=== PATIENT | male | born 1950 | race Caucasian/White ===

== ENCOUNTER → 2017-11-11 | Outpatient (CLI) | payer MEDICARE | END | disposition home or self-care (01) | LOC: LABWHC1 11:31 | PROVIDERS: ATTEND Thoracic Surgery (Cardiothoracic Vascular Surgery) | DX: Z53.9 Procedure and treatment not carried out, unspecified reason (principal) ==

== ENCOUNTER 2017-11-30 12:06 | Inpatient (IN) | payer MEDICARE, OTHER ==
[2017-11-30 13:38] LABS: Basophils % (A) 0 %; Eosinophils # (A) 0.2 k/uL (0-0.7); Eosinophils % (A) 3 %; HGB 12.7 gm/dL (13.0-17.5); Lymphocytes # (A) 1.7 k/uL (1.0-4.8); Lymphocytes % (A) 24 %; MCH 30.3 pg (25.0-35.0); MCHC 33.3 g/dL (31.0-37.0); MCV 90.8 fL (80.0-100.0); Mean Platelet Volume 7.4; Monocytes # (A) 0.4 k/uL (0-1.0); Monocytes % (A) 5 %; Neutrophils # (A) 4.6 k/uL (1.3-7.7); Neutrophils % (A) 65 %; Platelet Count 279 k/uL (150-450); RBC 4.18 m/uL (4.30-5.90); RDW 14.6 % (11.5-15.5)
[2017-11-30 13:47] LABS: ALT 29 U/L (21-72); AST 19 U/L (17-59); Albumin 3.9 g/dL (3.5-5.0); Alkaline Phosphatase 86 U/L (38-126); Anion Gap 13 mmol/L; Blood Urea Nitrogen 18 mg/dL (9-20); Carbon Dioxide 29 mmol/L (22-30); Chloride 101 mmol/L (98-107); Glucose 196 mg/dL (74-99); Sodium 143 mmol/L (137-145); Total Bilirubin 0.3 mg/dL (0.2-1.3); Total Protein 7.6 g/dL (6.3-8.2)
[2017-11-30] MEDS ORDERED: SODIUM CHLORIDE 0.9% 1,000 ML IV STA (13:48)
[2017-11-30] MEDS ORDERED: ASPIRIN 81 MG PO STA (13:48)
[2017-11-30] MEDS ORDERED: NITROGLYCERIN OINT 1 INCH/GM PACKET TOPICAL STA (13:48)
[2017-11-30 13:49] LABS: Partial Thromboplastin Time 23.3 sec (22.0-30.0); Prothrombin Time 10.1 sec (9.0-12.0)
[2017-11-30] MEDS ORDERED: AMPICILLIN-SULBACTAM 3 GM in SODIUM CHLORIDE 0.9% 100 ML IVPB STA (13:51)
[2017-11-30] MEDS ORDERED: VANCOMYCIN IV PER PHARMACY 1 EACH MISC MISCELLANE PRN (13:51)
[2017-11-30] MEDS ORDERED: VANCOMYCIN 2,250 MG in SODIUM CHLORIDE 0.9% 500 ML IVPB STA (13:58)
--- NOTE | 2017-11-30 14:00 | ED ---
General Adult HPI - General Chief complaint: Recheck/Abnormal Lab/Rx Stated complaint: CHEST PAIN, POSS INFECTION ON AMPUTATION Time Seen by Provider: 11/30/17 13:31 Source: patient Mode of arrival: wheelchair Limitations: no limitations - History of Present Illness Initial comments: This 67-year-old white male presents with the complaint of a right foot infection. He does have a history of diabetes and previous osteomyelitis of his right foot. He's had all of his toes amputated approximately 2 years ago. He states that he developed an infection while in [place] last month and had a partial amputation of the lateral aspect of the right foot due to possible gangrene. He states that he started getting drainage a couple days afterwards and the wound never healed and infection has progressed. He currently is on Augmentin and states that he's been compliant with this medication. He has had a drainage from the right foot. He also has had increased pain and increased swelling and erythema. He denies any known fever. He states that he also received 2 balloons to his right lower extremity artery due to some blockage one day after the amputation. He also is a diabetic. He did see his wound care doctor approximately a week and a half but is unable to follow back up with him due to insurance problems. In addition, he is complaining of some midsternal chest pain described as a pressure type sensation which is been present for the last 3 days. He does have a history of a two-vessel CABG. He also has 2 cardiac stents. His last stress and heart catheterization was approximately 2 years ago. He denies any shortness of breath. No other complaints or modifying factors. - Related Data Home Medications Medication Instructions Recorded Confirmed Insulin NPH/Reg Insulin 70/30 20 units SQ AC-TID 12/05/15 11/30/17 [humuLIN 70/30 VIAL] Acetaminophen Tab [Tylenol Tab] 1,000 mg PO Q6HR PRN 11/30/17 11/30/17 Amoxic-Pot Clav 875-125Mg 1 tab PO Q12HR 11/30/17 11/30/17 [Augmentin 875-125] Aspirin EC [Ecotrin Low Dose] 81 mg PO DAILY 11/30/17 11/30/17 Cephalexin [Keflex] 250 mg PO QID 11/30/17 11/30/17 Divalproex Sodium [Depakote ER] 500 mg PO DAILY 11/30/17 11/30/17 Insulin Glargine [Lantus] 30 unit SQ HS 11/30/17 11/30/17 Pregabalin [Lyrica] 75 mg PO BID 11/30/17 11/30/17 Sertraline [Zoloft] 100 mg PO BID 11/30/17 11/30/17 Tadalafil [Cialis] 5 mg PO DAILY 11/30/17 11/30/17 oxyCODONE HCL 15 mg PO QID PRN 11/30/17 11/30/17 Allergies Allergy/AdvReac Type Severity Reaction Status Date / Time sulfamethoxazole Allergy Rash/Hives Verified 11/30/17 13:13 [From Bactrim] trimethoprim [From Bactrim] Allergy Rash/Hives Verified 11/30/17 13:13 Review of Systems ROS Statement: Those systems with pertinent positive or pertinent negative responses have been documented in the HPI. ROS Other: All systems not noted in ROS Statement are negative. Past Medical History Past Medical History: Asthma, Coronary Artery Disease (CAD), CVA/TIA, Diabetes Mellitus, Hyperlipidemia, Hypertension, Myocardial Infarction ([place]), Sleep Apnea/ CPAP/BIPAP Additional Past Medical History / Comment(s): NO CPAP MACHINE,BRONCHITIS, TIA, BEGINNINGS OF CATARACTS,CONSTIPATED,ARTHRITIS,ABD HERNIA, Last Myocardial Infarction Date:: 2003 History of Any Multi-Drug Resistant Organisms: MRSA Date of last positivie culture/infection: 12/06/15 MDRO Source:: RIGHT HAND Past Surgical History: Coronary Bypass/CABG, Heart Catheterization With Stent, Orthopedic Surgery Additional Past Surgical History / Comment(s): HEART CATH AND 2 STENTS BEFORE THE 2 VESSEL BYPASS that was done in 2007, SHATTERED LT HAND SX TO REPAIR.-- right foot toes amputated october 2017 ([place]) Past Anesthesia/Blood Transfusion Reactions: No Reported Reaction Date of Last Stent Placement:: 2003? Past Psychological History: Anxiety, Bipolar, Depression Smoking Status: Never smoker Past Alcohol Use History: Occasional Past Drug Use History: None Reported - Past Family History Mother Family Medical History: Cancer, GERD/Reflux Additional Family Medical History / Comment(s): skin cancer Father Family Medical History: Myocardial Infarction ([place]) Additional Family Medical History / Comment(s): mi's x3 General Exam - General Exam Comments Initial Comments: GENERAL: The patient is well nourished and well hydrated. VITAL SIGNS: Heart rate, blood pressure, respiratory rate reviewed as recorded in nurse's notes. EYES: Pupils are round and reactive. Extraocular movements are intact. No conjunctival / lid redness or swelling. ENT: No external evidence of injury, swelling, or ecchymosis. Airway is patent. Throat is clear. NECK: Nontender. No swelling or evidence of injury. No subcutaneous emphysema. Trachea is midline. No thyroid mass. HEART: Regular rate and rhythm. Good peripheral pulses. LUNGS/CHEST: Breath sounds clear and equal bilaterally. No rales, rhonchi, or wheezes. No ecchymosis, subcutaneous emphysema, or tenderness. ABDOMEN: Abdomen soft without tenderness. No palpable masses or organomegaly. No peritoneal signs. No abdominal wall swelling or ecchymosis. Ventral abdominal hernia noted. EXTREMITIES: There is an open wound noted to the right foot primarily on the lateral aspect of the foot. There is no current drainage but there is a significant malodorous scent. There is associated erythema diffusely to the right foot. The wound measures approximately 7 cm in length and does extend to the superior portion of the right foot. There is good capillary refill to the distal aspect of the right foot. The toes have been previously amputated. Pedal pulses are not palpable. Normal muscle tone and function. No thoracolumbar tenderness. NEUROLOGIC: Sensation is grossly intact. Cranial nerve exam reveals face is symmetrical, tongue is midline, speech is clear. SKIN: No abrasions or ecchymosis is noted. No induration or masses noted. PSYCHIATRIC: Alert and oriented. Appropriate behavior and judgment. Limitations: no limitations Course Vital Signs 11/30/17 11/30/17 11/30/17 12:13 13:21 14:55 Temperature 98.1 F Pulse Rate 65 63 64 Respiratory 18 18 18 Rate Blood Pressure 180/92 168/83 188/102 O2 Sat by Pulse 98 96 98 Oximetry Medical Decision Making - Medical Decision Making The patient was seen and examined. All diagnostics are reviewed. An IV is started and antibiotics are ordered of vancomycin and Unasyn. He receives some aspirin as well as some Nitropaste. The wound was explored and a culture is taken. The wound is further dressed. The EKG is done and this does show a sinus bradycardia at a rate of 57. There is evidence of a right bundle-branch block with associated ST-T wave changes in the anteroseptal leads. The CT intervals 176, QRS duration is 138, and the QTC intervals 478. The laboratory does show evidence of an anemia, elevated sedimentation rate, elevated CRP, and elevated blood sugar. The right foot x-ray does not show definitive osteomyelitis but there is potentially suspicious changes. Please see report for details. The chest x-ray does not show any acute process. Overall, it is felt as though the patient does have right foot cellulitis. He also potentially may have osteomyelitis. He also is having some chest pain with a significant cardiac history and the possibility of acute coronary syndrome certainly is possible. It is felt as though he would require admission to the hospital with specialty consultation. The case is discussed with internal medicine and they're agreeable to admission. - Lab Data Result diagrams: 11/30/17 13:20 11/30/17 13:20 Lab Results 11/30/17 11/30/17 11/30/17 Range/Units 13:20 13:20 13:20 WBC 7.0 (3.8-10.6) k/uL RBC 4.18 L (4.30-5.90) m/uL Hgb 12.7 L (13.0-17.5) gm/dL Hct 38.0 L (39.0-53.0) % MCV 90.8 (80.0-100.0) fL MCH 30.3 (25.0-35.0) pg MCHC 33.3 (31.0-37.0) g/dL RDW 14.6 (11.5-15.5) % Plt Count 279 (150-450) k/uL Neutrophils % 65 % Lymphocytes % 24 % Monocytes % 5 % Eosinophils % 3 % Basophils % 0 % Neutrophils # 4.6 (1.3-7.7) k/uL Lymphocytes # 1.7 (1.0-4.8) k/uL Monocytes # 0.4 (0-1.0) k/uL Eosinophils # 0.2 (0-0.7) k/uL Basophils # 0.0 (0-0.2) k/uL ESR (0-15) mm/hr PT (9.0-12.0) sec INR (<1.2) APTT (22.0-30.0) sec Sodium 143 (137-145) mmol/L Potassium 5.0 (3.5-5.1) mmol/L Chloride 101 (98-107) mmol/L Carbon Dioxide 29 (22-30) mmol/L Anion Gap 13 mmol/L BUN 18 (9-20) mg/dL Creatinine 0.80 (0.66-1.25) mg/dL Est GFR (CKD-EPI)AfAm >90 (>60 ml/min/1.73 sqM) Est GFR (CKD-EPI)NonAf >90 (>60 ml/min/1.73 sqM) Glucose 196 H (74-99) mg/dL Plasma Lactic Acid Hitesh 1.1 (0.7-2.0) mmol/L Calcium 10.0 (8.4-10.2) mg/dL Magnesium (1.6-2.3) mg/dL Total Bilirubin 0.3 (0.2-1.3) mg/dL AST 19 (17-59) U/L ALT 29 (21-72) U/L Alkaline Phosphatase 86 (38-126) U/L Total Creatine Kinase (55-170) U/L CK-MB (CK-2) (0.0-2.4) ng/mL CK-MB (CK-2) Rel Index Troponin I (0.000-0.034) ng/mL C-Reactive Protein (<10.0) mg/L Total Protein 7.6 (6.3-8.2) g/dL Albumin 3.9 (3.5-5.0) g/dL Urine Color Urine Appearance (Clear) Urine pH (5.0-8.0) Ur Specific Aurora (1.001-1.035) Urine Protein (Negative) Urine Glucose (UA) (Negative) Urine Ketones (Negative) Urine Blood (Negative) Urine Nitrite (Negative) Urine Bilirubin (Negative) Urine Urobilinogen (<2.0) mg/dL Ur Leukocyte Esterase (Negative) Urine RBC (0-5) /hpf Urine WBC (0-5) /hpf Hyaline Casts (0-2) /lpf Urine Mucus (None) /hpf 11/30/17 11/30/17 11/30/17 Range/Units 13:20 13:20 13:20 WBC (3.8-10.6) k/uL RBC (4.30-5.90) m/uL Hgb (13.0-17.5) gm/dL Hct (39.0-53.0) % MCV (80.0-100.0) fL MCH (25.0-35.0) pg MCHC (31.0-37.0) g/dL RDW (11.5-15.5) % Plt Count (150-450) k/uL Neutrophils % % Lymphocytes % % Monocytes % % Eosinophils % % Basophils % % Neutrophils # (1.3-7.7) k/uL Lymphocytes # (1.0-4.8) k/uL Monocytes # (0-1.0) k/uL Eosinophils # (0-0.7) k/uL Basophils # (0-0.2) k/uL ESR (0-15) mm/hr PT 10.1 (9.0-12.0) sec INR 1.0 (<1.2) APTT 23.3 (22.0-30.0) sec Sodium (137-145) mmol/L Potassium (3.5-5.1) mmol/L Chloride (98-107) mmol/L Carbon Dioxide (22-30) mmol/L Anion Gap mmol/L BUN (9-20) mg/dL Creatinine (0.66-1.25) mg/dL Est GFR (CKD-EPI)AfAm (>60 ml/min/1.73 sqM) Est GFR (CKD-EPI)NonAf (>60 ml/min/1.73 sqM) Glucose (74-99) mg/dL Plasma Lactic Acid Hitesh (0.7-2.0) mmol/L Calcium (8.4-10.2) mg/dL Magnesium 1.5 L (1.6-2.3) mg/dL Total Bilirubin (0.2-1.3) mg/dL AST (17-59) U/L ALT (21-72) U/L Alkaline Phosphatase (38-126) U/L Total Creatine Kinase 55 (55-170) U/L CK-MB (CK-2) 2.3 (0.0-2.4) ng/mL CK-MB (CK-2) Rel Index 4.2 Troponin I 0.013 (0.000-0.034) ng/mL C-Reactive Protein 15.8 H (<10.0) mg/L Total Protein (6.3-8.2) g/dL Albumin (3.5-5.0) g/dL Urine Color Urine Appearance (Clear) Urine pH (5.0-8.0) Ur Specific Aurora (1.001-1.035) Urine Protein (Negative) Urine Glucose (UA) (Negative) Urine Ketones (Negative) Urine Blood (Negative) Urine Nitrite (Negative) Urine Bilirubin (Negative) Urine Urobilinogen (<2.0) mg/dL Ur Leukocyte Esterase (Negative) Urine RBC (0-5) /hpf Urine WBC (0-5) /hpf Hyaline Casts (0-2) /lpf Urine Mucus (None) /hpf 11/30/17 11/30/17 Range/Units 13:20 13:55 WBC (3.8-10.6) k/uL RBC (4.30-5.90) m/uL Hgb (13.0-17.5) gm/dL Hct (39.0-53.0) % MCV (80.0-100.0) fL MCH (25.0-35.0) pg MCHC (31.0-37.0) g/dL RDW (11.5-15.5) % Plt Count (150-450) k/uL Neutrophils % % Lymphocytes % % Monocytes % % Eosinophils % % Basophils % % Neutrophils # (1.3-7.7) k/uL Lymphocytes # (1.0-4.8) k/uL Monocytes # (0-1.0) k/uL Eosinophils # (0-0.7) k/uL Basophils # (0-0.2) k/uL ESR 77 H (0-15) mm/hr PT (9.0-12.0) sec INR (<1.2) APTT (22.0-30.0) sec Sodium (137-145) mmol/L Potassium (3.5-5.1) mmol/L Chloride (98-107) mmol/L Carbon Dioxide (22-30) mmol/L Anion Gap mmol/L BUN (9-20) mg/dL Creatinine (0.66-1.25) mg/dL Est GFR (CKD-EPI)AfAm (>60 ml/min/1.73 sqM) Est GFR (CKD-EPI)NonAf (>60 ml/min/1.73 sqM) Glucose (74-99) mg/dL Plasma Lactic Acid Hitesh (0.7-2.0) mmol/L Calcium (8.4-10.2) mg/dL Magnesium (1.6-2.3) mg/dL Total Bilirubin (0.2-1.3) mg/dL AST (17-59) U/L ALT (21-72) U/L Alkaline Phosphatase (38-126) U/L Total Creatine Kinase (55-170) U/L CK-MB (CK-2) (0.0-2.4) ng/mL CK-MB (CK-2) Rel Index Troponin I (0.000-0.034) ng/mL C-Reactive Protein (<10.0) mg/L Total Protein (6.3-8.2) g/dL Albumin (3.5-5.0) g/dL Urine Color Yellow Urine Appearance Clear (Clear) Urine pH 5.5 (5.0-8.0) Ur Specific Aurora 1.015 (1.001-1.035) Urine Protein 2+ H (Negative) Urine Glucose (UA) Negative (Negative) Urine Ketones Negative (Negative) Urine Blood Small H (Negative) Urine Nitrite Negative (Negative) Urine Bilirubin Negative (Negative) Urine Urobilinogen <2.0 (<2.0) mg/dL Ur Leukocyte Esterase Negative (Negative) Urine RBC 3 (0-5) /hpf Urine WBC 1 (0-5) /hpf Hyaline Casts 1 (0-2) /lpf Urine Mucus Rare H (None) /hpf Disposition Clinical Impression: Cellulitis of foot, Diabetes, Hypertension, Chest pain, Unstable angina, Peripheral vascular disease, Diabetic foot ulcer, Hyperglycemia, Elevated sed rate, CRP elevated Disposition: ADMITTED IP TO THIS HOSP Condition: Fair Is patient prescribed a controlled substance at d/c from ED?: No Time of Disposition: 15:06 Decision Date: 11/30/17 Decision Time: 15:06
[2017-11-30 14:20] LABS: Appearance,Urine Clear (Clear); Bilirubin,Urine Negative (Negative); Blood,Urine Small (Negative); Color,Urine Yellow; Glucose,Urine (UA) Negative (Negative); Hyaline Casts,Urine 1 /lpf (0-2); Ketones,Urine Negative (Negative); Leukocyte Esterase,Urine Negative (Negative); Mucus,Urine Rare /hpf; Nitrite,Urine Negative (Negative); PH, Urine 5.5 (5.0-8.0); Protein,Urine 2+ (Negative); RBC,Urine 3 /hpf (0-5); Specific Gravity,Urine 1.015 (1.001-1.035); Urobilinogen,Urine <2.0 mg/dL (<2.0); WBC,Urine 1 /hpf (0-5)
[2017-11-30 14:30] LABS: C Reactive Protein 15.8 mg/L (<10.0); Magnesium 1.5 mg/dL (1.6-2.3)
[2017-11-30 14:39] LABS: Troponin I 0.013 ng/mL (0.000-0.034)
[2017-11-30 14:47] LABS: Creatine Kinase MB 2.3 ng/mL (0.0-2.4)
--- NOTE | 2017-11-30 14:53 | XR ---
EXAMINATION TYPE: XR chest 2V DATE OF EXAM: 11/30/2017 COMPARISON: 12/05/2015 HISTORY: 67-year-old male with chest pain TECHNIQUE: AP and lateral views FINDINGS: Heart upper limits of normal in size. Median sternotomy wires are present. Mild diffuse interstitial prominence is unchanged. Strandy atelectasis or scarring at the left base. No consolidation or pleura l effusion. IMPRESSION: Borderline cardiomegaly and chronic interstitial changes. Strandy atelectasis/scar at the left base. No acute process seen.
--- NOTE | 2017-11-30 14:56 | XR ---
EXAMINATION TYPE: XR foot complete RT DATE OF EXAM: 11/30/2017 COMPARISON: NONE HISTORY: 67-year-old male pain, possible infection, recent amputation one month ago. TECHNIQUE: 3 views FINDINGS: Images showing forefoot amputation at the mid metatarsal shaft level. Amputation along the fifth ray at the level of the proximal metatarsal shaft. There is soft tissue swelling. There is some indistinc tness and irregularity along the all of the osteotomy margins. Mild periosteal reaction along the fou rth metatarsal shaft. Small plantar calcaneal spur. No acute fracture seen. IMPRESSION: Forefoot amputation. The first through fourth rays have been amputated at the mid metatarsal shaft le erick. The fifth ray was amputated at the proximal metatarsal shaft level. While there is no yaneli bony destruction, all of the osteotomy margins are somewhat irregular and ill-defined. Difficult to exclu de early infection/osteomyelitis based on this appearance. Further clinical correlation recommended.
[2017-11-30] MEDS ORDERED: MAGNESIUM SULFATE-D5W PMX 1 GM in DEXTROSE/WATER 1 100ML.BAG IVPB ONE (14:59)
[2017-11-30] MEDS ORDERED: ACETAMINOPHEN TAB 325 MG TAB PO PRN (15:11)
[2017-11-30] MEDS ORDERED: NALOXONE 0.4 MG/ML 1 ML VIAL IV PRN (15:11)
[2017-11-30] MEDS ORDERED: MORPHINE SULFATE 4 MG/ML SYRINGE IVP STA (15:12)
[2017-11-30 19:13] LABS: Glucose,Whole Blood 263 mg/dL (75-99)
[2017-11-30 19:54] LABS: Creatine Kinase 53 U/L (55-170)
[2017-11-30 20:06] LABS: Creatine Kinase MB 1.6 ng/mL (0.0-2.4); Troponin I <0.012 ng/mL (0.000-0.034)
[2017-11-30] MEDS: INSULIN NPH/REG INSULIN 70/30 300 UNIT/3 ML VIAL SQ SCH ×2 (20:07→20:13)
[2017-11-30] MEDS: NITROGLYCERIN OINT 1 INCH/GM PACKET TOPICAL SCH ×2 (20:15→20:23)
[2017-11-30] MEDS: PREGABALIN 75 MG CAP PO SCH (20:21)
[2017-11-30] MEDS: SERTRALINE 100 MG TAB PO SCH (20:21)
[2017-11-30] MEDS: MORPHINE SULFATE 4 MG/ML SYRINGE IV PRN (20:21)
[2017-11-30] MEDS: AMPICILLIN-SULBACTAM 3 GM in SODIUM CHLORIDE 0.9% 100 ML IVPB SCH (20:23)
[2017-11-30 22:35] LABS: Glucose,Whole Blood 253 mg/dL (75-99)
[2017-11-30] MEDS: INSULIN DETEMIR 100 UNIT/ML 10 ML VIAL SQ SCH (23:15)
[2017-11-30] MEDS: MELATONIN 5 MG TABLET PO SCH (23:16)
--- NOTE | 2017-11-30 23:37 | P.HPIM ---
History of Present Illness H&P Date: 11/30/17 Chief Complaint: Right foot pain with foul smelling discharge Mr. Dye is a 67-year-old white male with the PMH of HTN, DM, Diabetic neuropathy, PVD, CAD s/p CABG presents with the complaint of a right foot infection. He has diabetes and previous osteomyelitis of his right foot for which had all of his toes amputated approximately 2 years ago. He moved to [place] in Jun, and went to [place] last month. There he developed an infectio and had a partial amputation of the lateral aspect of the right foot for possible gangrene. He states that wound never healed and infection has progressed. He currently is on Augmentin and states that he's been compliant with this medication. He has had malodorous drainage from the right foot with increased pain, swelling and erythema. No fevers, chills or rigors. He states that he also received 2 balloons to his right lower extremity artery due to some blockage one day after the amputation. He did see his wound care doctor approximately a week and a half but is unable to follow back up with him due to insurance problems. In addition, he is complaining of some midsternal chest pain described as a pressure type sensation which is been present for the last 3 days. He does have a history of a two-vessel CABG. He also has 2 cardiac stents. Chest pain , sub sternal ,non radiating , pleuritic type of chest pain. His last stress and heart catheterization was approximately 2 years ago. He denies any shortness of breath. He denies having any abdoimnal pain, nausea, vomting or diarrhea. No hematuria or Dysuria. No other active complains. Review of Systems REVIEW OF SYSTEMS: PSYCH: No anxiety or depression NEURO:No c/o weakness of the extremties, No facial droop, No speech abnormalities. VASCULAR: h/o peripheral vascular disease HEMATOLOGIC: No history of easy bleeding and bruising . RESPIRATORY: No cough, No SOB, No chest discomfort. IMMUNE: No infections INTEGUMENT: no rashes OPHTHALMOLOGIC: No blurry vision and no eye discharge : No dysuria or hematuria CARDIAC: Chest pain/discomfort , no shortness of breath or paroxysmal nocturnal dyspnea MUSCULOSKELETAL : No Aches or pains in the joints or muscles. GI: No nausea and vomiting or abdominal pain. Past Medical History Past Medical History: Asthma, Coronary Artery Disease (CAD), CVA/TIA, Diabetes Mellitus, Hyperlipidemia, Hypertension, Myocardial Infarction ([place]), Sleep Apnea/ CPAP/BIPAP Additional Past Medical History / Comment(s): NO CPAP MACHINE,BRONCHITIS, TIA, BEGINNINGS OF CATARACTS,ARTHRITIS,ABD HERNIA,"urgency/frequency of urine",past rt hand cellulitis Last Myocardial Infarction Date:: 2003 History of Any Multi-Drug Resistant Organisms: MRSA Date of last positivie culture/infection: 12/06/15 MDRO Source:: RIGHT HAND Past Surgical History: Coronary Bypass/CABG, Heart Catheterization With Stent, Orthopedic Surgery Additional Past Surgical History / Comment(s): HEART CATH AND 2 STENTS BEFORE THE 2 VESSEL BYPASS that was done in 2007, SHATTERED LT HAND SX TO REPAIR.-- right foot toes amputated october 2017 ([place]), rt pinky finger amp Past Anesthesia/Blood Transfusion Reactions: No Reported Reaction Date of Last Stent Placement:: 2003? Smoking Status: Never smoker - Past Family History Mother Family Medical History: Cancer, GERD/Reflux Additional Family Medical History / Comment(s): skin cancer Father Family Medical History: Myocardial Infarction ([place]) Additional Family Medical History / Comment(s): mi's x3 Medications and Allergies Home Medications Medication Instructions Recorded Confirmed Type Insulin NPH/Reg Insulin 70/30 20 units SQ AC-TID 12/05/15 11/30/17 History [humuLIN 70/30 VIAL] Acetaminophen Tab [Tylenol Tab] 1,000 mg PO Q6HR PRN 11/30/17 11/30/17 History Amoxic-Pot Clav 875-125Mg 1 tab PO Q12HR 11/30/17 11/30/17 History [Augmentin 875-125] Aspirin EC [Ecotrin Low Dose] 81 mg PO DAILY 11/30/17 11/30/17 History Cephalexin [Keflex] 250 mg PO QID 11/30/17 11/30/17 History Divalproex Sodium [Depakote ER] 500 mg PO DAILY 11/30/17 11/30/17 History Insulin Glargine [Lantus] 30 unit SQ HS 11/30/17 11/30/17 History Pregabalin [Lyrica] 75 mg PO BID 11/30/17 11/30/17 History Sertraline [Zoloft] 100 mg PO BID 11/30/17 11/30/17 History Tadalafil [Cialis] 5 mg PO DAILY 11/30/17 11/30/17 History oxyCODONE HCL 15 mg PO QID PRN 11/30/17 11/30/17 History Allergies Allergy/AdvReac Type Severity Reaction Status Date / Time sulfamethoxazole Allergy Rash/Hives Verified 11/30/17 13:13 [From Bactrim] trimethoprim [From Bactrim] Allergy Rash/Hives Verified 11/30/17 13:13 Physical Exam Vitals: Vital Signs Temp Pulse Pulse Resp BP BP Pulse Ox 11/30/17 20:00 97.3 F L 60 18 171/84 97 11/30/17 17:45 96.5 F L 64 16 148/77 97 11/30/17 16:06 58 L 18 182/85 96 11/30/17 14:55 64 18 188/102 98 11/30/17 13:21 63 18 168/83 96 11/30/17 12:13 98.1 F 65 18 180/92 98 Intake and Output 11/30/17 11/30/17 12/01/17 14:59 22:59 06:59 Output Total 400 Balance -400 Output: Urine 400 Other: Voiding Method Toilet Weight 108.862 kg GENERAL: The patient is well nourished and well hydrated. EYES: Pupils are round and reactive. Extraocular movements are intact. No conjunctival / lid redness or swelling. ENT: No external evidence of injury, swelling, or ecchymosis. Airway is patent. Throat is clear. NECK: Nontender. No swelling or evidence of injury. No subcutaneous emphysema. Trachea is midline. No thyroid mass. HEART: Regular rate and rhythm. Good peripheral pulses. LUNGS/CHEST: Breath sounds clear and equal bilaterally. No rales, rhonchi, or wheezes. No ecchymosis, subcutaneous emphysema, or tenderness. CABG scar noted ABDOMEN: Abdomen soft without tenderness. Ventral abdominal hernia noted. Organomegaly difficulr to appreciate due to huge body habitus. EXTREMITIES: There is an open wound noted to the right foot primarily on the lateral aspect of the foot which is significant malodorous . There is associated erythema diffusely to the right foot. The wound measures approximately 7 -9 cm in length and does extend to the superior portion of the right foot. There is good capillary refill to the distal aspect of the right foot. The toes have been previously amputated. Pedal pulses are not palpable. Normal muscle tone and function. No thoracolumbar tenderness. NEUROLOGIC: Sensation is grossly intact. Cranial nerve exam reveals face is symmetrical, tongue is midline, speech is clear. SKIN: No abrasions or ecchymosis is noted. No induration or masses noted. PSYCHIATRIC: Alert and oriented. Appropriate behavior and judgment. Results CBC & Chem 7: 11/30/17 13:20 11/30/17 13:20 Labs: Abnormal Lab Results - Last 24 Hours (Table) 11/30/17 11/30/17 11/30/17 Range/Units 13:20 13: 13:20 RBC 4.18 L (4.30-5.90) m/uL Hgb 12.7 L (13.0-17.5) gm/dL Hct 38.0 L (39.0-53.0) % ESR (0-15) mm/hr Glucose 196 H (74-99) mg/dL POC Glucose (mg/dL) (75-99) mg/dL Magnesium 1.5 L (1.6-2.3) mg/dL Total Creatine Kinase (55-170) U/L C-Reactive Protein 15.8 H (<10.0) mg/L Urine Protein (Negative) Urine Blood (Negative) Urine Mucus (None) /hpf 11/30/17 11/30/17 11/30/17 Range/Units 13:20 13:55 19:10 RBC (4.30-5.90) m/uL Hgb (13.0-17.5) gm/dL Hct (39.0-53.0) % ESR 77 H (0-15) mm/hr Glucose (74-99) mg/dL POC Glucose (mg/dL) 263 H (75-99) mg/dL Magnesium (1.6-2.3) mg/dL Total Creatine Kinase (55-170) U/L C-Reactive Protein (<10.0) mg/L Urine Protein 2+ H (Negative) Urine Blood Small H (Negative) Urine Mucus Rare H (None) /hpf 11/30/17 11/30/17 Range/Units 19:19 22:33 RBC (4.30-5.90) m/uL Hgb (13.0-17.5) gm/dL Hct (39.0-53.0) % ESR (0-15) mm/hr Glucose (74-99) mg/dL POC Glucose (mg/dL) 253 H (75-99) mg/dL Magnesium (1.6-2.3) mg/dL Total Creatine Kinase 53 L (55-170) U/L C-Reactive Protein (<10.0) mg/L Urine Protein (Negative) Urine Blood (Negative) Urine Mucus (None) /hpf Microbiology - Last 24 Hours (Table) 11/30/17 13:55 Gram Stain - Preliminary Foot - Right Wound Culture - Preliminary Assessment and Plan Assessment: Diabetic foot ulcer with surrounding cellulitis Atypical chest pain Diabetes mellitus CAD s/p CABG Peripheral vascular disease H/o amupatation of the right toes HTN Hyperlipdemia Hypomagnesemia Obesity BMI - 35.4 PLAN: Pt was given Van and Unasyn in the ED. Will check serial Troponins and EKG. Vascular, ID and Cardiology services consulted. Will resume home meds. Further recs to follow depending on the progress.
[2017-12-01] MEDS: MORPHINE SULFATE 4 MG/ML SYRINGE IV PRN ×6 (00:42→23:39)
[2017-12-01] MEDS: AMPICILLIN-SULBACTAM 3 GM in SODIUM CHLORIDE 0.9% 100 ML IVPB SCH ×4 (02:44→23:40)
[2017-12-01 02:47] LABS: Basophils % (A) 1 %; Eosinophils # (A) 0.3 k/uL (0-0.7); Eosinophils % (A) 4 %; HCT 33.7 % (39.0-53.0); HGB 11.6 gm/dL (13.0-17.5); Lymphocytes # (A) 2.2 k/uL (1.0-4.8); Lymphocytes % (A) 34 %; MCH 31.6 pg (25.0-35.0); MCHC 34.4 g/dL (31.0-37.0); Mean Platelet Volume 7.8; Monocytes # (A) 0.4 k/uL (0-1.0); Monocytes % (A) 7 %; Neutrophils # (A) 3.3 k/uL (1.3-7.7); Neutrophils % (A) 52 %; Platelet Count 290 k/uL (150-450); RBC 3.66 m/uL (4.30-5.90); RDW 14.5 % (11.5-15.5); WBC 6.3 k/uL (3.8-10.6)
[2017-12-01 02:49] LABS: Anion Gap 11 mmol/L; Blood Urea Nitrogen 19 mg/dL (9-20); Calcium 9.1 mg/dL (8.4-10.2); Carbon Dioxide 24 mmol/L (22-30); Chloride 103 mmol/L (98-107); Glucose 147 mg/dL (74-99); Potassium 4.4 mmol/L (3.5-5.1); Sodium 138 mmol/L (137-145)
[2017-12-01 02:53] LABS: Creatine Kinase 50 U/L (55-170)
[2017-12-01 03:05] LABS: Creatine Kinase MB 1.4 ng/mL (0.0-2.4); Troponin I <0.012 ng/mL (0.000-0.034)
[2017-12-01] MEDS: VANCOMYCIN 2,000 MG in SODIUM CHLORIDE 0.9% 500 ML IVPB SCH ×2 (05:43→19:29)
[2017-12-01 06:12] LABS: Glucose,Whole Blood 136 mg/dL (75-99)
[2017-12-01] MEDS ORDERED: PANTOPRAZOLE 40 MG/10 ML VIAL IV SCH (09:00)
[2017-12-01] MEDS: INSULIN NPH/REG INSULIN 70/30 300 UNIT/3 ML VIAL SQ SCH ×3 (10:27→17:28)
[2017-12-01] MEDS: ENOXAPARIN 40 MG/0.4 ML SYRINGE SQ SCH (10:35)
[2017-12-01] MEDS: DIVALPROEX ER 250 MG TAB.ER.24H PO SCH (10:35)
[2017-12-01] MEDS: ASPIRIN 81 MG PO SCH (10:35)
[2017-12-01] MEDS: SERTRALINE 100 MG TAB PO SCH ×2 (10:36→19:43)
[2017-12-01] MEDS: NITROGLYCERIN OINT 1 INCH/GM PACKET TOPICAL SCH ×4 (10:36→22:08)
[2017-12-01] MEDS: PREGABALIN 75 MG CAP PO SCH ×2 (10:42→19:43)
--- NOTE | 2017-12-01 11:25 | P.CRDCN ---
History of Present Illness Consult date: 12/01/17 Requesting physician: Gianna Irving Consult reason: chest pain Chief complaint: Chest pain and right foot pain History of present illness: This is a pleasant 67-year-old gentleman who has a known history of hypertension, diabetes, hyperlipidemia, coronary artery disease with prior bypass surgery, prior to his bypass surgery patient also had stent placements, he states that his bypass surgery was performed in 2011. Patient also has history of peripheral vascular disease, PAD with prior peripheral stenting, asthma. Patient recently moved back to this area in June, he states that he went back to [place] in October, at that time he underwent surgery of his right foot, he had already had the toes amputated from that foot prior to that. This occasion the lateral aspect of the right foot was operated on for possible gangrene. The patient presents to the hospital on this occasion with symptoms of sharp stabbing chest discomfort, he was also complaining of significant pain in his right foot. Patient states the pain in his chest as sharp in nature and worsens with deep breathing, he also stated that a few days ago he had an episode of pressure and heaviness. EKG on arrival here showed a sinus bradycardia with right bundle branch pattern, nonspecific ST-T wave changes. Chest x-ray shows borderline cardiomegaly and chronic interstitial changes. Foot x-ray shows a forefoot amputation, the first through fourth toes have been amputated at the mid metatarsal shaft level. Patient while there is no yaneli bony distraction, all of the osteotomy margins are somewhat irregular and ill-defined. Difficult to exclude early infection or osteomyelitis based on this appearance. Blood pressure 130/60 with a heart rate in the 50s, 93% on room air. White blood cell count is normal, hemoglobin 11.6, platelet count 290. Sodium 138, potassium 4.4, BUN 19, creatinine 0.7. Magnesium level I.5. Troponins negative 3. At the time of my examination this morning, patient denies any chest discomfort, he also states that for the past one week or so he' s been extremely fatigued and tired. Past Medical History Past Medical History: Asthma, Coronary Artery Disease (CAD), CVA/TIA, Diabetes Mellitus, Hyperlipidemia, Hypertension, Myocardial Infarction (DC), Sleep Apnea/ CPAP/BIPAP Additional Past Medical History / Comment(s): NO CPAP MACHINE,BRONCHITIS, TIA, BEGINNINGS OF CATARACTS,ARTHRITIS,ABD HERNIA,"urgency/frequency of urine",past rt hand cellulitis Last Myocardial Infarction Date:: 2003 History of Any Multi-Drug Resistant Organisms: MRSA Date of last positivie culture/infection: 12/06/15 MDRO Source:: RIGHT HAND Past Surgical History: Coronary Bypass/CABG, Heart Catheterization With Stent, Orthopedic Surgery Additional Past Surgical History / Comment(s): HEART CATH AND 2 STENTS BEFORE THE 2 VESSEL BYPASS that was done in 2007, SHATTERED LT HAND SX TO REPAIR.-- right foot toes amputated october 2017 ([place]), rt pinky finger amp Past Anesthesia/Blood Transfusion Reactions: No Reported Reaction Date of Last Stent Placement:: 2003? Smoking Status: Never smoker - Past Family History Mother Family Medical History: Cancer, GERD/Reflux Additional Family Medical History / Comment(s): skin cancer Father Family Medical History: Myocardial Infarction (DC) Additional Family Medical History / Comment(s): mi's x3 Medications and Allergies Home Medications Medication Instructions Recorded Confirmed Type Insulin NPH/Reg Insulin 70/30 20 units SQ AC-TID 12/05/15 11/30/17 History [humuLIN 70/30 VIAL] Acetaminophen Tab [Tylenol Tab] 1,000 mg PO Q6HR PRN 11/30/17 11/30/17 History Amoxic-Pot Clav 875-125Mg 1 tab PO Q12HR 11/30/17 11/30/17 History [Augmentin 875-125] Aspirin EC [Ecotrin Low Dose] 81 mg PO DAILY 11/30/17 11/30/17 History Cephalexin [Keflex] 250 mg PO QID 11/30/17 11/30/17 History Divalproex Sodium [Depakote ER] 500 mg PO DAILY 11/30/17 11/30/17 History Insulin Glargine [Lantus] 30 unit SQ HS 11/30/17 11/30/17 History Pregabalin [Lyrica] 75 mg PO BID 11/30/17 11/30/17 History Sertraline [Zoloft] 100 mg PO BID 11/30/17 11/30/17 History Tadalafil [Cialis] 5 mg PO DAILY 11/30/17 11/30/17 History oxyCODONE HCL 15 mg PO QID PRN 11/30/17 11/30/17 History Allergies Allergy/AdvReac Type Severity Reaction Status Date / Time sulfamethoxazole Allergy Rash/Hives Verified 11/30/17 13:13 [From Bactrim] trimethoprim [From Bactrim] Allergy Rash/Hives Verified 11/30/17 13:13 Physical Exam Vitals: Vital Signs Temp Pulse Pulse Resp BP BP Pulse Ox 12/01/17 08:00 96.9 F L 51 L 17 153/72 94 L 12/01/17 04:00 97.9 F 52 L 18 131/63 93 L 12/01/17 00:00 98.3 F 60 18 172/81 95 11/30/17 20:00 97.3 F L 60 18 171/84 97 11/30/17 17:45 96.5 F L 64 16 148/77 97 11/30/17 16:06 58 L 18 182/85 96 11/30/17 14:55 64 18 188/102 98 11/30/17 13:21 63 18 168/83 96 11/30/17 12:13 98.1 F 65 18 180/92 98 Intake and Output 11/30/17 12/01/17 12/01/17 22:59 06:59 14:59 Intake Total 1650 Output Total 400 Balance -400 1650 Intake: Intake, IV Titration 1650 Amount Ampicillin-Sulbactam 3 gm 100 In Sodium Chloride 0.9% 100 ml @ 100 mls/hr IVPB Q6H PETER Rx#:[id number] Magnesium Sulfate-D5w Pmx 100 1 gm In Dextrose/Water 1 100ml.bag @ 100 mls/hr IVPB ONCE ONE Rx#: [id number] Sodium Chloride 0.9% 1, 450 000 ml @ 75 mls/hr IV . [id number] STA Rx#:[id number] Vancomycin 2,000 mg In 500 Sodium Chloride 0.9% 500 ml @ 166.667 mls/hr IVPB Q12H PETER Rx#:[id number] Vancomycin 2,250 mg In 500 Sodium Chloride 0.9% 500 ml @ 166.667 mls/hr IVPB ONCE STA Rx#:[id number] Output: Urine 400 Other: Voiding Method Toilet Toilet # Voids 2 Weight 111.4 kg PHYSICAL EXAMINATION: HEENT: Head is atraumatic, normocephalic. Pupils equal, round. Neck is supple. There is no elevated jugular venous pressure. HEART EXAMINATION: Heart S1, S2 normal. No murmur or gallop heard. CHEST EXAMINATION:lungs reveal fine expiratory wheezing throughout. ABDOMEN: Soft, nontender. Bowel sounds are heard. No organomegaly noted. EXTREMITIES:[ 1+ peripheral pulses with no evidence of peripheral edema , there is a dressing in place in the right lower extremity, dry and intact, patient has had amputation of the toes on that foot and a recent lateral surgery. NEUROLOGIC patient is awake, alert and oriented -3. . Results 12/01/17 01:42 12/01/17 01:42 Cardiac Enzymes 11/30/17 11/30/17 11/30/17 Range/Units 13:20 13:20 19:19 AST 19 (17-59) U/L CK-MB (CK-2) 2.3 1.6 (0.0-2.4) ng/mL Troponin I 0.013 <0.012 (0.000-0.034) ng/mL 12/01/17 Range/Units 01:42 AST (17-59) U/L CK-MB (CK-2) 1.4 (0.0-2.4) ng/mL Troponin I <0.012 (0.000-0.034) ng/mL Coagulation 11/30/17 Range/Units 13:20 PT 10.1 (9.0-12.0) sec APTT 23.3 (22.0-30.0) sec CBC 11/30/17 12/01/17 Range/Units 13:20 01:42 WBC 7.0 6.3 (3.8-10.6) k/uL RBC 4.18 L 3.66 L (4.30-5.90) m/uL Hgb 12.7 L 11.6 L (13.0-17.5) gm/dL Hct 38.0 L 33.7 L (39.0-53.0) % Plt Count 279 290 (150-450) k/uL Comprehensive Metabolic Panel 11/30/17 12/01/17 Range/Units 13:20 01:42 Sodium 143 138 (137-145) mmol/L Potassium 5.0 4.4 (3.5-5.1) mmol/L Chloride 101 103 (98-107) mmol/L Carbon Dioxide 29 24 (22-30) mmol/L BUN 18 19 (9-20) mg/dL Creatinine 0.80 0.70 (0.66-1.25) mg/dL Glucose 196 H 147 H (74-99) mg/dL Calcium 10.0 9.1 (8.4-10.2) mg/dL AST 19 (17-59) U/L ALT 29 (21-72) U/L Alkaline Phosphatase 86 (38-126) U/L Total Protein 7.6 (6.3-8.2) g/dL Albumin 3.9 (3.5-5.0) g/dL Current Medications Generic Name Dose Route Start Last Admin Trade Name Freq PRN Reason Stop Dose Admin Acetaminophen 650 mg 11/30/17 15:11 Tylenol Tab PO Q6HR PRN Mild Pain or Fever > 100.5 Aspirin 81 mg 12/01/17 09:00 12/01/17 10:35 Aspirin PO 81 mg DAILY PETER Administration Divalproex Sodium 500 mg 12/01/17 09:00 12/01/17 10:35 Depakote Er PO 500 mg DAILY PETER Administration Enoxaparin Sodium 40 mg 12/01/17 09:00 12/01/17 10:35 Lovenox SQ 40 mg DAILY PETER Administration Vancomycin HCl 2,000 mg/ 500 mls @ 166.667 mls/hr 12/01/17 06:00 12/01/17 05: 43 Sodium Chloride IVPB 166.667 mls/hr Q12H PETER Administration Ampicillin Sodium/Sulbactam 100 mls @ 100 mls/hr 11/30/17 21:00 12/01/17 10: 23 Sodium 3 gm/ Sodium Chloride IVPB 100 mls/hr Q6H PETER Administration Insulin Detemir 30 unit 11/30/17 21:00 11/30/17 23:15 Levemir SQ 30 unit HS PETER Administration Insulin Human Isoph/Insulin Regular 20 unit 11/30/17 17:30 12/01/17 10:27 Humulin 70/30 Vial SQ 20 unit AC-TID PETER Administration Melatonin 5 mg 11/30/17 21:30 11/30/17 23:16 Melatonin PO 5 mg HS PETER Administration Miscellaneous Information 1 each 12/03/17 05:00 Vancomycin Trough Due MISCELLANE 12/03/17 05:01 ONCE ONE Morphine Sulfate 2 mg 11/30/17 15:11 12/01/17 10:32 Morphine Sulfate (Inj) IV 2 mg Q4HR PRN Administration Severe Pain Naloxone HCl 0.2 mg 11/30/17 15:11 Narcan IV Q2M PRN Opioid Reversal Nitroglycerin 1 inch 11/30/17 18:00 12/01/17 10:36 Nitro-Bid Oint TOPICAL Not Given QID [facility] Oxycodone HCl 15 mg 11/30/17 15:15 12/01/17 07:21 Oxyir PO 15 mg QID PRN Administration Breakthrough Pain Pantoprazole Sodium 40 mg 12/02/17 07:30 Protonix PO AC-BRKFST [facility] Pregabalin 75 mg 11/30/17 21:00 12/01/17 10:42 Lyrica PO 75 mg BID PETER Administration Sertraline HCl 100 mg 11/30/17 21:00 12/01/17 10:36 Zoloft PO 100 mg BID PETER Administration Intake and Output 11/30/17 12/01/17 12/01/17 22:59 06:59 14:59 Intake Total 1650 Output Total 400 Balance -400 1650 Intake: Intake, IV Titration 1650 Amount Ampicillin-Sulbactam 3 gm 100 In Sodium Chloride 0.9% 100 ml @ 100 mls/hr IVPB Q6H PETER Rx#:[id number] Magnesium Sulfate-D5w Pmx 100 1 gm In Dextrose/Water 1 100ml.bag @ 100 mls/hr IVPB ONCE ONE Rx#: [id number] Sodium Chloride 0.9% 1, 450 000 ml @ 75 mls/hr IV . [id number] STA Rx#:[id number] Vancomycin 2,000 mg In 500 Sodium Chloride 0.9% 500 ml @ 166.667 mls/hr IVPB Q12H PETER Rx#:[id number] Vancomycin 2,250 mg In 500 Sodium Chloride 0.9% 500 ml @ 166.667 mls/hr IVPB ONCE STA Rx#:[id number] Output: Urine 400 Other: Voiding Method Toilet Toilet # Voids 2 Weight 111.4 kg 12/01/17 01:42 12/01/17 01:42 EKG Interpretations (text) EKG shows a sinus bradycardia with right bundle branch block pattern Assessment and Plan Plan: Assessment and plan #1 chest pain, with atypical features for acute coronary syndrome. Troponins negative 3. EKG shows a sinus bradycardia with right bundle branch block pattern and nonspecific ST-T wave changes #2 right foot pain, patient has amputation of the toes on his right foot and recently underwent further surgery of that foot. Cellulitis rule out osteomyelitis. #3 hypertension #4 diabetes #5 hyperlipidemia #6 known history of coronary artery disease with prior bypass surgery and stent placements Plan We will continue the patient on a baby aspirin, add a statin to his medication regime, start the patient on angiotensin rigo and small dose beta rigo. We will schedule the patient for a Lexiscan stress test tomorrow, obtain an echocardiogram with Doppler study. Further recommendations to follow. DNP note has been reviewed, I agree with a documented findings and plan of care. Patient was seen and examined.
[2017-12-01 12:14] LABS: Glucose,Whole Blood 198 mg/dL (75-99)
--- NOTE | 2017-12-01 15:42 | P.PN ---
Subjective Patient is a pleasant 67-year-old gentleman admitted for left foot ulcer and infection patient is status post partial amputation of the left foot disarticulation procedure, does have cellulitis surrounding the surgical site area with an ulceration patient is undergoing MRI to rule out osteomyelitis and patient is on vancomycin and Unasyn. Vascular surgery infectious disease evaluate the patient. Patient was complaining of chest pain because of the risk factors although atypical cardiology is recommending a stress test. Which she will undergo tomorrow. Patient chest pain is in the epigastric area patient is already on Protonix and still has minimal chest discomfort. Constitutional: Denied any fatigue denied any fever. Cardio vascular: denied any palpitations Gastrointestinal denied any nausea vomiting Pulmonary: Denied any shortness of breath cough Neurologic denied any new focal deficits Objective - Vital Signs Vital signs: Vital Signs Temp 96.9 F L 12/01/17 08:00 Pulse 57 L 12/01/17 12:00 Resp 17 12/01/17 12:00 BP 152/72 12/01/17 12:00 Pulse Ox 96 12/01/17 12:00 Intake & Output 11/30/17 12/01/17 12/01/17 18:59 06:59 18:59 Intake Total 1650 600 Output Total 400 Balance -400 1650 600 Weight 108.862 kg 111.4 kg 111.4 kg Intake: Intake, IV Titration 1650 600 Amount Ampicillin-Sulbactam 3 gm 100 100 In Sodium Chloride 0.9% 100 ml @ 100 mls/hr IVPB Q6H PETER Rx#:[id number] Magnesium Sulfate-D5w Pmx 100 1 gm In Dextrose/Water 1 100ml.bag @ 100 mls/hr IVPB ONCE ONE Rx#: [id number] Sodium Chloride 0.9% 1, 450 000 ml @ 75 mls/hr IV . [id number] STA Rx#:[id number] Vancomycin 2,000 mg In 500 500 Sodium Chloride 0.9% 500 ml @ 166.667 mls/hr IVPB Q12H PETER Rx#:[id number] Vancomycin 2,250 mg In 500 Sodium Chloride 0.9% 500 ml @ 166.667 mls/hr IVPB ONCE STA Rx#:[id number] Output: Urine 400 Other: Voiding Method Toilet # Voids 2 - Exam PHYSICAL EXAMINATION: GENERAL: The patient is alert and oriented x3, not in any acute distress. Well developed, well nourished. HEENT: Pupils are round and equally reacting to light. EOMI. No scleral icterus. No conjunctival pallor. Normocephalic, atraumatic. No pharyngeal erythema. No thyromegaly. CARDIOVASCULAR: S1 and S2 present. No murmurs, rubs, or gallops. PULMONARY: Chest is clear to auscultation, no wheezing or crackles. ABDOMEN: Soft, nontender, nondistended, normoactive bowel sounds. No palpable organomegaly. MUSCULOSKELETAL: No joint swelling or deformity.There is an open wound noted to the right foot primarily on the lateral aspect of the foot which is significant malodorous . There is associated erythema diffusely to the right foot. The wound measures approximately 7 -9 cm in length and does extend to the superior portion of the right foot. There is good capillary refill to the distal aspect of the right foot. The toes have been previously amputated. Pedal pulses are not palpable. EXTREMITIES: No cyanosis, clubbing, or pedal edema. NEUROLOGICAL: Gross neurological examination did not reveal any focal deficits. SKIN: No rashes. - Labs CBC & Chem 7: 12/01/17 01:42 12/01/17 01:42 Labs: Abnormal Lab Results - Last 24 Hours (Table) 11/30/17 11/30/17 11/30/17 Range/Units 19:10 19:19 22:33 RBC (4.30-5.90) m/uL Hgb (13.0-17.5) gm/dL Hct (39.0-53.0) % Glucose (74-99) mg/dL POC Glucose (mg/dL) 263 H 253 H (75-99) mg/dL Total Creatine Kinase 53 L (55-170) U/L 12/01/17 12/01/17 12/01/17 Range/Units 01:42 01:42 01:42 RBC 3.66 L (4.30-5.90) m/uL Hgb 11.6 L (13.0-17.5) gm/dL Hct 33.7 L (39.0-53.0) % Glucose 147 H (74-99) mg/dL POC Glucose (mg/dL) (75-99) mg/dL Total Creatine Kinase 50 L (55-170) U/L 12/01/17 12/01/17 Range/Units 06:01 11:54 RBC (4.30-5.90) m/uL Hgb (13.0-17.5) gm/dL Hct (39.0-53.0) % Glucose (74-99) mg/dL POC Glucose (mg/dL) 136 H 198 H (75-99) mg/dL Total Creatine Kinase (55-170) U/L Microbiology - Last 24 Hours (Table) 11/30/17 13:20 Blood Culture - Preliminary Blood No Growth after 24 hours 11/30/17 13:55 Gram Stain - Preliminary Foot - Right Wound Culture - Preliminary Presumptive Staph aureus 11/30/17 13:55 Urine Culture - Preliminary Urine,Voided Assessment and Plan Plan: Assessment and Plan Assessment: Diabetic foot ulcer with surrounding cellulitis: Patient is on vancomycin and Unasyn, infectious disease and vascular surgery evaluation Atypical chest pain: On Protonix and stress test tomorrow Diabetes mellitus: Continue with present regimen titrate as needed. CAD s/p CABG Peripheral vascular disease H/o amupatation of the right toes HTN Hyperlipdemia Hypomagnesemia Obesity BMI - 35.4
[2017-12-01] MEDS ORDERED: Magnesium Replacement Protocol 1 EACH MISC MISCELLANE PRN (16:25)
--- NOTE | 2017-12-01 16:50 | MR ---
EXAMINATION TYPE: MR foot RT wo/w con DATE OF EXAM: 12/01/2017 COMPARISON: Radiographs 11/30/2017 HISTORY: 67-year-old male osteomyelitis on transmetatarsal site, pain. Technique: Multiplanar, multisequence images of the knee right foot were obtained before and after ad ministration of 11 mL intravenous Gadavist gadolinium contrast. FINDINGS: Redemonstrated are postsurgical changes of forefoot amputation. Extensive soft tissue thickening yesika g the osteotomy margins. Osteotomy margin especially at the first metatarsal neck is irregular but th e underlying marrow signal appears maintained at this time. Serpiginously marginated lesion in the pl karri proximal first metatarsal shaft probably represents a bone infarct. No associated enhancement. The remaining second, third, and fourth distal metatarsal osteotomies also appear to have maintained normal fatty marrow signal all the way to the osteotomy margins. However, there is suggestion of soft tissue ulceration along the lateral aspect overlying the fifth m etatarsal osteotomy. More extensive soft tissue thickening and heterogeneity in this region. There is increased fluid signal within the residual fifth metatarsal and marrow replacement along the osteoto my, for example, T1 axial series 601 image 10 and 11 and sagittal T1 series 201 image 18. Extensive edematous change within the forefoot and midfoot. IMPRESSION: 1. Forefoot amputation. Extensive scar tissue along the stump and diffuse soft tissue swelling throug hout the remainder of the foot. 2. There is osteitis of the residual fifth metatarsal and focal marrow replacement along the osteotom y margin highly suggestive of osteomyelitis. This is made even more suspicious given the overlying so ft tissue wound. 3. Foci of susceptibility artifact in the adjacent soft tissues here corresponding to the retained cl ips seen on radiographs. 4. Preserved, normal marrow signal within the remainder of the metatarsals.
[2017-12-01 17:21] LABS: Glucose,Whole Blood 103 mg/dL (75-99)
[2017-12-01] MEDS: MAGNESIUM SULFATE-D5W PMX 1 GM in DEXTROSE/WATER 1 100ML.BAG IVPB SCH ×2 (17:26→18:27)
--- NOTE | 2017-12-01 17:56 | CONS ---
DATE OF CONSULTATION: 12/01/2017 This is a 67-year-old pleasant gentleman who has been admitted to [facility] with a history of hypertension, diabetes mellitus, history of diabetic neuropathy, peripheral , coronary artery disease, post CABG and stent placement. The patient came because of right foot infection. This gentleman had surgery done in [place]; he had a toe amputation and has an open wound on the lateral aspect of the right foot. The wound is not healing, and the patient has consulted Dr. Alexandre Charles for local wound and IV antibiotics. Patient has no fever or chills. PAST HISTORY: Patient had CABG and patient had a right lower extremity balloon angioplasty done in [place]. PHYSICAL EXAMINATION: Patient was seen in his room. Vital signs stable. NECK: Supple. Trachea central. CHEST: Clear to auscultation. ABDOMEN: Soft. Femoral pulses are present. Dorsal pedis palpable. Patient has a right foot lateral aspect open wound with some granulation tissue. No ischemic changes noted. IMPRESSION: Non-healing wound on right foot plantar aspect. Patient has palpable dorsal pedis. Patient needs local wound care. Dr. Charles has been consulted. Patient does not need any vascular intervention at this point. Patient will be continued on local wound care and IV antibiotic. MMODL / IJN: [id number] / JOSEP
[2017-12-01] MEDS: METOPROLOL TARTRATE 12.5 MG TAB PO SCH (19:43)
[2017-12-01] MEDS: ATORVASTATIN 80 MG TAB PO SCH (19:43)
[2017-12-01 20:52] LABS: Glucose,Whole Blood 111 mg/dL (75-99)
--- NOTE | 2017-12-01 21:39 | P.CONS ---
History of Present Illness - Reason for Consult Consult date: 12/01/17 - Chief Complaint Right foot infection - History of Present Illness Mara 67-year-old male who is removed to our area from [place] in June. The patient relates that he's had significant difficulties with peripheral vascular disease over the years which is Complicated by his significant underlying diabetes mellitus. The patient relates in [place] he developed severe worsening to his right foot. He does have a history of 2 years ago having a significant diabetic foot infection which required a transmetatarsal amputation. He relates shortly after this was performed and underwent atherectomies and balloon angioplasty to the lower leg vessels and since that time is doing relatively well. However he developed increasing difficulties with an ulceration to the lateral aspect of the right foot. Because of the ongoing infection he was taken to the operating room while he was in [place] and extensive debridement occurred. Since that time he has a nonhealing ulceration to this area. Upon his arrival to [place] he was seen and now referred to Hospital because of the significant underlying ulceration at the site. In the time of the consult there was concern and MRI was requested. This time the patient relates that he has some pain of the area other than this he is just concerned about his overall viability. He normally has a very active person. However now his energy level is very poor which she relates is quite unusual for him he is worried that he is having worsening of his underlying coronary artery disease. He will have a Lexiscan stress test performed as well as a follow-up echocardiogram as directed by cardiology. Review of Systems Mara 67-year-old male relates that he feels very fatigued but pain is under good control at this time HEENT:Denies headache or acute visual change. Denies sinus or mouth discomforts. Denies neck stiffness or pain. Denies significant oral cavity pain. Denies difficulty on swallowing. Lungs: He has some mild chronic shortness of breath that has not changed as of late Cough or sputum production or hemoptysis Cardiovascular: Does have some ongoing shortness of breath he does have dyspnea on exertion but does not have orthopnea or PND. His exercise tolerance is very poor but has not had syncope Gastrointestinal:Denies nausea, vomiting, diarrhea, constipation, hematemesis, melena, hematochezia. No no significant change of bowel habit noticed. Musculoskeletal: denies significant myalgias or arthralgias. No new joint swelling. Denies new back pain. Skin: As per the HPI skin ulceration to his right foot Neuro: Denies headache or visual change. Denies any new onset weakness or difficulty with ambulation. Denies falls or seizures. Psychiatric:Denies anxiety or depression. Endocrine: He says nothing fatigued but not significant change in his weight. Past Medical History Past Medical History: Asthma, Coronary Artery Disease (CAD), CVA/TIA, Diabetes Mellitus, Hyperlipidemia, Hypertension, Myocardial Infarction (MD), Sleep Apnea/ CPAP/BIPAP Additional Past Medical History / Comment(s): NO CPAP MACHINE,BRONCHITIS, TIA, BEGINNINGS OF CATARACTS,ARTHRITIS,ABD HERNIA,"urgency/frequency of urine",past rt hand cellulitis Last Myocardial Infarction Date:: 2003 History of Any Multi-Drug Resistant Organisms: MRSA Year Discovered:: 12/06/15 MDRO Source:: RIGHT HAND Past Surgical History: Coronary Bypass/CABG, Heart Catheterization With Stent, Orthopedic Surgery Additional Past Surgical History / Comment(s): HEART CATH AND 2 STENTS BEFORE THE 2 VESSEL BYPASS that was done in 2007, SHATTERED LT HAND SX TO REPAIR.-- right foot toes amputated october 2017 ([place]), rt pinky finger amp Past Anesthesia/Blood Transfusion Reactions: No Reported Reaction Date of Last Stent Placement:: 2003? Additional Psychological History / Comment(s): Single and lives independently. This moved back to [place] after living in [place] for 32 years. He is not a tobacco smoker. No current alcohol use. No experience. No international travel. No animal exposures. Relates that he has a girlfriend who is quite a bit younger Smoking Status: Never smoker - Past Family History Mother Family Medical History: Cancer, GERD/Reflux Additional Family Medical History / Comment(s): skin cancer Father Family Medical History: Myocardial Infarction (MD) Additional Family Medical History / Comment(s): mi's x3 Medications and Allergies Home Medications and Allergies Comment(s): Current Medications Acetaminophen (Tylenol Tab) 650 mg PO Q6HR PRN PRN Reason: Mild Pain or Fever > 100.5 Aminophylline (Aminophylline) 100 mg IV ONCE PRN PRN Reason: Patient Response Stop: 12/02/17 23:59 Aspirin (Aspirin) 81 mg PO DAILY [facility] Last Admin: 12/01/17 10:35 Dose: 81 mg Atorvastatin Calcium (Lipitor) 80 mg PO HS [facility] Last Admin: 12/01/17 19:43 Dose: 80 mg Divalproex Sodium (Depakote Er) 500 mg PO DAILY [facility] Last Admin: 12/01/17 10:35 Dose: 500 mg Enoxaparin Sodium (Lovenox) 40 mg SQ DAILY [facility] Last Admin: 12/01/17 10:35 Dose: 40 mg Vancomycin HCl 2,000 mg/ (Sodium Chloride) 500 mls @ 166.667 mls/hr IVPB Q12H [facility] Last Admin: 12/01/17 19:29 Dose: 166.667 mls/hr Ampicillin Sodium/Sulbactam (Sodium 3 gm/ Sodium Chloride) 100 mls @ 100 mls/ hr IVPB Q6H [facility] Last Admin: 12/01/17 15:29 Dose: 100 mls/hr Insulin Detemir (Levemir) 30 unit SQ [facility] Last Admin: 11/30/17 23:15 Dose: 30 unit Insulin Human Isoph/Insulin Regular (Humulin 70/30 Vial) 20 unit SQ AC-TID [facility] Last Admin: 12/01/17 17:28 Dose: 20 unit Losartan Potassium (Cozaar) 25 mg PO DAILY [facility] Melatonin (Melatonin) 5 mg PO [facility] Last Admin: 11/30/17 23:16 Dose: 5 mg Metoprolol Tartrate (Lopressor) 12.5 mg PO BID [facility] Last Admin: 12/01/17 19:43 Dose: 12.5 mg Miscellaneous Information (Vancomycin Trough Due) 1 each MISCELLANE ONCE ONE Stop: 12/03/17 05:01 Miscellaneous Information (Magnesium Per Protocol) 1 each MISCELLANE DAILY PRN ; Protocol PRN Reason: Per Protocol Morphine Sulfate (Morphine Sulfate (Inj)) 2 mg IV Q4HR PRN PRN Reason: Severe Pain Last Admin: 12/01/17 19:43 Dose: 2 mg Naloxone HCl (Narcan) 0.2 mg IV Q2M PRN PRN Reason: Opioid Reversal Nitroglycerin (Nitro-Bid Oint) 1 inch TOPICAL QID [facility] Last Admin: 12/01/17 17:26 Dose: Not Given Oxycodone HCl (Oxyir) 15 mg PO QID PRN PRN Reason: Breakthrough Pain Last Admin: 12/01/17 07:21 Dose: 15 mg Pantoprazole Sodium (Protonix) 40 mg PO AC-BRKFST [facility] Pregabalin (Lyrica) 75 mg PO BID [facility] Last Admin: 12/01/17 19:43 Dose: 75 mg Regadenoson (Lexiscan) 0.4 mg IV ONCE ONE Stop: 12/02/17 08:01 Sertraline HCl (Zoloft) 100 mg PO BID [facility] Last Admin: 12/01/17 19:43 Dose: 100 mg Home Medications Medication Instructions Recorded Confirmed Type Insulin NPH/Reg Insulin 70/30 20 units SQ AC-TID 12/05/15 11/30/17 History [humuLIN 70/30 VIAL] Acetaminophen Tab [Tylenol Tab] 1,000 mg PO Q6HR PRN 11/30/17 11/30/17 History Amoxic-Pot Clav 875-125Mg 1 tab PO Q12HR 11/30/17 11/30/17 History [Augmentin 875-125] Aspirin EC [Ecotrin Low Dose] 81 mg PO DAILY 11/30/17 11/30/17 History Cephalexin [Keflex] 250 mg PO QID 11/30/17 11/30/17 History Divalproex Sodium [Depakote ER] 500 mg PO DAILY 11/30/17 11/30/17 History Insulin Glargine [Lantus] 30 unit SQ HS 11/30/17 11/30/17 History Pregabalin [Lyrica] 75 mg PO BID 11/30/17 11/30/17 History Sertraline [Zoloft] 100 mg PO BID 11/30/17 11/30/17 History Tadalafil [Cialis] 5 mg PO DAILY 11/30/17 11/30/17 History oxyCODONE HCL 15 mg PO QID PRN 11/30/17 11/30/17 History Allergies Allergy/AdvReac Type Severity Reaction Status Date / Time sulfamethoxazole Allergy Rash/Hives Verified 11/30/17 13:13 [From Bactrim] trimethoprim [From Bactrim] Allergy Rash/Hives Verified 11/30/17 13:13 Physical Exam Vitals: Vital Signs Temp Pulse Pulse Resp BP Pulse Ox 12/01/17 19:35 97.2 F L 60 18 186/74 95 12/01/17 16:00 97 F L 55 L 17 169/75 97 12/01/17 12:00 57 L 17 152/72 96 12/01/17 08:00 96.9 F L 51 L 17 153/72 94 L 12/01/17 04:00 97.9 F 52 L 18 131/63 93 L 12/01/17 00:00 98.3 F 60 18 172/81 95 Intake and Output 12/01/17 12/01/17 12/01/17 06:59 14:59 22:59 Intake Total 1650 1010 230 Output Total 800 600 Balance 1650 210 -370 Intake: Intake, IV Titration 1650 600 Amount Ampicillin-Sulbactam 3 gm 100 100 In Sodium Chloride 0.9% 100 ml @ 100 mls/hr IVPB Q6H [facility] Rx#:[id number] Magnesium Sulfate-D5w Pmx 100 1 gm In Dextrose/Water 1 100ml.bag @ 100 mls/hr IVPB ONCE ONE Rx#: [id number] Sodium Chloride 0.9% 1, 450 000 ml @ 75 mls/hr IV . [id number] [facility] Rx#:[id number] Vancomycin 2,000 mg In 500 500 Sodium Chloride 0.9% 500 ml @ 166.667 mls/hr IVPB Q12H [facility] Rx#:[id number] Vancomycin 2,250 mg In 500 Sodium Chloride 0.9% 500 ml @ 166.667 mls/hr IVPB ONCE [facility] Rx#:[id number] Oral 410 230 Output: Urine 800 600 Other: Voiding Method Toilet # Voids 2 Weight 111.4 kg 111.4 kg Results CBC & Chem 7: 12/01/17 01:42 12/01/17 01:42 Labs: Abnormal Lab Results - Last 24 Hours (Table) 11/30/17 12/01/17 12/01/17 Range/Units 22:33 01:42 01:42 RBC (4.30-5.90) m/uL Hgb (13.0-17.5) gm/dL Hct (39.0-53.0) % Glucose 147 H (74-99) mg/dL POC Glucose (mg/dL) 253 H (75-99) mg/dL Total Creatine Kinase 50 L (55-170) U/L 12/01/17 12/01/17 12/01/17 Range/Units 01:42 06:01 11:54 RBC 3.66 L (4.30-5.90) m/uL Hgb 11.6 L (13.0-17.5) gm/dL Hct 33.7 L (39.0-53.0) % Glucose (74-99) mg/dL POC Glucose (mg/dL) 136 H 198 H (75-99) mg/dL Total Creatine Kinase (55-170) U/L 12/01/17 12/01/17 Range/Units 17:07 20:50 RBC (4.30-5.90) m/uL Hgb (13.0-17.5) gm/dL Hct (39.0-53.0) % Glucose (74-99) mg/dL POC Glucose (mg/dL) 103 H 111 H (75-99) mg/dL Total Creatine Kinase (55-170) U/L Microbiology - Last 24 Hours (Table) 11/30/17 13:20 Blood Culture - Preliminary Blood No Growth after 24 hours 11/30/17 13:55 Gram Stain - Preliminary Foot - Right Wound Culture - Preliminary Presumptive Staph aureus 11/30/17 13:55 Urine Culture - Preliminary Urine,Voided
[2017-12-01] MEDS: MELATONIN 5 MG TABLET PO SCH (22:08)
[2017-12-01] MEDS: INSULIN DETEMIR 100 UNIT/ML 10 ML VIAL SQ SCH (22:08)
[2017-12-02] MEDS: AMPICILLIN-SULBACTAM 3 GM in SODIUM CHLORIDE 0.9% 100 ML IVPB SCH ×2 (04:58→10:40)
[2017-12-02] MEDS: MORPHINE SULFATE 4 MG/ML SYRINGE IV PRN ×3 (05:03→17:17)
[2017-12-02] MEDS: PANTOPRAZOLE 40 MG TABLET PO SCH (05:55)
[2017-12-02 06:07] LABS: Glucose,Whole Blood 95 mg/dL (75-99)
[2017-12-02] MEDS: VANCOMYCIN 2,000 MG in SODIUM CHLORIDE 0.9% 500 ML IVPB SCH (06:18)
[2017-12-02] MEDS: INSULIN NPH/REG INSULIN 70/30 300 UNIT/3 ML VIAL SQ SCH ×3 (06:50→17:18)
[2017-12-02 07:05] LABS: Anion Gap 9 mmol/L; Blood Urea Nitrogen 16 mg/dL (9-20); Calcium 8.7 mg/dL (8.4-10.2); Carbon Dioxide 30 mmol/L (22-30); Chloride 104 mmol/L (98-107); Glucose 88 mg/dL (74-99); Magnesium 1.9 mg/dL (1.6-2.3); Potassium 4.4 mmol/L (3.5-5.1); Sodium 143 mmol/L (137-145)
[2017-12-02] MEDS ORDERED: REGADENOSON 0.4 MG/5 ML SYRINGE IV ONE (08:00)
[2017-12-02] MEDS ORDERED: AMINOPHYLLINE 500 MG/20 ML VIAL IV PRN (08:00)
[2017-12-02] MEDS: METOPROLOL TARTRATE 12.5 MG TAB PO SCH ×2 (10:41→21:44)
[2017-12-02] MEDS: ENOXAPARIN 40 MG/0.4 ML SYRINGE SQ SCH (10:41)
[2017-12-02] MEDS: DIVALPROEX ER 250 MG TAB.ER.24H PO SCH (10:41)
[2017-12-02] MEDS: ASPIRIN 81 MG PO SCH (10:41)
[2017-12-02] MEDS: SERTRALINE 100 MG TAB PO SCH ×2 (10:42→21:44)
[2017-12-02] MEDS: LOSARTAN 25 MG TAB PO SCH (10:42)
[2017-12-02] MEDS: NITROGLYCERIN OINT 1 INCH/GM PACKET TOPICAL SCH ×4 (10:44→21:44)
--- NOTE | 2017-12-02 10:44 | NM ---
EXAMINATION TYPE: NM stress lexiscan cardiolite DATE OF EXAM: 12/02/2017 COMPARISON: NONE HISTORY: Precordial chest pain and abnormal EKG TECHNIQUE: After the intravenous administration of 10.23 mCi Tc 99m Sestamibi - Cardiolite resting S PECT images acquired 45 minutes post injection. The patient received 0.4mg Lexiscan, 27.2 mCi Tc 99m Sestamibi - Stress images obtained [address] injection FINDINGS: Review of stress and rest SPECT images demonstrates decreased perfusion involving the cardiac apex fo llowing stress imaging as well as the inferoseptal wall. Correlate clinically for stress-induced isch emia. Gated analysis shows normal wall motion with an estimated left ventricular ejection fraction of 48 %. IMPRESSION: I cannot exclude stress-induced ischemia.
[2017-12-02] MEDS: PREGABALIN 75 MG CAP PO SCH ×2 (10:49→21:44)
--- NOTE | 2017-12-02 11:51 | ECHOF ---
Referral Reason:chest pain MEASUREMENTS -------- HEIGHT: 175.3 cm WEIGHT: 111.1 kg BP: 153/72 IVSd: 1.5 cm (0.6 - 1.1) LVIDd: 5.2 cm (3.9 - 5.3) LVPWd: 1.6 cm (0.6 - 1.1) IVSs: 1.9 cm LVIDs: 3.9 cm LVPWs: 1.8 cm LA Diam: 4.8 cm (2.7 - 3.8) Ao Diam: 3.6 cm (2.0 - 3.7) AV Cusp: 1.7 cm (1.5 - 2.6) LA Diam: 4.5 cm (2.7 - 3.8) MV EXCURSION: 25.813 mm (> 18.000) MV EF SLOPE: 104 mm/s (70 - 150) EPSS: 0.4 cm MV E Aureliano: 0.46 m/s MV DecT: 207 ms MV A Aureliano: 0.49 m/s MV E/A Ratio: 0.93 AV maxP.36 mmHg AV meanP.98 mmHg AR PHT: 624 ms RAP: 5.00 mmHg RVSP: 17.37 mmHg FINDINGS -------- Sinus rhythm. This was a techncally difficult study with suboptimal views, , Lumason utilized for enhancement of im ages. The left ventricular size is normal. There is moderate concentric left ventricular hypertrophy. O verall left ventricular systolic function is normal with, an EF between 55 - 60 %. The right ventricle is normal in size. The left atrial size is normal. The right atrial size is normal. 5.0mg OF Lumason UTLIZED: 2 OR MORE WALL SEGMENTS NOT VISUALIZED. There is mild aortic valve sclerosis. There is mild aortic regurgitation. Mild mitral annular calcification present. Mild mitral regurgitation is present. Mild tricuspid regurgitation present. There is no evidence of pulmonary hypertension. The right v entricular systolic pressure, as measured by Doppler, is 17.37mmHg. There is no pulmonic regurgitation present. The aortic root size is normal. There is no pericardial effusion. CONCLUSIONS -------- 1. This was a techncally difficult study with suboptimal views, , Lumason utilized for enhancement of images. 2. The left ventricular size is normal. 3. There is moderate concentric left ventricular hypertrophy. 4. Overall left ventricular systolic function is normal with, an EF between 55 - 60 %. 5. 5.0mg OF Lumason UTLIZED: 2 OR MORE WALL SEGMENTS NOT VISUALIZED. 6. There is mild aortic valve sclerosis. 7. There is mild aortic regurgitation. 8. Mild mitral annular calcification present. 9. Mild mitral regurgitation is present. 10. Mild tricuspid regurgitation present. 11. There is no evidence of pulmonary hypertension. 12. The right ventricular systolic pressure, as measured by Doppler, is 17.37mmHg. 13. There is no pulmonic regurgitation present. 14. The aortic root size is normal. 15. There is no pericardial effusion. WARPMAN: Marivel Santiago RDCS
[2017-12-02 12:02] LABS: Glucose,Whole Blood 100 mg/dL (75-99)
--- NOTE | 2017-12-02 12:46 | EST ---
EXERCISE STRESS DATE OF SERVICE: 12/02/2017 AGE: 67 SEX: M HT: 5' 9" WT: 246 PROTOCOL: Lexiscan Cardiolite Stress Test HEART RATE REST: 46 BLOOD PRESSURE REST: 134/85 MAXIMUM HEART RATE ACHIEVED: 69 MAXIMUM BLOOD PRESSURE: 163/78 85% MPHR: 132 100% MPHR: 155 INDICATIONS: Chest pain. CLINICAL INFORMATION: STRESS DATA: Pretesting physical examination showed heart rate of 46, pressure is 134/85 mmHg. Baseline EKG showed sinus mechanism; 0.4 mg of Lexiscan was given to the patient over 15 seconds per protocol. Max heart rate was 69 beats per minute and maximum pressure was 163/78 mmHg. Clinically, the patient did not have any symptoms of chest discomfort and the EKG did not show any significant ST or T-wave abnormality. CONCLUSION: 1. Nondiagnostic electrocardiogram stress testing in response to Lexiscan. 2. Please follow up on the Cardiolite portion on a separate report from the Radiology Department. MMODL / IJN: [id number] /
[2017-12-02] MEDS ORDERED: IPRATROPIUM-ALBUTEROL 3 ML NEB INHALATION PRN (12:47)
--- NOTE | 2017-12-02 14:49 | P.PN ---
Subjective Progress Note Date: 12/02/17 This is a pleasant 67-year-old gentleman who has a known history of hypertension, diabetes, hyperlipidemia, coronary artery disease with prior bypass surgery, prior to his bypass surgery patient also had stent placements, he states that his bypass surgery was performed in 2011. Patient also has history of peripheral vascular disease, PAD with prior peripheral stenting, asthma. Patient recently moved back to this area in June, he states that he went back to [place] in October, at that time he underwent surgery of his right foot, he had already had the toes amputated from that foot prior to that. This occasion the lateral aspect of the right foot was operated on for possible gangrene. The patient presents to the hospital on this occasion with symptoms of sharp stabbing chest discomfort, he was also complaining of significant pain in his right foot. Patient states the pain in his chest as sharp in nature and worsens with deep breathing, he also stated that a few days ago he had an episode of pressure and heaviness. EKG on arrival here showed a sinus bradycardia with right bundle branch pattern, nonspecific ST-T wave changes. Chest x-ray shows borderline cardiomegaly and chronic interstitial changes. Foot x-ray shows a forefoot amputation, the first through fourth toes have been amputated at the mid metatarsal shaft level. Patient while there is no yaneli bony distraction, all of the osteotomy margins are somewhat irregular and ill-defined. Difficult to exclude early infection or osteomyelitis based on this appearance. Blood pressure 130/60 with a heart rate in the 50s, 93% on room air. White blood cell count is normal, hemoglobin 11.6, platelet count 290. Sodium 138, potassium 4.4, BUN 19, creatinine 0.7. Magnesium level I.5. Troponins negative 3. At the time of my examination this morning, patient denies any chest discomfort, he also states that for the past one week or so he' s been extremely fatigued and tired. 12/02/2017 Patient underwent a Lexiscan stress test which raise the suspicion of possible reversible ischemia. Dr. Bolden did have a lengthy discussion with the patient explaining that he will need a cardiac catheterization once his infection clears. We will discuss further with Dr. Charles regarding appropriate timing for the cardiac cath. Reagan time of examination today, patient denies any chest discomfort and breathing is overall stable. Objective - Vital Signs Vital signs: Vital Signs Temp 96.8 F L 12/02/17 12:00 Pulse 50 L 12/02/17 12:00 Resp 16 12/02/17 12:00 BP 152/67 12/02/17 12:00 Pulse Ox 95 12/02/17 12:00 Intake & Output 12/01/17 12/02/17 12/02/17 18:59 06:59 18:59 Intake Total 1240 340 Output Total 1400 Balance -160 340 Weight 111.4 kg 111.9 kg Intake: Intake, IV Titration 600 100 Amount Ampicillin-Sulbactam 3 gm 100 100 In Sodium Chloride 0.9% 100 ml @ 100 mls/hr IVPB Q6H [facility] Rx#:[id number] Vancomycin 2,000 mg In 500 Sodium Chloride 0.9% 500 ml @ 166.667 mls/hr IVPB Q12H [facility] Rx#:[id number] Oral 640 240 Output: Urine 1400 Other: Voiding Method Toilet Toilet # Voids 1 3 - Exam HEENT: Head is atraumatic, normocephalic. Pupils equal, round. Neck is supple. There is no elevated jugular venous pressure. HEART EXAMINATION: Heart S1, S2 normal. No murmur or gallop heard. CHEST EXAMINATION:lungs reveal fine expiratory wheezing throughout. ABDOMEN: Soft, nontender. Bowel sounds are heard. No organomegaly noted. EXTREMITIES:[ 1+ peripheral pulses with no evidence of peripheral edema , there is a dressing in place in the right lower extremity, dry and intact, patient has had amputation of the toes on that foot and a recent lateral surgery. NEUROLOGIC patient is awake, alert and oriented -3. - Labs CBC & Chem 7: 12/01/17 01:42 12/02/17 06:13 Labs: Abnormal Lab Results - Last 24 Hours (Table) 12/01/17 12/01/17 12/01/17 Range/Units 01:42 17:07 20:50 POC Glucose (mg/dL) 103 H 111 H (75-99) mg/dL Hemoglobin A1c 9.0 H (4.0-6.0) % 12/02/17 Range/Units 11:54 POC Glucose (mg/dL) 100 H (75-99) mg/dL Hemoglobin A1c (4.0-6.0) % Microbiology - Last 24 Hours (Table) 11/30/17 13:55 Gram Stain - Final Foot - Right Wound Culture - Final Staphylococcus aureus 11/30/17 13:55 Urine Culture - Final Urine,Voided 11/30/17 13:20 Blood Culture - Preliminary Blood No Growth after 24 hours Assessment and Plan Plan: Assessment and plan #1 chest pain, with atypical features for acute coronary syndrome. Troponins negative 3. EKG shows a sinus bradycardia with right bundle branch block pattern and nonspecific ST-T wave changes #2 right foot pain, patient has amputation of the toes on his right foot and recently underwent further surgery of that foot. Cellulitis rule out osteomyelitis. #3 hypertension #4 diabetes #5 hyperlipidemia #6 known history of coronary artery disease with prior bypass surgery and stent placements Plan We will continue the patient on a baby aspirin, statin , angiotensin rigo and beta rigo. Stress test raises the suspicion of reversible ischemia, we will discuss this further with Dr. Charles regarding appropriate timing to proceed with cardiac catheterization. DNP note has been reviewed, I agree with a documented findings and plan of care. Patient was seen and examined.
[2017-12-02] MEDS: cefTRIAXone IN SWFI 2,000 MG/20 ML SYRINGE IVP SCH (15:19)
--- NOTE | 2017-12-02 15:31 | P.PN ---
Subjective Patient is a pleasant 67-year-old gentleman admitted for left foot ulcer and infection patient is status post partial amputation of the left foot disarticulation procedure, does have cellulitis surrounding the surgical site area with an ulceration patient is undergoing MRI to rule out osteomyelitis and patient is on vancomycin and Unasyn. Vascular surgery infectious disease evaluate the patient. Patient was complaining of chest pain because of the risk factors although atypical cardiology is recommending a stress test. Which she will undergo tomorrow. Patient chest pain is in the epigastric area patient is already on Protonix and still has minimal chest discomfort. 12/02/2017 Patient has stress test which was read as cannot exclude stress-induced ischemia. Cardiology evaluated the stress test and recommending medical management at this point of time because of his foot infection. Discussed with infectious disease is recommending decline placement and IV antibiotics. Constitutional: Denied any fatigue denied any fever. Cardio vascular: denied any palpitations Gastrointestinal denied any nausea vomiting Pulmonary: Denied any shortness of breath cough Neurologic denied any new focal deficits Objective - Vital Signs Vital signs: Vital Signs Temp 96.8 F L 12/02/17 12:00 Pulse 50 L 12/02/17 12:00 Resp 16 12/02/17 12:00 BP 152/67 12/02/17 12:00 Pulse Ox 95 12/02/17 12:00 Intake & Output 12/01/17 12/02/17 12/02/17 18:59 06:59 18:59 Intake Total 1240 340 Output Total 1400 Balance -160 340 Weight 111.4 kg 111.9 kg Intake: Intake, IV Titration 600 100 Amount Ampicillin-Sulbactam 3 gm 100 100 In Sodium Chloride 0.9% 100 ml @ 100 mls/hr IVPB Q6H [facility] Rx#:[id number] Vancomycin 2,000 mg In 500 Sodium Chloride 0.9% 500 ml @ 166.667 mls/hr IVPB Q12H [facility] Rx#:[id number] Oral 640 240 Output: Urine 1400 Other: Voiding Method Toilet Toilet # Voids 1 3 - Exam PHYSICAL EXAMINATION: GENERAL: The patient is alert and oriented x3, not in any acute distress. Well developed, well nourished. HEENT: Pupils are round and equally reacting to light. EOMI. No scleral icterus. No conjunctival pallor. Normocephalic, atraumatic. No pharyngeal erythema. No thyromegaly. CARDIOVASCULAR: S1 and S2 present. No murmurs, rubs, or gallops. PULMONARY: Chest is clear to auscultation, no wheezing or crackles. ABDOMEN: Soft, nontender, nondistended, normoactive bowel sounds. No palpable organomegaly. MUSCULOSKELETAL: No joint swelling or deformity.There is an open wound noted to the right foot primarily on the lateral aspect of the foot which is significant malodorous . There is associated erythema diffusely to the right foot. The wound measures approximately 7 -9 cm in length and does extend to the superior portion of the right foot. There is good capillary refill to the distal aspect of the right foot. The toes have been previously amputated. Pedal pulses are not palpable. EXTREMITIES: No cyanosis, clubbing, or pedal edema. NEUROLOGICAL: Gross neurological examination did not reveal any focal deficits. SKIN: No rashes. - Labs CBC & Chem 7: 12/01/17 01:42 12/02/17 06:13 Labs: Abnormal Lab Results - Last 24 Hours (Table) 12/01/17 12/01/17 12/01/17 Range/Units 01:42 17:07 20:50 POC Glucose (mg/dL) 103 H 111 H (75-99) mg/dL Hemoglobin A1c 9.0 H (4.0-6.0) % 12/02/17 Range/Units 11:54 POC Glucose (mg/dL) 100 H (75-99) mg/dL Hemoglobin A1c (4.0-6.0) % Microbiology - Last 24 Hours (Table) 11/30/17 13:55 Gram Stain - Final Foot - Right Wound Culture - Final Staphylococcus aureus 11/30/17 13:55 Urine Culture - Final Urine,Voided 11/30/17 13:20 Blood Culture - Preliminary Blood No Growth after 24 hours Assessment and Plan Plan: Assessment and Plan Assessment: Diabetic foot ulcer with surrounding cellulitis: Patient is on vancomycin and Unasyn, infectious disease and vascular surgery evaluation Atypical chest pain: On Protonix and stress test results as mentioned above Diabetes mellitus: Continue with present regimen titrate as needed. Her sugars fairly controlled here. CAD s/p CABG Peripheral vascular disease H/o amupatation of the right toes HTN Hyperlipdemia Hypomagnesemia Obesity BMI - 35.4
[2017-12-02 17:00] LABS: Glucose,Whole Blood 170 mg/dL (75-99)
--- NOTE | 2017-12-02 20:39 | P.PN ---
Subjective Progress Note Date: 12/02/17 Pleasant 67-year-old male who is removed to our area from [place] in June. The patient relates that he's had significant difficulties with peripheral vascular disease over the years which is Complicated by his significant underlying diabetes mellitus. The patient relates in [place] he developed severe worsening to his right foot. He does have a history of 2 years ago having a significant diabetic foot infection which required a transmetatarsal amputation. He relates shortly after this was performed and underwent atherectomies and balloon angioplasty to the lower leg vessels and since that time is doing relatively well. However he developed increasing difficulties with an ulceration to the lateral aspect of the right foot. Because of the ongoing infection he was taken to the operating room while he was in [place] and extensive debridement occurred. Since that time he has a nonhealing ulceration to this area. Upon his arrival to [place] he was seen and now referred to Hospital because of the significant underlying ulceration at the site. In the time of the consult there was concern and MRI was requested. This time the patient relates that he has some pain of the area other than this he is just concerned about his overall viability. He normally has a very active person. However now his energy level is very poor which she relates is quite unusual for him he is worried that he is having worsening of his underlying coronary artery disease. He will have a Lexiscan stress test performed as well as a follow-up echocardiogram as directed by cardiology. 12/02/2017 the patient has had his stress test performed there is evidence of ischemia there is inducible. Extremities is discussed with the cardiology team , Dr. Aj. Patient is evidence of an active infection with osteomyelitis with staph aureus of his foot. Making intervention and to the cardiac system of great concern especially if stents are required. Objective - Vital Signs Vital signs: Vital Signs Temp 97.1 F L 12/02/17 20:00 Pulse 55 L 12/02/17 20:00 Resp 18 12/02/17 20:00 BP 165/77 12/02/17 20:00 Pulse Ox 97 12/02/17 20:00 Intake & Output 12/02/17 12/02/17 12/03/17 06:59 18:59 06:59 Intake Total 340 Balance 340 Weight 111.9 kg Intake: Intake, IV Titration 100 Amount Ampicillin-Sulbactam 3 gm 100 In Sodium Chloride 0.9% 100 ml @ 100 mls/hr IVPB Q6H [facility] Rx#:[id number] Oral 240 Other: Voiding Method Toilet Toilet # Voids 1 3 - Exam 67-year-old male who is comfortable at this time not in acute distress HEENT: Anicteric conjunctiva are pink and moist nasal mucosa grossly intact without significant lesions, there is no thrush. Neck: The neck is supple without significant lymphadenopathy or thyromegaly. Lungs: They're symmetrical bilateral air entry. Rare expiratory wheezeand bronchial sounds no dullness or egophony. Heart: Irregular with an audible S1 and S2 soft S4 no distinct murmur click or rub PMI was nondisplaced Abdomen: Obese, Positive bowel sounds soft and nontender without palpable masses or organomegaly. There was no guarding or rebound. Extremities: The upper extremities have excellent pulses they are symmetric, no significant petechiae or telangiectasia. No splinter hemorrhages were noted. Bilateral lower extremities reveal evidence of the evidence of chronic arterial disease. There is evidence of the left foot is cool but not cold with just a palpable pulse. The right foot shows evidence of a large open ulceration the lateral surface measuring approximately 6 x 4 x 0.2 cm. There is no expressible purulence. There is some minimal surrounding erythema the foot is cool and not frankly cold ,pulses not palpable this time Neuro: Awake alert oriented to person place and time. There are no acute new gross focal sensory motor deficits. - Labs CBC & Chem 7: 12/01/17 01:42 12/02/17 06:13 Labs: Abnormal Lab Results - Last 24 Hours (Table) 12/01/17 12/01/17 12/02/17 Range/Units 01:42 20:50 11:54 POC Glucose (mg/dL) 111 H 100 H (75-99) mg/dL Hemoglobin A1c 9.0 H (4.0-6.0) % 12/02/17 Range/Units 16:46 POC Glucose (mg/dL) 170 H (75-99) mg/dL Hemoglobin A1c (4.0-6.0) % Microbiology - Last 24 Hours (Table) 11/30/17 13:20 Blood Culture - Preliminary Blood No Growth after 48 hours 11/30/17 13:55 Gram Stain - Final Foot - Right Wound Culture - Final Staphylococcus aureus 11/30/17 13:55 Urine Culture - Final Urine,Voided Laboratory Results WBC 6.3 k/uL (3.8-10.6) 12/01/17 01:42 RBC 3.66 m/uL (4.30-5.90) L 12/01/17 01:42 Hgb 11.6 gm/dL (13.0-17.5) L 12/01/17 01:42 Hct 33.7 % (39.0-53.0) L 12/01/17 01:42 MCV 92.0 fL (80.0-100.0) 12/01/17 01:42 MCH 31.6 pg (25.0-35.0) 12/01/17 01:42 MCHC 34.4 g/dL (31.0-37.0) 12/01/17 01:42 RDW 14.5 % (11.5-15.5) 12/01/17 01:42 Plt Count 290 k/uL (150-450) 12/01/17 01:42 Neutrophils % 52 % 12/01/17 01:42 Lymphocytes % 34 % 12/01/17 01:42 Monocytes % 7 % 12/01/17 01:42 Eosinophils % 4 % 12/01/17 01:42 Basophils % 1 % 12/01/17 01:42 Neutrophils # 3.3 k/uL (1.3-7.7) 12/01/17 01:42 Lymphocytes # 2.2 k/uL (1.0-4.8) 12/01/17 01:42 Monocytes # 0.4 k/uL (0-1.0) 12/01/17 01:42 Eosinophils # 0.3 k/uL (0-0.7) 12/01/17 01:42 Basophils # 0.0 k/uL (0-0.2) 12/01/17 01:42 ESR 77 mm/hr (0-15) H 11/30/17 13:20 PT 10.1 sec (9.0-12.0) 11/30/17 13:20 INR 1.0 (<1.2) 11/30/17 13:20 APTT 23.3 sec (22.0-30.0) 11/30/17 13:20 Sodium 143 mmol/L (137-145) 12/02/17 06:13 Potassium 4.4 mmol/L (3.5-5.1) 12/02/17 06:13 Chloride 104 mmol/L (98-107) 12/02/17 06:13 Carbon Dioxide 30 mmol/L (22-30) 12/02/17 06:13 Anion Gap 9 mmol/L 12/02/17 06:13 BUN 16 mg/dL (9-20) 12/02/17 06:13 Creatinine 0.91 mg/dL (0.66-1.25) 12/02/17 06:13 Est GFR (CKD-EPI)AfAm >90 (>60 ml/min/1.73 sqM) 12/02/17 06:13 Est GFR (CKD-EPI)NonAf 88 (>60 ml/min/1.73 sqM) 12/02/17 06:13 Glucose 88 mg/dL (74-99) 12/02/17 06:13 POC Glucose (mg/dL) 170 mg/dL (75-99) H 12/02/17 16:46 POC Glu Data Management Associate ID Sosa Perry 12/02/17 16:[address] Glu mg/dL 212 12/01/17 01:42 Hemoglobin A1c 9.0 % (4.0-6.0) H 12/01/17 01:42 Plasma Lactic Acid Hitesh 1.1 mmol/L (0.7-2.0) 11/30/17 13:20 Calcium 8.7 mg/dL (8.4-10.2) 12/02/17 06:13 Magnesium 1.9 mg/dL (1.6-2.3) 12/02/17 06:13 Total Bilirubin 0.3 mg/dL (0.2-1.3) 11/30/17 13:20 AST 19 U/L (17-59) 11/30/17 13:20 ALT 29 U/L (21-72) 11/30/17 13:20 Alkaline Phosphatase 86 U/L (38-126) 11/30/17 13:20 Total Creatine Kinase 50 U/L (55-170) L 12/01/17 01:42 CK-MB (CK-2) 1.4 ng/mL (0.0-2.4) 12/01/17 01:42 CK-MB (CK-2) Rel Index 2.8 12/01/17 01:42 Troponin I <0.012 ng/mL (0.000-0.034) 12/01/17 01:42 C-Reactive Protein 15.8 mg/L (<10.0) H 11/30/17 13:20 Total Protein 7.6 g/dL (6.3-8.2) 11/30/17 13:20 Albumin 3.9 g/dL (3.5-5.0) 11/30/17 13:20 Urine Color Yellow 11/30/17 13:55 Urine Appearance Clear (Clear) 11/30/17 13:55 Urine pH 5.5 (5.0-8.0) 11/30/17 13:55 Ur Specific Long Bottom 1.015 (1.001-1.035) 11/30/17 13:55 Urine Protein 2+ (Negative) H 11/30/17 13:55 Urine Glucose (UA) Negative (Negative) 11/30/17 13:55 Urine Ketones Negative (Negative) 11/30/17 13:55 Urine Blood Small (Negative) H 11/30/17 13:55 Urine Nitrite Negative (Negative) 11/30/17 13:55 Urine Bilirubin Negative (Negative) 11/30/17 13:55 Urine Urobilinogen <2.0 mg/dL (<2.0) 11/30/17 13:55 Ur Leukocyte Esterase Negative (Negative) 11/30/17 13:55 Urine RBC 3 /hpf (0-5) 11/30/17 13:55 Urine WBC 1 /hpf (0-5) 11/30/17 13:55 Hyaline Casts 1 /lpf (0-2) 11/30/17 13:55 Urine Mucus Rare /hpf (None) H 11/30/17 13:55 Microbiology 11/30/17 13:20 Blood Blood Culture - Preliminary No Growth after 48 hours 11/30/17 13:55 Foot - Right Gram Stain - Final 11/30/17 13:55 Foot - Right Wound Culture - Final Staphylococcus aureus 11/30/17 13:55 Urine,Voided Urine Culture - Final Assessment and Plan (1) Osteomyelitis of right foot Narrative/Plan: Pleasant 67-year-old gentleman has a long-standing history of diabetes mellitus type 2 with severe peripheral vascular disease and severe coronary artery disease presents to Hospital given very poorly. He's been having significant amounts of fatigue and malaise Concerns to worsen with underlying coronary artery disease. Has been seen by cardiology and further cardiac workup is now in process. Is on the patient has been evaluated in [place] and underwent the extensive surgical intervention to the right foot several months ago and continues to have a nonhealing ulceration at that site. The patient has had his MRI does reveal evidence of underlying osteoporosis of the fifth metatarsal bone. We'll have to determine our options are his current difficulty with insurance however we do well to have outpatient antibiotic therapy and this will be driven by the culture results. Currently he is receiving Unasyn and vancomycin which are adequate until we have some further data. There is some pulmonary data this is likely a staphylococcal infection which he believes he may have had in [place] but is not recalling MRSA infection. At this time the primary goal will be for leg salvage. He certainly had the transmetatarsal amputation and now has a nonhealing ulceration of the lateral surface of the foot. If infection penetrates further into the foot would not the much left to begun to the foot and within likely need a [id number] amputation. Consequently antibiotic therapy local wound care and following the wound healing center after discharge he will likely be a candidate for hyperbaric oxygen therapy. 12/02/2017 patient is feeling slightly better. His cardiac evaluation has occurred in does have some inducible ischemia. This was discussed with the cardiology team and given his current active infection with staph aureus he is not a good candidate for interventions into the coronary arteries with stents given his active infection. The patient understands. He would like to have something in the future because when he's had prior cardiac work it has improved his stamina and functional status. For now we'll work toward PICC line to be placed for outpatient intravenous antibiotic therapy. Staph aureus has been isolated and Rocephin can be utilized. The patient is currently in between insurance will likely come to our outpatient infusion suite so we can continue the transition of care. Also would like to have him followed in the wound healing center after discharge I do believe he is a candidate for hyperbaric oxygen therapy especially once we get some prior data from [place]. Local wound care with Aquacel silver as requested. An offloading as required. Current Visit: Yes Status: Acute Code(s): M86.9 - OSTEOMYELITIS, UNSPECIFIED SNOMED Code(s): 8452242278217058 (2) Poorly controlled type 2 diabetes mellitus with circulatory disorder Current Visit: Yes Status: Acute Code(s): E11.59 - TYPE 2 DIABETES MELLITUS WITH OTH CIRCULATORY COMPLICATIONS; E11.65 - TYPE 2 DIABETES MELLITUS WITH HYPERGLYCEMIA SNOMED Code(s): 16111177
[2017-12-02 20:59] LABS: Glucose,Whole Blood 145 mg/dL (75-99)
[2017-12-02] MEDS: ATORVASTATIN 80 MG TAB PO SCH (21:44)
[2017-12-02] MEDS: INSULIN DETEMIR 100 UNIT/ML 10 ML VIAL SQ SCH (21:44)
[2017-12-02] MEDS: MELATONIN 5 MG TABLET PO SCH (22:37)
[2017-12-03] MEDS ORDERED: VANCOMYCIN TROUGH DUE 1 EACH MISC MISCELLANE ONE (05:00)
[2017-12-03 05:10] LABS: HGB 10.6 gm/dL (13.0-17.5); MCH 30.1 pg (25.0-35.0); MCHC 33.1 g/dL (31.0-37.0); MCV 90.8 fL (80.0-100.0); Mean Platelet Volume 8.9; Platelet Count 226 k/uL (150-450); RBC 3.52 m/uL (4.30-5.90); RDW 14.5 % (11.5-15.5); WBC 5.5 k/uL (3.8-10.6)
[2017-12-03 05:20] LABS: INR 1.1 (<1.2); Partial Thromboplastin Time 24.2 sec (22.0-30.0); Prothrombin Time 10.6 sec (9.0-12.0)
[2017-12-03 05:27] LABS: Blood Urea Nitrogen 17 mg/dL (9-20); Calcium 8.7 mg/dL (8.4-10.2); Chloride 103 mmol/L (98-107); Glucose 103 mg/dL (74-99); Potassium 4.3 mmol/L (3.5-5.1); Sodium 141 mmol/L (137-145)
[2017-12-03 05:28] LABS: Carbon Dioxide 29 mmol/L (22-30)
[2017-12-03 05:30] LABS: Anion Gap 9 mmol/L
[2017-12-03 05:56] LABS: Glucose,Whole Blood 116 mg/dL (75-99)
[2017-12-03] MEDS: INSULIN NPH/REG INSULIN 70/30 300 UNIT/3 ML VIAL SQ SCH ×3 (07:09→17:25)
[2017-12-03] MEDS: PANTOPRAZOLE 40 MG TABLET PO SCH (07:09)
[2017-12-03] MEDS: cefTRIAXone IN SWFI 2,000 MG/20 ML SYRINGE IVP SCH (08:15)
[2017-12-03] MEDS: NITROGLYCERIN OINT 1 INCH/GM PACKET TOPICAL SCH ×4 (08:15→20:58)
[2017-12-03] MEDS: ENOXAPARIN 40 MG/0.4 ML SYRINGE SQ SCH (08:16)
[2017-12-03] MEDS: METOPROLOL TARTRATE 12.5 MG TAB PO SCH ×2 (08:16→20:57)
[2017-12-03] MEDS: ASPIRIN 81 MG PO SCH (08:16)
[2017-12-03] MEDS: LOSARTAN 25 MG TAB PO SCH (08:17)
[2017-12-03] MEDS: DIVALPROEX ER 250 MG TAB.ER.24H PO SCH (08:17)
[2017-12-03] MEDS: SERTRALINE 100 MG TAB PO SCH ×2 (08:18→20:57)
[2017-12-03] MEDS: PREGABALIN 75 MG CAP PO SCH ×2 (08:22→21:00)
[2017-12-03 11:26] VITALS: BMI 36.6
--- NOTE | 2017-12-03 11:49 | P.PN ---
Subjective Patient is a pleasant 67-year-old gentleman admitted for left foot ulcer and infection patient is status post partial amputation of the left foot disarticulation procedure, does have cellulitis surrounding the surgical site area with an ulceration patient is undergoing MRI to rule out osteomyelitis and patient is on vancomycin and Unasyn. Vascular surgery infectious disease evaluate the patient. Patient was complaining of chest pain because of the risk factors although atypical cardiology is recommending a stress test. Which she will undergo tomorrow. Patient chest pain is in the epigastric area patient is already on Protonix and still has minimal chest discomfort. 12/02/2017 Patient has stress test which was read as cannot exclude stress-induced ischemia. Cardiology evaluated the stress test and recommending medical management at this point of time because of his foot infection. Discussed with infectious disease is recommending IV antibiotics. 12/03/2017 Patient PICC line placement was put on hold for patient got Lovenox per staff. For tomorrow Constitutional: Denied any fatigue denied any fever. Cardio vascular: denied any palpitations Gastrointestinal denied any nausea vomiting Pulmonary: Denied any shortness of breath cough Neurologic denied any new focal deficits Objective - Vital Signs Vital signs: Vital Signs Temp 97.6 F 12/03/17 08:00 Pulse 55 L 12/03/17 08:00 Resp 18 12/03/17 08:00 BP 180/76 12/03/17 08:00 Pulse Ox 97 12/03/17 08:00 Intake & Output 12/02/17 12/03/17 12/03/17 18:59 06:59 18:59 Intake Total 340 480 Balance 340 480 Weight 112.4 kg 112.4 kg Intake: Intake, IV Titration 100 Amount Ampicillin-Sulbactam 3 gm 100 In Sodium Chloride 0.9% 100 ml @ 100 mls/hr IVPB Q6H [facility] Rx#:[id number] Oral 240 480 Other: Voiding Method Toilet Toilet Toilet # Voids 3 2 1 - Exam GENERAL: The patient is alert and oriented x3, not in any acute distress. Well developed, well nourished. HEENT: Pupils are round and equally reacting to light. EOMI. No scleral icterus. No conjunctival pallor. Normocephalic, atraumatic. No pharyngeal erythema. No thyromegaly. CARDIOVASCULAR: S1 and S2 present. No murmurs, rubs, or gallops. PULMONARY: Chest is clear to auscultation, no wheezing or crackles. ABDOMEN: Soft, nontender, nondistended, normoactive bowel sounds. No palpable organomegaly. MUSCULOSKELETAL: No joint swelling or deformity.There is an open wound noted to the right foot primarily on the lateral aspect of the foot which is significant malodorous . There is associated erythema diffusely to the right foot. The wound measures approximately 7 -9 cm in length and does extend to the superior portion of the right foot. There is good capillary refill to the distal aspect of the right foot. The toes have been previously amputated. Pedal pulses are not palpable. EXTREMITIES: No cyanosis, clubbing, or pedal edema. NEUROLOGICAL: Gross neurological examination did not reveal any focal deficits. SKIN: No rashes. - Labs CBC & Chem 7: 12/03/17 05:01 12/03/17 05:01 Labs: Abnormal Lab Results - Last 24 Hours (Table) 12/02/17 12/02/17 12/02/17 Range/Units 11:54 16:46 20:57 RBC (4.30-5.90) m/uL Hgb (13.0-17.5) gm/dL Hct (39.0-53.0) % Glucose (74-99) mg/dL POC Glucose (mg/dL) 100 H 170 H 145 H (75-99) mg/dL 12/03/17 12/03/17 12/03/17 Range/Units 05:01 05:01 05:53 RBC 3.52 L (4.30-5.90) m/uL Hgb 10.6 L (13.0-17.5) gm/dL Hct 32.0 L (39.0-53.0) % Glucose 103 H (74-99) mg/dL POC Glucose (mg/dL) 116 H (75-99) mg/dL Microbiology - Last 24 Hours (Table) 11/30/17 13:20 Blood Culture - Preliminary Blood No Growth after 48 hours 11/30/17 13:55 Gram Stain - Final Foot - Right Wound Culture - Final Staphylococcus aureus Assessment and Plan Plan: -Diabetic foot ulcer with surrounding cellulitis and OM on MRI of the fluids: infectious disease and vascular surgery evaluation is appreciated patient does not need any vascular intervention for now, wound culture showing MSSA. ID recommendation is appreciated, patient to have Continue with Rocephin, and follow-up as an outpatient -Atypical chest pain: On Protonix and stress test results as mentioned above, cardiology team recommended medical management for now as she be at-risk of infected prosthesis in cases his stent is placed, -Diabetes mellitus: Continue with present regimen titrate as needed. Her sugars fairly controlled here. -CAD s/p CABG -Peripheral vascular disease -H/o amupatation of the right toes -HTN -Hyperlipdemia -Hypomagnesemia -Obesity BMI - 35.4
[2017-12-03 12:01] LABS: Glucose,Whole Blood 147 mg/dL (75-99)
--- NOTE | 2017-12-03 12:49 | P.PN ---
Subjective Progress Note Date: 12/03/17 This is a pleasant 67-year-old gentleman who has a known history of hypertension, diabetes, hyperlipidemia, coronary artery disease with prior bypass surgery, prior to his bypass surgery patient also had stent placements, he states that his bypass surgery was performed in 2011. Patient also has history of peripheral vascular disease, PAD with prior peripheral stenting, asthma. Patient recently moved back to this area in June, he states that he went back to [place] in October, at that time he underwent surgery of his right foot, he had already had the toes amputated from that foot prior to that. This occasion the lateral aspect of the right foot was operated on for possible gangrene. The patient presents to the hospital on this occasion with symptoms of sharp stabbing chest discomfort, he was also complaining of significant pain in his right foot. Patient states the pain in his chest as sharp in nature and worsens with deep breathing, he also stated that a few days ago he had an episode of pressure and heaviness. EKG on arrival here showed a sinus bradycardia with right bundle branch pattern, nonspecific ST-T wave changes. Chest x-ray shows borderline cardiomegaly and chronic interstitial changes. Foot x-ray shows a forefoot amputation, the first through fourth toes have been amputated at the mid metatarsal shaft level. Patient while there is no yaneli bony distraction, all of the osteotomy margins are somewhat irregular and ill-defined. Difficult to exclude early infection or osteomyelitis based on this appearance. Blood pressure 130/60 with a heart rate in the 50s, 93% on room air. White blood cell count is normal, hemoglobin 11.6, platelet count 290. Sodium 138, potassium 4.4, BUN 19, creatinine 0.7. Magnesium level I.5. Troponins negative 3. At the time of my examination this morning, patient denies any chest discomfort, he also states that for the past one week or so he' s been extremely fatigued and tired. 12/02/2017 Patient underwent a Lexiscan stress test which raise the suspicion of possible reversible ischemia. Dr. Bolden did have a lengthy discussion with the patient explaining that he will need a cardiac catheterization once his infection clears. We will discuss further with Dr. Charles regarding appropriate timing for the cardiac cath. At the time of examination today, patient denies any chest discomfort and breathing is overall stable. 12/03/2017 Patient seen and examined this morning, it was explained to the patient that the recommendation from ID was to defer doing a cardiac catheterization at this time because of infection. On discharge we will make him a follow-up appointment in the office, cardiac catheterization will be performed as an outpatient. Objective - Vital Signs Vital signs: Vital Signs Temp 97.6 F 12/03/17 08:00 Pulse 55 L 12/03/17 08:00 Resp 18 12/03/17 08:00 BP 180/76 12/03/17 08:00 Pulse Ox 97 12/03/17 08:00 Intake & Output 12/02/17 12/03/17 12/03/17 18:59 06:59 18:59 Intake Total 340 480 Balance 340 480 Weight 112.4 kg 112.4 kg Intake: Intake, IV Titration 100 Amount Ampicillin-Sulbactam 3 gm 100 In Sodium Chloride 0.9% 100 ml @ 100 mls/hr IVPB Q6H PETER Rx#:[id number] Oral 240 480 Other: Voiding Method Toilet Toilet Toilet # Voids 3 2 1 - Exam HEENT: Head is atraumatic, normocephalic. Pupils equal, round. Neck is supple. There is no elevated jugular venous pressure. HEART EXAMINATION: Heart S1, S2 normal. No murmur or gallop heard. CHEST EXAMINATION:lungs reveal fine expiratory wheezing throughout. ABDOMEN: Soft, nontender. Bowel sounds are heard. No organomegaly noted. EXTREMITIES:[ 1+ peripheral pulses with no evidence of peripheral edema , there is a dressing in place in the right lower extremity, dry and intact, patient has had amputation of the toes on that foot and a recent lateral surgery. NEUROLOGIC patient is awake, alert and oriented -3. - Labs CBC & Chem 7: 12/03/17 05:01 12/03/17 05:01 Labs: Abnormal Lab Results - Last 24 Hours (Table) 12/02/17 12/02/17 12/03/17 Range/Units 16:46 20:57 05:01 RBC (4.30-5.90) m/uL Hgb (13.0-17.5) gm/dL Hct (39.0-53.0) % Glucose 103 H (74-99) mg/dL POC Glucose (mg/dL) 170 H 145 H (75-99) mg/dL 12/03/17 12/03/17 12/03/17 Range/Units 05:01 05:53 11:38 RBC 3.52 L (4.30-5.90) m/uL Hgb 10.6 L (13.0-17.5) gm/dL Hct 32.0 L (39.0-53.0) % Glucose (74-99) mg/dL POC Glucose (mg/dL) 116 H 147 H (75-99) mg/dL Microbiology - Last 24 Hours (Table) 11/30/17 13:20 Blood Culture - Preliminary Blood No Growth after 48 hours 11/30/17 13:55 Gram Stain - Final Foot - Right Wound Culture - Final Staphylococcus aureus Assessment and Plan Plan: Assessment and plan #1 chest pain, with atypical features for acute coronary syndrome. Troponins negative 3. EKG shows a sinus bradycardia with right bundle branch block pattern and nonspecific ST-T wave changes #2 right foot pain, patient has amputation of the toes on his right foot and recently underwent further surgery of that foot. Cellulitis rule out osteomyelitis. #3 hypertension #4 diabetes #5 hyperlipidemia #6 known history of coronary artery disease with prior bypass surgery and stent placements Plan We will continue the patient on a baby aspirin, statin , angiotensin rigo and beta rigo. Schedule a follow-up appointment in the office post discharge. Cardiac catheterization will be performed as an outpatient down the road once infection clears. DNP note has been reviewed, I agree with a documented findings and plan of care. Patient was seen and examined.
[2017-12-03] MEDS: MORPHINE ORAL SOLN 10 MG/5 ML CUP PO PRN ×2 (13:59→21:06)
[2017-12-03 16:48] LABS: Glucose,Whole Blood 77 mg/dL (75-99)
[2017-12-03 20:54] LABS: Glucose,Whole Blood 93 mg/dL (75-99)
[2017-12-03] MEDS: MELATONIN 5 MG TABLET PO SCH (20:57)
[2017-12-03] MEDS: ATORVASTATIN 80 MG TAB PO SCH (20:57)
[2017-12-03] MEDS: INSULIN DETEMIR 100 UNIT/ML 10 ML VIAL SQ SCH (22:38)
[2017-12-04] MEDS: MORPHINE ORAL SOLN 10 MG/5 ML CUP PO PRN ×3 (01:24→10:18)
[2017-12-04 02:49] LABS: Glucose,Whole Blood 95 mg/dL (75-99)
[2017-12-04 06:12] LABS: Glucose,Whole Blood 95 mg/dL (75-99)
[2017-12-04 06:30] LABS: Calcium 9.3 mg/dL (8.4-10.2); Potassium 4.9 mmol/L (3.5-5.1)
[2017-12-04] MEDS: PANTOPRAZOLE 40 MG TABLET PO SCH (06:57)
[2017-12-04] MEDS: INSULIN NPH/REG INSULIN 70/30 300 UNIT/3 ML VIAL SQ SCH ×2 (06:59→12:05)
[2017-12-04] MEDS: ENOXAPARIN 40 MG/0.4 ML SYRINGE SQ SCH (09:54)
[2017-12-04] MEDS: ASPIRIN 81 MG PO SCH (09:54)
[2017-12-04] MEDS: DIVALPROEX ER 250 MG TAB.ER.24H PO SCH (10:11)
[2017-12-04] MEDS: METOPROLOL TARTRATE 12.5 MG TAB PO SCH (10:12)
[2017-12-04] MEDS: LOSARTAN 25 MG TAB PO SCH (10:12)
[2017-12-04] MEDS: SERTRALINE 100 MG TAB PO SCH (10:12)
[2017-12-04] MEDS: NITROGLYCERIN OINT 1 INCH/GM PACKET TOPICAL SCH ×2 (10:13→12:05)
[2017-12-04] MEDS: cefTRIAXone IN SWFI 2,000 MG/20 ML SYRINGE IVP SCH (10:17)
[2017-12-04] MEDS: PREGABALIN 75 MG CAP PO SCH (10:18)
[2017-12-04 10:39] VITALS: RESP 18
[2017-12-04 11:59] LABS: Glucose,Whole Blood 112 mg/dL (75-99)
[2017-12-04] MEDS ORDERED: LIDOCAINE 2% INJ 20 MG/ML (20 ML MDV) ONE (13:02)
[2017-12-04] MEDS ORDERED: LIDOCAINE 2% INJ 20 MG/ML SQ ONE (13:10)
[2017-12-04 14:09] VITALS: BP 148/70; PULSE 46; TEMP 96.7
--- NOTE | 2017-12-04 14:33 | P.PN ---
Subjective Progress Note Date: 12/04/17 Pleasant 67-year-old male who is removed to our area from [place] in June. The patient relates that he's had significant difficulties with peripheral vascular disease over the years which is Complicated by his significant underlying diabetes mellitus. The patient relates in [place] he developed severe worsening to his right foot. He does have a history of 2 years ago having a significant diabetic foot infection which required a transmetatarsal amputation. He relates shortly after this was performed and underwent atherectomies and balloon angioplasty to the lower leg vessels and since that time is doing relatively well. However he developed increasing difficulties with an ulceration to the lateral aspect of the right foot. Because of the ongoing infection he was taken to the operating room while he was in [place] and extensive debridement occurred. Since that time he has a nonhealing ulceration to this area. Upon his arrival to [place] he was seen and now referred to Hospital because of the significant underlying ulceration at the site. In the time of the consult there was concern and MRI was requested. This time the patient relates that he has some pain of the area other than this he is just concerned about his overall viability. He normally has a very active person. However now his energy level is very poor which she relates is quite unusual for him he is worried that he is having worsening of his underlying coronary artery disease. He will have a Lexiscan stress test performed as well as a follow-up echocardiogram as directed by cardiology. 12/02/2017 the patient has had his stress test performed there is evidence of ischemia there is inducible. Extremities is discussed with the cardiology team , Dr. Aj. Patient is evidence of an active infection with osteomyelitis with staph aureus of his foot. Making intervention and to the cardiac system of great concern especially if stents are required. 12/04/2017 the patient is being readied for discharge to home. If his PICC line is placed he will then be coming to [facility] for his outpatient intravenous antibiotic therapy for the osteomyelitis of his right foot with goal of foot salvage. When he is improved he will have follow-up cardiac evaluation and likely stents. Objective - Vital Signs Vital signs: Vital Signs Temp 96.7 F L 12/04/17 12:00 Pulse 46 L 12/04/17 12:00 Resp 18 12/04/17 12:00 BP 148/70 12/04/17 12:00 Pulse Ox 96 12/04/17 12:00 Intake & Output 12/03/17 12/04/17 12/04/17 18:59 06:59 18:59 Intake Total 1320 1184 Balance 1320 1184 Weight 112.4 kg 110.9 kg Intake: Oral 1320 1184 Other: Voiding Method Toilet Toilet Toilet # Voids 3 2 1 - Exam 67-year-old male who is comfortable at this time not in acute distress HEENT: Anicteric conjunctiva are pink and moist nasal mucosa grossly intact without significant lesions, there is no thrush. Neck: The neck is supple without significant lymphadenopathy or thyromegaly. Lungs: They're symmetrical bilateral air entry. Rare expiratory wheezeand bronchial sounds no dullness or egophony. Heart: Irregular with an audible S1 and S2 soft S4 no distinct murmur click or rub PMI was nondisplaced Abdomen: Obese, Positive bowel sounds soft and nontender without palpable masses or organomegaly. There was no guarding or rebound. Extremities: The upper extremities have excellent pulses they are symmetric, no significant petechiae or telangiectasia. No splinter hemorrhages were noted. Bilateral lower extremities reveal evidence of the evidence of chronic arterial disease. There is evidence of the left foot is cool but not cold with just a palpable pulse. The right foot shows evidence of a large open ulceration the lateral surface measuring approximately 6 x 4 x 0.2 cm. There is no expressible purulence. There is some minimal surrounding erythema the foot is cool and not frankly cold ,pulses not palpable this time Neuro: Awake alert oriented to person place and time. There are no acute new gross focal sensory motor deficits. - Labs CBC & Chem 7: 12/03/17 05:01 12/04/17 06:03 Labs: Abnormal Lab Results - Last 24 Hours (Table) 12/04/17 12/04/17 Range/Units 06:03 11:57 Carbon Dioxide 33 H (22-30) mmol/L BUN 22 H (9-20) mg/dL POC Glucose (mg/dL) 112 H (75-99) mg/dL Microbiology - Last 24 Hours (Table) 11/30/17 13:20 Blood Culture - Preliminary Blood No Growth after 72 hours Laboratory Results WBC 5.5 k/uL (3.8-10.6) 12/03/17 05:01 RBC 3.52 m/uL (4.30-5.90) L 12/03/17 05:01 Hgb 10.6 gm/dL (13.0-17.5) L 12/03/17 05:01 Hct 32.0 % (39.0-53.0) L 12/03/17 05:01 MCV 90.8 fL (80.0-100.0) 12/03/17 05:01 MCH 30.1 pg (25.0-35.0) 12/03/17 05:01 MCHC 33.1 g/dL (31.0-37.0) 12/03/17 05:01 RDW 14.5 % (11.5-15.5) 12/03/17 05:01 Plt Count 226 k/uL (150-450) 12/03/17 05:01 Neutrophils % 52 % 12/01/17 01:42 Lymphocytes % 34 % 12/01/17 01:42 Monocytes % 7 % 12/01/17 01:42 Eosinophils % 4 % 12/01/17 01:42 Basophils % 1 % 12/01/17 01:42 Neutrophils # 3.3 k/uL (1.3-7.7) 12/01/17 01:42 Lymphocytes # 2.2 k/uL (1.0-4.8) 12/01/17 01:42 Monocytes # 0.4 k/uL (0-1.0) 12/01/17 01:42 Eosinophils # 0.3 k/uL (0-0.7) 12/01/17 01:42 Basophils # 0.0 k/uL (0-0.2) 12/01/17 01:42 ESR 77 mm/hr (0-15) H 11/30/17 13:20 PT 10.6 sec (9.0-12.0) 12/03/17 05:01 INR 1.1 (<1.2) 12/03/17 05:01 APTT 24.2 sec (22.0-30.0) 12/03/17 05:01 Sodium 144 mmol/L (137-145) 12/04/17 06:03 Potassium 4.9 mmol/L (3.5-5.1) 12/04/17 06:03 Chloride 101 mmol/L (98-107) 12/04/17 06:03 Carbon Dioxide 33 mmol/L (22-30) H 12/04/17 06:03 Anion Gap 10 mmol/L 12/04/17 06:03 BUN 22 mg/dL (9-20) H 12/04/17 06:03 Creatinine 1.06 mg/dL (0.66-1.25) 12/04/17 06:03 Est GFR (CKD-EPI)AfAm 85 (>60 ml/min/1.73 sqM) 12/04/17 06:03 Est GFR (CKD-EPI)NonAf 74 (>60 ml/min/1.73 sqM) 12/04/17 06:03 Glucose 96 mg/dL (74-99) 12/04/17 06:03 POC Glucose (mg/dL) 112 mg/dL (75-99) H 12/04/17 11:57 POC Glu Executive [employer] Manager ID Dylan Galicia 12/04/17 11:[address] Glu mg/dL 212 12/01/17 01:42 Hemoglobin A1c 9.0 % (4.0-6.0) H 12/01/17 01:42 Plasma Lactic Acid Hitesh 1.1 mmol/L (0.7-2.0) 11/30/17 13:20 Calcium 9.3 mg/dL (8.4-10.2) 12/04/17 06:03 Magnesium 1.9 mg/dL (1.6-2.3) 12/02/17 06:13 Total Bilirubin 0.3 mg/dL (0.2-1.3) 11/30/17 13:20 AST 19 U/L (17-59) 11/30/17 13:20 ALT 29 U/L (21-72) 11/30/17 13:20 Alkaline Phosphatase 86 U/L (38-126) 11/30/17 13:20 Total Creatine Kinase 50 U/L (55-170) L 12/01/17 01:42 CK-MB (CK-2) 1.4 ng/mL (0.0-2.4) 12/01/17 01:42 CK-MB (CK-2) Rel Index 2.8 12/01/17 01:42 Troponin I <0.012 ng/mL (0.000-0.034) 12/01/17 01:42 C-Reactive Protein 15.8 mg/L (<10.0) H 11/30/17 13:20 Total Protein 7.6 g/dL (6.3-8.2) 11/30/17 13:20 Albumin 3.9 g/dL (3.5-5.0) 11/30/17 13:20 Urine Color Yellow 11/30/17 13:55 Urine Appearance Clear (Clear) 11/30/17 13:55 Urine pH 5.5 (5.0-8.0) 11/30/17 13:55 Ur Specific [place] 1.015 (1.001-1.035) 11/30/17 13:55 Urine Protein 2+ (Negative) H 11/30/17 13:55 Urine Glucose (UA) Negative (Negative) 11/30/17 13:55 Urine Ketones Negative (Negative) 11/30/17 13:55 Urine Blood Small (Negative) H 11/30/17 13:55 Urine Nitrite Negative (Negative) 11/30/17 13:55 Urine Bilirubin Negative (Negative) 11/30/17 13:55 Urine Urobilinogen <2.0 mg/dL (<2.0) 11/30/17 13:55 Ur Leukocyte Esterase Negative (Negative) 11/30/17 13:55 Urine RBC 3 /hpf (0-5) 11/30/17 13:55 Urine WBC 1 /hpf (0-5) 11/30/17 13:55 Hyaline Casts 1 /lpf (0-2) 11/30/17 13:55 Urine Mucus Rare /hpf (None) H 11/30/17 13:55 Vancomycin Trough 11.2 ug/mL 12/03/17 05:01 Microbiology 11/30/17 13:20 Blood Blood Culture - Preliminary No Growth after 72 hours 11/30/17 13:55 Foot - Right Gram Stain - Final 11/30/17 13:55 Foot - Right Wound Culture - Final Staphylococcus aureus 11/30/17 13:55 Urine,Voided Urine Culture - Final Assessment and Plan (1) Osteomyelitis of right foot Narrative/Plan: Pleasant 67-year-old gentleman has a long-standing history of diabetes mellitus type 2 with severe peripheral vascular disease and severe coronary artery disease presents to Hospital given very poorly. He's been having significant amounts of fatigue and malaise Concerns to worsen with underlying coronary artery disease. Has been seen by cardiology and further cardiac workup is now in process. Is on the patient has been evaluated in [place] and underwent the extensive surgical intervention to the right foot several months ago and continues to have a nonhealing ulceration at that site. The patient has had his MRI does reveal evidence of underlying osteoporosis of the fifth metatarsal bone. We'll have to determine our options are his current difficulty with insurance however we do well to have outpatient antibiotic therapy and this will be driven by the culture results. Currently he is receiving Unasyn and vancomycin which are adequate until we have some further data. There is some pulmonary data this is likely a staphylococcal infection which he believes he may have had in [place] but is not recalling MRSA infection. At this time the primary goal will be for leg salvage. He certainly had the transmetatarsal amputation and now has a nonhealing ulceration of the lateral surface of the foot. If infection penetrates further into the foot would not the much left to begun to the foot and within likely need a [id number] amputation. Consequently antibiotic therapy local wound care and following the wound healing center after discharge he will likely be a candidate for hyperbaric oxygen therapy. 12/02/2017 patient is feeling slightly better. His cardiac evaluation has occurred in does have some inducible ischemia. This was discussed with the cardiology team and given his current active infection with staph aureus he is not a good candidate for interventions into the coronary arteries with stents given his active infection. The patient understands. He would like to have something in the future because when he's had prior cardiac work it has improved his stamina and functional status. For now we'll work toward PICC line to be placed for outpatient intravenous antibiotic therapy. Staph aureus has been isolated and Rocephin can be utilized. The patient is currently in between insurance will likely come to our outpatient infusion suite so we can continue the transition of care. Also would like to have him followed in the wound healing center after discharge I do believe he is a candidate for hyperbaric oxygen therapy especially once we get some prior data from [place]. Local wound care with Aquacel silver as requested. An offloading as required. 12/04/2017 the patient has had improvement. He is being cleared by cardiology for discharge to home with active follow-up once his infection is improved. Rations are being made for him to head to the [facility] with a pediatric unit over the weekend for his outpatient intravenous antibiotic therapy for his MSSA osteomyelitis of his right foot. Goal is foot salvage. Follow up in the wound center once it is possible when his insurance has been cleared up. Local wound care as sent with the silver alginate to be changed every Thursday. Current Visit: Yes Status: Acute Code(s): M86.9 - OSTEOMYELITIS, UNSPECIFIED SNOMED Code(s): 3061563479286511 (2) Poorly controlled type 2 diabetes mellitus with circulatory disorder Current Visit: Yes Status: Acute Code(s): E11.59 - TYPE 2 DIABETES MELLITUS WITH OTH CIRCULATORY COMPLICATIONS; E11.65 - TYPE 2 DIABETES MELLITUS WITH HYPERGLYCEMIA SNOMED Code(s): 12392819
--- NOTE | 2017-12-04 14:42 | IR ---
EXAMINATION TYPE: IR cvc insert >=5 years DATE OF EXAM: 12/04/2017 COMPARISON: NONE CLINICAL HISTORY: infection in foot, Needs long-term intravenous access for antibiotics. PROCEDURE: After informed consent, the skin overlying the upper extremity vein was localized with ultrasound and noted to be compressible and patent. An ultrasound image was obtained and submitted on the patient' s chart. The overlying skin was prepped and draped and Lidocaine was used for local anesthesia. A s kin jose de jesus was made with a scalpel. Access was gained to the vein under ultrasound guidance with a 21 gauge needle and a 0.018 inch wire was advanced. Access site was dilated with Peel-Away sheath and c atheter tailored to the appropriate length and advanced such that the distal tip is at the cavoatrial junction. Spot image was obtained verifying placement. Catheter was fixed to the skin and a steril e dressing was placed following hemostasis. Catheter was aspirated and flushed with saline. Patient was discharged in stable condition without complication.Maximal barrier technique is utilized. Ultr asound image is documented on the chart. Ultrasound used with sterile technique. Fluoro time and fluoroscopic images submitted to document procedure: 3 intraoperative images, 1 minut e of fluoro time. IMPRESSION: STATUS POST ULTRASOUND AND FLUOROSCOPIC GUIDED PICC LINE PLACEMENT, READY FOR USE. THIS PROCEDURE WAS PERFORMED BY THE UNDERSIGNED.
--- NOTE | 2017-12-04 17:38 | P.DS ---
Providers Date of admission: 11/30/17 15:11 Attending physician: Gianna Irving Consults: 11/30/17 15:12 Consult Physician Urgent Consulting Provider: Albin Bolden Consult Reason/Comments: cp Do you want consulting provider notified?: Yes 11/30/17 15:13 Consult Physician Urgent Consulting Provider: Demetrio Merritt Consult Reason/Comments: Right foot diabetic ulcer/cellulitis, peripheral vascular disease Do you want consulting provider notified?: Yes 11/30/17 15:25 Consult Physician Urgent Consulting Provider: Alexandre Charles Consult Reason/Comments: right foot infection, possible osteomyelitis Do you want consulting provider notified?: Yes Primary care physician: Stated None Hospital Course: Patient is a pleasant 67-year-old gentleman admitted for left foot ulcer and infection patient is status post partial amputation of the left foot procedure, The patient has had his MRI does reveal evidence of underlying osteoporosis of the fifth metatarsal bone. Aspirate culture patient was diagnosed with MSSA osteomyelitis of his right foot. Patient of PICC line on the day of discharge. Patient told me he is going tomorrow to the wound clinic to continue treatment of his with infection, and that he got all the information he needs. ID evaluated the patient throughout his stay and cleared him for discharge Also on admission Patient was complaining of chest pain because of the risk factors although atypical cardiology is recommending a stress test which raise the suspicion of possible reversible ischemia, cabinet installer felt patient will need a cardiac catheterization once his infection clears. pt is with active infection with staph aureus and he is not a good candidate for interventions into the coronary arteries with stents given his active infection. He is being cleared by cardiology for discharge to home with active follow-up once his infection is improved. Cardiology appointment was made patient informed and he agrees with it and said he will do the follow-up Patient blood sugar was on the low side, his Levemir was decreased from 50-25 units daily at bedtime, continue with family 70/30 AT 20 units 3 times a day before meals, patient is informed with this recommendation and he agrees. I called the pharmacy and confirmed that insulin PEN is prescribed for both medications with 1 month supply. Recommended the patient to keep checking his sugar. Please note that although Lantus 30 units was mentioned discharge paper however it was crossed by the nurse, patient was informed by the staff and me about the correct medications he should take The pain has been patient preferred with 1 month supply Problems with Treatment plan has been discussed with the patient and he verbalized understanding and agreement Patient is found stable and can be discharged home however he needs follow-up as an outpatient Physical examination Gen. AAOX3, not in distress CVS: S1-S2, RRR, no murmur Lungs: B/L CTA, no wheezing, not in respiratory distress Abdomen: soft, no distention, no tenderness, positive bowel sounds Extremities right foot has lateral big ulcer with no purulent discharge, dressing is in place and intact Patient Condition at Discharge: Fair Plan - Discharge Summary Discharge Rx Participant: Yes New Discharge Prescriptions: New cefTRIAXone [Rocephin] 2,000 mg IVPB Q24HR #42 vial Atorvastatin [Lipitor] 80 mg PO HS #30 tab Insulin Detemir [Levemir] 25 unit SQ HS #1 syr Losartan [Cozaar] 25 mg PO DAILY #30 tab Metoprolol Tartrate [Lopressor] 12.5 mg PO BID #30 tab Pantoprazole [Protonix] 40 mg PO AC-BRKFST #20 tablet.dr Continue Insulin NPH/Reg Insulin 70/30 [humuLIN 70/30 VIAL] 20 units SQ AC-TID Pregabalin [Lyrica] 75 mg PO BID Divalproex Sodium [Depakote ER] 500 mg PO DAILY Aspirin EC [Ecotrin Low Dose] 81 mg PO DAILY oxyCODONE HCL 15 mg PO QID PRN PRN Reason: Pain Tadalafil [Cialis] 5 mg PO DAILY Sertraline [Zoloft] 100 mg PO BID Acetaminophen Tab [Tylenol] 1,000 mg PO Q6HR PRN PRN Reason: Pain Insulin Glargine [Lantus] 30 unit SQ HS Discontinued Cephalexin [Keflex] 250 mg PO QID Amoxic-Pot Clav 875-125Mg [Augmentin 875-125] 1 tab PO Q12HR Discharge Medication List Insulin NPH/Reg Insulin 70/30 [humuLIN 70/30 VIAL] 20 units SQ AC-TID 12/05/15 [ History] Acetaminophen Tab [Tylenol] 1,000 mg PO Q6HR PRN 11/30/17 [History] Aspirin EC [Ecotrin Low Dose] 81 mg PO DAILY 11/30/17 [History] Divalproex Sodium [Depakote ER] 500 mg PO DAILY 11/30/17 [History] Insulin Glargine [Lantus] 30 unit SQ HS 11/30/17 [History] Pregabalin [Lyrica] 75 mg PO BID 11/30/17 [History] Sertraline [Zoloft] 100 mg PO BID 11/30/17 [History] Tadalafil [Cialis] 5 mg PO DAILY 11/30/17 [History] oxyCODONE HCL 15 mg PO QID PRN 11/30/17 [History] cefTRIAXone [Rocephin] 2,000 mg IVPB Q24HR #42 vial 12/02/17 [Rx] Atorvastatin [Lipitor] 80 mg PO HS #30 tab 12/04/17 [Rx] Insulin Detemir [Levemir] 25 unit SQ HS #1 syr 12/04/17 [Rx] Losartan [Cozaar] 25 mg PO DAILY #30 tab 12/04/17 [Rx] Metoprolol Tartrate [Lopressor] 12.5 mg PO BID #30 tab 12/04/17 [Rx] Pantoprazole [Protonix] 40 mg PO AC-BRKFST #20 tablet. 12/04/17 [Rx] Follow up Appointment(s)/Referral(s): Johnny Moreno MD [STAFF PHYSICIAN] - 1 Week (Patient to call and find primary physician after December 11 when insurance is effective.) Phani Gill DO [Doctor of Osteopathic Medicine] - 1 Week (Patient to call and find primary physician after December 11 when insurance is effective. ) Alexandre Nevarez MD [Medical Doctor] - 1 Week (Patient to call and find primary physician after December 11 when insurance is effective.) Albin Bolden MD [STAFF PHYSICIAN] - 12/17/17 2:30 pm (for your heart disease ) Ambulatory/Diagnostic Orders: Basic Metabolic Panel [LAB.AMB] Location: Determined By Patient Complete Blood Count w/diff [LAB.AMB] Location: Determined By Patient Miscellaneous Lab Order [LAB.AMB] Location: Determined By Patient Ambulatory Miscellaneous Order [MISC.AMB] Location: Determined By Patient Patient Instructions/Handouts: Angina (DC), Osteomyelitis (DC) Activity/Diet/Wound Care/Special Instructions: Pt to report to the Pediatric unit at 10am on [id number] [phone] pt will report to [facility] at 10am next -thu [phone] option [address] [facility] has be set up to pick pt up everyday except Thursday (and ) between 8:50 and 9:35am, with arrival time to the hospital between 9:35-10:00am [employer] will crab picker pt this Thu and Thu at 9:30 am [employer] [phone] [facility] [phone] recommend to continue with cardiac diet activity as tolerated Discharge Disposition: HOME SELF-CARE
[2017-12-04] MEDS ORDERED: INSULIN DETEMIR 100 UNIT/ML 10 ML VIAL SQ SCH (21:00)
--- NOTE | 2017-12-09 09:15 | CDI ---
Last Revision, June 2017 Documentation Clarification Form Date: 12/09/17 From: Stephanie Toure Phone: If you have a question regarding this query, please contact Luisa Perkins at [phone] between 8am and 5pm. Admit Date: 11/30/2017 3:11:00 PM Patient Name: Ajay Dye Visit Number: [id number] Discharge Date: 12/04/17 ATTENTION: The Clinical Documentation Specialists (CDI) and [facility] Coding Staff appreciate your assistance in clarifying documentation. Please respond to the clarification below the line at the bottom and electronically sign. The CDI & [facility] Coding staff will review the response and follow-up if needed. Please note: Queries are made part of the Legal Health Record. If you have any questions, please contact the author of this message via ITS. Dr. Velazquez E Lauryn Osteomyelitis has been documented in the ED note, H&P, discharge summary and multiple progress notes. History/Risk Factors: Patient has a history of diabetic foot ulcer with cellulitis and osteomyelitis Clinical Indicators: Right foot pain and foul smelling discharge X-Ray Results: 12/01 - There is osteitis of the residual fifth metatarsal and focal marrow replacement along the osteotomy margin highly suggestive of osteomyelitis. This is made even more suspicious given the overlying soft tissue wound. Treatment: IV Vancomycin, IV Rocephin, IV Ampicillin In your professional opinion, please specify the following: Acuity: Acute Chronic Subacute Unable to Determine some elements could be acute and others chronic MTDD
== END 2017-12-04 16:41 | disposition home or self-care (01) | DRG 638 ==
LOC: EC 12:06 → 6SEL 15:11
PROVIDERS: ADMIT Hospitalist; ATTEND Hospitalist
PROC: 02HV33Z Insertion of Infusion Device into Superior Vena Cava, Percutaneous Approach (ICD-10-PCS; principal; 2017-12-04 13:00)
DX: E11.69 Type 2 diabetes mellitus with other specified complication (principal); L97.419 Non-pressure chronic ulcer of right heel and midfoot with unspecified severity; L03.115 Cellulitis of right lower limb; M86.171 Other acute osteomyelitis, right ankle and foot; E11.621 Type 2 diabetes mellitus with foot ulcer; E11.628 Type 2 diabetes mellitus with other skin complications; E11.65 Type 2 diabetes mellitus with hyperglycemia; E11.42 Type 2 diabetes mellitus with diabetic polyneuropathy; E11.51 Type 2 diabetes mellitus with diabetic peripheral angiopathy without gangrene; E11.36 Type 2 diabetes mellitus with diabetic cataract; B95.61 Methicillin susceptible Staphylococcus aureus infection as the cause of diseases classified elsewhere; E11.59 Type 2 diabetes mellitus with other circulatory complications; E66.9 Obesity, unspecified; E78.5 Hyperlipidemia, unspecified; E83.42 Hypomagnesemia; G47.30 Sleep apnea, unspecified; I10 Essential (primary) hypertension; I25.2 Old myocardial infarction; I45.10 Unspecified right bundle-branch block; J45.909 Unspecified asthma, uncomplicated; M81.0 Age-related osteoporosis without current pathological fracture; F32.9 Major depressive disorder, single episode, unspecified; F41.9 Anxiety disorder, unspecified; R00.1 Bradycardia, unspecified; R07.89 Other chest pain; I25.10 Atherosclerotic heart disease of native coronary artery without angina pectoris; M19.90 Unspecified osteoarthritis, unspecified site; K46.9 Unspecified abdominal hernia without obstruction or gangrene; D64.9 Anemia, unspecified; Z95.5 Presence of coronary angioplasty implant and graft; Z95.1 Presence of aortocoronary bypass graft; Z86.73 Personal history of transient ischemic attack (TIA), and cerebral infarction without residual deficits; Z89.431 Acquired absence of right foot; Z79.4 Long term (current) use of insulin; Z79.82 Long term (current) use of aspirin; Z79.899 Other long term (current) drug therapy; Z68.35 Body mass index [BMI] 35.0-35.9, adult; Z88.1 Allergy status to other antibiotic agents; Z88.2 Allergy status to sulfonamides; Z86.14 Personal history of Methicillin resistant Staphylococcus aureus infection; Z80.8 Family history of malignant neoplasm of other organs or systems; Z82.49 Family history of ischemic heart disease and other diseases of the circulatory system
CPT/HCPCS: 36415; 36569; 71046; 76937; 77001; 78452; 80048; 80053; 80202; 81001; 82550; 82553; 83036; 83605; 83735; 84484; 85025; 85027; 85610; 85652; 85730; 86140; 87040; 87070; 87077; 87086; 87186; 87205; 93005; 93017; 93306; 96365; 96366; 96367; 96368; 96375; 99285

== ENCOUNTER 2018-01-06 09:20 | Day surgery (SDC) | payer MEDICARE ==
[2017-12-31 14:43] VITALS: BMI 35.9
[~2018-01-06 09:20] MED LIST: ceFAZolin IN SWFI 2 GM/20 ML SYRINGE IVP ONE
[2018-01-06] MEDS ORDERED: LACTATED RINGERS 1,000 ML IV SCH (10:53)
[2018-01-06] MEDS ORDERED: DEXAMETHASONE SOD PHOSPHATE 10 MG/ML 1 ML VIAL IV ONE (10:53)
[2018-01-06] MEDS ORDERED: ONDANSETRON 4 MG/2 ML VIAL IVP ONE (10:53)
[2018-01-06] MEDS ORDERED: HYDROmorphone 0.5 MG/0.5 ML SYRINGE IVP PRN (10:53)
--- NOTE | 2018-01-06 11:04 | P.GSHP ---
History of Present Illness H&P Date: 01/06/18 Chief Complaint: Right foot ulcer Patient is status post transmetatarsal amputation on the right. On the lateral aspect he has a little large opening which is granulating and healing up fairly well. - Review of Systems Comment: Please refer to the history and physical dated 12/30/2017 Past Medical History Past Medical History: Coronary Artery Disease (CAD), CVA/TIA, Diabetes Mellitus , Deep Vein Thrombosis (DVT), Hyperlipidemia, Hypertension, Myocardial Infarction ([place]), Osteoarthritis (OA), Sleep Apnea/CPAP/BIPAP Additional Past Medical History / Comment(s): LEFT FOOT INFECTION, CURRENTLY WRAPPED AND BOOT, USING CRUTCHES, RT ARM PICC LINE, NO CPAP MACHINE, BEGINNINGSOFCATARACTS,ABD HERNIA,"urgency/frequency of urine", Last Myocardial Infarction Date:: 2003 History of Any Multi-Drug Resistant Organisms: MRSA Date of last positivie culture/infection: 12/06/15 MDRO Source:: RIGHT HAND Past Surgical History: Coronary Bypass/CABG, Heart Catheterization With Stent, Orthopedic Surgery Additional Past Surgical History / Comment(s): HEART CATH AND 2 STENTS BEFORE THE 2 VESSEL BYPASS that was done in 2007, SHATTERED LT HAND SX TO REPAIR.-- right foot toes amputated october 2017 ([place]), rt pinky finger amp. LEFT FOOT WOUND CARE CLINIC. Past Anesthesia/Blood Transfusion Reactions: No Reported Reaction Date of Last Stent Placement:: 2005 Smoking Status: Former smoker - Past Family History Mother Family Medical History: Cancer, GERD/Reflux Additional Family Medical History / Comment(s): skin cancer Father Family Medical History: Myocardial Infarction ([place]) Additional Family Medical History / Comment(s): mi's x3 Medications and Allergies Home Medications Medication Instructions Recorded Confirmed Type Insulin NPH/Reg Insulin 70/30 20 units SQ AC-TID 12/05/15 01/05/18 History [humuLIN 70/30 VIAL] Aspirin EC [Ecotrin Low Dose] 81 mg PO DAILY 11/30/17 01/05/18 History Divalproex Sodium [Depakote ER] 500 mg PO DAILY 11/30/17 01/05/18 History Pregabalin [Lyrica] 75 mg PO BID 11/30/17 01/05/18 History Sertraline [Zoloft] 100 mg PO BID 11/30/17 01/05/18 History Tadalafil [Cialis] 5 mg PO DAILY 11/30/17 01/05/18 History oxyCODONE HCL 15 mg PO QID PRN 11/30/17 01/05/18 History cefTRIAXone [Rocephin] 2,000 mg IVPB Q24HR #42 vial 12/02/17 01/05/18 Rx Atorvastatin [Lipitor] 80 mg PO HS #30 tab 12/04/17 01/05/18 Rx Insulin Detemir [Levemir] 25 unit SQ HS #1 syr 12/04/17 01/05/18 Rx Losartan [Cozaar] 25 mg PO DAILY #30 tab 12/04/17 01/05/18 Rx Metoprolol Tartrate [Lopressor] 12.5 mg PO BID #30 tab 12/04/17 01/05/18 Rx Pantoprazole [Protonix] 40 mg PO AC-BRKFST #20 tablet. 12/04/17 01/05/18 Rx Allergies Allergy/AdvReac Type Severity Reaction Status Date / Time sulfamethoxazole Allergy Rash/Hives Verified 01/06/18 10:56 [From Bactrim] trimethoprim [From Bactrim] Allergy Rash/Hives Verified 01/06/18 10:56 Surgical - Exam Osteopathic Statement: *. No significant issues noted on an osteopathic structural exam other than those noted in the History and Physical/Consult. - General well developed, well nourished, no distress, obese - Eyes normal ocular movement, no icteric - ENT no hearing loss, no congestion - Neck no masses, no bruits, trachea midline - Respiratory normal expansion, normal respiratory effort, clear to auscultation - Cardiovascular Rhythm: regular - Abdomen Abdomen: soft, non tender, no guarding, no rigid, no rebound - Integumentary no rash, no abnormal pigmentation - Neurologic no disoriented, no combative - Musculoskeletal Nonweightbearing right foot - Psychiatric oriented to time, oriented to person, oriented to place, speech is normal, memory intact Assessment and Plan (1) Diabetic ulcer of right foot associated with diabetes mellitus due to underlying condition, with fat layer exposed Current Visit: No Status: Acute Code(s): E08.621 - DIABETES MELLITUS DUE TO UNDERLYING CONDITION W FOOT ULCER; L97.512 - NON-PRS CHRONIC ULCER OTH PRT RIGHT FOOT W FAT LAYER EXPOSED SNOMED Code(s): 239132308 Plan: Patient is admitted today for split-thickness skin graft. He understands the procedure and its risks.
[2018-01-06 11:17] LABS: Glucose,Whole Blood 198 mg/dL (75-99)
[2018-01-06] MEDS ORDERED: LIDOCAINE 1% 20 ML VIAL (10MG/ML) FOR IV START INTRADERMA ONE (11:20)
[2018-01-06 11:32] VITALS: TEMP 97.6
[2018-01-06] MEDS ORDERED: MIDAZOLAM 2 MG/2 ML VIAL ONE (11:49)
[2018-01-06] MEDS ORDERED: diphenhydrAMINE 50 MG/ML 1 ML VIAL ONE (11:49)
[2018-01-06] MEDS ORDERED: fentaNYL (PF) 50 MCG/ML 2 ML AMP ONE (11:49)
[2018-01-06] MEDS ORDERED: PROPOFOL 10 MG/ML 20 ML VIAL IV ONE (11:49)
--- NOTE | 2018-01-06 12:59 | P.PCN ---
Date of Procedure: 01/06/18 Preoperative Diagnosis: Diabetic ulcer lateral right foot, Velasquez grade 2 with fatty layer exposed. Postoperative Diagnosis: Same Procedure(s) Performed: Split-thickness skin graft Anesthesia: MAC Surgeon: Brandyn Roth Estimated Blood Loss (ml): 50 Pathology: none sent Condition: stable Disposition: PACU Indications for Procedure: The patient has a large ulcer on the lateral aspect of the right foot with good granulation. Operative Findings: There was excellent blood flow on the area and the skin harvested appeared to be healthy. The area of ulceration which was grafted was 5.5 x 5.5 cm with a depth of 0.1. Description of Procedure: With the patient spine position, under benefit of IV sedation, we prepped and draped in standard fashion. Using a sharp curet we curetted the area of the ulceration removing all redundant granulation tissue down to in including briskly bleeding subcutaneous tissue. This was treated effectively with direct pressure. We then harvested a 1 inch segment of skin 2 inches long from the anterior right thigh. The setting on the dermatome was 10 1000s of an inch. The skin was meshed 1-3. We then placed this on the ulceration. It was covered with hydrogel and then absorptive silver cut to size. This was held in place using Adaptic touch which was anchored with Steri-Strips. Further hydrogel was placed on top of the area of the skin graft. Sterile dressings Kerlix and an Reji wrap were placed. The patient tolerated the procedure well and was taken recovery area in stable condition.
[2018-01-06] MEDS ORDERED: LOSARTAN 25 MG TAB PO STA (13:10)
[2018-01-06 13:58] VITALS: PULSE 58
[2018-01-06 14:23] VITALS: BP 163/87; RESP 18
== END 2018-01-06 15:11 | disposition home or self-care (01) ==
LOC: OR 09:20
PROVIDERS: ATTEND Thoracic Surgery (Cardiothoracic Vascular Surgery)
DX: E11.621 Type 2 diabetes mellitus with foot ulcer (principal); L97.512 Non-pressure chronic ulcer of other part of right foot with fat layer exposed; Z89.431 Acquired absence of right foot; I25.10 Atherosclerotic heart disease of native coronary artery without angina pectoris; J45.909 Unspecified asthma, uncomplicated; E78.5 Hyperlipidemia, unspecified; I10 Essential (primary) hypertension; G47.33 Obstructive sleep apnea (adult) (pediatric); M19.90 Unspecified osteoarthritis, unspecified site; H26.9 Unspecified cataract; F41.9 Anxiety disorder, unspecified; F31.9 Bipolar disorder, unspecified; I25.2 Old myocardial infarction; Z95.1 Presence of aortocoronary bypass graft; Z95.5 Presence of coronary angioplasty implant and graft; Z86.718 Personal history of other venous thrombosis and embolism; Z86.73 Personal history of transient ischemic attack (TIA), and cerebral infarction without residual deficits; Z86.14 Personal history of Methicillin resistant Staphylococcus aureus infection; Z79.82 Long term (current) use of aspirin; Z79.4 Long term (current) use of insulin; Z79.899 Other long term (current) drug therapy; Z88.1 Allergy status to other antibiotic agents; Z88.2 Allergy status to sulfonamides
CPT/HCPCS: 15120; 96374; J2250; J1200; J1100; J2405; J0696; J3010; J2704

== ENCOUNTER 2018-02-24 13:41 | Inpatient (IN) | payer MEDICARE ==
[2018-02-24] MEDS ORDERED: NITROGLYCERIN OINT 1 INCH/GM PACKET TOPICAL STA (14:40)
[2018-02-24] MEDS ORDERED: ASPIRIN 81 MG PO STA (14:40)
--- NOTE | 2018-02-24 14:43 | ED ---
General Adult HPI - General Chief complaint: Chest Pain Stated complaint: chest discomfort Time Seen by Provider: 02/24/18 14:30 Source: patient, RN notes reviewed Mode of arrival: wheelchair Limitations: no limitations - History of Present Illness Initial comments: Patient is a pleasant 67-year-old male presenting to the emergency Department with chest discomfort. Symptoms have been occurring the last couple of days. Discomfort feels like pressure or tightness in the left sternal region. Discomfort has been severe at times however is currently 5/10. No radiation. Patient has had some associated dyspnea and nausea. No diaphoresis. Patient has a history of similar symptoms previously associated with previous heart problems. Patient does have history of cardiac stents and bypass. Patient did have testing done a few months ago with cardiology and was told he would need some stents. - Related Data Home Medications Medication Instructions Recorded Confirmed Aspirin EC [Ecotrin Low Dose] 81 mg PO DAILY 11/30/17 02/24/18 Atorvastatin [Lipitor] 20 mg PO HS 02/24/18 02/24/18 Divalproex ER [Depakote ER] 500 mg PO BID 02/24/18 02/24/18 Insulin Aspart [NovoLOG Flexpen] 20 units SQ AC-TID 02/24/18 02/24/18 Insulin Detemir [Levemir] 30 unit SQ HS 02/24/18 02/24/18 Metoprolol Tartrate [Lopressor] 25 mg PO BID 02/24/18 02/24/18 Previous Rx's Medication Instructions Recorded Losartan [Cozaar] 25 mg PO DAILY #30 tab 12/04/17 Pantoprazole [Protonix] 40 mg PO AC-BRKFST #20 tablet. 12/04/17 Allergies Allergy/AdvReac Type Severity Reaction Status Date / Time sulfamethoxazole Allergy Rash/Hives Verified 02/24/18 15:55 [From Bactrim] trimethoprim [From Bactrim] Allergy Rash/Hives Verified 02/24/18 15:55 Review of Systems ROS Statement: Those systems with pertinent positive or pertinent negative responses have been documented in the HPI. ROS Other: All systems not noted in ROS Statement are negative. Constitutional: Denies: fever Eyes: Denies: eye pain ENT: Denies: ear pain Respiratory: Denies: cough Cardiovascular: Reports: chest pain Gastrointestinal: Denies: abdominal pain Genitourinary: Denies: dysuria Musculoskeletal: Denies: back pain Skin: Reports: lesions (Right foot lesion has healed and he was released by infectious disease) Neurological: Denies: weakness Past Medical History Past Medical History: Asthma, Coronary Artery Disease (CAD), CVA/TIA, Diabetes Mellitus, Hyperlipidemia, Hypertension, Myocardial Infarction ([place]), Sleep Apnea/ CPAP/BIPAP Additional Past Medical History / Comment(s): NO CPAP MACHINE,BRONCHITIS, TIA, BEGINNINGS OF CATARACTS,ARTHRITIS,ABD HERNIA,"urgency/frequency of urine",past rt hand cellulitis Last Myocardial Infarction Date:: 2003 History of Any Multi-Drug Resistant Organisms: MRSA Date of last positivie culture/infection: 12/06/15 MDRO Source:: RIGHT HAND Past Surgical History: Coronary Bypass/CABG, Heart Catheterization With Stent, Orthopedic Surgery Additional Past Surgical History / Comment(s): HEART CATH AND 2 STENTS BEFORE THE 2 VESSEL BYPASS that was done in 2007, SHATTERED LT HAND SX TO REPAIR.-- right foot toes amputated october 2017 ([place]), rt pinky finger amp. LEFT FOOT WOUND CARE CLINIC. PICC LINE. Past Anesthesia/Blood Transfusion Reactions: No Reported Reaction Date of Last Stent Placement:: 2003? Past Psychological History: Anxiety, Bipolar, Depression Smoking Status: Never smoker Past Alcohol Use History: Occasional Past Drug Use History: None Reported - Past Family History Mother Family Medical History: Cancer, GERD/Reflux Additional Family Medical History / Comment(s): skin cancer Father Family Medical History: Myocardial Infarction ([place]) Additional Family Medical History / Comment(s): mi's x3 General Exam Limitations: no limitations General appearance: alert, in no apparent distress Head exam: Present: atraumatic Eye exam: Present: normal appearance, PERRL ENT exam: Present: normal oropharynx Neck exam: Present: normal inspection Respiratory exam: Present: normal lung sounds bilaterally Cardiovascular Exam: Present: regular rate, normal rhythm Expanded Peripheral pulses: 2+: Radial (R), Radial (L), Posterior Tibialis (R), Posterior Tibialis (L) GI/Abdominal exam: Present: soft. Absent: tenderness Extremities exam: Present: normal inspection, other (Previous right toe amputations). Absent: pedal edema, calf tenderness Neurological exam: Present: alert Psychiatric exam: Present: normal affect, normal mood Skin exam: Present: other (Healed right foot wound) Course Vital Signs 02/24/18 02/24/18 13:54 15:57 Temperature 98.0 F Pulse Rate 58 L 57 L Respiratory 18 18 Rate Blood Pressure 141/68 171/79 O2 Sat by Pulse 98 96 Oximetry EKG Findings - EKG Comments: EKG Findings:: Sinus bradycardia at 59. MI 178. QRS 142. QT 476. QTc 471. Left axis. Right bundle branch block. No acute ST change. Medical Decision Making - Medical Decision Making Patient reevaluated and resting comfortably in bed. Patient updated on results and plan. Case discussed with Dr. Salguero, who is covering for Dr. hoff, who admits for Dr. Perez. - Lab Data Result diagrams: 02/24/18 14:11 02/24/18 14:11 Lab Results 02/24/18 02/24/18 02/24/18 Range/Units 14:11 14:11 14:11 WBC 6.6 (3.8-10.6) k/uL RBC 4.37 (4.30-5.90) m/uL Hgb 13.4 (13.0-17.5) gm/dL Hct 39.1 (39.0-53.0) % MCV 89.5 (80.0-100.0) fL MCH 30.6 (25.0-35.0) pg MCHC 34.2 (31.0-37.0) g/dL RDW 14.9 (11.5-15.5) % Plt Count 274 (150-450) k/uL Neutrophils % 61 % Lymphocytes % 27 % Monocytes % 7 % Eosinophils % 3 % Basophils % 0 % Neutrophils # 4.0 (1.3-7.7) k/uL Lymphocytes # 1.8 (1.0-4.8) k/uL Monocytes # 0.5 (0-1.0) k/uL Eosinophils # 0.2 (0-0.7) k/uL Basophils # 0.0 (0-0.2) k/uL PT (9.0-12.0) sec INR (<1.2) APTT (22.0-30.0) sec Sodium 140 (137-145) mmol/L Potassium 4.9 (3.5-5.1) mmol/L Chloride 107 (98-107) mmol/L Carbon Dioxide 26 (22-30) mmol/L Anion Gap 7 mmol/L BUN 20 (9-20) mg/dL Creatinine 0.93 (0.66-1.25) mg/dL Est GFR (CKD-EPI)AfAm >90 (>60 ml/min/1.73 sqM) Est GFR (CKD-EPI)NonAf 86 (>60 ml/min/1.73 sqM) Glucose 143 H (74-99) mg/dL Calcium 9.1 (8.4-10.2) mg/dL Magnesium 1.5 L (1.6-2.3) mg/dL Total Bilirubin 0.4 (0.2-1.3) mg/dL AST 28 (17-59) U/L ALT 33 (21-72) U/L Alkaline Phosphatase 70 (38-126) U/L Total Creatine Kinase 104 (55-170) U/L CK-MB (CK-2) 2.6 H* (0.0-2.4) ng/mL CK-MB (CK-2) Rel Index 2.5 Troponin I 0.017 (0.000-0.034) ng/mL Total Protein 7.2 (6.3-8.2) g/dL Albumin 3.6 (3.5-5.0) g/dL 02/24/18 Range/Units 14:11 WBC (3.8-10.6) k/uL RBC (4.30-5.90) m/uL Hgb (13.0-17.5) gm/dL Hct (39.0-53.0) % MCV (80.0-100.0) fL MCH (25.0-35.0) pg MCHC (31.0-37.0) g/dL RDW (11.5-15.5) % Plt Count (150-450) k/uL Neutrophils % % Lymphocytes % % Monocytes % % Eosinophils % % Basophils % % Neutrophils # (1.3-7.7) k/uL Lymphocytes # (1.0-4.8) k/uL Monocytes # (0-1.0) k/uL Eosinophils # (0-0.7) k/uL Basophils # (0-0.2) k/uL PT 9.7 (9.0-12.0) sec INR 1.0 (<1.2) APTT 22.5 (22.0-30.0) sec Sodium (137-145) mmol/L Potassium (3.5-5.1) mmol/L Chloride (98-107) mmol/L Carbon Dioxide (22-30) mmol/L Anion Gap mmol/L BUN (9-20) mg/dL Creatinine (0.66-1.25) mg/dL Est GFR (CKD-EPI)AfAm (>60 ml/min/1.73 sqM) Est GFR (CKD-EPI)NonAf (>60 ml/min/1.73 sqM) Glucose (74-99) mg/dL Calcium (8.4-10.2) mg/dL Magnesium (1.6-2.3) mg/dL Total Bilirubin (0.2-1.3) mg/dL AST (17-59) U/L ALT (21-72) U/L Alkaline Phosphatase (38-126) U/L Total Creatine Kinase (55-170) U/L CK-MB (CK-2) (0.0-2.4) ng/mL CK-MB (CK-2) Rel Index Troponin I (0.000-0.034) ng/mL Total Protein (6.3-8.2) g/dL Albumin (3.5-5.0) g/dL - Radiology Data Radiology results: image reviewed (Chest x-ray shows cardiomegaly and postoperative changes. No acute process.) Disposition Clinical Impression: Chest pain Disposition: ADMITTED IP TO THIS HOSP Is patient prescribed a controlled substance at d/c from ED?: No Referrals: Shaheen Perez DO [Primary Care Provider] - 1-2 days Decision Time: 16:26
[2018-02-24 14:45] LABS: Basophils % (A) 0 %; Eosinophils # (A) 0.2 k/uL (0-0.7); Eosinophils % (A) 3 %; HCT 39.1 % (39.0-53.0); HGB 13.4 gm/dL (13.0-17.5); Lymphocytes # (A) 1.8 k/uL (1.0-4.8); Lymphocytes % (A) 27 %; MCH 30.6 pg (25.0-35.0); MCHC 34.2 g/dL (31.0-37.0); MCV 89.5 fL (80.0-100.0); Mean Platelet Volume 7.7; Monocytes # (A) 0.5 k/uL (0-1.0); Monocytes % (A) 7 %; Neutrophils % (A) 61 %; Platelet Count 274 k/uL (150-450); RBC 4.37 m/uL (4.30-5.90); RDW 14.9 % (11.5-15.5); WBC 6.6 k/uL (3.8-10.6)
--- NOTE | 2018-02-24 14:56 | XR ---
EXAMINATION TYPE: XR chest 2V DATE OF EXAM: 02/24/2018 COMPARISON: Chest x-ray November 30, 2017 HISTORY: Chest pain for 2 days. Shortness of breath. TECHNIQUE: Frontal and lateral views of the chest are obtained. FINDINGS: Overlying sternal wires are redemonstrated. There is persistent low lung volumes without n ew suspicious focal air space opacity, pleural effusion, or pneumothorax seen. The cardiac silhouett e size remains enlarged. The osseous structures are intact. IMPRESSION: Cardiomegaly and low lung volumes without acute pulmonary process.
[2018-02-24 14:57] LABS: Partial Thromboplastin Time 22.5 sec (22.0-30.0); Prothrombin Time 9.7 sec (9.0-12.0)
[2018-02-24 14:59] LABS: ALT 33 U/L (21-72); AST 28 U/L (17-59); Albumin 3.6 g/dL (3.5-5.0); Alkaline Phosphatase 70 U/L (38-126); Anion Gap 7 mmol/L; Blood Urea Nitrogen 20 mg/dL (9-20); Calcium 9.1 mg/dL (8.4-10.2); Carbon Dioxide 26 mmol/L (22-30); Chloride 107 mmol/L (98-107); Glucose 143 mg/dL (74-99); Magnesium 1.5 mg/dL (1.6-2.3); Potassium 4.9 mmol/L (3.5-5.1); Sodium 140 mmol/L (137-145); Total Bilirubin 0.4 mg/dL (0.2-1.3); Total Protein 7.2 g/dL (6.3-8.2)
[2018-02-24 15:21] LABS: Troponin I 0.017 ng/mL (0.000-0.034)
[2018-02-24 15:27] LABS: Creatine Kinase MB 2.6 ng/mL (0.0-2.4)
[2018-02-24] MEDS ORDERED: NITROGLYCERIN SL TABS 0.4 MG TAB SUBLINGUAL PRN (16:27)
[2018-02-24 18:21] LABS: Glucose,Whole Blood 124 mg/dL (75-99)
[2018-02-24] MEDS: INSULIN ASPART 100 UNIT/ML 1 ML 10 ML VIAL SQ SCH ×2 (18:49→21:57)
[2018-02-24] MEDS: NITROGLYCERIN OINT 1 INCH/GM PACKET TOPICAL SCH (19:21)
[2018-02-24] MEDS: HYDROcodone/APAP 5-325MG 1 EACH TAB PO PRN (19:25)
[2018-02-24] MEDS: INSULIN DETEMIR 100 UNIT/ML 10 ML VIAL SQ SCH (20:41)
[2018-02-24 20:53] LABS: Glucose,Whole Blood 219 mg/dL (75-99)
[2018-02-24 21:03] LABS: Creatine Kinase MB 2.1 ng/mL (0.0-2.4); Troponin I 0.013 ng/mL (0.000-0.034)
[2018-02-24] MEDS: METOPROLOL TARTRATE 25 MG TAB PO SCH (21:56)
[2018-02-24] MEDS: ATORVASTATIN 20 MG TAB PO SCH (21:56)
[2018-02-24] MEDS: DIVALPROEX ER 500 MG TAB.ER.24H PO SCH (21:57)
[2018-02-25] MEDS: NITROGLYCERIN OINT 1 INCH/GM PACKET TOPICAL SCH ×4 (02:18→18:24)
[2018-02-25] MEDS: HYDROcodone/APAP 5-325MG 1 EACH TAB PO PRN ×3 (02:19→21:19)
[2018-02-25 02:32] LABS: HDL Cholesterol 27 mg/dL (40-60)
[2018-02-25 02:51] LABS: Cholesterol 425 mg/dL (<200)
[2018-02-25 03:01] LABS: Creatine Kinase MB 2.1 ng/mL (0.0-2.4); Troponin I 0.014 ng/mL (0.000-0.034)
[2018-02-25 03:27] LABS: Triglycerides 1680 mg/dL (<150)
[2018-02-25 07:35] LABS: Glucose,Whole Blood 156 mg/dL (75-99)
--- NOTE | 2018-02-25 08:44 | P.CRDCN ---
History of Present Illness Consult date: 02/25/18 Chief complaint: chest pain History of present illness: This is a pleasant 67-year-old gentleman with a past medical history significant for coronary artery disease, peripheral arterial disease, hypertension, diabetes, and dyslipidemia, came in for further evaluation of chest discomfort. The patient presented to the emergency room complaining of chest discomfort. He does have an extensive cardiac history consistent of CAD and status post CABG in 2011 with unknown details, as well as status post coronary artery stenting as well with unknown details. Both the CABG and stents were performed in [place]. Beside that he does have peripheral arterial disease and she was diagnosed was a critical limb ischemia of the right foot. Currently he is doing better and the ulcer has healed. He underwent toe amputation. He was in the hospital back in November 2017 with chest discomfort and at that point he was ruled out for acute coronary event and underwent a stress test showed ischemia. The heart catheterization was not performed at that point because the patient was septic. He was seated medically and discharged home in stable medical condition. He presented to the hospital again was chest discomfort for the last 3-4 days. He described it as a pressure across the chest without any radiation and without any associated symptoms with it was assisted with sweating. No dizziness or lightheadedness, and no syncope. The EKG showed sinus rhythm. Cardiac enzymes were checked and came in to be unremarkable. In view the persistent chest discomfort, the abnormal recent stress test, and his cardiac history, I do recommend proceeding with a heart catheterization. I am going to contact Dr. Bolden who saw the patient back in November 2017 to performed a heart catheterization on the patient. Past Medical History Past Medical History: Asthma, Coronary Artery Disease (CAD), CVA/TIA, Diabetes Mellitus, GERD/Reflux, Hyperlipidemia, Hypertension, Myocardial Infarction ([place]) , Sleep Apnea/CPAP/BIPAP Additional Past Medical History / Comment(s): NO CPAP MACHINE,BRONCHITIS, TIA, BEGINNINGS OF CATARACTS,ARTHRITIS,ABD HERNIA,"urgency/frequency of urine",rt foot diabetic ulcer(sx) Last Myocardial Infarction Date:: 2003 History of Any Multi-Drug Resistant Organisms: MRSA Date of last positivie culture/infection: 12/06/15 MDRO Source:: RIGHT HAND Past Surgical History: Coronary Bypass/CABG, Heart Catheterization With Stent, Orthopedic Surgery Additional Past Surgical History / Comment(s): HEART CATH AND 2 STENTS BEFORE THE 2 VESSEL BYPASS that was done in 2007, SHATTERED LT HAND SX TO REPAIR.-- right foot toes amputated october 2017 ([place]), rt pinky finger amp. right FOOT WOUND CARE CLINIC-ongoing every thu(sx-had grafting done-donor stie was rt thigh). PICC LINE- since removed Past Anesthesia/Blood Transfusion Reactions: No Reported Reaction Date of Last Stent Placement:: 2003? Smoking Status: Never smoker - Past Family History Mother Family Medical History: Cancer, GERD/Reflux Additional Family Medical History / Comment(s): skin cancer Father Family Medical History: Myocardial Infarction ([place]) Additional Family Medical History / Comment(s): mi's x3 Medications and Allergies Home Medications Medication Instructions Recorded Confirmed Type Aspirin EC [Ecotrin Low Dose] 81 mg PO DAILY 11/30/17 02/24/18 History Losartan [Cozaar] 25 mg PO DAILY #30 tab 12/04/17 02/24/18 Rx Pantoprazole [Protonix] 40 mg PO AC-BRKFST #20 tablet. 12/04/17 02/24/18 Rx Atorvastatin [Lipitor] 20 mg PO HS 02/24/18 02/24/18 History Divalproex ER [Depakote ER] 500 mg PO BID 02/24/18 02/24/18 History Insulin Aspart [NovoLOG Flexpen] 20 units SQ AC-TID 02/24/18 02/24/18 History Insulin Detemir [Levemir] 30 unit SQ HS 02/24/18 02/24/18 History Metoprolol Tartrate [Lopressor] 25 mg PO BID 02/24/18 02/24/18 History Allergies Allergy/AdvReac Type Severity Reaction Status Date / Time sulfamethoxazole Allergy Rash/Hives Verified 02/24/18 15:55 [From Bactrim] trimethoprim [From Bactrim] Allergy Rash/Hives Verified 02/24/18 15:55 Physical Exam Vitals: Vital Signs Temp Pulse Pulse Resp BP BP Pulse Ox 02/25/18 07:58 97.9 F 49 L 16 188/74 95 02/25/18 04:00 45 L 16 02/25/18 03:45 97.9 F 47 L 16 172/80 97 02/25/18 00:00 51 L 16 02/24/18 23:36 98.0 F 53 L 16 177/77 94 L 02/24/18 20:00 51 L 18 02/24/18 18:24 97.6 F 54 L 199/89 95 02/24/18 17:35 97.8 F 57 L 18 165/76 98 02/24/18 15:57 57 L 18 171/79 96 02/24/18 13:54 98.0 F 58 L 18 141/68 98 Intake and Output 02/24/18 02/25/18 02/25/18 22:59 06:59 14:59 Other: Voiding Method Toilet Toilet # Voids 1 - Constitutional General appearance: no acute distress - Respiratory Respiratory: bilateral: CTA - Cardiovascular Rhythm: regular Heart sounds: normal: S1, S2 Results 02/24/18 14:11 02/24/18 14:11 Cardiac Enzymes 02/24/18 02/24/18 02/24/18 Range/Units 14:11 14:11 20:17 AST 28 (17-59) U/L CK-MB (CK-2) 2.6 H* 2.1 (0.0-2.4) ng/mL Troponin I 0.017 0.013 (0.000-0.034) ng/mL 02/25/18 Range/Units 02:07 AST (17-59) U/L CK-MB (CK-2) 2.1 (0.0-2.4) ng/mL Troponin I 0.014 (0.000-0.034) ng/mL Coagulation 02/24/18 Range/Units 14:11 PT 9.7 (9.0-12.0) sec APTT 22.5 (22.0-30.0) sec Lipids 02/25/18 Range/Units 02:07 Triglycerides 1680 H (<150) mg/dL Cholesterol 425 H (<200) mg/dL HDL Cholesterol 27 L (40-60) mg/dL CBC 02/24/18 Range/Units 14:11 WBC 6.6 (3.8-10.6) k/uL RBC 4.37 (4.30-5.90) m/uL Hgb 13.4 (13.0-17.5) gm/dL Hct 39.1 (39.0-53.0) % Plt Count 274 (150-450) k/uL Comprehensive Metabolic Panel 02/24/18 Range/Units 14:11 Sodium 140 (137-145) mmol/L Potassium 4.9 (3.5-5.1) mmol/L Chloride 107 (98-107) mmol/L Carbon Dioxide 26 (22-30) mmol/L BUN 20 (9-20) mg/dL Creatinine 0.93 (0.66-1.25) mg/dL Glucose 143 H (74-99) mg/dL Calcium 9.1 (8.4-10.2) mg/dL AST 28 (17-59) U/L ALT 33 (21-72) U/L Alkaline Phosphatase 70 (38-126) U/L Total Protein 7.2 (6.3-8.2) g/dL Albumin 3.6 (3.5-5.0) g/dL Current Medications Generic Name Dose Route Start Last Admin Trade Name Freq PRN Reason Stop Dose Admin Hydrocodone Bitart/Acetaminophen 1 each 02/24/18 19:00 02/25/18 02:19 [place] 5-325 PO 1 each Q6HR PRN Administration Pain Aspirin 325 mg 02/25/18 09:00 Aspirin PO DAILY [facility] Atorvastatin Calcium 20 mg 02/24/18 21:00 02/24/18 21:56 Lipitor PO 20 mg HS PETER Administration Divalproex Sodium 500 mg 02/24/18 21:00 02/24/18 21:57 Depakote Er PO Not Given BID PETER Insulin Aspart 0 unit 02/24/18 17:30 02/24/18 21:57 Novolog SQ Not Given ACHS [facility] Protocol Insulin Detemir 30 unit 02/24/18 21:00 02/24/18 20:41 Levemir SQ 30 unit HS PETER Administration Losartan Potassium 50 mg 02/25/18 09:00 Cozaar PO BID [facility] Metoprolol Tartrate 12.5 mg 02/25/18 09:00 Lopressor PO BID [facility] Nitroglycerin 1 inch 02/24/18 18:00 02/25/18 06:49 Nitro-Bid Oint TOPICAL Not Given Q6HR PETER Nitroglycerin 0.4 mg 02/24/18 16:27 Nitrostat SUBLINGUAL Q5M PRN Chest Pain Pantoprazole Sodium 40 mg 02/25/18 07:30 Protonix PO AC-BRKFST [facility] Sodium Chloride 10 ml 02/24/18 21:00 02/24/18 20:43 Saline Flush IV 10 ml BID PETER Administration Intake and Output 02/24/18 02/25/18 02/25/18 22:59 06:59 14:59 Other: Voiding Method Toilet Toilet # Voids 1 02/24/18 14:11 02/24/18 14:11 Assessment and Plan Assessment: Assessment #1 chest discomfort concerning for angina #2 known CAD with prior CABG and stenting #3 peripheral arterial disease/critical limb ischemia #4 multiple risk factors including diabetes, hypertension, dyslipidemia Plan #1 the patient was ruled out for acute coronary event #2 recent stress test showed ischemia #3 I do recommend proceeding with a heart catheterization #4 I am going to increase the dose of losartan for better blood pressure control. #5 I am going to decrease the dose of metoprolol because of the severe bradycardia and heart rate in the 40s #6 follow-up with the patient. Thank you for allowing us participate in his care and we'll continue following up with the patient
[2018-02-25] MEDS ORDERED: LOSARTAN 25 MG TAB PO SCH (09:00)
[2018-02-25] MEDS: DIVALPROEX ER 500 MG TAB.ER.24H PO SCH ×2 (09:11→20:23)
[2018-02-25] MEDS: LOSARTAN 50 MG TAB PO SCH ×2 (09:11→20:24)
[2018-02-25] MEDS: ASPIRIN 325 MG TAB PO SCH (09:12)
[2018-02-25] MEDS: PANTOPRAZOLE 40 MG TABLET PO SCH (09:12)
[2018-02-25] MEDS: METOPROLOL TARTRATE 12.5 MG TAB PO SCH ×2 (09:12→20:25)
[2018-02-25] MEDS: INSULIN ASPART 100 UNIT/ML 1 ML 10 ML VIAL SQ SCH ×6 (09:13→20:26)
[2018-02-25 12:33] LABS: Glucose,Whole Blood 206 mg/dL (75-99)
[2018-02-25 13:53] LABS: Hemoglobin A1C 8.6 % (4.0-6.0)
[2018-02-25] MEDS: MORPHINE SULFATE 2 MG/ML SYRINGE IVP PRN ×2 (16:07→20:27)
[2018-02-25 17:40] LABS: Glucose,Whole Blood 183 mg/dL (75-99)
--- NOTE | 2018-02-25 17:42 | P.HPIM ---
History of Present Illness H&P Date: 02/24/18 Chief Complaint: Chest pain Patient is a 67-year-old male with a known history of coronary artery disease, coronary artery bypass graft and peripheral vascular disease with right foot toe amputation/infection, hypertension, diabetes type 2 insulin-dependent and multiple other medical problems came to ER with complaints of chest pain which is constant for the past 3 days. Mainly left retrosternal chest pain. Patient says that she is being titrated recently and has been having fainting. Patient follows with cardiology clinic and was told he needs cardiac catheterization and further workup. Previously patient was having right foot infection and also incidence issues due to that patient was not able to follow with cardiology. Otherwise patient denied any associated shortness of breath. No nausea vomiting or abdominal pain. No headache or dizziness or lightheadedness. No leg swelling. Patient follows up wound care clinic for for right foot wound which is healing at this time. Patient had stress test done in November 2017. Cardiac Catheterization was not done at this time due to foot infection. Patient is also complaining of right foot pain and is requesting IV pain medications. EKG showed normal sinus rhythm. Chest x-ray showed cardiomegaly with low lung volumes. Troponin 1 negative. Review of Systems Constitutional: Patient denies any fever or chills . No generalized weakness or weight loss. Abdomen: Patient denied nausea vomiting and diarrhea and abdominal pain. Cardiovascular: Patient does have chest pain. No short of breath no palpitations. Respiratory: patient denied any cough is from production. No shortness of breath Neurologic: Patient denied any numbness or tingling headache. Musculoskeletal: Patient denies any complaints of joint swelling or deformity. Right foot pain. Skin: Negative Psychiatric: Negative Endocrine: No heat or cold intolerance. No recent weight gain. Genitourinary: No dysuria or hematuria. All other 14 point ROS negative except the above Past Medical History Past Medical History: Asthma, Coronary Artery Disease (CAD), CVA/TIA, Diabetes Mellitus, Hyperlipidemia, Hypertension, Myocardial Infarction ([place]), Sleep Apnea/ CPAP/BIPAP Additional Past Medical History / Comment(s): NO CPAP MACHINE,BRONCHITIS, TIA, BEGINNINGS OF CATARACTS,ARTHRITIS,ABD HERNIA,"urgency/frequency of urine",past rt hand cellulitis Last Myocardial Infarction Date:: 2003 History of Any Multi-Drug Resistant Organisms: MRSA Date of last positivie culture/infection: 12/06/15 MDRO Source:: RIGHT HAND Past Surgical History: Coronary Bypass/CABG, Heart Catheterization With Stent, Orthopedic Surgery Additional Past Surgical History / Comment(s): HEART CATH AND 2 STENTS BEFORE THE 2 VESSEL BYPASS that was done in 2007, SHATTERED LT HAND SX TO REPAIR.-- right foot toes amputated october 2017 ([place]), rt pinky finger amp. LEFT FOOT WOUND CARE CLINIC. PICC LINE. Past Anesthesia/Blood Transfusion Reactions: No Reported Reaction Date of Last Stent Placement:: 2003? Past Psychological History: Anxiety, Bipolar, Depression Smoking Status: Never smoker Past Alcohol Use History: Occasional Past Drug Use History: None Reported - Past Family History Mother Family Medical History: Cancer, GERD/Reflux Additional Family Medical History / Comment(s): skin cancer Father Family Medical History: Myocardial Infarction (SD) Additional Family Medical History / Comment(s): mi's x3 Medications and Allergies Home Medications Medication Instructions Recorded Confirmed Type Aspirin EC [Ecotrin Low Dose] 81 mg PO DAILY 11/30/17 02/24/18 History Losartan [Cozaar] 25 mg PO DAILY #30 tab 12/04/17 02/24/18 Rx Pantoprazole [Protonix] 40 mg PO AC-BRKFST #20 tablet. 12/04/17 02/24/18 Rx Atorvastatin [Lipitor] 20 mg PO HS 02/24/18 02/24/18 History Divalproex ER [Depakote ER] 500 mg PO BID 02/24/18 02/24/18 History Insulin Aspart [NovoLOG Flexpen] 20 units SQ AC-TID 02/24/18 02/24/18 History Insulin Detemir [Levemir] 30 unit SQ HS 02/24/18 02/24/18 History Metoprolol Tartrate [Lopressor] 25 mg PO BID 02/24/18 02/24/18 History Allergies Allergy/AdvReac Type Severity Reaction Status Date / Time sulfamethoxazole Allergy Rash/Hives Verified 02/24/18 15:55 [From Bactrim] trimethoprim [From Bactrim] Allergy Rash/Hives Verified 02/24/18 15:55 Physical Exam Vitals: Vital Signs Temp Pulse Resp BP Pulse Ox 02/24/18 15:57 57 L 18 171/79 96 02/24/18 13:54 98.0 F 58 L 18 141/68 98 Intake and Output 02/24/18 02/24/18 02/24/18 06:59 14:59 22:59 Other: Weight 108.409 kg PHYSICAL EXAMINATION: Patient is lying in the bed comfortably, no acute distress, awake alert and oriented.. HEENT: Normocephalic. Neck is supple. Pupils reactive. Nostrils clear. Oral cavity is moist. Ears reveal no drainage. Neck reveals no JVD, carotid bruits, or thyromegaly. CHEST EXAMINATION: Trachea is central. Symmetrical expansion. Diminished bibasilar air entry. Lung cazares clear to auscultation and percussion. CARDIAC: Normal S1, S2 with no gallops. No murmurs ABDOMEN: Soft. Bowel sounds normal. No organomegaly. No abdominal bruits. Extremities: Trace edema. No clubbing or cyanosis Neurologically awake, alert, oriented x3 with well-coordinated movements. No focal deficits noted Skin: No rash or skin lesions. Psychiatric: Coperative. Nonsuicidal Musculoskeletal: No joint swelling or deformity. Normal range of motion. Right foot toes amputated. Results CBC & Chem 7: 02/24/18 14:11 02/24/18 14:11 Labs: Abnormal Lab Results - Last 24 Hours (Table) 02/24/18 02/24/18 Range/Units 14:11 14:11 Glucose 143 H (74-99) mg/dL Magnesium 1.5 L (1.6-2.3) mg/dL CK-MB (CK-2) 2.6 H* (0.0-2.4) ng/mL Thrombosis Risk Factor Assmnt - DVT/VTE Prophylaxis DVT/VTE Prophylaxis: Pharmacologic Prophylaxis ordered Assessment and Plan Assessment: Chest pain/angina with a known history of coronary artery disease Coronary artery disease with history of CABG Diabetes type 2 Peripheral vascular disease with history of right foot toes amputated. Morbid obesity with BMI 35.3 History of CVA/TIA Diabetes type 2 insulin independent Hyperlipidemia Hypertension History of mild eczema and obstructive sleep apnea on CPAP at home Anxiety depression and bipolar DVT prophylaxis Plan: Patient be continued on any monitoring. Serial EKGs and troponins. Cardiology was consulted and patient was recommended previously with cardiac catheterization due to abnormal stress test.Continue with home medications and follow closely. Insulin dosing and pain management with [place]. Further recommendations based on the clinical course. Prognosis is guarded. Time with Patient: Greater than 30
--- NOTE | 2018-02-25 17:46 | P.PN ---
Subjective Progress Note Date: 02/25/18 Principal diagnosis: Chest pain/angina Patient is a 67-year-old male with a known history of coronary artery disease, coronary artery bypass graft and peripheral vascular disease with right foot toe amputation/infection, hypertension, diabetes type 2 insulin-dependent and multiple other medical problems came to ER with complaints of chest pain which is constant for the past 3 days. Mainly left retrosternal chest pain. Patient says that she is being titrated recently and has been having fainting. Patient follows with cardiology clinic and was told he needs cardiac catheterization and further workup. Previously patient was having right foot infection and also incidence issues due to that patient was not able to follow with cardiology. Otherwise patient denied any associated shortness of breath. No nausea vomiting or abdominal pain. No headache or dizziness or lightheadedness. No leg swelling. Patient follows up wound care clinic for for right foot wound which is healing at this time. Patient had stress test done in November 2017. Cardiac Catheterization was not done at this time due to foot infection. Patient is also complaining of right foot pain and is requesting IV pain medications. EKG showed normal sinus rhythm. Chest x-ray showed cardiomegaly with low lung volumes. Troponin 1 negative. 02/25/2018 Patient denied any complaints of chest pain today. Serial EKGs and troponins have been negative. Cardiology is planning for catheterization tomorrow due to recent abnormal stress test. Patient is requesting IV pain medications with morphine. Blood sugar is fairly controlled with CBG in 200. Patient is requesting to be added 20 units of NovoLog 3 times a day before meals along with liver metastases 30 units in the night. Otherwise no shortness of breath. No fever no chills. No other acute overnight issues. Current medications reviewed. Objective - Vital Signs Vital signs: Vital Signs Temp 97.9 F 02/25/18 12:00 Pulse 84 02/25/18 12:00 Resp 16 02/25/18 16:00 BP 197/87 02/25/18 14:10 Pulse Ox 95 02/25/18 12:00 Intake & Output 02/24/18 02/25/18 02/25/18 18:59 06:59 18:59 Intake Total 840 Balance 840 Weight 108.409 kg Intake: Oral 840 Other: Voiding Method Toilet Toilet # Voids 1 - Labs CBC & Chem 7: 02/24/18 14:11 08/15/18 14:11 Labs: Abnormal Lab Results - Last 24 Hours (Table) 02/24/18 02/24/18 02/25/18 Range/Units 18:20 20:26 02:07 POC Glucose (mg/dL) 124 H 219 H (75-99) mg/dL Hemoglobin A1c 8.6 H (4.0-6.0) % Triglycerides (<150) mg/dL Cholesterol (<200) mg/dL HDL Cholesterol (40-60) mg/dL 02/25/18 02/25/18 02/25/18 Range/Units 02:07 06:41 12:25 POC Glucose (mg/dL) 156 H 206 H (75-99) mg/dL Hemoglobin A1c (4.0-6.0) % Triglycerides 1680 H (<150) mg/dL Cholesterol 425 H (<200) mg/dL HDL Cholesterol 27 L (40-60) mg/dL 02/25/18 Range/Units 17:29 POC Glucose (mg/dL) 183 H (75-99) mg/dL Hemoglobin A1c (4.0-6.0) % Triglycerides (<150) mg/dL Cholesterol (<200) mg/dL HDL Cholesterol (40-60) mg/dL Assessment and Plan Assessment: Chest pain/angina with a known history of coronary artery disease and recent stress test abdominal. Coronary artery disease with history of CABG Peripheral vascular disease with history of right foot toes amputated. Recent diabetic right foot infection Morbid obesity with BMI 35.3 History of CVA/TIA Diabetes type 2 insulin independent Hyperlipidemia Hypertension History of mild eczema and obstructive sleep apnea on CPAP at home Anxiety depression and bipolar DVT prophylaxis Plan: Patient be continued on any monitoring. Serial EKGs and troponins negative. Cardiology was consulted and patient was recommended previously with cardiac catheterization due to abnormal stress test.Continue with home medications and follow closely. Insulin dosing and pain management with [place] and morphine IV as needed.. Further recommendations based on the clinical course. Prognosis is guarded. Time with Patient: Greater than 30
[2018-02-25] MEDS ORDERED: hydrALAZINE HCL 20 MG/ML 1 ML VIAL IVP STA (18:10)
[2018-02-25] MEDS: ATORVASTATIN 20 MG TAB PO SCH (20:23)
[2018-02-25 20:24] LABS: Glucose,Whole Blood 198 mg/dL (75-99)
[2018-02-25] MEDS: METOPROLOL TARTRATE 25 MG TAB PO SCH (20:24)
[2018-02-25] MEDS: INSULIN DETEMIR 100 UNIT/ML 10 ML VIAL SQ SCH (21:19)
[2018-02-26] MEDS: MORPHINE SULFATE 2 MG/ML SYRINGE IVP PRN (01:22)
[2018-02-26] MEDS: NITROGLYCERIN OINT 1 INCH/GM PACKET TOPICAL SCH ×2 (01:23→05:51)
[2018-02-26 07:06] LABS: Glucose,Whole Blood 171 mg/dL (75-99)
[2018-02-26] MEDS ORDERED: ALPRAZolam 0.5 MG TAB PO PRN (08:51)
[2018-02-26] MEDS ORDERED: SODIUM CHLORIDE 0.9% 1,000 ML in EMPTY BAG 1 BAG IV ONE (08:51)
[2018-02-26] MEDS ORDERED: ALPRAZolam 0.25 MG TAB PO PRN (08:51)
[2018-02-26] MEDS: INSULIN ASPART 100 UNIT/ML 1 ML 10 ML VIAL SQ SCH ×7 (08:58→23:07)
[2018-02-26] MEDS: PANTOPRAZOLE 40 MG TABLET PO SCH (09:00)
[2018-02-26] MEDS: HYDROCHLOROTHIAZIDE 12.5 MG CAP PO SCH (09:00)
[2018-02-26] MEDS ORDERED: amLODIPine 5 MG TAB PO SCH (09:00)
[2018-02-26] MEDS: DIVALPROEX ER 500 MG TAB.ER.24H PO SCH ×2 (09:00→22:57)
[2018-02-26] MEDS: LOSARTAN 50 MG TAB PO SCH ×2 (09:00→22:57)
[2018-02-26] MEDS: ASPIRIN 325 MG TAB PO SCH (09:00)
[2018-02-26] MEDS: METOPROLOL TARTRATE 12.5 MG TAB PO SCH ×2 (09:09→22:57)
[2018-02-26] MEDS ORDERED: IV FLUID CONTINUATION 1,000 ML IV ONE (09:36)
[2018-02-26] MEDS: fentaNYL (PF) 50 MCG/ML 2 ML AMP IV ONE ×5 (09:36→12:55)
[2018-02-26] MEDS ORDERED: MIDAZOLAM 2 MG/2 ML VIAL IV ONE (09:36)
[2018-02-26] MEDS ORDERED: LIDOCAINE 1% INJ 10MG/ML (20 ML MDV) SQ ONE (09:41)
--- NOTE | 2018-02-26 10:23 | P.CARDCATH ---
Date of Procedure: 02/26/18 Preoperative Diagnosis: Unstable angina Postoperative Diagnosis: Critical lesions in the vein graft to the OM branch and patent RANDOLPH to the LAD Procedure(s) Performed: Left heart catheterization with selective injection of the RANDOLPH graft and vein graft to the circumflex Description of Procedure: HISTORY: This is a 67-year-old gentleman with history of ischemic heart disease with recent placement and also bypass surgery. The bypass surgery was done about 2012 with the RANDOLPH graft to the LAD and vein graft to the distal circumflex. Patient was admitted to the hospital recently with chest pains and positive stress test. However cardiac catheterization was not performed because patient had a infected foot with sepsis. Patient is now admitted to the hospital with chest pains and is advised to have cardiac catheterization for definite diagnosis. CONSENT:I have discussed the risks, benefits and alternative therapies for the above-mentioned procedure and for both sedation/analgesia as well as necessary blood product administration, if indicated, as they pertain to this patient. The patient has indicated understanding and acceptance of the risks and procedures discussed. PROCEDURE: Patient was brought to the lab in a fasting state. Patient was given some IV sedation. The right groin is infiltrated with lidocaine and right femoral artery was entered using Seldinger technique. A 6-Arabic catheter was left in place and selective coronary arteriography and left ventriculography was performed. Patient tolerated the procedure well. Femoral angiogram was performed and Angio-Seal was applied for hemostasis. No immediate complications were noted and patient was transferred to [facility] in a stable condition Conscious Sedation: Versed 1mg Fentanyl 25 g Duration 24 minutes HEMODYNAMICS: The aortic pressure is about 160/75. Left ankle end-diastolic pressure is 12-16. There was no gradient across the aortic valve SELECTIVE CORONARY ARTERIOGRAPHY: LEFT MAIN: This is normal length and free of any significant occlusive disease THE LEFT ANTERIOR DESCENDING CORONARY ARTERY: This is a moderate caliber vessel which is totally occluded in midportion. After giving a septal and diagonal branches. THE LEFT CIRCUMFLEX AND IS CORONARY ARTERY: This is a good caliber vessel which is totally occluded in midportion after giving rise good-sized OM branch. THE RIGHT CORONARY ARTERY: This is a good caliber vessel which is codominant and free of any significant occlusive disease. THE VEIN GRAFT TO THE CIRCUMFLEX: This is a good caliber vessel with diffuse disease. There is 80% stenosis of the proximal segment including the ostium. There are multiple other areas of stenosis in the graft with the aid is about 70% stenosis. The OM branch. Beyond the anastomosis appears to be free of occlusive disease LEFT VENTRICULOGRAPHY:. This was not performed and end-diastolic pressure is about 12-16 FINAL IMPRESSION: Coronary artery disease with total occlusion of the samish mid LAD and also mid circumflex. The RANDOLPH to the LAD is patent. The vein graft to the OM branch has multiple lesions including the ostium and proximal portion which are critical PLAN: Dr. Shook's evaluating for possible stent placement of the vein graft. Circumflex PROGNOSIS: Guarded
[2018-02-26] MEDS ORDERED: IOPAMIDOL-370 125ML BTL INJ ONE (11:11)
[2018-02-26] MEDS ORDERED: BIVALIRUDIN BOLUS 250 MG/50 ML IV ONE (11:11)
[2018-02-26] MEDS ORDERED: BIVALIRUDIN 250 MG in SODIUM CHLORIDE 0.9% 50 ML IV ONE ×8 (11:12→11:49)
[2018-02-26] MEDS: niCARdipine Syringe (1,000 mcg/10 mL) INTRACORON ONE ×6 (11:24→13:04)
[2018-02-26] MEDS ORDERED: MORPHINE SULFATE 4 MG/ML SYRINGE IV ONE (11:27)
[2018-02-26] MEDS: MORPHINE SULFATE 4 MG/ML SYRINGE IV ONE ×2 (11:27→12:47)
[2018-02-26] MEDS: NITROGLYCERIN 1000MCG/10ML SYRINGE INTRACORON ONE ×2 (11:37→12:16)
[2018-02-26] MEDS ORDERED: ATROPINE SULFATE 0.1 MG/ML 10ML SYRINGE IV ONE (11:42)
[2018-02-26] MEDS ORDERED: IOPAMIDOL-370 100ML BTL INJ ONE ×2 (12:10→13:06)
[2018-02-26] MEDS ORDERED: NITROGLYCERIN-D5W PMX 50 MG in DEXTROSE/WATER 1 250ML.BAG IV ONE (13:01)
[2018-02-26] MEDS ORDERED: CLOPIDOGREL 75 MG TAB PO ONE (13:15)
[2018-02-26] MEDS ORDERED: RX INFO: IV CONTRAST WAS GIVEN 1 EACH MISC MISCELLANE PRN (13:20)
[2018-02-26] MEDS ORDERED: ATROPINE SULFATE 0.1 MG/ML 10ML SYRINGE IV PRN (13:20)
[2018-02-26] MEDS ORDERED: MAG HYDROX/AL HYDROX/SIMETH 30 ML CUP PO PRN (13:20)
[2018-02-26 14:21] LABS: Glucose,Whole Blood 181 mg/dL (75-99)
[2018-02-26] MEDS: NITROGLYCERIN-D5W PMX 50 MG in DEXTROSE/WATER 1 250ML.BAG IV SCH (14:34)
[2018-02-26] MEDS: SODIUM CHLORIDE 0.9% 1,000 ML IV SCH ×2 (14:34→23:58)
[2018-02-26] MEDS ORDERED: fentaNYL (PF) 50 MCG/ML 2 ML AMP IVP STA (15:24)
[2018-02-26] MEDS: TIROFIBAN 12.5MG-250ML NS 250 ML IV SCH ×2 (15:52→23:58)
[2018-02-26 17:50] LABS: Glucose,Whole Blood 243 mg/dL (75-99)
[2018-02-26] MEDS: fentaNYL (PF) 50 MCG/ML 2 ML AMP IVP PRN (20:31)
[2018-02-26] MEDS: ATORVASTATIN 20 MG TAB PO SCH (22:57)
[2018-02-26 23:04] LABS: Glucose,Whole Blood 200 mg/dL (75-99)
[2018-02-26] MEDS: INSULIN DETEMIR 100 UNIT/ML 10 ML VIAL SQ SCH (23:07)
--- NOTE | 2018-02-27 01:39 | P.PN ---
Subjective Progress Note Date: 02/26/18 Principal diagnosis: Chest pain/angina Patient is a 67-year-old male with a known history of coronary artery disease, coronary artery bypass graft and peripheral vascular disease with right foot toe amputation/infection, hypertension, diabetes type 2 insulin-dependent and multiple other medical problems came to ER with complaints of chest pain which is constant for the past 3 days. Mainly left retrosternal chest pain. Patient says that she is being titrated recently and has been having fainting. Patient follows with cardiology clinic and was told he needs cardiac catheterization and further workup. Previously patient was having right foot infection and also incidence issues due to that patient was not able to follow with cardiology. Otherwise patient denied any associated shortness of breath. No nausea vomiting or abdominal pain. No headache or dizziness or lightheadedness. No leg swelling. Patient follows up wound care clinic for for right foot wound which is healing at this time. Patient had stress test done in November 2017. Cardiac Catheterization was not done at this time due to foot infection. Patient is also complaining of right foot pain and is requesting IV pain medications. EKG showed normal sinus rhythm. Chest x-ray showed cardiomegaly with low lung volumes. Troponin 1 negative. 02/25/2018 Patient denied any complaints of chest pain today. Serial EKGs and troponins have been negative. Cardiology is planning for catheterization tomorrow due to recent abnormal stress test. Patient is requesting IV pain medications with morphine. Blood sugar is fairly controlled with CBG in 200. Patient is requesting to be added 20 units of NovoLog 3 times a day before meals along with liver metastases 30 units in the night. Otherwise no shortness of breath. No fever no chills. No other acute overnight issues. 02/26/2018 Patient underwent cardiac catheterization today. Left heart catheterization with selective injection of the RANDOLPH graft and vein graft to the circumflex . Currently patient is drowsy and could not provide any history. No acute overnight issues. Cardiac is planning for recatheterization. No fever no chills. Current medications reviewed. Objective - Vital Signs Vital signs: Vital Signs Temp 97.8 F 02/26/18 14:40 Pulse 50 L 02/26/18 14:40 Resp 19 02/26/18 14:40 BP 103/66 02/26/18 14:40 Pulse Ox 94 L 02/26/18 14:40 Intake & Output 02/25/18 02/26/18 02/26/18 18:59 06:59 18:59 Intake Total 1080 500.8 Balance 1080 500.8 Weight 109.2 kg 109.2 kg Intake: IV 500.5 Intake, IV Titration 0.3 Amount Nitroglycerin-D5w Pmx 50 0.3 mg In Dextrose/Water 1 250ml.bag @ Titrate IV . Q0M [facility] Rx#:[id number] Oral 1080 Other: Voiding Method Toilet Toilet Toilet # Voids 2 ABP, PAP, CO, CI - Last Documented Arterial Blood Pressure 142/66 - Exam PHYSICAL EXAMINATION: Patient is lying in the bed comfortably, no acute distress, awake alert and oriented.. HEENT: Normocephalic. Neck is supple. Pupils reactive. Nostrils clear. Oral cavity is moist. Ears reveal no drainage. Neck reveals no JVD, carotid bruits, or thyromegaly. CHEST EXAMINATION: Trachea is central. Symmetrical expansion. Diminished bibasilar air entry. Lung cazares clear to auscultation and percussion. CARDIAC: Normal S1, S2 with no gallops. No murmurs ABDOMEN: Soft. Bowel sounds normal. No organomegaly. No abdominal bruits. Extremities: Trace edema. No clubbing or cyanosis Neurologically awake, alert, oriented x3 with well-coordinated movements. No focal deficits noted Skin: No rash or skin lesions. Psychiatric: Coperative. Nonsuicidal Musculoskeletal: No joint swelling or deformity. Normal range of motion. Right foot toes amputated. - Labs CBC & Chem 7: 02/24/18 14:11 02/24/18 14:11 Labs: Abnormal Lab Results - Last 24 Hours (Table) 02/25/18 02/25/18 02/26/18 Range/Units 17:29 20:18 07:01 POC Glucose (mg/dL) 183 H 198 H 171 H (75-99) mg/dL 02/26/18 Range/Units 14:10 POC Glucose (mg/dL) 181 H (75-99) mg/dL Assessment and Plan Assessment: Chest pain/angina with a known history of coronary artery disease and recent stress test abdominal. Coronary artery disease with history of CABG Peripheral vascular disease with history of right foot toes amputated. Recent diabetic right foot infection Morbid obesity with BMI 35.3 History of CVA/TIA Diabetes type 2 insulin independent Hyperlipidemia Hypertriglyceridemia Hypertension uncontrolled History of mild eczema and obstructive sleep apnea on CPAP at home Anxiety depression and bipolar DVT prophylaxis Plan: Patient be continued on any monitoring. Serial EKGs and troponins negative. Cardiology was consulted and patient was recommended previously with cardiac catheterization due to abnormal stress test.status post cardiac catheterization. Continue with home medications and follow closely. Insulin dosing and pain management with [place] and morphine IV as needed.. Further recommendations based on the clinical course. Prognosis is guarded. Time with Patient: Greater than 30
[2018-02-27 04:44] LABS: Basophils % (A) 0 %; Eosinophils # (A) 0.1 k/uL (0-0.7); Eosinophils % (A) 1 %; HGB 11.5 gm/dL (13.0-17.5); Lymphocytes # (A) 1.2 k/uL (1.0-4.8); Lymphocytes % (A) 16 %; MCH 30.2 pg (25.0-35.0); MCHC 32.8 g/dL (31.0-37.0); MCV 92.1 fL (80.0-100.0); Mean Platelet Volume 7.8; Monocytes # (A) 0.6 k/uL (0-1.0); Monocytes % (A) 8 %; Neutrophils # (A) 5.2 k/uL (1.3-7.7); Neutrophils % (A) 74 %; Platelet Count 184 k/uL (150-450); RDW 15.3 % (11.5-15.5); WBC 7.1 k/uL (3.8-10.6)
[2018-02-27 04:59] LABS: Anion Gap 6 mmol/L; Blood Urea Nitrogen 25 mg/dL (9-20); Calcium 8.1 mg/dL (8.4-10.2); Carbon Dioxide 25 mmol/L (22-30); Chloride 105 mmol/L (98-107); Glucose 165 mg/dL (74-99); Potassium 4.4 mmol/L (3.5-5.1); Sodium 136 mmol/L (137-145)
[2018-02-27] MEDS: fentaNYL (PF) 50 MCG/ML 2 ML AMP IVP PRN ×2 (06:00→19:31)
[2018-02-27 07:21] LABS: Glucose,Whole Blood 153 mg/dL (75-99)
[2018-02-27] MEDS: INSULIN ASPART 100 UNIT/ML 1 ML 10 ML VIAL SQ SCH ×7 (07:22→21:16)
[2018-02-27] MEDS: MORPHINE SULFATE 2 MG/ML SYRINGE IVP PRN ×3 (08:02→18:14)
[2018-02-27] MEDS: PANTOPRAZOLE 40 MG TABLET PO SCH (08:03)
[2018-02-27] MEDS: DIVALPROEX ER 500 MG TAB.ER.24H PO SCH ×2 (08:04→20:46)
[2018-02-27] MEDS: ASPIRIN 325 MG TAB PO SCH (08:04)
[2018-02-27] MEDS: HYDROCHLOROTHIAZIDE 12.5 MG CAP PO SCH (08:04)
[2018-02-27] MEDS: LOSARTAN 50 MG TAB PO SCH ×2 (08:05→20:46)
[2018-02-27] MEDS: METOPROLOL TARTRATE 12.5 MG TAB PO SCH ×2 (09:57→20:46)
[2018-02-27 11:52] LABS: Glucose,Whole Blood 153 mg/dL (75-99)
[2018-02-27] MEDS: CLOPIDOGREL 75 MG TAB PO SCH (13:20)
--- NOTE | 2018-02-27 13:26 | P.PN ---
Subjective Progress Note Date: 02/27/18 This is a 67-year-old gentleman with history of previous bypass surgery was admitted to the hospital with symptoms of progressive angina. Patient had a cardiac catheterization and was found patent RANDOLPH graft to LAD and vein graft to the OM branch. However, the vein graft had significant ostial and proximal lesion and also multiple lesions in the body. Patient had attempted stent placement by Dr. Shook yesterday. Patient developed reflow phenomenon. Patient was put on Aggrenox and also had aspiration of thrombus and also IV nitroglycerin. Patient had EKG changes of ischemia and troponins are elevated size to of subendocardial [place]. Patient continued to have intermittent chest pain relieved with morphine. EKG this morning did not show any acute changes. We'll continue conservative management. Increase activity as tolerated. We'll get an echocardiogram done Objective - Vital Signs Vital signs: Vital Signs Temp 97.5 F L 02/27/18 12:00 Pulse 60 02/27/18 13:00 Resp 17 02/27/18 13:00 BP 137/75 02/27/18 13:00 Pulse Ox 95 02/27/18 13:00 Intake & Output 02/26/18 02/27/18 02/27/18 18:59 06:59 18:59 Intake Total 906.8 1103 347.475 Output Total 0 550 Balance 906.8 553 347.475 Weight 109.2 kg 119.3 kg Intake: IV 906.5 1103 250 Sodium Chloride 0.9% 1, 400 1100 250 000 ml @ 100 mls/hr IV . Q10H [facility] Rx#:[id number] heparin pressure bag to 6 3 sheath Intake, IV Titration 0.3 97.475 Amount Nitroglycerin-D5w Pmx 50 0.3 97.475 mg In Dextrose/Water 1 250ml.bag @ Titrate IV . Q0M [facility] Rx#:[id number] Output: Urine 0 550 Other: Voiding Method Toilet Bedside Commode Urinal # Voids 1 1 ABP, PAP, CO, CI - Last Documented Arterial Blood Pressure 299/299 - Exam GENERAL EXAM: Patient is alert and oriented and having intermittent chest pain HEENT: Normocephalic. Normal reaction of pupils, equal size, normal range of extraocular motion. No erythema or exudates in the throat. NECK: No masses, no nuchal rigidity. CHEST: No chest wall deformity. LUNGS: Equal air entry with no crackles or wheeze. HEART: S1 and S2 normal with no audible mumurs or gallops. Regular rhythm, femorals equal on both sides.. ABDOMEN: No hepatosplenomegaly, normal bowel sounds, no guarding or rigidity. SKIN: No rashes CENTRAL NERVOUS SYSTEM: No focal deficits. EXTREMITIES: No cyanosis, clubbing or edema. RIGHT GROIN: The puncture site is soft without any hematoma. - Labs CBC & Chem 7: 02/27/18 04:04 02/27/18 04:04 Labs: Abnormal Lab Results - Last 24 Hours (Table) 02/26/18 02/26/18 02/26/18 Range/Units 14:10 17:48 19:11 RBC (4.30-5.90) m/uL Hgb (13.0-17.5) gm/dL Hct (39.0-53.0) % Sodium (137-145) mmol/L BUN (9-20) mg/dL Glucose (74-99) mg/dL POC Glucose (mg/dL) 181 H 243 H (75-99) mg/dL Calcium (8.4-10.2) mg/dL Magnesium 1.5 L (1.6-2.3) mg/dL Troponin I (0.000-0.034) ng/mL 02/26/18 02/26/18 02/27/18 Range/Units 19:11 23:02 00:16 RBC (4.30-5.90) m/uL Hgb (13.0-17.5) gm/dL Hct (39.0-53.0) % Sodium (137-145) mmol/L BUN (9-20) mg/dL Glucose (74-99) mg/dL POC Glucose (mg/dL) 200 H (75-99) mg/dL Calcium (8.4-10.2) mg/dL Magnesium (1.6-2.3) mg/dL Troponin I 2.230 H* 13.300 H* (0.000-0.034) ng/mL 02/27/18 02/27/18 02/27/18 Range/Units 04:04 04:04 04:04 RBC 3.80 L (4.30-5.90) m/uL Hgb 11.5 L (13.0-17.5) gm/dL Hct 35.0 L (39.0-53.0) % Sodium 136 L (137-145) mmol/L BUN 25 H (9-20) mg/dL Glucose 165 H (74-99) mg/dL POC Glucose (mg/dL) (75-99) mg/dL Calcium 8.1 L (8.4-10.2) mg/dL Magnesium (1.6-2.3) mg/dL Troponin I 27.900 H* (0.000-0.034) ng/mL 02/27/18 02/27/18 02/27/18 Range/Units 07:19 11:51 11:51 RBC (4.30-5.90) m/uL Hgb (13.0-17.5) gm/dL Hct (39.0-53.0) % Sodium (137-145) mmol/L BUN (9-20) mg/dL Glucose (74-99) mg/dL POC Glucose (mg/dL) 153 H 153 H (75-99) mg/dL Calcium (8.4-10.2) mg/dL Magnesium (1.6-2.3) mg/dL Troponin I 41.000 H* (0.000-0.034) ng/mL Assessment and Plan (1) Subendocardial myocardial infarction Current Visit: Yes Status: Acute Code(s): I21.4 - NON-ST ELEVATION (NSTEMI) MYOCARDIAL INFARCTION SNOMED Code(s): 58816956 (2) Status post coronary artery stent placement Current Visit: Yes Status: Acute Code(s): Z95.5 - PRESENCE OF CORONARY ANGIOPLASTY IMPLANT AND GRAFT SNOMED Code(s): 555674993 (3) Chest pain Current Visit: Yes Status: Acute Code(s): R07.9 - CHEST PAIN, UNSPECIFIED SNOMED Code(s): 68426391 Plan: We will continue current management. Increase activity as tolerated. Get an echocardiogram. I'll also discuss with Dr. Shook
[2018-02-27 17:02] LABS: Glucose,Whole Blood 181 mg/dL (75-99)
[2018-02-27 17:24] LABS: Glucose,Whole Blood 174 mg/dL (75-99)
[2018-02-27] MEDS ORDERED: Magnesium Replacement Protocol 1 EACH MISC MISCELLANE PRN (19:19)
[2018-02-27] MEDS: ATORVASTATIN 20 MG TAB PO SCH (20:46)
[2018-02-27 20:55] LABS: Glucose,Whole Blood 193 mg/dL (75-99)
[2018-02-27] MEDS: INSULIN DETEMIR 100 UNIT/ML 10 ML VIAL SQ SCH (21:16)
[2018-02-27] MEDS: NITROGLYCERIN-D5W PMX 50 MG in DEXTROSE/WATER 1 250ML.BAG IV SCH (23:39)
[2018-02-27] MEDS: MAGNESIUM SULFATE-D5W PMX 1 GM in DEXTROSE/WATER 1 100ML.BAG IVPB SCH (23:40)
[2018-02-28] MEDS: fentaNYL (PF) 50 MCG/ML 2 ML AMP IVP PRN (01:04)
[2018-02-28] MEDS: MORPHINE SULFATE 2 MG/ML SYRINGE IVP PRN ×2 (02:15→08:51)
[2018-02-28] MEDS: MAGNESIUM SULFATE-D5W PMX 1 GM in DEXTROSE/WATER 1 100ML.BAG IVPB SCH (04:00)
[2018-02-28 06:32] LABS: Glucose,Whole Blood 213 mg/dL (75-99)
[2018-02-28 06:40] LABS: Basophils % (A) 0 %; Eosinophils % (A) 0 %; HCT 31.4 % (39.0-53.0); HGB 10.4 gm/dL (13.0-17.5); Lymphocytes # (A) 0.8 k/uL (1.0-4.8); Lymphocytes % (A) 9 %; MCH 30.5 pg (25.0-35.0); MCHC 33.3 g/dL (31.0-37.0); MCV 91.6 fL (80.0-100.0); Mean Platelet Volume 9.1; Monocytes # (A) 0.8 k/uL (0-1.0); Monocytes % (A) 8 %; Neutrophils # (A) 7.8 k/uL (1.3-7.7); Neutrophils % (A) 82 %; Platelet Count 182 k/uL (150-450); RBC 3.42 m/uL (4.30-5.90); RDW 15.1 % (11.5-15.5); WBC 9.5 k/uL (3.8-10.6)
[2018-02-28] MEDS: INSULIN ASPART 100 UNIT/ML 1 ML 10 ML VIAL SQ SCH ×7 (06:49→20:36)
[2018-02-28 06:53] LABS: Calcium 8.3 mg/dL (8.4-10.2); Potassium 4.6 mmol/L (3.5-5.1)
--- NOTE | 2018-02-28 08:47 | ECHOF ---
Referral Reason:recent stent MEASUREMENTS -------- HEIGHT: 175.3 cm WEIGHT: 119.3 kg BP: 137/62 RVIDd: 4.0 cm (< 3.3) IVSd: 1.4 cm (0.6 - 1.1) LVIDd: 4.5 cm (3.9 - 5.3) LVPWd: 1.4 cm (0.6 - 1.1) IVSs: 1.5 cm LVIDs: 3.0 cm LVPWs: 1.5 cm LAESV Index (A-L): 29.22 ml/m Ao Diam: 3.6 cm (2.0 - 3.7) AV Cusp: 1.4 cm (1.5 - 2.6) LA Diam: 3.2 cm (2.7 - 3.8) MV E Aureliano: 0.57 m/s MV DecT: 226 ms MV A Aureliano: 0.74 m/s MV E/A Ratio: 0.77 RAP: 5.00 mmHg RVSP: 10.33 mmHg FINDINGS -------- Resting bradycardia (HR<60bpm). This was a technically difficult study with suboptimal views. The left ventricular size is normal. There is moderate concentric left ventricular hypertrophy. O verall left ventricular systolic function is mildly impaired with, an EF between 45 - 50 %. Basal l ateral LV wall motion is hypokinetic. Posterior Hypokinesis. The right ventricle is mildly enlarged. LA is midly dilated 29-33ml/m2. RA appears enlarged. 3 ml of Lumason was utilized for enhancement of images. There is mild aortic valve sclerosis. Trace to mild aortic regurgitation. There is no evidence of aortic stenosis. The mitral valve is normal. There is trace to mild mitral regurgitation. Trace tricuspid regurgitation present. Right ventricular systolic pressure is normal at < 35 mmHg. There is no evidence of pulmonary hypertension. The pulmonic valve was not well visualized. The aortic root size is normal. Normal inferior vena cava with normal inspiratory collapse consistent with estimated right atrial pre ssure of 5 mmHg. There is no pericardial effusion. CONCLUSIONS -------- 1. Resting bradycardia (HR<60bpm). 2. This was a technically difficult study with suboptimal views. 3. The left ventricular size is normal. 4. There is moderate concentric left ventricular hypertrophy. 5. Posterior Hypokinesis. 6. The right ventricle is mildly enlarged. 7. LA is midly dilated 29-33ml/m2. 8. RA appears enlarged. 9. 3 ml of Lumason was utilized for enhancement of images. 10. There is mild aortic valve sclerosis. 11. Trace to mild aortic regurgitation. 12. There is trace to mild mitral regurgitation. 13. Trace tricuspid regurgitation present. 14. Right ventricular systolic pressure is normal at < 35 mmHg. 15. There is no evidence of pulmonary hypertension. 16. The pulmonic valve was not well visualized. 17. The aortic root size is normal. 18. There is no pericardial effusion. CONTRACT ADMINISTRATION MANAGER: Duke Brennan RDCS
[2018-02-28] MEDS: ASPIRIN 325 MG TAB PO SCH (08:48)
[2018-02-28] MEDS: LOSARTAN 50 MG TAB PO SCH ×2 (08:48→20:36)
[2018-02-28] MEDS: CLOPIDOGREL 75 MG TAB PO SCH (08:49)
[2018-02-28] MEDS: HYDROCHLOROTHIAZIDE 12.5 MG CAP PO SCH (08:49)
[2018-02-28] MEDS: METOPROLOL TARTRATE 12.5 MG TAB PO SCH ×2 (08:49→20:36)
[2018-02-28] MEDS: PANTOPRAZOLE 40 MG TABLET PO SCH (08:49)
[2018-02-28] MEDS: DIVALPROEX ER 500 MG TAB.ER.24H PO SCH ×2 (08:49→20:36)
[2018-02-28 11:40] LABS: Glucose,Whole Blood 192 mg/dL (75-99)
[2018-02-28] MEDS: KETOROLAC 30 MG/ML 1 ML VIAL IVP SCH ×3 (11:40→23:55)
--- NOTE | 2018-02-28 13:00 | P.PN ---
Subjective Progress Note Date: 02/28/18 This is a 67-year-old gentleman with history of previous bypass surgery was admitted to the hospital with symptoms of progressive angina. Patient had a cardiac catheterization and was found patent RANDOLPH graft to LAD and vein graft to the OM branch. However, the vein graft had significant ostial and proximal lesion and also multiple lesions in the body. Patient had attempted stent placement by Dr. Shook yesterday. Patient developed reflow phenomenon. Patient was put on Aggrenox and also had aspiration of thrombus and also IV nitroglycerin. Patient had EKG changes of ischemia and troponins are elevated size to of subendocardial [place]. Patient continued to have intermittent chest pain relieved with morphine. EKG this morning did not show any acute changes. We'll continue conservative management. Increase activity as tolerated. We'll get an echocardiogram done. 02/28/2018: Patient remains stable. No arrhythmias. Continues to have chest pain which appeared to be atypical and respirophasic. We will discontinue nitroglycerin. Patient pain is responding only to pain medications, which seemed to be chronic issue. His EKG from showed a normal findings. Echo [place] showed hypokinesis of the posterior lateral wall. Ejection fraction is about 45%. We'll increase his activity and transfer to telemetry unit. His peak troponin is about 40 Objective - Vital Signs Vital signs: Vital Signs Temp 98.3 F 02/28/18 08:00 Pulse 73 02/28/18 11:00 Resp 34 H 02/28/18 11:26 BP 107/58 02/28/18 10:00 Pulse Ox 95 02/28/18 11:00 Intake & Output 02/27/18 02/28/18 02/28/18 18:59 06:59 18:59 Intake Total 1015.525 414.175 462.925 Output Total 0 400 0 Balance 1015.525 14.175 462.925 Weight 119.1 kg 119.1 kg Intake: IV 850 210 10 Sodium Chloride 0.9% 1, 850 210 10 000 ml @ 100 mls/hr IV . Q10H [facility] Rx#:[id number] Intake, IV Titration 165.525 84.175 212.925 Amount Nitroglycerin-D5w Pmx 50 165.525 84.175 212.925 mg In Dextrose/Water 1 250ml.bag @ Titrate IV . Q0M [facility] Rx#:[id number] Oral 120 240 Output: Urine 0 400 0 Other: Voiding Method Bedside Commode Bedside Commode Urinal Urinal # Voids 1 1 1 ABP, PAP, CO, CI - Last Documented Arterial Blood Pressure 299/299 - Exam GENERAL EXAM: Patient is alert and oriented and having intermittent chest pain HEENT: Normocephalic. Normal reaction of pupils, equal size, normal range of extraocular motion. No erythema or exudates in the throat. NECK: No masses, no nuchal rigidity. CHEST: No chest wall deformity. LUNGS: Equal air entry with no crackles or wheeze. HEART: S1 and S2 normal with no audible mumurs or gallops. Regular rhythm, femorals equal on both sides.. ABDOMEN: No hepatosplenomegaly, normal bowel sounds, no guarding or rigidity. SKIN: No rashes CENTRAL NERVOUS SYSTEM: No focal deficits. EXTREMITIES: No cyanosis, clubbing or edema. RIGHT GROIN: The puncture site is soft without any hematoma. - Labs CBC & Chem 7: 02/28/18 04:45 02/28/18 04:45 Labs: Abnormal Lab Results - Last 24 Hours (Table) 02/27/18 02/27/18 02/27/18 Range/Units 17:01 17:22 18:07 RBC (4.30-5.90) m/uL Hgb (13.0-17.5) gm/dL Hct (39.0-53.0) % Neutrophils # (1.3-7.7) k/uL Lymphocytes # (1.0-4.8) k/uL Sodium (137-145) mmol/L BUN (9-20) mg/dL Glucose (74-99) mg/dL POC Glucose (mg/dL) 181 H 174 H (75-99) mg/dL Calcium (8.4-10.2) mg/dL Troponin I 40.800 H* (0.000-0.034) ng/mL 02/27/18 02/28/18 02/28/18 Range/Units 20:52 04:45 04:45 RBC 3.42 L (4.30-5.90) m/uL Hgb 10.4 L (13.0-17.5) gm/dL Hct 31.4 L (39.0-53.0) % Neutrophils # 7.8 H (1.3-7.7) k/uL Lymphocytes # 0.8 L (1.0-4.8) k/uL Sodium 136 L (137-145) mmol/L BUN 23 H (9-20) mg/dL Glucose 199 H (74-99) mg/dL POC Glucose (mg/dL) 193 H (75-99) mg/dL Calcium 8.3 L (8.4-10.2) mg/dL Troponin I (0.000-0.034) ng/mL 02/28/18 02/28/18 02/28/18 Range/Units 04:45 06:30 11:39 RBC (4.30-5.90) m/uL Hgb (13.0-17.5) gm/dL Hct (39.0-53.0) % Neutrophils # (1.3-7.7) k/uL Lymphocytes # (1.0-4.8) k/uL Sodium (137-145) mmol/L BUN (9-20) mg/dL Glucose (74-99) mg/dL POC Glucose (mg/dL) 213 H 192 H (75-99) mg/dL Calcium (8.4-10.2) mg/dL Troponin I 31.600 H* (0.000-0.034) ng/mL Assessment and Plan (1) Subendocardial myocardial infarction Current Visit: Yes Status: Acute Code(s): I21.4 - NON-ST ELEVATION (NSTEMI) MYOCARDIAL INFARCTION SNOMED Code(s): 33135291 (2) Status post coronary artery stent placement Current Visit: Yes Status: Acute Code(s): Z95.5 - PRESENCE OF CORONARY ANGIOPLASTY IMPLANT AND GRAFT SNOMED Code(s): 427865561 (3) Chest pain Current Visit: Yes Status: Acute Code(s): R07.9 - CHEST PAIN, UNSPECIFIED SNOMED Code(s): 25911729 Plan: Patient activity to be increased. Discontinue nitroglycerin. Patient with hospital telemetry unit
[2018-02-28 17:13] LABS: Glucose,Whole Blood 120 mg/dL (75-99)
[2018-02-28 20:35] LABS: Glucose,Whole Blood 181 mg/dL (75-99)
[2018-02-28] MEDS: ATORVASTATIN 20 MG TAB PO SCH (20:36)
[2018-02-28] MEDS: INSULIN DETEMIR 100 UNIT/ML 10 ML VIAL SQ SCH (20:36)
--- NOTE | 2018-03-01 01:33 | P.PN ---
Subjective Progress Note Date: 02/27/18 Principal diagnosis: Chest pain/angina Patient is a 67-year-old male with a known history of coronary artery disease, coronary artery bypass graft and peripheral vascular disease with right foot toe amputation/infection, hypertension, diabetes type 2 insulin-dependent and multiple other medical problems came to ER with complaints of chest pain which is constant for the past 3 days. Mainly left retrosternal chest pain. Patient says that she is being titrated recently and has been having fainting. Patient follows with cardiology clinic and was told he needs cardiac catheterization and further workup. Previously patient was having right foot infection and also incidence issues due to that patient was not able to follow with cardiology. Otherwise patient denied any associated shortness of breath. No nausea vomiting or abdominal pain. No headache or dizziness or lightheadedness. No leg swelling. Patient follows up wound care clinic for for right foot wound which is healing at this time. Patient had stress test done in November 2017. Cardiac Catheterization was not done at this time due to foot infection. Patient is also complaining of right foot pain and is requesting IV pain medications. EKG showed normal sinus rhythm. Chest x-ray showed cardiomegaly with low lung volumes. Troponin 1 negative. 02/25/2018 Patient denied any complaints of chest pain today. Serial EKGs and troponins have been negative. Cardiology is planning for catheterization tomorrow due to recent abnormal stress test. Patient is requesting IV pain medications with morphine. Blood sugar is fairly controlled with CBG in 200. Patient is requesting to be added 20 units of NovoLog 3 times a day before meals along with liver metastases 30 units in the night. Otherwise no shortness of breath. No fever no chills. No other acute overnight issues. 02/26/2018 Patient underwent cardiac catheterization today. Left heart catheterization with selective injection of the RANDOLPH graft and vein graft to the circumflex . Currently patient is drowsy and could not provide any history. No acute overnight issues. Cardiac is planning for recatheterization. No fever no chills. 02/27/2018 Patient is still complaining of pain today mainly xiphisternal area. Troponins have been negative. 2-D echo showed ejection fraction 35-40%. Cardiology is following. Otherwise no acute overnight issues. Current medications reviewed. Objective - Vital Signs Vital signs: Vital Signs Temp 98 F 02/27/18 16:00 Pulse 75 02/27/18 19:15 Resp 18 02/27/18 19:15 BP 103/49 02/27/18 19:15 Pulse Ox 95 02/27/18 19:15 Intake & Output 02/27/18 02/27/18 02/28/18 06:59 18:59 06:59 Intake Total 1103 1015.525 120 Output Total 550 0 Balance 553 1015.525 120 Weight 119.3 kg Intake: IV 1103 850 120 Sodium Chloride 0.9% 1, 1100 850 120 000 ml @ 100 mls/hr IV . Q10H [facility] Rx#:[id number] heparin pressure bag to 3 sheath Intake, IV Titration 165.525 Amount Nitroglycerin-D5w Pmx 50 165.525 mg In Dextrose/Water 1 250ml.bag @ Titrate IV . Q0M [facility] Rx#:[id number] Output: Urine 550 0 Other: Voiding Method Bedside Commode Urinal # Voids 1 1 ABP, PAP, CO, CI - Last Documented Arterial Blood Pressure 299/299 - Exam PHYSICAL EXAMINATION: Patient is lying in the bed comfortably, no acute distress, awake alert and oriented.. HEENT: Normocephalic. Neck is supple. Pupils reactive. Nostrils clear. Oral cavity is moist. Ears reveal no drainage. Neck reveals no JVD, carotid bruits, or thyromegaly. CHEST EXAMINATION: Trachea is central. Symmetrical expansion. Diminished bibasilar air entry. Lung cazares clear to auscultation and percussion. CARDIAC: Normal S1, S2 with no gallops. No murmurs ABDOMEN: Soft. Bowel sounds normal. No organomegaly. No abdominal bruits. Extremities: Trace edema. No clubbing or cyanosis Neurologically awake, alert, oriented x3 with well-coordinated movements. No focal deficits noted Skin: No rash or skin lesions. Psychiatric: Coperative. Nonsuicidal Musculoskeletal: No joint swelling or deformity. Normal range of motion. Right foot toes amputated. - Labs CBC & Chem 7: 02/28/18 04:45 02/28/18 04:45 Labs: Abnormal Lab Results - Last 24 Hours (Table) 02/26/18 02/27/18 02/27/18 Range/Units 23:02 00:16 04:04 RBC 3.80 L (4.30-5.90) m/uL Hgb 11.5 L (13.0-17.5) gm/dL Hct 35.0 L (39.0-53.0) % Sodium (137-145) mmol/L BUN (9-20) mg/dL Glucose (74-99) mg/dL POC Glucose (mg/dL) 200 H (75-99) mg/dL Calcium (8.4-10.2) mg/dL Troponin I 13.300 H* (0.000-0.034) ng/mL 02/27/18 02/27/18 02/27/18 Range/Units 04:04 04:04 07:19 RBC (4.30-5.90) m/uL Hgb (13.0-17.5) gm/dL Hct (39.0-53.0) % Sodium 136 L (137-145) mmol/L BUN 25 H (9-20) mg/dL Glucose 165 H (74-99) mg/dL POC Glucose (mg/dL) 153 H (75-99) mg/dL Calcium 8.1 L (8.4-10.2) mg/dL Troponin I 27.900 H* (0.000-0.034) ng/mL 02/27/18 02/27/18 02/27/18 Range/Units 11:51 11:51 17:01 RBC (4.30-5.90) m/uL Hgb (13.0-17.5) gm/dL Hct (39.0-53.0) % Sodium (137-145) mmol/L BUN (9-20) mg/dL Glucose (74-99) mg/dL POC Glucose (mg/dL) 153 H 181 H (75-99) mg/dL Calcium (8.4-10.2) mg/dL Troponin I 41.000 H* (0.000-0.034) ng/mL 02/27/18 02/27/18 02/27/18 Range/Units 17:22 18:07 20:52 RBC (4.30-5.90) m/uL Hgb (13.0-17.5) gm/dL Hct (39.0-53.0) % Sodium (137-145) mmol/L BUN (9-20) mg/dL Glucose (74-99) mg/dL POC Glucose (mg/dL) 174 H 193 H (75-99) mg/dL Calcium (8.4-10.2) mg/dL Troponin I 40.800 H* (0.000-0.034) ng/mL Assessment and Plan Assessment: Chest pain/angina with a known history of coronary artery disease and recent stress test abdominal. Status post cardiac catheterization. Coronary artery disease with history of CABG Peripheral vascular disease with history of right foot toes amputated. Recent diabetic right foot infection Morbid obesity with BMI 35.3 History of CVA/TIA Diabetes type 2 insulin independent Hyperlipidemia Hypertriglyceridemia Hypertension uncontrolled History of mild eczema and obstructive sleep apnea on CPAP at home Anxiety depression and bipolar DVT prophylaxis Plan: Patient be continued on any monitoring. Serial EKGs and troponins negative. Cardiology was consulted and patient was recommended previously with cardiac catheterization due to abnormal stress test.status post cardiac catheterization. Continue with home medications and follow closely. Insulin dosing and pain management with [place] and morphine IV as needed.. Further recommendations based on the clinical course. Prognosis is guarded. Time with Patient: Greater than 30
--- NOTE | 2018-03-01 01:35 | P.PN ---
Subjective Progress Note Date: 02/28/18 Principal diagnosis: Chest pain/angina Patient is a 67-year-old male with a known history of coronary artery disease, coronary artery bypass graft and peripheral vascular disease with right foot toe amputation/infection, hypertension, diabetes type 2 insulin-dependent and multiple other medical problems came to ER with complaints of chest pain which is constant for the past 3 days. Mainly left retrosternal chest pain. Patient says that she is being titrated recently and has been having fainting. Patient follows with cardiology clinic and was told he needs cardiac catheterization and further workup. Previously patient was having right foot infection and also incidence issues due to that patient was not able to follow with cardiology. Otherwise patient denied any associated shortness of breath. No nausea vomiting or abdominal pain. No headache or dizziness or lightheadedness. No leg swelling. Patient follows up wound care clinic for for right foot wound which is healing at this time. Patient had stress test done in November 2017. Cardiac Catheterization was not done at this time due to foot infection. Patient is also complaining of right foot pain and is requesting IV pain medications. EKG showed normal sinus rhythm. Chest x-ray showed cardiomegaly with low lung volumes. Troponin 1 negative. 02/25/2018 Patient denied any complaints of chest pain today. Serial EKGs and troponins have been negative. Cardiology is planning for catheterization tomorrow due to recent abnormal stress test. Patient is requesting IV pain medications with morphine. Blood sugar is fairly controlled with CBG in 200. Patient is requesting to be added 20 units of NovoLog 3 times a day before meals along with liver metastases 30 units in the night. Otherwise no shortness of breath. No fever no chills. No other acute overnight issues. 02/26/2018 Patient underwent cardiac catheterization today. Left heart catheterization with selective injection of the RANDOLPH graft and vein graft to the circumflex . Currently patient is drowsy and could not provide any history. No acute overnight issues. Cardiac is planning for recatheterization. No fever no chills. 02/27/2018 Patient is still complaining of pain today mainly xiphisternal area. Troponins have been negative. 2-D echo showed ejection fraction 35-40%. Cardiology is following. Otherwise no acute overnight issues. 02/28/2018 Patient is still complaining of pain which which is atypical chest pain. Otherwise hemoglobin is stable. Patient is being transferred to telemetry unit and encouraged ambulation. Anticipate discharge in next 1-2 days. Current medications reviewed. Objective - Vital Signs Vital signs: Vital Signs Temp 98.0 F 02/28/18 16:00 Pulse 77 02/28/18 16:00 Resp 28 H 02/28/18 16:00 BP 157/84 02/28/18 16:00 Pulse Ox 94 L 02/28/18 16:00 Intake & Output 02/28/18 02/28/18 03/01/18 06:59 18:59 06:59 Intake Total 414.175 462.925 Output Total 400 350 Balance 14.175 112.925 Weight 119.1 kg 119.1 kg Intake: IV 210 10 Sodium Chloride 0.9% 1, 210 10 000 ml @ 100 mls/hr IV . Q10H [facility] Rx#:[id number] Intake, IV Titration 84.175 212.925 Amount Nitroglycerin-D5w Pmx 50 84.175 212.925 mg In Dextrose/Water 1 250ml.bag @ Titrate IV . Q0M [facility] Rx#:[id number] Oral 120 240 Output: Urine 400 350 Other: Voiding Method Bedside Commode Urinal # Voids 1 1 ABP, PAP, CO, CI - Last Documented Arterial Blood Pressure 299/299 - Exam PHYSICAL EXAMINATION: Patient is lying in the bed comfortably, no acute distress, awake alert and oriented.. HEENT: Normocephalic. Neck is supple. Pupils reactive. Nostrils clear. Oral cavity is moist. Ears reveal no drainage. Neck reveals no JVD, carotid bruits, or thyromegaly. CHEST EXAMINATION: Trachea is central. Symmetrical expansion. Diminished bibasilar air entry. Lung cazares clear to auscultation and percussion. CARDIAC: Normal S1, S2 with no gallops. No murmurs ABDOMEN: Soft. Bowel sounds normal. No organomegaly. No abdominal bruits. Extremities: Trace edema. No clubbing or cyanosis Neurologically awake, alert, oriented x3 with well-coordinated movements. No focal deficits noted Skin: No rash or skin lesions. Psychiatric: Coperative. Nonsuicidal Musculoskeletal: No joint swelling or deformity. Normal range of motion. Right foot toes amputated. - Labs CBC & Chem 7: 02/28/18 04:45 02/28/18 04:45 Labs: Abnormal Lab Results - Last 24 Hours (Table) 02/27/18 02/27/18 02/28/18 Range/Units 18:07 20:52 04:45 RBC 3.42 L (4.30-5.90) m/uL Hgb 10.4 L (13.0-17.5) gm/dL Hct 31.4 L (39.0-53.0) % Neutrophils # 7.8 H (1.3-7.7) k/uL Lymphocytes # 0.8 L (1.0-4.8) k/uL Sodium (137-145) mmol/L BUN (9-20) mg/dL Glucose (74-99) mg/dL POC Glucose (mg/dL) 193 H (75-99) mg/dL Calcium (8.4-10.2) mg/dL Troponin I 40.800 H* (0.000-0.034) ng/mL 02/28/18 02/28/18 02/28/18 Range/Units 04:45 04:45 06:30 RBC (4.30-5.90) m/uL Hgb (13.0-17.5) gm/dL Hct (39.0-53.0) % Neutrophils # (1.3-7.7) k/uL Lymphocytes # (1.0-4.8) k/uL Sodium 136 L (137-145) mmol/L BUN 23 H (9-20) mg/dL Glucose 199 H (74-99) mg/dL POC Glucose (mg/dL) 213 H (75-99) mg/dL Calcium 8.3 L (8.4-10.2) mg/dL Troponin I 31.600 H* (0.000-0.034) ng/mL 02/28/18 02/28/18 Range/Units 11:39 17:06 RBC (4.30-5.90) m/uL Hgb (13.0-17.5) gm/dL Hct (39.0-53.0) % Neutrophils # (1.3-7.7) k/uL Lymphocytes # (1.0-4.8) k/uL Sodium (137-145) mmol/L BUN (9-20) mg/dL Glucose (74-99) mg/dL POC Glucose (mg/dL) 192 H 120 H (75-99) mg/dL Calcium (8.4-10.2) mg/dL Troponin I (0.000-0.034) ng/mL Assessment and Plan Assessment: Chest pain/angina with a known history of coronary artery disease and recent stress test abdominal. Status post cardiac catheterization. Coronary artery disease with history of CABG Peripheral vascular disease with history of right foot toes amputated. Recent diabetic right foot infection Morbid obesity with BMI 35.3 History of CVA/TIA Diabetes type 2 insulin independent Hyperlipidemia Hypertriglyceridemia Hypertension uncontrolled History of mild eczema and obstructive sleep apnea on CPAP at home Anxiety depression and bipolar DVT prophylaxis Plan: Patient be continued on any monitoring. Serial EKGs and troponins negative. Cardiology was consulted and patient was recommended previously with cardiac catheterization due to abnormal stress test.status post cardiac catheterization. Continue with home medications and follow closely. Insulin dosing and pain management with [place] and morphine IV as needed.. Further recommendations based on the clinical course. Prognosis is guarded. Time with Patient: Greater than 30
[2018-03-01 05:33] LABS: Calcium 8.8 mg/dL (8.4-10.2); Magnesium 2.5 mg/dL (1.6-2.3); Potassium 4.3 mmol/L (3.5-5.1)
[2018-03-01 05:36] LABS: Basophils % (A) 0 %; Eosinophils # (A) 0.2 k/uL (0-0.7); Eosinophils % (A) 2 %; HCT 33.8 % (39.0-53.0); HGB 11.2 gm/dL (13.0-17.5); Lymphocytes # (A) 1.3 k/uL (1.0-4.8); Lymphocytes % (A) 16 %; MCH 30.7 pg (25.0-35.0); MCV 92.9 fL (80.0-100.0); Monocytes # (A) 0.7 k/uL (0-1.0); Monocytes % (A) 8 %; Neutrophils # (A) 6.2 k/uL (1.3-7.7); Neutrophils % (A) 72 %; Platelet Count 143 k/uL (150-450); RBC 3.64 m/uL (4.30-5.90); RDW 15.1 % (11.5-15.5); WBC 8.5 k/uL (3.8-10.6)
[2018-03-01] MEDS: KETOROLAC 30 MG/ML 1 ML VIAL IVP SCH ×4 (06:43→23:25)
[2018-03-01] MEDS: INSULIN ASPART 100 UNIT/ML 1 ML 10 ML VIAL SQ SCH ×7 (07:09→21:27)
[2018-03-01 07:11] LABS: Glucose,Whole Blood 95 mg/dL (75-99)
[2018-03-01] MEDS: PANTOPRAZOLE 40 MG TABLET PO SCH (07:42)
[2018-03-01] MEDS: HEPARIN SODIUM,PORCINE 5,000 UNIT/ML 1 ML VIAL SQ SCH ×3 (07:42→23:25)
[2018-03-01] MEDS: LOSARTAN 50 MG TAB PO SCH ×2 (07:44→21:28)
[2018-03-01] MEDS: HYDROCHLOROTHIAZIDE 12.5 MG CAP PO SCH (07:44)
[2018-03-01] MEDS: METOPROLOL TARTRATE 12.5 MG TAB PO SCH ×2 (07:45→21:28)
[2018-03-01] MEDS: DIVALPROEX ER 500 MG TAB.ER.24H PO SCH ×2 (07:45→21:27)
[2018-03-01] MEDS: CLOPIDOGREL 75 MG TAB PO SCH (09:41)
[2018-03-01] MEDS: ASPIRIN 325 MG TAB PO SCH (09:52)
--- NOTE | 2018-03-01 10:31 | AN ---
ANGIOGRAPHY REPORT DATE OF SERVICE: February 26, 2018 PERFORMING PHYSICIAN: Nathan Lozano MD, director speech language. PROCEDURE PERFORMED: 1. Stenting of the distal SVG to left circumflex using 4.0 x 28 mm Xience HAIM. 2. Stenting of the proximal SVG to left circumflex using 4.0 x 33 mm Xience HAIM. 3. Stenting of the distal anastomosis of SVG to the left circumflex using 3.0 x 15 mm Xience HAIM. 4. Aspiration thrombectomy from the SVG to left circumflex. This is a pleasant 67-year-old gentleman who sees Dr. Bolden in the office as an outpatient with history of coronary artery disease and prior coronary artery bypass grafting who presented to the hospital complaining of chest discomfort. In November of 2017, he was admitted to the hospital with chest discomfort and at that point, he was ruled out for acute coronary event. He underwent a myocardial perfusion imaging stress test at that point and that revealed apical ischemia. The patient did not have a heart catheterization because he was septic. Because of the continuous chest discomfort, a heart catheterization was recommended during this admission. The patient underwent heart catheterization by Dr. Bolden and was found to have critical disease involving the proximal as well as distal SVG to left circumflex. PCI of the SVG was recommended. APPROACH: Right common femoral artery. COMPLICATION: 1. No reflow phenomena which was not reversed in spite of giving the patient IC Nicardipine. LEVEL OF SEDATION: Moderate with sedation length of 123 minutes. PROCEDURE DESCRIPTION: After diagnostic heart catheterization was performed by Dr. Bolden and after reviewing the angiogram, we decided to pursue with an intervention on the SVG to left circumflex. At that point, anticoagulation was initiated using Angiomax. The Angiomax was given with a bolus and drip per protocol. Subsequently I did engage the graft using an Amplatzer 1 guiding catheter which was seated in the ostium of the graft. I wired the graft using a whisper wire and I did advance a whisper wire all the way to the [place] OM. I did balloon angioplasty of the proximal anastomosis of the SVG to left circumflex using a 3.0 mm balloon. After that, I did take direct stenting of the distal lesion using using 4.0 x 28 mm Xience HAIM where the stent was positioned under fluoroscopic guidance and deployed under 12 atmospheres for 20 seconds. For the lesion in the proximal anastomosis/proximal SVG. I did deploy 4.0 x 33 mm Xience HAIM where again the stent was positioned under fluoroscopy guidance and deployed under 12 atmospheres. Subsequently I was unable to restore the flow in the SVG to left circumflex and I did have no reflow phenomena. I gave the patient multiple doses of IC Nicardipine without any improvement. At that point, I decided to do an aspiration thrombectomy. I did advanced an export catheter. After it was prepped with the SVG to the circumflex where I did aspirate blood from the proximal as well as mid and also distal SVG. I was able to extract significant amount of plaque. The flow in the SVG to left circumflex was not was not stored in spite of that. At that point, I decided to balloon angioplasty of the distal anastomosis of the SVG to the circumflex where I did advance a 3.0 x 12 mm balloon and I did balloon angioplasty and in spite of that, I was unable to restore the flow. There was a lesion at the distal anastomosis was about 70%. I decided to stent that lesion, so I did advance a 3.0 x 15 mm Xience HAIM where again the stent was positioned under fluoroscopy guidance and deployed under its nominal pressure. In spite of that, I was able to restore the flow in the SVG to the circumflex. During the procedure, the patient was experiencing some chest discomfort with mild ST changes. After multiple attempts, I decided to stop and treat the patient with anticoagulation and anti-platelet. I started the patient on nitroglycerins IV as well as Aggrastat IV. The patient is going to be admitted to the intensive care unit and we will monitor the patient for 24 hours. He will be admitted to the intensive care unit for monitoring for 24 hours. CONCLUSION: Stenting of stenting of the proximal and distal SVG to the left circumflex was performed and complicated by no reflow phenomena which was not reversed in spite of giving the patient nicardipine at multiple doses. POSTPROCEDURE MANAGEMENT: 1. Continue the IV nitroglycerin. 2. Continuous start the patient on Aggrastat with a bolus and drip for 18 hours. 3. Follow up with the patient. MMODL / IJN: [id number] /
--- NOTE | 2018-03-01 10:47 | P.PN ---
Subjective Progress Note Date: 03/01/18 This is a 67-year-old gentleman with history of previous bypass surgery was admitted to the hospital with symptoms of progressive angina. Patient had a cardiac catheterization and was found patent RANDOLPH graft to LAD and vein graft to the OM branch. However, the vein graft had significant ostial and proximal lesion and also multiple lesions in the body. Patient had attempted stent placement by Dr. Shook yesterday. Patient developed reflow phenomenon. Patient was put on Aggrenox and also had aspiration of thrombus and also IV nitroglycerin. Patient had EKG changes of ischemia and troponins are elevated size to of subendocardial ME. Patient continued to have intermittent chest pain relieved with morphine. EKG this morning did not show any acute changes. We'll continue conservative management. Increase activity as tolerated. We'll get an echocardiogram done. 02/28/2018: Patient remains stable. No arrhythmias. Continues to have chest pain which appeared to be atypical and respirophasic. We will discontinue nitroglycerin. Patient pain is responding only to pain medications, which seemed to be chronic issue. His EKG from showed a normal findings. Echo Cardigan showed hypokinesis of the posterior lateral wall. Ejection fraction is about 45%. We'll increase his activity and transfer to telemetry unit. His peak troponin is about 40. 03/01/2018: Patient is stable. His chest pain has improved. No arrhythmias documented. No issues with this. Respirations. His lungs are clear. Heart is regular. Patient is to be moved to telemetry unit. Increase his activity. If stable patient will be discharged home tomorrow Objective - Vital Signs Vital signs: Vital Signs Temp 98.3 F 03/01/18 08:00 Pulse 64 03/01/18 08:00 Resp 19 03/01/18 08:00 BP 145/75 03/01/18 08:00 Pulse Ox 97 03/01/18 08:00 Intake & Output 02/28/18 03/01/18 03/01/18 18:59 06:59 18:59 Intake Total 462.925 240 600 Output Total 350 200 Balance 112.925 40 600 Weight 119.1 kg Intake: IV 10 Sodium Chloride 0.9% 1, 10 000 ml @ 100 mls/hr IV . Q10H [facility] Rx#:[id number] Intake, IV Titration 212.925 Amount Nitroglycerin-D5w Pmx 50 212.925 mg In Dextrose/Water 1 250ml.bag @ Titrate IV . Q0M [facility] Rx#:[id number] Oral 240 240 600 Output: Urine 350 200 Other: Voiding Method Bedside Commode Bedside Commode Urinal Urinal # Voids 1 0 ABP, PAP, CO, CI - Last Documented Arterial Blood Pressure 299/299 - Exam GENERAL EXAM: Patient is alert and oriented and having intermittent chest pain HEENT: Normocephalic. Normal reaction of pupils, equal size, normal range of extraocular motion. No erythema or exudates in the throat. NECK: No masses, no nuchal rigidity. CHEST: No chest wall deformity. LUNGS: Equal air entry with no crackles or wheeze. HEART: S1 and S2 normal with no audible mumurs or gallops. Regular rhythm, femorals equal on both sides.. ABDOMEN: No hepatosplenomegaly, normal bowel sounds, no guarding or rigidity. SKIN: No rashes CENTRAL NERVOUS SYSTEM: No focal deficits. EXTREMITIES: No cyanosis, clubbing or edema. RIGHT GROIN: The puncture site is soft without any hematoma. - Labs CBC & Chem 7: 03/01/18 04:47 03/01/18 04:47 Labs: Abnormal Lab Results - Last 24 Hours (Table) 02/28/18 02/28/18 02/28/18 Range/Units 11:39 17:06 20:33 RBC (4.30-5.90) m/uL Hgb (13.0-17.5) gm/dL Hct (39.0-53.0) % Plt Count (150-450) k/uL BUN (9-20) mg/dL POC Glucose (mg/dL) 192 H 120 H 181 H (75-99) mg/dL Magnesium (1.6-2.3) mg/dL 03/01/18 03/01/18 Range/Units 04:47 04:47 RBC 3.64 L (4.30-5.90) m/uL Hgb 11.2 L (13.0-17.5) gm/dL Hct 33.8 L (39.0-53.0) % Plt Count 143 L (150-450) k/uL BUN 30 H (9-20) mg/dL POC Glucose (mg/dL) (75-99) mg/dL Magnesium 2.5 H (1.6-2.3) mg/dL Assessment and Plan (1) Subendocardial myocardial infarction Current Visit: Yes Status: Acute Code(s): I21.4 - NON-ST ELEVATION (NSTEMI) MYOCARDIAL INFARCTION SNOMED Code(s): 44471843 (2) Status post coronary artery stent placement Current Visit: Yes Status: Acute Code(s): Z95.5 - PRESENCE OF CORONARY ANGIOPLASTY IMPLANT AND GRAFT SNOMED Code(s): 414626067 (3) Chest pain Current Visit: Yes Status: Acute Code(s): R07.9 - CHEST PAIN, UNSPECIFIED SNOMED Code(s): 40593652 Plan: Patient activity to be increased. Discontinue nitroglycerin. Patient with hospital telemetry unit. 03/01/2018: Patient is doing better. No cardiac issues at this time. He chest pain has improved with appears to be typical. Patient will be transferred to telemetry unit. Increase activity as tolerated. Possible discharge in a.m.
[2018-03-01 11:25] LABS: Glucose,Whole Blood 159 mg/dL (75-99)
--- NOTE | 2018-03-01 14:15 | XR ---
EXAMINATION TYPE: XR chest 1V DATE OF EXAM: 03/01/2018 CLINICAL HISTORY: Difficulty breathing progress study. TECHNIQUE: Single AP portable frontal view of the chest is obtained. COMPARISON: Chest x-ray from 5 days earlier and older studies. FINDINGS: Exam is noted suboptimal due to portable technique and patient's large body habitus. Cardi omegaly is redemonstrated. Overlying sternal wires and mediastinal clips are again seen. Low lung vol umes are noted without new suspicious focal airspace opacity, pleural effusion, or pneumothorax seen bilaterally. Osseous structures are intact. IMPRESSION: Chronic changes and cardiomegaly without suspicious acute pulmonary process. No significa nt change from prior studies.
--- NOTE | 2018-03-01 15:21 | P.PN ---
Subjective Patient is a 67-year-old male with a known history of coronary artery disease, coronary artery bypass graft and peripheral vascular disease with right foot toe amputation/infection, hypertension, diabetes type 2 insulin-dependent and multiple other medical problems came to ER with complaints of chest pain which is constant for the past 3 days. Mainly left retrosternal chest pain. Patient says that she is being titrated recently and has been having fainting. Patient follows with cardiology clinic and was told he needs cardiac catheterization and further workup. Previously patient was having right foot infection and also incidence issues due to that patient was not able to follow with cardiology. Otherwise patient denied any associated shortness of breath. No nausea vomiting or abdominal pain. No headache or dizziness or lightheadedness. No leg swelling. Patient follows up wound care clinic for for right foot wound which is healing at this time. Patient had stress test done in November 2017. Cardiac Catheterization was not done at this time due to foot infection. Patient is also complaining of right foot pain and is requesting IV pain medications. EKG showed normal sinus rhythm. Chest x-ray showed cardiomegaly with low lung volumes. Troponin 1 negative. 02/25/2018 Patient denied any complaints of chest pain today. Serial EKGs and troponins have been negative. Cardiology is planning for catheterization tomorrow due to recent abnormal stress test. Patient is requesting IV pain medications with morphine. Blood sugar is fairly controlled with CBG in 200. Patient is requesting to be added 20 units of NovoLog 3 times a day before meals along with liver metastases 30 units in the night. Otherwise no shortness of breath. No fever no chills. No other acute overnight issues. 02/26/2018 Patient underwent cardiac catheterization today. Left heart catheterization with selective injection of the RANDOLPH graft and vein graft to the circumflex . Currently patient is drowsy and could not provide any history. No acute overnight issues. Cardiac is planning for recatheterization. No fever no chills. 02/27/2018 Patient is still complaining of pain today mainly xiphisternal area. Troponins have been negative. 2-D echo showed ejection fraction 35-40%. Cardiology is following. Otherwise no acute overnight issues. 02/28/2018 Patient is still complaining of pain which which is atypical chest pain. Otherwise hemoglobin is stable. Patient is being transferred to telemetry unit and encouraged ambulation. 03/01/2018 Patient underwent cardiac catheterization with failed stenting had an ejection fraction of 45% patient is quite a bit of short of breath because of which had a chest x-ray today which did not show any pulmonary edema patient lungs are clear to auscultation. Patient is complaining of severe lethargy. Patient is presently medically managed managed for has atherosclerotic coronary artery occlusive disease. Objective - Vital Signs Vital signs: Vital Signs Temp 97.6 F 03/01/18 12:00 Pulse 54 L 03/01/18 12:00 Resp 26 H 03/01/18 12:00 BP 119/69 03/01/18 12:00 Pulse Ox 94 L 03/01/18 12:00 Intake & Output 02/28/18 03/01/18 03/01/18 18:59 06:59 18:59 Intake Total 462.925 240 800 Output Total 350 200 550 Balance 112.925 40 250 Weight 119.1 kg Intake: IV 10 Sodium Chloride 0.9% 1, 10 000 ml @ 100 mls/hr IV . Q10H [facility] Rx#:[id number] Intake, IV Titration 212.925 Amount Nitroglycerin-D5w Pmx 50 212.925 mg In Dextrose/Water 1 250ml.bag @ Titrate IV . Q0M [facility] Rx#:[id number] Oral 240 240 800 Output: Urine 350 200 550 Other: Voiding Method Bedside Commode Toilet Urinal Urinal # Voids 1 0 3 ABP, PAP, CO, CI - Last Documented Arterial Blood Pressure 299/299 - Exam PHYSICAL EXAMINATION: GENERAL: The patient is alert and oriented x3, not in any acute distress. Well developed, well nourished. HEENT: Pupils are round and equally reacting to light. EOMI. No scleral icterus. No conjunctival pallor. Normocephalic, atraumatic. No pharyngeal erythema. No thyromegaly. CARDIOVASCULAR: S1 and S2 present. No murmurs, rubs, or gallops. PULMONARY: Chest is clear to auscultation, no wheezing or crackles. ABDOMEN: Soft, nontender, nondistended, normoactive bowel sounds. No palpable organomegaly. MUSCULOSKELETAL: No joint swelling or deformity. EXTREMITIES: No cyanosis, clubbing, or pedal edema. NEUROLOGICAL: Gross neurological examination did not reveal any focal deficits. SKIN: No rashes. - Labs CBC & Chem 7: 08/20/18 04:47 03/01/18 04:47 Labs: Abnormal Lab Results - Last 24 Hours (Table) 02/28/18 02/28/18 03/01/18 Range/Units 17:06 20:33 04:47 RBC 3.64 L (4.30-5.90) m/uL Hgb 11.2 L (13.0-17.5) gm/dL Hct 33.8 L (39.0-53.0) % Plt Count 143 L (150-450) k/uL BUN (9-20) mg/dL POC Glucose (mg/dL) 120 H 181 H (75-99) mg/dL Magnesium (1.6-2.3) mg/dL 03/01/18 03/01/18 Range/Units 04:47 11:23 RBC (4.30-5.90) m/uL Hgb (13.0-17.5) gm/dL Hct (39.0-53.0) % Plt Count (150-450) k/uL BUN 30 H (9-20) mg/dL POC Glucose (mg/dL) 159 H (75-99) mg/dL Magnesium 2.5 H (1.6-2.3) mg/dL Assessment and Plan Plan: Assessment and Plan Assessment: Chest pain/angina with a known history of coronary artery disease and recent stress test abdominal. Status post cardiac catheterization. -Shortness of breath: Secondary to coronary artery disease, patient is on medical management failed stenting please refer to cardiology dictation for further details. Coronary artery disease with history of CABG Peripheral vascular disease with history of right foot toes amputated. Recent diabetic right foot infection Morbid obesity with BMI 35.3 History of CVA/TIA Diabetes type 2 insulin independent Hyperlipidemia Hypertriglyceridemia Hypertension uncontrolled History of mild eczema and obstructive sleep apnea on CPAP at home Anxiety depression and bipolar DVT prophylaxis
[2018-03-01 16:49] LABS: Glucose,Whole Blood 131 mg/dL (75-99)
[2018-03-01] MEDS: NITROGLYCERIN OINT 1 INCH/GM PACKET TOPICAL SCH (19:35)
[2018-03-01 20:49] LABS: Glucose,Whole Blood 129 mg/dL (75-99)
[2018-03-01] MEDS: ATORVASTATIN 20 MG TAB PO SCH (21:27)
[2018-03-01] MEDS: INSULIN DETEMIR 100 UNIT/ML 10 ML VIAL SQ SCH (21:28)
[2018-03-02] MEDS: KETOROLAC 30 MG/ML 1 ML VIAL IVP SCH ×4 (05:10→23:00)
[2018-03-02 07:23] LABS: Glucose,Whole Blood 122 mg/dL (75-99)
[2018-03-02] MEDS: LOSARTAN 50 MG TAB PO SCH ×2 (08:19→20:32)
[2018-03-02] MEDS: HEPARIN SODIUM,PORCINE 5,000 UNIT/ML 1 ML VIAL SQ SCH ×3 (08:19→23:00)
[2018-03-02] MEDS: METOPROLOL TARTRATE 12.5 MG TAB PO SCH ×2 (08:19→20:32)
[2018-03-02] MEDS: PANTOPRAZOLE 40 MG TABLET PO SCH (08:19)
[2018-03-02] MEDS: ASPIRIN 325 MG TAB PO SCH (08:19)
[2018-03-02] MEDS: DIVALPROEX ER 500 MG TAB.ER.24H PO SCH ×2 (08:19→20:32)
[2018-03-02] MEDS: INSULIN ASPART 100 UNIT/ML 1 ML 10 ML VIAL SQ SCH ×7 (08:19→20:32)
[2018-03-02] MEDS: CLOPIDOGREL 75 MG TAB PO SCH (08:21)
[2018-03-02] MEDS: HYDROCHLOROTHIAZIDE 12.5 MG CAP PO SCH (09:18)
[2018-03-02] MEDS: ISOSORBIDE MONONITRATE ER 60 MG TAB.ER.24H PO SCH (09:18)
[2018-03-02] MEDS: amLODIPine 5 MG TAB PO SCH (11:48)
[2018-03-02 12:17] LABS: Glucose,Whole Blood 149 mg/dL (75-99)
[2018-03-02 12:18] LABS: Glucose,Whole Blood 155 mg/dL (75-99)
--- NOTE | 2018-03-02 15:03 | P.PN ---
Subjective Patient is a 67-year-old male with a known history of coronary artery disease, coronary artery bypass graft and peripheral vascular disease with right foot toe amputation/infection, hypertension, diabetes type 2 insulin-dependent and multiple other medical problems came to ER with complaints of chest pain which is constant for the past 3 days. Mainly left retrosternal chest pain. Patient says that she is being titrated recently and has been having fainting. Patient follows with cardiology clinic and was told he needs cardiac catheterization and further workup. Previously patient was having right foot infection and also incidence issues due to that patient was not able to follow with cardiology. Otherwise patient denied any associated shortness of breath. No nausea vomiting or abdominal pain. No headache or dizziness or lightheadedness. No leg swelling. Patient follows up wound care clinic for for right foot wound which is healing at this time. Patient had stress test done in November 2017. Cardiac Catheterization was not done at this time due to foot infection. Patient is also complaining of right foot pain and is requesting IV pain medications. EKG showed normal sinus rhythm. Chest x-ray showed cardiomegaly with low lung volumes. Troponin 1 negative. 02/25/2018 Patient denied any complaints of chest pain today. Serial EKGs and troponins have been negative. Cardiology is planning for catheterization tomorrow due to recent abnormal stress test. Patient is requesting IV pain medications with morphine. Blood sugar is fairly controlled with CBG in 200. Patient is requesting to be added 20 units of NovoLog 3 times a day before meals along with liver metastases 30 units in the night. Otherwise no shortness of breath. No fever no chills. No other acute overnight issues. 02/26/2018 Patient underwent cardiac catheterization today. Left heart catheterization with selective injection of the RANDOLPH graft and vein graft to the circumflex . Currently patient is drowsy and could not provide any history. No acute overnight issues. Cardiac is planning for recatheterization. No fever no chills. 02/27/2018 Patient is still complaining of pain today mainly xiphisternal area. Troponins have been negative. 2-D echo showed ejection fraction 35-40%. Cardiology is following. Otherwise no acute overnight issues. 02/28/2018 Patient is still complaining of pain which which is atypical chest pain. Otherwise hemoglobin is stable. Patient is being transferred to telemetry unit and encouraged ambulation. 03/01/2018 Patient underwent cardiac catheterization with failed stenting had an ejection fraction of 45% patient is quite a bit of short of breath because of which had a chest x-ray today which did not show any pulmonary edema patient lungs are clear to auscultation. Patient is complaining of severe lethargy. Patient is presently medically managed managed for has atherosclerotic coronary artery occlusive disease. 03/02/2018 Patient still get short of breath upon minimal ablation probably due to it was critical coronary vascular disease. Although sometimes is complaining of rheumatic chest pain because of which obtained a d-dimer which is elevated I'll obtain a CT angios the chest. We'll also order serum creatinine level. Patient 's present serum creatinine is 1.1. There is no pulmonary edema. Patient may have superimposed sleep apnea as well. Objective - Vital Signs Vital signs: Vital Signs Temp 98.5 F 03/02/18 08:00 Pulse 54 L 03/02/18 11:00 Resp 20 03/02/18 11:00 BP 135/69 03/02/18 11:00 Pulse Ox 94 L 03/02/18 08:00 Intake & Output 03/01/18 03/02/18 03/02/18 18:59 06:59 18:59 Intake Total 800 200 350 Output Total 550 0 Balance 250 200 350 Intake: Oral 800 200 350 Output: Urine 550 0 Other: Voiding Method Toilet Toilet Toilet Urinal Urinal Urinal # Voids 3 1 2 # Bowel Movements 2 ABP, PAP, CO, CI - Last Documented Arterial Blood Pressure 299/299 - Exam PHYSICAL EXAMINATION: GENERAL: The patient is alert and oriented x3, not in any acute distress. Well developed, well nourished. HEENT: Pupils are round and equally reacting to light. EOMI. No scleral icterus. No conjunctival pallor. Normocephalic, atraumatic. No pharyngeal erythema. No thyromegaly. CARDIOVASCULAR: S1 and S2 present. No murmurs, rubs, or gallops. PULMONARY: Chest is clear to auscultation, no wheezing or crackles. ABDOMEN: Soft, nontender, nondistended, normoactive bowel sounds. No palpable organomegaly. MUSCULOSKELETAL: No joint swelling or deformity. EXTREMITIES: No cyanosis, clubbing, or pedal edema. NEUROLOGICAL: Gross neurological examination did not reveal any focal deficits. SKIN: No rashes. - Labs CBC & Chem 7: 03/01/18 04:47 03/01/18 04:47 Labs: Abnormal Lab Results - Last 24 Hours (Table) 03/01/18 03/01/18 03/02/18 Range/Units 16:47 20:46 07:21 D-Dimer (<0.60) mg/L FEU POC Glucose (mg/dL) 131 H 129 H 122 H (75-99) mg/dL 03/02/18 03/02/18 03/02/18 Range/Units 11:55 12:08 13:37 D-Dimer 1.02 H (<0.60) mg/L FEU POC Glucose (mg/dL) 149 H 155 H (75-99) mg/dL Assessment and Plan Plan: Assessment and Plan Assessment: Chest pain/angina with a known history of coronary artery disease and recent stress test abdominal. Status post cardiac catheterization. -Shortness of breath: Secondary to coronary artery disease, patient is on medical management failed stenting please refer to cardiology dictation for further details. We'll rule out pulmonary embolism Coronary artery disease with history of CABG Peripheral vascular disease with history of right foot toes amputated. Recent diabetic right foot infection Morbid obesity with BMI 35.3 History of CVA/TIA Diabetes type 2 insulin independent Hyperlipidemia Hypertriglyceridemia Hypertension uncontrolled History of mild eczema and obstructive sleep apnea on CPAP at home Anxiety depression and bipolar DVT prophylaxis
--- NOTE | 2018-03-02 15:19 | P.PN ---
Subjective Progress Note Date: 03/02/18 This is a 67-year-old gentleman with history of previous bypass surgery was admitted to the hospital with symptoms of progressive angina. Patient had a cardiac catheterization and was found patent RANDOLPH graft to LAD and vein graft to the OM branch. However, the vein graft had significant ostial and proximal lesion and also multiple lesions in the body. Patient had attempted stent placement by Dr. Shook yesterday. Patient developed reflow phenomenon. Patient was put on Aggrenox and also had aspiration of thrombus and also IV nitroglycerin. Patient had EKG changes of ischemia and troponins are elevated size to of subendocardial MT. Patient continued to have intermittent chest pain relieved with morphine. EKG this morning did not show any acute changes. We'll continue conservative management. Increase activity as tolerated. We'll get an echocardiogram done. 02/28/2018: Patient remains stable. No arrhythmias. Continues to have chest pain which appeared to be atypical and respirophasic. We will discontinue nitroglycerin. Patient pain is responding only to pain medications, which seemed to be chronic issue. His EKG from showed a normal findings. Echo Cardigan showed hypokinesis of the posterior lateral wall. Ejection fraction is about 45%. We'll increase his activity and transfer to telemetry unit. His peak troponin is about 40. 03/01/2018: Patient is stable. His chest pain has improved. No arrhythmias documented. No issues with this. Respirations. His lungs are clear. Heart is regular. Patient is to be moved to telemetry unit. Increase his activity. If stable patient will be discharged home tomorrow. 03/02/2018: This patient with history of ischemic heart disease and previous bypass surgery was admitted to the hospital with chest pains. Patient was having chest pain constantly which was atypical requiring pain medication. Cardiac catheterization revealed significant disease involving the graft to the circumflex. Patient had attempted stent placement which resulted in no reflow phenomenon. Patient had findings of MT with positive troponins. His EKG however seem to be normalized. Patient is still having intermittent chest pains relieved with morphine. The pains are increase on deep breathing. They appear to be noncardiac. At this point, patient is advised to maximal medical therapy. I will also discuss with Dr. Shook regarding any other intervention that is feasible. Patient could be discharged home within 24 hours Objective - Vital Signs Vital signs: Vital Signs Temp 98.5 F 03/02/18 08:00 Pulse 54 L 03/02/18 11:00 Resp 20 03/02/18 11:00 BP 135/69 03/02/18 11:00 Pulse Ox 94 L 03/02/18 08:00 Intake & Output 03/01/18 03/02/18 03/02/18 18:59 06:59 18:59 Intake Total 800 200 350 Output Total 550 0 Balance 250 200 350 Intake: Oral 800 200 350 Output: Urine 550 0 Other: Voiding Method Toilet Toilet Toilet Urinal Urinal Urinal # Voids 3 1 2 # Bowel Movements 2 ABP, PAP, CO, CI - Last Documented Arterial Blood Pressure 299/299 - Exam GENERAL EXAM: Patient is alert and oriented and having intermittent chest pain HEENT: Normocephalic. Normal reaction of pupils, equal size, normal range of extraocular motion. No erythema or exudates in the throat. NECK: No masses, no nuchal rigidity. CHEST: No chest wall deformity. LUNGS: Equal air entry with no crackles or wheeze. HEART: S1 and S2 normal with no audible mumurs or gallops. Regular rhythm, femorals equal on both sides.. ABDOMEN: No hepatosplenomegaly, normal bowel sounds, no guarding or rigidity. SKIN: No rashes CENTRAL NERVOUS SYSTEM: No focal deficits. EXTREMITIES: No cyanosis, clubbing or edema. RIGHT GROIN: The puncture site is soft without any hematoma. - Labs CBC & Chem 7: 03/01/18 04:47 03/01/18 04:47 Labs: Abnormal Lab Results - Last 24 Hours (Table) 03/01/18 03/01/18 03/02/18 Range/Units 16:47 20:46 07:21 D-Dimer (<0.60) mg/L FEU POC Glucose (mg/dL) 131 H 129 H 122 H (75-99) mg/dL 03/02/18 03/02/18 03/02/18 Range/Units 11:55 12:08 13:37 D-Dimer 1.02 H (<0.60) mg/L FEU POC Glucose (mg/dL) 149 H 155 H (75-99) mg/dL Assessment and Plan (1) Subendocardial myocardial infarction Current Visit: Yes Status: Acute Code(s): I21.4 - NON-ST ELEVATION (NSTEMI) MYOCARDIAL INFARCTION SNOMED Code(s): 54917671 (2) Status post coronary artery stent placement Current Visit: Yes Status: Acute Code(s): Z95.5 - PRESENCE OF CORONARY ANGIOPLASTY IMPLANT AND GRAFT SNOMED Code(s): 935388086 (3) Chest pain Current Visit: Yes Status: Acute Code(s): R07.9 - CHEST PAIN, UNSPECIFIED SNOMED Code(s): 08403382 Plan: Patient activity to be increased. Discontinue nitroglycerin. Patient with hospital telemetry unit. 03/01/2018: Patient is doing better. No cardiac issues at this time. He chest pain has improved with appears to be typical. Patient will be transferred to telemetry unit. Increase activity as tolerated. Possible discharge in a.m. 03/02/2018: Patient is stable without any arrhythmias. Doesn't seem in acute distress at rest. Patient is to have intermittent chest pains which appear to be typical. Patient could be discharged home on current medical therapy and oral nitrates. I will also discuss with Dr. Shook if any further intervention is feasible.
[2018-03-02 17:20] LABS: Glucose,Whole Blood 110 mg/dL (75-99)
[2018-03-02] MEDS: HYDROcodone/APAP 5-325MG 1 EACH TAB PO PRN (19:49)
[2018-03-02] MEDS: INSULIN DETEMIR 100 UNIT/ML 10 ML VIAL SQ SCH (20:32)
[2018-03-02] MEDS: ATORVASTATIN 80 MG TAB PO SCH (20:32)
[2018-03-02 20:33] LABS: Glucose,Whole Blood 119 mg/dL (75-99)
--- NOTE | 2018-03-02 23:32 | CT ---
EXAMINATION TYPE: CT angio chest with contrast and with 3-D reconstruction renderings DATE OF EXAM: 03/02/2018 4:49 PM COMPARISON: Chest radiograph 03/01/2018 at 1:37 PM HISTORY: Chest pains CT DLP: 1310 mGycm Automated exposure control for dose reduction was used. CONTRAST: CTA scan of the thorax is performed with IV Contrast, patient injected with 100 mL of Isovu e 370, pulmonary embolism protocol. 3-D reconstructions. FINDINGS: AIRWAYS: The tracheobronchial tree is patent. LUNGS: There is a fine reticular pattern of increased density throughout the lungs suggesting mild in terstitial phase pulmonary edema. The lungs are otherwise clear, without consolidation and without co ncerning parenchymal mass or nodule identified. PLEURAL SPACES: Scant left pleural effusion is noted. Pleural spaces are otherwise negative. MEDIASTINUM: There is satisfactory enhancement of the pulmonary artery and its branches, there is no CT evidence for pulmonary embolism. There are no greater than 1 cm hilar or mediastinal lymph nodes. The aorta is mildly tortuous with nonaneurysmal mild atherosclerotic calcifications. Mild cardiomega ly present. Moderately prominent coronary calcifications noted. No pericardial effusion is seen. SKELETAL STRUCTURES: No additional significant abnormality is seen. VISUALIZED EXTRATHORACIC SOFT TISSUES: Unremarkable. IMPRESSION: 1. NEGATIVE FOR PULMONARY EMBOLISM. 2. INTERSTITIAL PHASE PULMONARY EDEMA, PRESUMABLY CARDIOGENIC ETIOLOGY.
[2018-03-03] MEDS: HYDROcodone/APAP 5-325MG 1 EACH TAB PO PRN ×2 (04:07→08:51)
[2018-03-03 05:38] LABS: Calcium 8.5 mg/dL (8.4-10.2); Potassium 4.2 mmol/L (3.5-5.1)
[2018-03-03] MEDS: KETOROLAC 30 MG/ML 1 ML VIAL IVP SCH ×3 (05:43→18:54)
[2018-03-03 07:32] LABS: Glucose,Whole Blood 91 mg/dL (75-99)
[2018-03-03] MEDS: METOPROLOL TARTRATE 12.5 MG TAB PO SCH ×2 (08:06→21:31)
[2018-03-03] MEDS: INSULIN ASPART 100 UNIT/ML 1 ML 10 ML VIAL SQ SCH ×7 (08:06→21:31)
[2018-03-03] MEDS: HEPARIN SODIUM,PORCINE 5,000 UNIT/ML 1 ML VIAL SQ SCH ×2 (08:07→16:55)
[2018-03-03] MEDS: ASPIRIN 81 MG PO SCH (08:07)
[2018-03-03] MEDS: CLOPIDOGREL 75 MG TAB PO SCH (08:07)
[2018-03-03] MEDS: LOSARTAN 50 MG TAB PO SCH ×2 (08:07→21:31)
[2018-03-03] MEDS: PANTOPRAZOLE 40 MG TABLET PO SCH (08:07)
[2018-03-03] MEDS: DIVALPROEX ER 500 MG TAB.ER.24H PO SCH ×2 (08:07→21:31)
[2018-03-03] MEDS: ISOSORBIDE MONONITRATE ER 60 MG TAB.ER.24H PO SCH (08:07)
[2018-03-03] MEDS: amLODIPine 5 MG TAB PO SCH (08:07)
[2018-03-03] MEDS: HYDROCHLOROTHIAZIDE 12.5 MG CAP PO SCH (08:22)
[2018-03-03] MEDS ORDERED: NITROGLYCERIN SL TABS 0.4 MG TAB SUBLINGUAL STA (09:10)
[2018-03-03] MEDS ORDERED: NITROGLYCERIN SL TABS 0.4 MG TAB SUBLINGUAL PRN ×2 (09:23→12:15)
[2018-03-03] MEDS ORDERED: FUROSEMIDE 10 MG/ML 4 ML VIAL IV STA (11:39)
[2018-03-03] MEDS ORDERED: ATORVASTATIN 80 MG TAB PO STA (12:15)
[2018-03-03] MEDS ORDERED: ALPRAZolam 0.25 MG TAB PO PRN (12:15)
[2018-03-03] MEDS ORDERED: SODIUM CHLORIDE 0.9% 1,000 ML in EMPTY BAG 1 BAG IV ONE (12:15)
[2018-03-03] MEDS ORDERED: ALPRAZolam 0.5 MG TAB PO PRN (12:15)
[2018-03-03] MEDS ORDERED: ASPIRIN 325 MG TAB PO STA (12:15)
--- NOTE | 2018-03-03 13:19 | P.PN ---
Subjective Patient is a 67-year-old male with a known history of coronary artery disease, coronary artery bypass graft and peripheral vascular disease with right foot toe amputation/infection, hypertension, diabetes type 2 insulin-dependent and multiple other medical problems came to ER with complaints of chest pain which is constant for the past 3 days. Mainly left retrosternal chest pain. Patient says that she is being titrated recently and has been having fainting. Patient follows with cardiology clinic and was told he needs cardiac catheterization and further workup. Previously patient was having right foot infection and also incidence issues due to that patient was not able to follow with cardiology. Otherwise patient denied any associated shortness of breath. No nausea vomiting or abdominal pain. No headache or dizziness or lightheadedness. No leg swelling. Patient follows up wound care clinic for for right foot wound which is healing at this time. Patient had stress test done in November 2017. Cardiac Catheterization was not done at this time due to foot infection. Patient is also complaining of right foot pain and is requesting IV pain medications. EKG showed normal sinus rhythm. Chest x-ray showed cardiomegaly with low lung volumes. Troponin 1 negative. 02/25/2018 Patient denied any complaints of chest pain today. Serial EKGs and troponins have been negative. Cardiology is planning for catheterization tomorrow due to recent abnormal stress test. Patient is requesting IV pain medications with morphine. Blood sugar is fairly controlled with CBG in 200. Patient is requesting to be added 20 units of NovoLog 3 times a day before meals along with liver metastases 30 units in the night. Otherwise no shortness of breath. No fever no chills. No other acute overnight issues. 02/26/2018 Patient underwent cardiac catheterization today. Left heart catheterization with selective injection of the RANDOLPH graft and vein graft to the circumflex . Currently patient is drowsy and could not provide any history. No acute overnight issues. Cardiac is planning for recatheterization. No fever no chills. 02/27/2018 Patient is still complaining of pain today mainly xiphisternal area. Troponins have been negative. 2-D echo showed ejection fraction 35-40%. Cardiology is following. Otherwise no acute overnight issues. 02/28/2018 Patient is still complaining of pain which which is atypical chest pain. Otherwise hemoglobin is stable. Patient is being transferred to telemetry unit and encouraged ambulation. 03/01/2018 Patient underwent cardiac catheterization with failed stenting had an ejection fraction of 45% patient is quite a bit of short of breath because of which had a chest x-ray today which did not show any pulmonary edema patient lungs are clear to auscultation. Patient is complaining of severe lethargy. Patient is presently medically managed managed for has atherosclerotic coronary artery occlusive disease. 03/02/2018 Patient still get short of breath upon minimal ablation probably due to it was critical coronary vascular disease. Although sometimes is complaining of rheumatic chest pain because of which obtained a d-dimer which is elevated I'll obtain a CT angios the chest. We'll also order serum creatinine level. Patient 's present serum creatinine is 1.1. There is no pulmonary edema. Patient may have superimposed sleep apnea as well. 03/03/2018 Patient started having chest pain again today patient will undergo repeat cardiac catheterization which possible intervention by Dr. Lozano. Ruled out pulmonary embolism. Patient had some pulmonary edema for which we will order Lasix one dose. Patient probably will be on IV fluids after the procedure because of the contrast he is going to receive. Creatinine is presently 1. Objective - Vital Signs Vital signs: Vital Signs Temp 97.6 F 03/03/18 12:00 Pulse 58 L 03/03/18 12:00 Resp 95 H 03/03/18 12:00 BP 134/62 03/03/18 12:00 Pulse Ox 98 03/03/18 11:00 Intake & Output 03/02/18 03/03/18 03/03/18 18:59 06:59 18:59 Intake Total 350 10 Balance 350 10 Weight 111 kg Intake: IV 10 0.9 Flush 10 Oral 350 Other: Voiding Method Toilet Toilet Urinal Urinal # Voids 2 1 # Bowel Movements 2 ABP, PAP, CO, CI - Last Documented Arterial Blood Pressure 299/299 - Exam PHYSICAL EXAMINATION: GENERAL: The patient is alert and oriented x3, not in any acute distress. Well developed, well nourished. HEENT: Pupils are round and equally reacting to light. EOMI. No scleral icterus. No conjunctival pallor. Normocephalic, atraumatic. No pharyngeal erythema. No thyromegaly. CARDIOVASCULAR: S1 and S2 present. No murmurs, rubs, or gallops. PULMONARY: Chest is clear to auscultation, no wheezing or crackles. ABDOMEN: Soft, nontender, nondistended, normoactive bowel sounds. No palpable organomegaly. MUSCULOSKELETAL: No joint swelling or deformity. EXTREMITIES: No cyanosis, clubbing, or pedal edema. NEUROLOGICAL: Gross neurological examination did not reveal any focal deficits. SKIN: No rashes. - Labs CBC & Chem 7: 03/01/18 04:47 03/03/18 04:47 Labs: Abnormal Lab Results - Last 24 Hours (Table) 03/02/18 03/02/18 03/02/18 Range/Units 13:37 17:17 20:31 D-Dimer 1.02 H (<0.60) mg/L FEU BUN (9-20) mg/dL POC Glucose (mg/dL) 110 H 119 H (75-99) mg/dL 03/03/18 Range/Units 04:47 D-Dimer (<0.60) mg/L FEU BUN 36 H (9-20) mg/dL POC Glucose (mg/dL) (75-99) mg/dL Assessment and Plan Plan: Assessment and Plan Assessment: Chest pain/angina with a known history of coronary artery disease and recent stress test abdominal. Status post cardiac catheterization. Failed stenting. Because of his continued symptoms patient will undergo cardiac catheterization and again today. -Shortness of breath: Secondary to coronary artery disease, rule out pulmonary embolism there is some pulmonary edema on the chest x-ray patient's ejection fraction is around 40-45%him a dose of Lasix today. Coronary artery disease with history of CABG Peripheral vascular disease with history of right foot toes amputated. And has wound in the right leg which is present at the time of admission as well which is being taken care of by wound care as an outpatient it doesn't appear to be infected will continue with Silvadene wrap and saline cleaning alternate day. Recent diabetic right foot infection Morbid obesity with BMI 35.3 History of CVA/TIA Diabetes type 2 insulin independent Hyperlipidemia Hypertriglyceridemia Hypertension uncontrolled obstructive sleep apnea on CPAP at home Anxiety depression and bipolar DVT prophylaxis
[2018-03-03] MEDS ORDERED: MIDAZOLAM 2 MG/2 ML VIAL IV ONE (14:13)
[2018-03-03] MEDS ORDERED: IV FLUID CONTINUATION 1,000 ML IV ONE (14:14)
[2018-03-03] MEDS ORDERED: LIDOCAINE 1% INJ 10MG/ML (20 ML MDV) SQ ONE (14:21)
[2018-03-03] MEDS ORDERED: IOPAMIDOL-370 125ML BTL INJ ONE (14:36)
[2018-03-03] MEDS ORDERED: RX INFO: IV CONTRAST WAS GIVEN 1 EACH MISC MISCELLANE PRN (14:42)
[2018-03-03] MEDS ORDERED: SODIUM CHLORIDE 0.9% 1,000 ML IV SCH (14:45)
[2018-03-03 16:44] LABS: Glucose,Whole Blood 95 mg/dL (75-99)
[2018-03-03 16:44] LABS: Glucose,Whole Blood 129 mg/dL (75-99)
--- NOTE | 2018-03-03 16:54 | CC ---
CARDIAC CATHETERIZATION REPORT PERFORMING PHYSICIAN: Nathan Lozano MD. PROCEDURE PERFORMED: 1. Selective left and right coronary angiogram. 2. SVG to left circumflex angiogram. 3. Left internal mammary artery angiogram. 4. Left heart catheterization. INDICATION: This is a pleasant 67-year-old gentleman who sees Dr. Bolden in the office as an outpatient with a known history of coronary artery disease and prior coronary artery bypass grafting who presented to the hospital few days ago with chest discomfort. The chest discomfort was concerning for angina. At that point, a heart catheterization was recommended. The patient underwent heart catheterization by Dr. Bolden and was found to have critical disease involving the ostial, mid, and distal SVG to left circumflex. He underwent stenting of the SVG to left circumflex, which was complicated by no reflow phenomena. We could not reverse the no reflow phenomena. Unfortunately the patient continues to have chest discomfort and he was brought today to undergo a heart catheterization. APPROACH: Right common femoral artery. COMPLICATION: None. LEVEL OF SEDATION: Moderate with sedation length of 20 minutes. PROCEDURE DESCRIPTION: After obtaining an informed consent, the patient was brought to cardiac laborer ammunition assembly. The right common femoral artery was cannulated using micropuncture technique, the micropuncture wire passed easily. Then I cannulated the groin then I placed a 6-Colombian sheath in the right common femoral artery. After that, I did selective right and left coronary angiogram using JL4 and JR4 catheters. SVG to left circumflex angiogram and RANDOLPH to LAD angiogram were performed using the JR4 catheter. Left heart catheterization was performed using 6-Colombian pigtail catheter. The procedure was completed without any complication. SELECTIVE CORONARY ANGIOGRAM: 1. Left main is angiographically normal. It bifurcates into the left circumflex and left anterior descending artery. 2. The left circumflex is a large caliber vessel. The proximal circumflex appeared to be angiographically normal and gives rise into a large OM, which first OM has mild disease only. The second OM, which originating just below the second OM is 100% occluded in a long segment. The left circumflex continues after that as a small to medium caliber vessel in the AV groove. 3. The LAD: The proximal LAD is angiographically normal. It gives rise into a medium- sized diagonal branch which seems to be angiographically normal and the LAD after that is subtotally occluded and fills by the RANDOLPH. I can see competitive flow from the RANDOLPH. 4. The RCA: The proximal RCA appeared to be angiographically normal. The mid RCA has intermediate lesion, appeared to be in the range of 50% and the RCA distally appeared to be normal and bifurcates into PDA and PLV branches both are angiographically normal. CORONARY BYPASS ANGIOGRAM: 1. SVG to left circumflex is occluded. 2. RANDOLPH to LAD is patent. HEMODYNAMICS: The left ventricular end-diastolic pressure was 20 mmHg and no gradient was identified across the aortic valve. CONCLUSION: 1. Severe 2 vessel coronary artery disease. The RCA has intermediate lesion only. The left circumflex and LAD are occluded. 2. The SVG to left circumflex is occluded, which is subtotally occluded likely secondary to no reflow phenomenon from the last week intervention. 3. Patent RANDOLPH to LAD. POSTPROCEDURE MANAGEMENT: 1. I recommended maximize medical treatment. 2. Add oral nitrate as well as well to the current medical regimen. 3. Follow up with the patient. MMODL / IJN: [id number] /
[2018-03-03 17:26] LABS: Glucose,Whole Blood 148 mg/dL (75-99)
[2018-03-03 20:37] LABS: Glucose,Whole Blood 178 mg/dL (75-99)
[2018-03-03] MEDS: INSULIN DETEMIR 100 UNIT/ML 10 ML VIAL SQ SCH (21:31)
[2018-03-03] MEDS: ATORVASTATIN 80 MG TAB PO SCH (21:31)
[2018-03-03] MEDS: RANOLAZINE 500 MG TAB.ER.12H PO SCH (21:32)
[2018-03-04] MEDS: HEPARIN SODIUM,PORCINE 5,000 UNIT/ML 1 ML VIAL SQ SCH ×3 (01:00→17:10)
[2018-03-04] MEDS: KETOROLAC 30 MG/ML 1 ML VIAL IVP SCH ×2 (01:00→06:12)
[2018-03-04 07:13] LABS: Glucose,Whole Blood 107 mg/dL (75-99)
--- NOTE | 2018-03-04 07:26 | P.PN ---
Subjective Progress Note Date: 03/04/18 Principal diagnosis: Non-ST deviation myocardial infarction This is a pleasant 67-year-old gentleman with history of coronary artery disease , peripheral arterial disease, as well as multiple comorbid conditions including hypertension and dyslipidemia was admitted to the hospital with chest discomfort. The muscle going was admitted to the hospital with a chest discomfort and underwent myocardial perfusion imaging stress test and that revealed ischemia. He underwent a heart catheterization few days ago and he was found to have medical disease involving the SVG to left circumflex in the proximal, mid, and distal portion. He underwent stenting of the SVG to left circumflex which was complicated by no reflow phenomena. The patient was started on IIb IIIa inhibitors with Aggrastat but he continues to have a chest discomfort. He was taken to the cardiac catheterization laboratory yesterday and was found to have occlusion of SVG to left circumflex. On follow-up with him today, he denies having any chest pain or chest discomfort. He is on oral nitrate as well as Ranexa. From a cardiovascular standpoint overview, the patient can be discharged home. Objective - Vital Signs Vital signs: Vital Signs Temp 99.2 F 03/04/18 04:00 Pulse 57 L 03/04/18 06:00 Resp 15 03/04/18 06:00 BP 136/53 03/04/18 06:00 Pulse Ox 85 L 03/04/18 06:00 Intake & Output 03/03/18 03/04/18 03/04/18 18:59 06:59 18:59 Intake Total 100 460 Output Total 825 400 Balance -725 60 Weight 113.7 kg Intake: IV 100 460 0.9 Flush 10 Sodium Chloride 0.9% 1, 450 000 ml @ 75 mls/hr IV . [id number] [facility] Rx#:[id number] Output: Urine 825 400 Other: Voiding Method Urinal Urinal # Voids 1 1 ABP, PAP, CO, CI - Last Documented Arterial Blood Pressure 299/299 - Constitutional General appearance: Present: no acute distress - Respiratory Respiratory: bilateral: CTA - Cardiovascular Rhythm: regular Heart sounds: normal: S1, S2 - Labs CBC & Chem 7: 03/01/18 04:47 03/03/18 04:47 Labs: Abnormal Lab Results - Last 24 Hours (Table) 03/03/18 03/03/18 03/03/18 Range/Units 11:38 17:20 20:35 POC Glucose (mg/dL) 129 H 148 H 178 H (75-99) mg/dL 03/04/18 Range/Units 07:11 POC Glucose (mg/dL) 107 H (75-99) mg/dL Assessment and Plan Assessment: Assessment #1 chest discomfort concerning for angina #2 known CAD with prior CABG and stenting #3 peripheral arterial disease/critical limb ischemia #4 multiple risk factors including diabetes, hypertension, dyslipidemia Plan #1 continue the current medical regimen. Continue oral nitrates as well as Ranexa. #2 from a cardiovascular standpoint of view, the patient can be discharged home.
[2018-03-04] MEDS: INSULIN ASPART 100 UNIT/ML 1 ML 10 ML VIAL SQ SCH ×7 (08:53→22:22)
[2018-03-04] MEDS: ISOSORBIDE MONONITRATE ER 60 MG TAB.ER.24H PO SCH (08:54)
[2018-03-04] MEDS: LOSARTAN 50 MG TAB PO SCH ×2 (08:54→22:15)
[2018-03-04] MEDS: DIVALPROEX ER 500 MG TAB.ER.24H PO SCH ×2 (08:54→22:14)
[2018-03-04] MEDS: ASPIRIN 81 MG PO SCH (08:59)
[2018-03-04] MEDS: CLOPIDOGREL 75 MG TAB PO SCH (08:59)
[2018-03-04] MEDS: PANTOPRAZOLE 40 MG TABLET PO SCH (08:59)
[2018-03-04] MEDS: METOPROLOL TARTRATE 12.5 MG TAB PO SCH ×2 (08:59→22:15)
[2018-03-04] MEDS: RANOLAZINE 500 MG TAB.ER.12H PO SCH ×2 (09:08→22:15)
[2018-03-04] MEDS: amLODIPine 5 MG TAB PO SCH (09:08)
--- NOTE | 2018-03-04 11:39 | XR ---
EXAMINATION TYPE: XR chest 1V DATE OF EXAM: 03/04/2018 COMPARISON: 03/01/2018 INDICATION: CHF, short of breath TECHNIQUE: Single frontal view of the chest is obtained. FINDINGS: The heart size is enlarged. The pulmonary vasculature is normal. The lungs are clear. Previous minimal infiltrate in the lingula region is improving. IMPRESSION: 1. There is improvement of a prior lingular infiltrate. 2. Cardiomegaly.
[2018-03-04] MEDS: FUROSEMIDE 10 MG/ML 4 ML VIAL IV SCH ×2 (11:48→22:14)
[2018-03-04 12:08] LABS: Glucose,Whole Blood 109 mg/dL (75-99)
--- NOTE | 2018-03-04 13:06 | P.PN ---
Subjective Patient is a 67-year-old male with a known history of coronary artery disease, coronary artery bypass graft and peripheral vascular disease with right foot toe amputation/infection, hypertension, diabetes type 2 insulin-dependent and multiple other medical problems came to ER with complaints of chest pain which is constant for the past 3 days. Mainly left retrosternal chest pain. Patient says that she is being titrated recently and has been having fainting. Patient follows with cardiology clinic and was told he needs cardiac catheterization and further workup. Previously patient was having right foot infection and also incidence issues due to that patient was not able to follow with cardiology. Otherwise patient denied any associated shortness of breath. No nausea vomiting or abdominal pain. No headache or dizziness or lightheadedness. No leg swelling. Patient follows up wound care clinic for for right foot wound which is healing at this time. Patient had stress test done in November 2017. Cardiac Catheterization was not done at this time due to foot infection. Patient is also complaining of right foot pain and is requesting IV pain medications. EKG showed normal sinus rhythm. Chest x-ray showed cardiomegaly with low lung volumes. Troponin 1 negative. 02/25/2018 Patient denied any complaints of chest pain today. Serial EKGs and troponins have been negative. Cardiology is planning for catheterization tomorrow due to recent abnormal stress test. Patient is requesting IV pain medications with morphine. Blood sugar is fairly controlled with CBG in 200. Patient is requesting to be added 20 units of NovoLog 3 times a day before meals along with liver metastases 30 units in the night. Otherwise no shortness of breath. No fever no chills. No other acute overnight issues. 02/26/2018 Patient underwent cardiac catheterization today. Left heart catheterization with selective injection of the RANDOLPH graft and vein graft to the circumflex . Currently patient is drowsy and could not provide any history. No acute overnight issues. Cardiac is planning for recatheterization. No fever no chills. 02/27/2018 Patient is still complaining of pain today mainly xiphisternal area. Troponins have been negative. 2-D echo showed ejection fraction 35-40%. Cardiology is following. Otherwise no acute overnight issues. 02/28/2018 Patient is still complaining of pain which which is atypical chest pain. Otherwise hemoglobin is stable. Patient is being transferred to telemetry unit and encouraged ambulation. 03/01/2018 Patient underwent cardiac catheterization with failed stenting had an ejection fraction of 45% patient is quite a bit of short of breath because of which had a chest x-ray today which did not show any pulmonary edema patient lungs are clear to auscultation. Patient is complaining of severe lethargy. Patient is presently medically managed managed for has atherosclerotic coronary artery occlusive disease. 03/02/2018 Patient still get short of breath upon minimal ablation probably due to it was critical coronary vascular disease. Although sometimes is complaining of rheumatic chest pain because of which obtained a d-dimer which is elevated I'll obtain a CT angios the chest. We'll also order serum creatinine level. Patient 's present serum creatinine is 1.1. There is no pulmonary edema. Patient may have superimposed sleep apnea as well. 03/03/2018 Patient started having chest pain again today patient will undergo repeat cardiac catheterization which possible intervention by Dr. Lozano. Ruled out pulmonary embolism. Patient had some pulmonary edema for which we will order Lasix one dose. Patient probably will be on IV fluids after the procedure because of the contrast he is going to receive. Creatinine is presently 1. 03/04/2018 I believe patient has mild pulmonary edema patient was started on oral Lasix 40 mg twice a day probability of discharge tomorrow we'll repeat basic metabolic profile tomorrow. Patient will be transferred to [facility] floor with telemetry Objective - Vital Signs Vital signs: Vital Signs Temp 98.3 F 03/04/18 12:00 Pulse 61 03/04/18 12:00 Resp 18 03/04/18 12:00 BP 145/77 03/04/18 12:00 Pulse Ox 95 03/04/18 12:00 Intake & Output 03/03/18 03/04/18 03/04/18 18:59 06:59 18:59 Intake Total 100 460 600 Output Total 825 400 400 Balance -725 60 200 Weight 113.7 kg Intake: IV 100 460 0.9 Flush 10 Sodium Chloride 0.9% 1, 450 000 ml @ 75 mls/hr IV . [id number] [facility] Rx#:[id number] Oral 600 Output: Urine 825 400 400 Other: Voiding Method Urinal Urinal Urinal # Voids 1 1 1 ABP, PAP, CO, CI - Last Documented Arterial Blood Pressure 299/299 - Exam PHYSICAL EXAMINATION: GENERAL: The patient is alert and oriented x3, not in any acute distress. Well developed, well nourished. HEENT: Pupils are round and equally reacting to light. EOMI. No scleral icterus. No conjunctival pallor. Normocephalic, atraumatic. No pharyngeal erythema. No thyromegaly. CARDIOVASCULAR: S1 and S2 present. No murmurs, rubs, or gallops. PULMONARY: Bi basilar crackles ABDOMEN: Soft, nontender, nondistended, normoactive bowel sounds. No palpable organomegaly. MUSCULOSKELETAL: No joint swelling or deformity. EXTREMITIES: No cyanosis, clubbing, or pedal edema. NEUROLOGICAL: Gross neurological examination did not reveal any focal deficits. SKIN: No rashes. - Labs CBC & Chem 7: 03/01/18 04:47 03/03/18 04:47 Labs: Abnormal Lab Results - Last 24 Hours (Table) 03/03/18 03/03/18 03/03/18 Range/Units 11:38 17:20 20:35 POC Glucose (mg/dL) 129 H 148 H 178 H (75-99) mg/dL 03/04/18 03/04/18 Range/Units 07:11 12:07 POC Glucose (mg/dL) 107 H 109 H (75-99) mg/dL Assessment and Plan Plan: Assessment and Plan As underwentsessment: Chest pain/angina with a known history of coronary artery disease and recent stress te No chest pain today is 9 history of minimal exacerbation patient was started on IV Lasix today will be discharged tomorrow Status post cardiac catheterization. Underwent stenting of SVG with no flow phenomenon. Medical therapy with renexa.. -Shortness of breath: Secondary to coronary artery disease, rule out pulmonary embolism there is some pulmonary edema on the chest x-ray patient's ejection fraction is around 40-45%him a dose of Lasix today. Coronary artery disease with history of CABG Peripheral vascular disease with history of right foot toes amputated. And has wound in the right leg which is present at the time of admission as well which is being taken care of by wound care as an outpatient it doesn't appear to be infected will continue with Silvadene wrap and saline cleaning alternate day. Recent diabetic right foot infection Morbid obesity with BMI 35.3 History of CVA/TIA Diabetes type 2 insulin independent Hyperlipidemia Hypertriglyceridemia Hypertension uncontrolled obstructive sleep apnea on CPAP at home Anxiety depression and bipolar DVT prophylaxis
[2018-03-04 15:06] VITALS: BMI 37.0
[2018-03-04 17:00] LABS: Glucose,Whole Blood 98 mg/dL (75-99)
[2018-03-04] MEDS: HYDROcodone/APAP 5-325MG 1 EACH TAB PO PRN (19:19)
[2018-03-04] MEDS: MORPHINE SULFATE 2 MG/ML SYRINGE IVP PRN (21:16)
[2018-03-04 21:26] LABS: Glucose,Whole Blood 119 mg/dL (75-99)
[2018-03-04] MEDS: ATORVASTATIN 80 MG TAB PO SCH (22:14)
[2018-03-04] MEDS: INSULIN DETEMIR 100 UNIT/ML 10 ML VIAL SQ SCH (22:27)
[2018-03-05] MEDS: HEPARIN SODIUM,PORCINE 5,000 UNIT/ML 1 ML VIAL SQ SCH ×2 (00:26→08:11)
[2018-03-05 07:00] VITALS: BP 144/68; PULSE 60; RESP 16; TEMP 96.2
[2018-03-05 07:32] LABS: Glucose,Whole Blood 105 mg/dL (75-99)
[2018-03-05] MEDS: INSULIN ASPART 100 UNIT/ML 1 ML 10 ML VIAL SQ SCH ×4 (07:35→12:58)
[2018-03-05] MEDS: FUROSEMIDE 10 MG/ML 4 ML VIAL IV SCH (08:10)
[2018-03-05] MEDS: LOSARTAN 50 MG TAB PO SCH (08:11)
[2018-03-05] MEDS: METOPROLOL TARTRATE 12.5 MG TAB PO SCH (08:11)
[2018-03-05] MEDS: CLOPIDOGREL 75 MG TAB PO SCH (08:11)
[2018-03-05] MEDS: DIVALPROEX ER 500 MG TAB.ER.24H PO SCH (08:11)
[2018-03-05] MEDS: ISOSORBIDE MONONITRATE ER 60 MG TAB.ER.24H PO SCH (08:11)
[2018-03-05] MEDS: PANTOPRAZOLE 40 MG TABLET PO SCH (08:11)
[2018-03-05] MEDS: ASPIRIN 81 MG PO SCH (08:11)
[2018-03-05] MEDS: amLODIPine 5 MG TAB PO SCH (08:11)
[2018-03-05] MEDS: RANOLAZINE 500 MG TAB.ER.12H PO SCH (08:11)
[2018-03-05 10:13] LABS: Potassium 4.7 mmol/L (3.5-5.1)
[2018-03-05 11:28] LABS: Glucose,Whole Blood 115 mg/dL (75-99)
[2018-03-05] MEDS: MORPHINE SULFATE 2 MG/ML SYRINGE IVP PRN (11:51)
--- NOTE | 2018-03-05 19:57 | P.DS ---
Providers Date of admission: 02/27/18 09:00 Expected date of discharge: 03/05/18 Attending physician: Edin Lawson Consults: 02/24/18 16:27 Consult Physician Urgent Consulting Provider: Vivek Norman Consult Reason/Comments: cp Do you want consulting provider notified?: Yes 02/26/18 13:20 Consult Physician Routine Consulting Provider: [facility] Consult Reason/Comments: Post Interventional patient Do you want consulting provider notified?: Already Contacted Primary care physician: [facility] Course: Final Diagnoses: Chest pain/angina with a known history of coronary artery disease and recent stress test.Status post cardiac catheterization. Underwent stenting of SVG with no flow phenomenon. Medical therapy with renexa.. -Shortness of breath: Secondary to coronary artery disease, rule out pulmonary embolism there is some pulmonary edema on the chest x-ray patient's ejection fraction is around 40-45%him a dose of Lasix today. Coronary artery disease with history of CABG Peripheral vascular disease with history of right foot toes amputated. And has wound in the right leg which is present at the time of admission as well which is being taken care of by wound care as an outpatient. it doesn't appear to be infected will continue with Silvadene wrap and saline cleaning alternate day. Recent diabetic right foot infection Morbid obesity with BMI 35.3 History of CVA/TIA Diabetes type 2 insulin independent Hyperlipidemia Hypertriglyceridemia Hypertension uncontrolled obstructive sleep apnea on CPAP at home Anxiety depression and bipolar DVT prophylaxis Hospital course:Patient is a 67-year-old male with a known history of coronary artery disease, coronary artery bypass graft and peripheral vascular disease with right foot toe amputation/infection, hypertension, diabetes type 2 insulin- dependent and multiple other medical problems came to ER with complaints of chest pain which is constant for the past 3 days. Mainly left retrosternal chest pain. Patient says that she is being titrated recently and has been having fainting. Patient follows with cardiology clinic and was told he needs cardiac catheterization and further workup. Previously patient was having right foot infection and also incidence issues due to that patient was not able to follow with cardiology. Otherwise patient denied any associated shortness of breath. No nausea vomiting or abdominal pain. No headache or dizziness or lightheadedness. No leg swelling. Patient follows up wound care clinic for for right foot wound which is healing at this time. Patient had stress test done in November 2017. Cardiac Catheterization was not done at this time due to foot infection. Patient is also complaining of right foot pain and is requesting IV pain medications. EKG showed normal sinus rhythm. Chest x-ray showed cardiomegaly with low lung volumes. Troponin 1 negative. 02/25/2018 Patient denied any complaints of chest pain today. Serial EKGs and troponins have been negative. Cardiology is planning for catheterization tomorrow due to recent abnormal stress test. Patient is requesting IV pain medications with morphine. Blood sugar is fairly controlled with CBG in 200. Patient is requesting to be added 20 units of NovoLog 3 times a day before meals along with liver metastases 30 units in the night. Otherwise no shortness of breath. No fever no chills. No other acute overnight issues. 02/26/2018 Patient underwent cardiac catheterization today. Left heart catheterization with selective injection of the RANDOLPH graft and vein graft to the circumflex . Currently patient is drowsy and could not provide any history. No acute overnight issues. Cardiac is planning for recatheterization. No fever no chills. 02/27/2018 Patient is still complaining of pain today mainly xiphisternal area. Troponins have been negative. 2-D echo showed ejection fraction 35-40%. Cardiology is following. Otherwise no acute overnight issues. 02/28/2018 Patient is still complaining of pain which which is atypical chest pain. Otherwise hemoglobin is stable. Patient is being transferred to telemetry unit and encouraged ambulation. 03/01/2018 Patient underwent cardiac catheterization with failed stenting had an ejection fraction of 45% patient is quite a bit of short of breath because of which had a chest x-ray today which did not show any pulmonary edema patient lungs are clear to auscultation. Patient is complaining of severe lethargy. Patient is presently medically managed managed for has atherosclerotic coronary artery occlusive disease. 03/02/2018 Patient still get short of breath upon minimal ablation probably due to it was critical coronary vascular disease. Although sometimes is complaining of rheumatic chest pain because of which obtained a d-dimer which is elevated I'll obtain a CT angios the chest. We'll also order serum creatinine level. Patient 's present serum creatinine is 1.1. There is no pulmonary edema. Patient may have superimposed sleep apnea as well. 03/03/2018 Patient started having chest pain again today patient will undergo repeat cardiac catheterization which possible intervention by Dr. Lozano. Ruled out pulmonary embolism. Patient had some pulmonary edema for which we will order Lasix one dose. Patient probably will be on IV fluids after the procedure because of the contrast he is going to receive. Creatinine is presently 1. 03/04/2018 I believe patient has mild pulmonary edema patient was started on oral Lasix 40 mg twice a day probability of discharge tomorrow we'll repeat basic metabolic profile tomorrow. Patient will be transferred to [facility] floor with telemetry 03/05/2018 renal function stable, cleared by cardiology for discharge. Significant clinical improvement. Patient is being discharged home in a stable condition with guarded prognosis. EXAM: GENERAL: Alert and oriented 3, no acute distress CARDIOVASCULAR: S1, S2 muffled. No murmurs, rubs or gallops RESPIRATION: Breath sounds diminished in the bases. Fine bibasilar crackles. No bronchial breathing. ABDOMEN: Soft, nontender . Bowel sounds heard. NERVOUS SYSTEM: No focal deficits The impression and plan of care has been dictated as directed. : I performed a history and examination of this patient, discussed the same with the dictator. I agree with the dictator's note ,documented as a scribe. Any additional findings or plans will be noted. Time taken: 35 minutes Patient Condition at Discharge: Stable Plan - Discharge Summary Discharge Rx Participant: No New Discharge Prescriptions: New amLODIPine [Norvasc] 5 mg PO DAILY #30 tab Atorvastatin [Lipitor] 80 mg PO HS #30 tab Clopidogrel [Plavix] 75 mg PO DAILY #30 tab Isosorbide Mononitrate ER [Imdur] 60 mg PO DAILY #30 tab.er.24h Losartan [Cozaar] 50 mg PO BID #60 tab Metoprolol Tartrate [Lopressor] 12.5 mg PO BID #60 tab Ranolazine [Ranexa] 1,000 mg PO Q12HR #120 tab.er.12h Furosemide [Lasix] 40 mg PO DAILY #30 tablet Nitroglycerin Sl Tabs [Nitrostat] 0.4 mg SUBLINGUAL Q5M PRN #100 tab PRN Reason: Chest Pain Continue Aspirin EC [Ecotrin Low Dose] 81 mg PO DAILY Pantoprazole [Protonix] 40 mg PO AC-BRKFST #20 tablet.dr Divalproex ER [Depakote ER] 500 mg PO BID Insulin Detemir [Levemir] 30 unit SQ HS Insulin Aspart [NovoLOG Flexpen] 20 units SQ AC-TID Discontinued Losartan [Cozaar] 25 mg PO DAILY #30 tab Metoprolol Tartrate [Lopressor] 25 mg PO BID Atorvastatin [Lipitor] 20 mg PO HS Discharge Medication List Aspirin EC [Ecotrin Low Dose] 81 mg PO DAILY 11/30/17 [History] Pantoprazole [Protonix] 40 mg PO AC-BRKFST #20 tablet. 12/04/17 [Rx] Divalproex ER [Depakote ER] 500 mg PO BID 02/24/18 [History] Insulin Aspart [NovoLOG Flexpen] 20 units SQ AC-TID 02/24/18 [History] Insulin Detemir [Levemir] 30 unit SQ HS 02/24/18 [History] Atorvastatin [Lipitor] 80 mg PO HS #30 tab 03/05/18 [Rx] Clopidogrel [Plavix] 75 mg PO DAILY #30 tab 03/05/18 [Rx] Furosemide [Lasix] 40 mg PO DAILY #30 tablet 03/05/18 [Rx] Isosorbide Mononitrate ER [Imdur] 60 mg PO DAILY #30 tab.er.24h 03/05/18 [Rx] Losartan [Cozaar] 50 mg PO BID #60 tab 03/05/18 [Rx] Metoprolol Tartrate [Lopressor] 12.5 mg PO BID #60 tab 03/05/18 [Rx] Nitroglycerin Sl Tabs [Nitrostat] 0.4 mg SUBLINGUAL Q5M PRN #100 tab 03/05/18 [ Rx] Ranolazine [Ranexa] 1,000 mg PO Q12HR #120 tab.er.12h 03/05/18 [Rx] amLODIPine [Norvasc] 5 mg PO DAILY #30 tab 03/05/18 [Rx] Follow up Appointment(s)/Referral(s): Shaheen Perez DO [Primary Care Provider] - 3 Days (office will call client with appointment time and date) [facility], [NON-STAFF] - 1-2 Days Albin Bolden MD [STAFF PHYSICIAN] - 03/09/18 3:45 pm Ambulatory/Diagnostic Orders: Complete Blood Count w/diff [LAB.AMB] Time Frame: 3 Days, Location: None Selected Patient Instructions/Handouts: *Surgery [facility] - After Heart Catheterization - [employer]ent [employer] Specialist Instructions, Myocardial Infarction (DC), Coronary Artery Disease (DC), Chest Pain (DC), Heart Catheterization (DC), Coronary Intravascular Stent Placement (DC) Discharge Disposition: HOME WITH HOME HEALTH SERVICES
== END 2018-03-05 14:32 | disposition home health service (06) | DRG 247 ==
LOC: EC 13:41 → 3OBS 16:27 → 6SEL 02-26 10:29 → 6ICU 02-26 13:26 → OBSVTOIN 02-27 09:00 → 4MS4W 03-04 18:37
PROVIDERS: ADMIT Internal Medicine; ATTEND Internal Medicine
PROC: 02C03ZZ Extirpation of Matter from Coronary Artery, One Artery, Percutaneous Approach (ICD-10-PCS; 2018-02-26)
PROC: B2111ZZ Fluoroscopy of Multiple Coronary Arteries using Low Osmolar Contrast (ICD-10-PCS; 2018-02-26)
PROC: B2121ZZ Fluoroscopy of Single Coronary Artery Bypass Graft using Low Osmolar Contrast (ICD-10-PCS; 2018-02-26)
PROC: B2181ZZ Fluoroscopy of Left Internal Mammary Bypass Graft using Low Osmolar Contrast (ICD-10-PCS; 2018-02-26)
PROC: B2151ZZ Fluoroscopy of Left Heart using Low Osmolar Contrast (ICD-10-PCS; 2018-02-26)
PROC: 4A023N7 Measurement of Cardiac Sampling and Pressure, Left Heart, Percutaneous Approach (ICD-10-PCS; principal; 2018-02-26 09:20)
PROC: 027036Z Dilation of Coronary Artery, One Artery with Three Drug-eluting Intraluminal Devices, Percutaneous Approach (ICD-10-PCS; 2018-02-26 09:20)
PROC: 4A023N7 Measurement of Cardiac Sampling and Pressure, Left Heart, Percutaneous Approach (ICD-10-PCS; 2018-03-03)
PROC: B2111ZZ Fluoroscopy of Multiple Coronary Arteries using Low Osmolar Contrast (ICD-10-PCS; 2018-03-03)
PROC: B2121ZZ Fluoroscopy of Single Coronary Artery Bypass Graft using Low Osmolar Contrast (ICD-10-PCS; 2018-03-03)
PROC: B2181ZZ Fluoroscopy of Left Internal Mammary Bypass Graft using Low Osmolar Contrast (ICD-10-PCS; 2018-03-03)
DX: I21.4 Non-ST elevation (NSTEMI) myocardial infarction (principal); I25.110 Atherosclerotic heart disease of native coronary artery with unstable angina pectoris; I25.710 Atherosclerosis of autologous vein coronary artery bypass graft(s) with unstable angina pectoris; G47.33 Obstructive sleep apnea (adult) (pediatric); F31.9 Bipolar disorder, unspecified; F41.9 Anxiety disorder, unspecified; E78.1 Pure hyperglyceridemia; E78.5 Hyperlipidemia, unspecified; E66.01 Morbid (severe) obesity due to excess calories; I11.9 Hypertensive heart disease without heart failure; E11.51 Type 2 diabetes mellitus with diabetic peripheral angiopathy without gangrene; I25.82 Chronic total occlusion of coronary artery; J45.909 Unspecified asthma, uncomplicated; K21.9 Gastro-esophageal reflux disease without esophagitis; Z95.1 Presence of aortocoronary bypass graft; Z95.5 Presence of coronary angioplasty implant and graft; Z89.421 Acquired absence of other right toe(s); Z68.35 Body mass index [BMI] 35.0-35.9, adult; Z86.73 Personal history of transient ischemic attack (TIA), and cerebral infarction without residual deficits; Z99.89 Dependence on other enabling machines and devices; I25.2 Old myocardial infarction; Z79.4 Long term (current) use of insulin; Z79.899 Other long term (current) drug therapy; Z80.8 Family history of malignant neoplasm of other organs or systems; Z82.49 Family history of ischemic heart disease and other diseases of the circulatory system
CPT/HCPCS: 36415; 71045; 71046; 71275; 80048; 80053; 80061; 80164; 82550; 82553; 83036; 83735; 84484; 85025; 85379; 85610; 85730; 93005; 93306; 93459; 99285

== ENCOUNTER 2018-03-16 11:21 | Inpatient (IN) | payer MEDICARE ==
[2018-03-16] MEDS ORDERED: ASPIRIN 81 MG PO STA (11:48)
[2018-03-16] MEDS ORDERED: NITROGLYCERIN OINT 1 INCH/GM PACKET TOPICAL STA (11:48)
[2018-03-16 12:04] LABS: Basophils % (A) 0 %; Eosinophils # (A) 0.1 k/uL (0-0.7); Eosinophils % (A) 1 %; HCT 33.3 % (39.0-53.0); HGB 10.3 gm/dL (13.0-17.5); Lymphocytes # (A) 0.6 k/uL (1.0-4.8); Lymphocytes % (A) 7 %; MCH 29.2 pg (25.0-35.0); MCV 94.3 fL (80.0-100.0); Mean Platelet Volume 7.1; Monocytes # (A) 0.4 k/uL (0-1.0); Monocytes % (A) 5 %; Neutrophils # (A) 7.6 k/uL (1.3-7.7); Neutrophils % (A) 87 %; RBC 3.53 m/uL (4.30-5.90); RDW 14.3 % (11.5-15.5); WBC 8.8 k/uL (3.8-10.6)
--- NOTE | 2018-03-16 12:05 | ED ---
General Adult HPI - General Chief complaint: Chest Pain Stated complaint: Chest pain Time Seen by Provider: 03/16/18 11:25 Source: EMS, RN notes reviewed Mode of arrival: EMS Limitations: no limitations - History of Present Illness Initial comments: This is a 67-year-old male who presents emergency department with past medical history significant for bypass surgery and 2 multiple stent placement. Patient has a past medical history significant for high blood pressure high cholesterol and diabetes. He denies any smoking history. Patient states over the last 2 days while sleeping he has been having quite a bit of chest pressure. He took no nitros for it. Patient states today he started having some chest pressure and went for a walk and had severe chest pain radiating across his chest became extremely short of breath and very nauseated it didn't start to relieve until he sat down. Patient states it lasts about 10 minutes. Patient states the other day he went for a walk and had to sit down 3 times because of chest pressure. Patient states she almost passed out. Patient denies any symptoms currently. Patient denies any leg swelling or calf pain. - Related Data Home Medications Medication Instructions Recorded Confirmed Aspirin EC [Ecotrin Low Dose] 81 mg PO DAILY 11/30/17 03/16/18 Divalproex ER [Depakote ER] 500 mg PO BID 02/24/18 03/16/18 Insulin Aspart [NovoLOG Flexpen] 20 units SQ AC-TID 02/24/18 03/16/18 Insulin Detemir [Levemir] 30 unit SQ HS 02/24/18 03/16/18 Previous Rx's Medication Instructions Recorded Pantoprazole [Protonix] 40 mg PO AC-BRKFST #20 tablet. 12/04/17 Atorvastatin [Lipitor] 80 mg PO HS #30 tab 03/05/18 Clopidogrel [Plavix] 75 mg PO DAILY #30 tab 03/05/18 Furosemide [Lasix] 40 mg PO DAILY #30 tablet 03/05/18 Isosorbide Mononitrate ER [Imdur] 60 mg PO DAILY #30 tab.er.24h 03/05/18 Losartan [Cozaar] 50 mg PO BID #60 tab 03/05/18 Metoprolol Tartrate [Lopressor] 12.5 mg PO BID #60 tab 03/05/18 Nitroglycerin Sl Tabs [Nitrostat] 0.4 mg SUBLINGUAL Q5M PRN #100 tab 03/05/18 Ranolazine [Ranexa] 1,000 mg PO Q12HR #120 tab.er.12h 03/05/18 amLODIPine [Norvasc] 5 mg PO DAILY #30 tab 03/05/18 Allergies Allergy/AdvReac Type Severity Reaction Status Date / Time sulfamethoxazole Allergy Rash/Hives Verified 03/16/18 11:37 [From Bactrim] trimethoprim [From Bactrim] Allergy Rash/Hives Verified 03/16/18 11:37 Review of Systems ROS Statement: Those systems with pertinent positive or pertinent negative responses have been documented in the HPI. ROS Other: All systems not noted in ROS Statement are negative. Past Medical History Past Medical History: Asthma, Coronary Artery Disease (CAD), CVA/TIA, Diabetes Mellitus, Hyperlipidemia, Hypertension, Myocardial Infarction ([place]), Sleep Apnea/ CPAP/BIPAP Additional Past Medical History / Comment(s): NO CPAP MACHINE,BRONCHITIS, TIA, BEGINNINGS OF CATARACTS,ARTHRITIS,ABD HERNIA,"urgency/frequency of urine",past rt hand cellulitis Last Myocardial Infarction Date:: 2003 History of Any Multi-Drug Resistant Organisms: MRSA Date of last positivie culture/infection: 12/06/15 MDRO Source:: RIGHT HAND Past Surgical History: Coronary Bypass/CABG, Heart Catheterization With Stent, Orthopedic Surgery Additional Past Surgical History / Comment(s): HEART CATH AND 2 STENTS BEFORE THE 2 VESSEL BYPASS that was done in 2007, SHATTERED LT HAND SX TO REPAIR.-- right foot toes amputated october 2017 ([place]), rt pinky finger amp. [facility]OT [facility]. PICC LINE. 3 stents Past Anesthesia/Blood Transfusion Reactions: No Reported Reaction Date of Last Stent Placement:: 2003? Past Psychological History: Anxiety, Bipolar, Depression Smoking Status: Never smoker Past Alcohol Use History: Occasional Past Drug Use History: None Reported - Past Family History Mother Family Medical History: Cancer, GERD/Reflux Additional Family Medical History / Comment(s): skin cancer Father Family Medical History: Myocardial Infarction ([place]) Additional Family Medical History / Comment(s): mi's x3 General Exam - General Exam Comments Initial Comments: GENERAL: Patient is well-developed and well-nourished. Patient is nontoxic and well- hydrated and is in mild distress. ENT: Neck is soft and supple. No significant lymphadenopathy is noted. Oropharynx is clear. Moist mucous membranes. Neck has full range of motion without eliciting any pain. EYES: The sclera were anicteric and conjunctiva were pink and moist. Extraocular movements were intact and pupils were equal round and reactive to light. Eyelids were unremarkable. PULMONARY: Unlabored respirations. Good breath sounds bilaterally. No audible rales rhonchi or wheezing was noted. CARDIOVASCULAR: There is a regular rate and rhythm without any murmurs gallops or rubs. ABDOMEN: Soft and nontender with normal bowel sounds. No palpable organomegaly was noted. There is no palpable pulsatile mass. SKIN: Skin is clear with no lesions or rashes and otherwise unremarkable. NEUROLOGIC: Patient is alert and oriented x3. Cranial nerves II through XII are grossly intact. Motor and sensory are also intact. Normal speech, volume and content. Symmetrical smile. Cerebellar exam grossly intact. MUSCULOSKELETAL: Normal extremities with adequate strength and full range of motion. No lower extremity swelling or edema. No calf tenderness. LYMPHATICS: No significant lymphadenopathy is noted PSYCHIATRIC: Normal psychiatric evaluation. Limitations: no limitations Course Vital Signs 03/16/18 03/16/18 11:23 12:49 Temperature 97.8 F Pulse Rate 75 69 Respiratory 18 18 Rate Blood Pressure 118/62 118/62 O2 Sat by Pulse 96 98 Oximetry Medical Decision Making - Medical Decision Making EKG shows normal sinus rhythm at 72 bpm GA interval 178 QRSs 160 QT interval 446 QTC is 480. Patient's EKG shows no ST segment elevation or depression or T wave abnormalities are noted. No new changes from old EKG Chest x-ray shows no acute abnormality. Troponin is mildly elevated. I spoke with Dr. Montoya he is aware that the patient she was elevated troponin. I started the patient heparin. I spoke with Dr. Garcia. He agreed to admit the patient I wrote admitting orders I consult to cardiology continued heparin Nitropaste and aspirin on the floor. - Lab Data Result diagrams: 03/16/18 11:43 03/16/18 11:43 Lab Results 03/16/18 03/16/18 03/16/18 Range/Units 11:43 11:43 11:43 WBC 8.8 (3.8-10.6) k/uL RBC 3.53 L (4.30-5.90) m/uL Hgb 10.3 L (13.0-17.5) gm/dL Hct 33.3 L (39.0-53.0) % MCV 94.3 (80.0-100.0) fL MCH 29.2 (25.0-35.0) pg MCHC 31.0 (31.0-37.0) g/dL RDW 14.3 (11.5-15.5) % Plt Count 324 D (150-450) k/uL Neutrophils % 87 % Lymphocytes % 7 % Monocytes % 5 % Eosinophils % 1 % Basophils % 0 % Neutrophils # 7.6 (1.3-7.7) k/uL Lymphocytes # 0.6 L (1.0-4.8) k/uL Monocytes # 0.4 (0-1.0) k/uL Eosinophils # 0.1 (0-0.7) k/uL Basophils # 0.0 (0-0.2) k/uL PT (9.0-12.0) sec INR (<1.2) APTT (22.0-30.0) sec Sodium 140 (137-145) mmol/L Potassium 4.9 (3.5-5.1) mmol/L Chloride 103 (98-107) mmol/L Carbon Dioxide 26 (22-30) mmol/L Anion Gap 11 mmol/L BUN 25 H (9-20) mg/dL Creatinine 1.12 (0.66-1.25) mg/dL Est GFR (CKD-EPI)AfAm 80 (>60 ml/min/1.73 sqM) Est GFR (CKD-EPI)NonAf 69 (>60 ml/min/1.73 sqM) Glucose 268 H (74-99) mg/dL Calcium 8.5 (8.4-10.2) mg/dL Magnesium 1.5 L (1.6-2.3) mg/dL Total Bilirubin 0.4 (0.2-1.3) mg/dL AST 19 (17-59) U/L ALT 27 (21-72) U/L Alkaline Phosphatase 70 (38-126) U/L Total Creatine Kinase 72 (55-170) U/L CK-MB (CK-2) 2.8 H* (0.0-2.4) ng/mL CK-MB (CK-2) Rel Index 3.9 Troponin I 0.660 H* (0.000-0.034) ng/mL Total Protein 7.3 (6.3-8.2) g/dL Albumin 3.5 (3.5-5.0) g/dL 03/16/18 Range/Units 12:10 WBC (3.8-10.6) k/uL RBC (4.30-5.90) m/uL Hgb (13.0-17.5) gm/dL Hct (39.0-53.0) % MCV (80.0-100.0) fL MCH (25.0-35.0) pg MCHC (31.0-37.0) g/dL RDW (11.5-15.5) % Plt Count (150-450) k/uL Neutrophils % % Lymphocytes % % Monocytes % % Eosinophils % % Basophils % % Neutrophils # (1.3-7.7) k/uL Lymphocytes # (1.0-4.8) k/uL Monocytes # (0-1.0) k/uL Eosinophils # (0-0.7) k/uL Basophils # (0-0.2) k/uL PT 10.8 (9.0-12.0) sec INR 1.1 (<1.2) APTT 24.4 (22.0-30.0) sec Sodium (137-145) mmol/L Potassium (3.5-5.1) mmol/L Chloride (98-107) mmol/L Carbon Dioxide (22-30) mmol/L Anion Gap mmol/L BUN (9-20) mg/dL Creatinine (0.66-1.25) mg/dL Est GFR (CKD-EPI)AfAm (>60 ml/min/1.73 sqM) Est GFR (CKD-EPI)NonAf (>60 ml/min/1.73 sqM) Glucose (74-99) mg/dL Calcium (8.4-10.2) mg/dL Magnesium (1.6-2.3) mg/dL Total Bilirubin (0.2-1.3) mg/dL AST (17-59) U/L ALT (21-72) U/L Alkaline Phosphatase (38-126) U/L Total Creatine Kinase (55-170) U/L CK-MB (CK-2) (0.0-2.4) ng/mL CK-MB (CK-2) Rel Index Troponin I (0.000-0.034) ng/mL Total Protein (6.3-8.2) g/dL Albumin (3.5-5.0) g/dL Critical Care Time Critical Care Time: Yes Total Critical Care Time: 35 Disposition Clinical Impression: Unstable angina Disposition: ADMITTED IP TO THIS [facility] Time of Disposition: 13:21
[2018-03-16 12:08] LABS: Platelet Count 324 k/uL (150-450)
[2018-03-16 12:10] LABS: Albumin 3.5 g/dL (3.5-5.0); Calcium 8.5 mg/dL (8.4-10.2); Magnesium 1.5 mg/dL (1.6-2.3); Potassium 4.9 mmol/L (3.5-5.1); Total Bilirubin 0.4 mg/dL (0.2-1.3); Total Protein 7.3 g/dL (6.3-8.2)
[2018-03-16 12:32] LABS: INR 1.1 (<1.2); Partial Thromboplastin Time 24.4 sec (22.0-30.0); Prothrombin Time 10.8 sec (9.0-12.0)
[2018-03-16 12:45] LABS: Creatine Kinase MB 2.8 ng/mL (0.0-2.4); Troponin I 0.66 ng/mL (0.000-0.034)
--- NOTE | 2018-03-16 12:47 | XR ---
EXAMINATION TYPE: XR chest 2V DATE OF EXAM: 03/16/2018 COMPARISON: 03/04/2018 INDICATION: Chest pain TECHNIQUE: Frontal and lateral views of the chest are obtained. FINDINGS: The heart size is prominent. The pulmonary vasculature is normal. The lungs are clear. Some flattening the diaphragms is present which could be related to COPD. IMPRESSION: 1. Cardiomegaly. 2. Exam stable from comparison
[2018-03-16] MEDS ORDERED: HEPARIN SODIUM,PORCINE 5,000 UNIT/ML 1 ML VIAL IV ONE (12:51)
[2018-03-16] MEDS: HEPARIN SOD,PORK IN 0.45% NACL 25,000 UNIT in 0.45% NACL 1 500ML.BAG IV SCH (13:01)
[2018-03-16] MEDS ORDERED: NITROGLYCERIN SL TABS 0.4 MG TAB SUBLINGUAL PRN (13:21)
[2018-03-16] MEDS ORDERED: MORPHINE SULFATE 2 MG/ML SYRINGE IVP STA (15:34)
--- NOTE | 2018-03-16 16:12 | CONS ---
CONSULTATION Mr. Dye is a 67-year-old male with known history of coronary artery disease, status post coronary artery bypass grafting who presented to the emergency room with symptoms of chest discomfort and dizziness. The patient was in the hospital recently with symptoms of chest pain and abnormal myocardial perfusion imaging. He underwent cardiac catheterization, was found to have a critical stenosis in the saphenous vein graft to the left circumflex. He underwent angioplasty and stenting of that vessel at that time, but the procedure was complicated with no reflow. He a few days after he underwent repeat cardiac catheterization revealed a total occlusion of that graft. His RANDOLPH to the LAD is patent. The patient has been having chest pain for a while, but some of the discomfort he takes nitroglycerin for without any improvement in his symptoms. He also has taken his pain medication without improvement in the symptoms. Because of the persistent symptoms, symptoms of dyspnea and symptoms of dizziness, he came into the emergency room. He has no orthopnea. No dizziness. No syncope. He has some palpitation. He felt presyncopal earlier. He has history of peripheral vascular disease and status post amputation of the toe. He had a prior history of critical limb ischemia in the right foot. He has prior history of myocardial infarction. During his last admission, his echocardiogram that was done on the 27 of February revealed an ejection fraction of 45-50 percent with basal lateral wall hypokinesis, posterior wall hypokinesis. There was mild aortic regurgitation. His coronary risk factors are remarkable for hypertension, hyperlipidemia and history of diabetes. He is a non smoker. MEDICATION: At the time of presentation included amlodipine 5 mg daily, Ranexa 1 gram twice a day, Protonix 40 mg daily, metoprolol tartrate 12.5 mg twice a day, losartan 50 mg twice a day, isosorbide mononitrate 60 mg daily, insulin, furosemide 40 mg daily, Depakote, Plavix 75 mg daily, Lipitor 80 mg daily, and aspirin 81 mg daily. REVIEW OF SYSTEMS: RESPIRATORY system: He has dyspnea on exertion. No recent fever or cough. GI system: No recent GI bleed. No peptic ulcer disease. system: No dysuria or hematuria. Nervous system: No history of seizure. PHYSICAL EXAMINATION: A 67-year-old male, alert, oriented, in no apparent distress. Blood pressure 118/60 with a heart rate in 60s. HEAD: Normocephalic. Eyes: Sclerae anicteric. Neck: Good carotid upstroke. No bruit. Lungs: Revealed decreased air exchange with scattered wheezes. Heart: Regular rate and rhythm S1, S2. No S3. No rub or gallop appreciated. ABDOMEN: Soft, nontender. Hernia noted. No organomegaly. EXTREMITIES: No edema. LAB DATA: Lab data revealed a hemoglobin of 10.3, BUN and creatinine of 25 and 1.12. Troponin 0.66. Of note that his troponin was up to 41 on . His EKG revealed a sinus mechanism with right bundle branch block compared with the EKG that was performed during his most recent admission. There is no acute changes. His chest x-ray shows no evidence of infiltrate. IMPRESSION: 1. Episode of chest discomfort of unclear etiology. Some of the discomfort appears to be atypical for ischemic heart disease, not relieved with nitroglycerin and not related to physical activity. There is a component that is suggestive of angina pectoris. 2. Status post recent occlusion of the saphenous vein graft to the obtuse marginal branch. 3. Status post coronary artery bypass grafting. 4. History of diabetes mellitus and peripheral vessel disease with chronic limb ischemia in the past. 5. Hyperlipidemia. 6. Diabetes mellitus. RECOMMENDATION: From the cardiac standpoint, we will follow the cardiac enzymes. The elevation appears to be normal trend of the abnormality that was noted during his myocardial infarction and I do not believe that we are dealing with a new acute event. I will try to maximize his medical therapy and depending on his progress, further recommendations will be made. The patient is not a candidate for revascularization at this point. Thank you for this consult. We will follow with you. MMODL / IJN: [id number] /
[2018-03-16 17:37] LABS: Glucose,Whole Blood 239 mg/dL (75-99)
[2018-03-16 18:26] LABS: Creatine Kinase MB 2.2 ng/mL (0.0-2.4)
[2018-03-16 18:35] LABS: Troponin I 0.56 ng/mL (0.000-0.034)
[2018-03-16] MEDS: INSULIN ASPART 100 UNIT/ML 1 ML 10 ML VIAL SQ SCH (19:03)
[2018-03-16] MEDS: NITROGLYCERIN OINT 1 INCH/GM PACKET TOPICAL SCH ×2 (19:03→23:39)
[2018-03-16] MEDS ORDERED: Magnesium Replacement Protocol 1 EACH MISC MISCELLANE PRN (19:11)
[2018-03-16] MEDS: MAGNESIUM SULFATE-D5W PMX 1 GM in DEXTROSE/WATER 1 100ML.BAG IVPB SCH ×2 (20:31→21:30)
[2018-03-16] MEDS ORDERED: INSULIN DETEMIR 100 UNIT/ML 10 ML VIAL SQ SCH (21:00)
[2018-03-16] MEDS ORDERED: ATORVASTATIN 80 MG TAB PO SCH (21:00)
[2018-03-16 21:04] LABS: Glucose,Whole Blood 185 mg/dL (75-99)
[2018-03-16] MEDS ORDERED: MELATONIN 3 MG TABLET PO SCH (21:15)
[2018-03-16] MEDS: METOPROLOL TARTRATE 12.5 MG TAB PO SCH (21:30)
[2018-03-16] MEDS: LOSARTAN 50 MG TAB PO SCH (21:30)
[2018-03-16] MEDS: RANOLAZINE 500 MG TAB.ER.12H PO SCH (21:30)
[2018-03-16] MEDS: DIVALPROEX ER 500 MG TAB.ER.24H PO SCH (21:30)
[2018-03-16] MEDS ORDERED: HEPARIN SODIUM,PORCINE 5,000 UNIT/ML 1 ML VIAL IV PRN (21:32)
[2018-03-16] MEDS ORDERED: CALCIUM CARBONATE 500 MG CHEWABLE PO PRN (22:18)
[2018-03-16] MEDS ORDERED: LORazepam 0.5 MG TAB PO PRN (22:18)
[2018-03-16] MEDS ORDERED: ONDANSETRON 4 MG/2 ML VIAL IVP PRN (22:18)
--- NOTE | 2018-03-16 23:00 | HP ---
HISTORY AND PHYSICAL DATE OF ADMISSION: 03/16/2018 PRESENTING COMPLAINT: Chest pain. HISTORY OF PRESENTING COMPLAINT: This is a very pleasant 67-year-old patient who follows with Dr. Perez. The patient's human resources vice president is Dr. Bolden. Chronic stable medical conditions include diabetes, hypertension, hyperlipidemia, sleep apnea (does not use CPAP machine), arthritis, abdominal wall hernia. The patient has known coronary artery disease with prior stent and a 2-vessel bypass done in 2007. The patient seems to have 2 blockages there. The patient does get intermittent chest pains and has followed with his human resources vice president, but he has been told he has to be managed medically. Again patient presents to the hospital from [place] the street, where he really broke out in a heavy sweat, dizzy, lightheaded, shortness of breath with pressure going down the left arm lasting for quite a while. Patient was admitted for unstable angina, put on IV heparin. The patient also had a troponin leak. He was admitted to the cardiology floor. Patient earlier today was also still having some chest pain. He was seen by the human resources vice president. REVIEW OF SYSTEMS: CONSTITUTIONAL: Tired. HEENT: None. RESPIRATORY: As above. CARDIOVASCULAR: As above. GASTROINTESTINAL: None. GENITOURINARY: None. MUSCULOSKELETAL: Arthritic pain in the joints. DERMATOLOGICAL: None. HEMATOLOGICAL: None. LYMPHATICS: None. PSYCHIATRY: None. NEUROLOGICAL: None. PAST MEDICAL HISTORY: 1. Coronary artery disease. 2. Stroke. 3. Diabetes. 4. Hyperlipidemia. 5. Hypertension. 6. Sleep apnea; does not use CPAP machine. 7. TIA as opposed to stroke. 8. Arthritis. 9. Abdominal wall hernia. 10.Some urinary urgency. 11.Right hand cellulitis. PAST SURGICAL HISTORY: 1. Coronary artery bypass. 2. Cardiac cath with stent. 3. Patient had a bypass in 2007. 4. Shattered left hand surgical repair. 5. Right foot toes amputated in October 2017. 6. Right pinky finger amputated. 7. Left foot wound care clinic. HOME MEDICATIONS: 1. Norvasc 5 mg p.o. daily. 2. Ranexa 1000 mg p.o. q.12. 3. Protonix 40 mg with breakfast. 4. Nitrostat 0.4 sublingually q.5 p.r.n. 5. Lopressor 12.5 p.o. b.i.d. 6. Cozaar 50 mg p.o. b.i.d. 7. Imdur ER 60 mg p.o. daily. 8. Levemir 30 units subcutaneously at bedtime. 9. NovoLog FlexPen 20 units subcutaneously before meals t.i.d. 10.Lasix 40 mg p.o. daily. 11.Depakote ER 500 mg p.o. b.i.d. 12.Plavix 75 mg p.o. daily. 13.Lipitor 80 mg p.o. at bedtime. 14.Aspirin 81 mg p.o. daily. ALLERGIES: BACTRIM. PHYSICAL EXAMINATION: Temperature 97, pulse 69, respiration 20, blood pressure 170/91, pulse ox 95% percent on 2 L. GENERAL APPEARANCE: Well built; BMI 36. Lying in bed, comfortable. EYES: Pupils equal. Conjunctivae normal. HEENT: External appearance of nose and ears normal. Oral cavity normal. NECK: JVD not raised. Mass not palpable. RESPIRATORY: Effort normal. LUNGS: Fair air entry. CARDIOVASCULAR: First and second sounds normal. No edema. ABDOMEN: Distended, soft. Abdominal wall hernia. Liver and spleen not palpable. LYMPHATIC: No lymph node palpable in neck or axillae. PSYCHIATRY: Alert and oriented x3. Mood and affect normal. NEUROLOGICAL: Pupils equal.. Cranial nerves grossly intact. Power and sensation grossly intact. INVESTIGATIONS: White count 8.8, hemoglobin 10.3, potassium 4.9, BUN 25, creatinine 1.12. Accu-Cheks 268, 239. Troponin 0.6, 0.5. EKG tracing interpreted by me shows right bundle branch block, nonspecific ST-segment changes. Chest x-ray reports some cardiomegaly. ASSESSMENT: 1. Unstable angina in a patient with known coronary artery disease. 2. Coronary artery disease with prior history of bypass and stent. 3. Obesity; body mass index 36.5. 4. Diabetes mellitus, type 2, chronically on insulin. 5. Essential hypertension. 6. Hyperlipidemia. 7. Obstructive sleep apnea. Does not use CPAP machine. 8. Primary osteoarthritis. 9. Abdominal wall hernia. 10.Intravenous heparin monitoring. PLAN: Home medications are continued. The patient is on IV heparin, aspirin, small dose of beta rigo and nitro paste. The patient wanted to find out if he can go to [place]. I did tell him to talk to the chief operator lock tender, Dr. Montoya, who saw him earlier today, and also maybe speak to his human resources vice president. In the meantime, continue current medication and treatment plan. GHASSAN / RADHA: [id number] /
[2018-03-17] MEDS: DICLOFENAC SODIUM GEL 100 GM TUBE TOPICAL SCH ×2 (00:03→12:20)
[2018-03-17 00:10] LABS: Creatine Kinase MB 1.9 ng/mL (0.0-2.4)
[2018-03-17 00:17] LABS: Troponin I 0.504 ng/mL (0.000-0.034)
[2018-03-17 02:41] VITALS: RESP 18
[2018-03-17 04:03] LABS: Anion Gap 8 mmol/L; Blood Urea Nitrogen 22 mg/dL (9-20); Calcium 8.4 mg/dL (8.4-10.2); Carbon Dioxide 27 mmol/L (22-30); Chloride 106 mmol/L (98-107); Cholesterol 152 mg/dL (<200); Glucose 124 mg/dL (74-99); HDL Cholesterol 27 mg/dL (40-60); LDL Cholesterol,Calculated 91 mg/dL (0-99); Magnesium 2.2 mg/dL (1.6-2.3); Potassium 4.2 mmol/L (3.5-5.1); Sodium 141 mmol/L (137-145); Triglycerides 169 mg/dL (<150)
[2018-03-17 05:52] LABS: Glucose,Whole Blood 130 mg/dL (75-99)
[2018-03-17] MEDS: NITROGLYCERIN OINT 1 INCH/GM PACKET TOPICAL SCH ×2 (07:03→12:20)
[2018-03-17] MEDS: INSULIN ASPART 100 UNIT/ML 1 ML 10 ML VIAL SQ SCH ×4 (07:03→14:40)
[2018-03-17] MEDS ORDERED: PANTOPRAZOLE 40 MG TABLET PO SCH (07:30)
[2018-03-17] MEDS ORDERED: FUROSEMIDE 10 MG/ML 2 ML VIAL IV ONE (08:33)
[2018-03-17] MEDS ORDERED: ALBUTEROL NEBULIZED 2.5 MG/3 ML INHALATION STA (08:37)
[2018-03-17] MEDS: HEPARIN SOD,PORK IN 0.45% NACL 25,000 UNIT in 0.45% NACL 1 500ML.BAG IV SCH (08:41)
[2018-03-17] MEDS: METOPROLOL TARTRATE 12.5 MG TAB PO SCH (08:45)
[2018-03-17] MEDS: LOSARTAN 50 MG TAB PO SCH (08:46)
[2018-03-17] MEDS: RANOLAZINE 500 MG TAB.ER.12H PO SCH (08:46)
[2018-03-17] MEDS: DIVALPROEX ER 500 MG TAB.ER.24H PO SCH (08:47)
[2018-03-17] MEDS ORDERED: CLOPIDOGREL 75 MG TAB PO SCH (09:00)
[2018-03-17] MEDS ORDERED: ASPIRIN 81 MG PO SCH (09:00)
[2018-03-17] MEDS ORDERED: amLODIPine 5 MG TAB PO SCH (09:00)
[2018-03-17] MEDS ORDERED: FUROSEMIDE 40 MG TAB PO SCH (09:00)
[2018-03-17] MEDS ORDERED: ASPIRIN 325 MG TAB PO SCH (09:00)
[2018-03-17 11:51] LABS: Glucose,Whole Blood 247 mg/dL (75-99)
[2018-03-17 13:04] VITALS: BP 142/73; PULSE 60; TEMP 98
[2018-03-17 16:10] LABS: Hemoglobin A1C 9.1 % (4.0-6.0)
--- NOTE | 2018-03-17 18:02 | PN ---
PROGRESS NOTE Mr. Dye is a patient who underwent stenting of a circumflex graft that was performed by Dr. Lozano. Post procedure, the graft seemed to have occluded no-reflow phenomenon. Troponin is slightly elevated but does not represent myocardial injury that is acute at this time. The patient's symptoms of chest pain are atypical. He is resting comfortably. He had some wheezes. I gave him a small dose of Lasix and a breathing treatment. His vital signs are stable. There is no JVD. S1, S2 heard normally. Short systolic murmur noted. Lungs revealed decent air entry. Abdomen and lower extremity exam unchanged. Plan is to increase activity and continue medical therapy. No intervention necessary. Patient has expressed a desire to go to [facility] for further care. I have advised him to make sure he takes all his records when he goes there, including the angiograms. I offered to facilitate a consultation, but patient will make his own appointments. Physical exam shows there are no new significant findings. Advised him to continue all his current medications, including ranolazine. MMODL / IJN: [id number] /
--- NOTE | 2018-03-18 00:38 | DS ---
DISCHARGE SUMMARY DATE OF ADMISSION: 03/16/2018. DATE OF DISCHARGE: 03/17/2018 FINAL DIAGNOSES: 1. Unstable angina in a patient with known coronary artery disease. 2. Coronary disease with prior history of bypass and stent. 3. Obesity; BMI 36.5. 4. Diabetes mellitus type 2, chronically on insulin. 5. Essential hypertension. 6. Hyperlipidemia. 7. Obstructive sleep apnea, does not use CPAP machine. 8. Primary osteoarthritis. 9. Abdominal wall hernia. 10.IV heparin monitoring. HOSPITAL COURSE: This patient with known coronary artery disease, does follow with Dr. Perez and his nuclear operator, Dr. Bolden. Presented with chest pain. Patient had these episodes on and off. He has been told that nothing more can be done from an interventional standpoint. The patient did have a troponin leak of 0.6 and 0.5. The patient was seen by Dr. Montoya yesterday and saw by Dr. Kinney today. No further intervention from them and the patient can be discharged. The patient wishes to seek a second opinion and will try to look for nuclear operator in the area. EXAM: Lungs are clear. CARDIOVASCULAR: First and second sounds normal. Blood pressure is 142/73. DISCHARGE MEDICATIONS: 1. Aspirin 81 mg a day. 2. Protonix 40 mg a day. 3. Depakote ER 500 mg p.o. b.i.d. 4. NovoLog 20 units subcu a.c. t.i.d. 5. Levemir 30 units subcu at bedtime. 6. Lipitor 80 mg p.o. at bedtime. 7. Plavix 25 mg p.o. daily. 8. Lasix 40 mg a day. 9. Imdur ER 60 mg daily. 10.Cozaar 50 mg p.o. b.i.d. 11.Lopressor 12.5 p.o. b.i.d. 12.Nitrostat 0.4 sublingual q.5 p.r.n. 13.Ranexa 1000 mg q.12 . 14.Norvasc 5 mg p.o. daily. 15.Melatonin 6 mg q.h.s. Follow up Dr. Perez in 3 days. Follow up with Dr. Bolden. The patient is already making an appointment to see an outside nuclear operator. MMODL / IJN: [id number] /
== END 2018-03-17 16:35 | disposition home or self-care (01) | DRG 303 ==
LOC: EC 11:21 → 6SEL 13:21
PROVIDERS: ADMIT Hospitalist; ATTEND Hospitalist
DX: I25.710 Atherosclerosis of autologous vein coronary artery bypass graft(s) with unstable angina pectoris (principal); E11.51 Type 2 diabetes mellitus with diabetic peripheral angiopathy without gangrene; E66.9 Obesity, unspecified; E78.00 Pure hypercholesterolemia, unspecified; E78.5 Hyperlipidemia, unspecified; G47.33 Obstructive sleep apnea (adult) (pediatric); I10 Essential (primary) hypertension; I25.2 Old myocardial infarction; I35.1 Nonrheumatic aortic (valve) insufficiency; J45.909 Unspecified asthma, uncomplicated; K43.9 Ventral hernia without obstruction or gangrene; M19.91 Primary osteoarthritis, unspecified site; F32.9 Major depressive disorder, single episode, unspecified; F41.9 Anxiety disorder, unspecified; R39.15 Urgency of urination; R77.9 Abnormality of plasma protein, unspecified; I45.10 Unspecified right bundle-branch block; Z68.36 Body mass index [BMI] 36.0-36.9, adult; Z79.02 Long term (current) use of antithrombotics/antiplatelets; Z79.4 Long term (current) use of insulin; Z79.82 Long term (current) use of aspirin; Z79.899 Other long term (current) drug therapy; Z89.429 Acquired absence of other toe(s), unspecified side; Z95.5 Presence of coronary angioplasty implant and graft; Z95.1 Presence of aortocoronary bypass graft; Z86.14 Personal history of Methicillin resistant Staphylococcus aureus infection; Z86.73 Personal history of transient ischemic attack (TIA), and cerebral infarction without residual deficits; Z88.1 Allergy status to other antibiotic agents; Z88.2 Allergy status to sulfonamides; Z80.8 Family history of malignant neoplasm of other organs or systems; Z82.49 Family history of ischemic heart disease and other diseases of the circulatory system; Z83.79 Family history of other diseases of the digestive system
CPT/HCPCS: 36415; 71046; 80048; 80053; 80061; 82550; 82553; 83036; 83735; 83880; 84484; 85025; 85610; 85730; 93005; 94640; 96365; 96366; 96375; 96376; 99291

== ENCOUNTER 2018-03-31 18:07 | Inpatient (IN) | payer MEDICARE ==
[2018-03-31 19:03] LABS: Basophils % (A) 0 %; Eosinophils # (A) 0.1 k/uL (0-0.7); Eosinophils % (A) 1 %; HCT 36.6 % (39.0-53.0); HGB 12.1 gm/dL (13.0-17.5); Lymphocytes # (A) 1.7 k/uL (1.0-4.8); Lymphocytes % (A) 24 %; MCHC 33.1 g/dL (31.0-37.0); MCV 90.6 fL (80.0-100.0); Mean Platelet Volume 7.5; Monocytes # (A) 0.5 k/uL (0-1.0); Monocytes % (A) 8 %; Neutrophils # (A) 4.5 k/uL (1.3-7.7); Neutrophils % (A) 65 %; Platelet Count 242 k/uL (150-450); RBC 4.03 m/uL (4.30-5.90); RDW 15.3 % (11.5-15.5); WBC 6.9 k/uL (3.8-10.6)
[2018-03-31 19:06] LABS: Calcium 9.3 mg/dL (8.4-10.2); Magnesium 1.6 mg/dL (1.6-2.3); Total Bilirubin 0.5 mg/dL (0.2-1.3)
--- NOTE | 2018-03-31 19:09 | ED ---
General Adult HPI - General Chief complaint: Chest Pain Stated complaint: Chest pain/Dizzy Time Seen by Provider: 03/31/18 18:33 Source: patient, RN notes reviewed, old records reviewed Mode of arrival: wheelchair Limitations: no limitations - History of Present Illness Initial comments: 67-year-old male presents for evaluation of generalized weakness and fatigue. Patient had recent hospital admission with CAD, had a heart catheterization with multiple stents placed. Patient has had some persistent chest discomfort since discharge. He's had dyspnea with exertion. Denies any abdominal pain or significant vomiting. He has had some nausea since discharge as well. Patient reports he is easily fatigued even with minimal exertion. Denies groin pain or swelling. He has been compliant with his medications since discharge. - Related Data Home Medications Medication Instructions Recorded Confirmed Aspirin EC [Ecotrin Low Dose] 81 mg PO DAILY 11/30/17 03/31/18 Insulin Aspart [NovoLOG Flexpen] 30 units SQ AC-TID 02/24/18 03/31/18 Insulin Detemir [Levemir] 50 unit SQ HS 02/24/18 03/31/18 Atorvastatin [Lipitor] 20 mg PO HS 03/31/18 03/31/18 Divalproex Sodium [Depakote ER] 250 mg PO BID 03/31/18 03/31/18 Metoprolol Tartrate [Lopressor] 12.5 mg PO BID 03/31/18 03/31/18 Sertraline [Zoloft] 100 mg PO BID 03/31/18 03/31/18 Previous Rx's Medication Instructions Recorded Clopidogrel [Plavix] 75 mg PO DAILY #30 tab 03/05/18 Furosemide [Lasix] 40 mg PO DAILY #30 tablet 03/05/18 Isosorbide Mononitrate ER [Imdur] 60 mg PO DAILY #30 tab.er.24h 03/05/18 Losartan [Cozaar] 50 mg PO BID #60 tab 03/05/18 Nitroglycerin Sl Tabs [Nitrostat] 0.4 mg SUBLINGUAL Q5M PRN #100 tab 03/05/18 Ranolazine [Ranexa] 1,000 mg PO Q12HR #120 tab.er.12h 03/05/18 amLODIPine [Norvasc] 5 mg PO DAILY #30 tab 03/05/18 Melatonin 6 mg PO HS tablet 03/17/18 Allergies Allergy/AdvReac Type Severity Reaction Status Date / Time sulfamethoxazole Allergy Rash/Hives Verified 03/31/18 19:04 [From Bactrim] trimethoprim [From Bactrim] Allergy Rash/Hives Verified 03/31/18 19:04 Review of Systems ROS Statement: Those systems with pertinent positive or pertinent negative responses have been documented in the HPI. ROS Other: All systems not noted in ROS Statement are negative. Past Medical History Past Medical History: Asthma, Coronary Artery Disease (CAD), CVA/TIA, Diabetes Mellitus, Hyperlipidemia, Hypertension, Myocardial Infarction ([place]), Sleep Apnea/ CPAP/BIPAP Additional Past Medical History / Comment(s): NO CPAP MACHINE,BRONCHITIS, TIA, BEGINNINGS OF CATARACTS,ARTHRITIS,ABD HERNIA,"urgency/frequency of urine",past rt hand cellulitis Last Myocardial Infarction Date:: 2003 History of Any Multi-Drug Resistant Organisms: MRSA Date of last positivie culture/infection: 12/06/15 MDRO Source:: RIGHT HAND Past Surgical History: Coronary Bypass/CABG, Heart Catheterization With Stent, Orthopedic Surgery Additional Past Surgical History / Comment(s): HEART CATH AND 2 STENTS BEFORE THE 2 VESSEL BYPASS that was done in 2007, SHATTERED LT HAND SX TO REPAIR.-- right foot toes amputated october 2017 ([place]), rt pinky finger amp. [facility]OT [facility]. PICC LINE. 3 stents Past Anesthesia/Blood Transfusion Reactions: No Reported Reaction Date of Last Stent Placement:: 2003? Past Psychological History: Anxiety, Bipolar, Depression Smoking Status: Never smoker Past Alcohol Use History: Occasional Past Drug Use History: None Reported - Past Family History Mother Family Medical History: Cancer, GERD/Reflux Additional Family Medical History / Comment(s): skin cancer Father Family Medical History: Myocardial Infarction ([place]) Additional Family Medical History / Comment(s): mi's x3 General Exam Limitations: no limitations General appearance: alert, in no apparent distress Head exam: Present: atraumatic, normocephalic Eye exam: Present: normal appearance, PERRL ENT exam: Present: normal exam Neck exam: Present: normal inspection. Absent: tenderness, meningismus Respiratory exam: Present: normal lung sounds bilaterally. Absent: respiratory distress, wheezes, rhonchi Cardiovascular Exam: Present: regular rate, normal rhythm GI/Abdominal exam: Present: soft. Absent: distended, tenderness Extremities exam: Present: normal inspection, normal capillary refill. Absent: pedal edema Neurological exam: Present: alert, oriented X3, CN II-XII intact. Absent: motor sensory deficit Psychiatric exam: Present: normal affect, normal mood Skin exam: Present: warm, dry, intact. Absent: cyanosis, diaphoretic Course Vital Signs 03/31/18 03/31/18 18:13 20:19 Temperature 97.4 F L Pulse Rate 74 77 Respiratory 20 18 Rate Blood Pressure 122/80 130/68 O2 Sat by Pulse 95 97 Oximetry EKG Findings - EKG Comments: EKG Findings:: EKG: Normal sinus rhythm, left axis deviation, right bundle branch block, rate of 74, MS interval 182, QRS duration 156, QTC 448, QTC 497, no ST segment elevation Medical Decision Making - Medical Decision Making 67-year-old male presenting with chest discomfort and generalized weakness and fatigue. EKG does show some T-wave inversion in the inferior leads which is new compared to previous EKG. No ST segment elevation. Chest x-ray obtained, improvement of previously noted congestive heart failure. Hemoglobin is stable , normal white blood cell count, creatinine 1.95 which is significantly increased from previous is 0.90. Mildly elevated troponin is 0.048, however this is down trending and is seen in the setting of acute renal failure. This level will be trended. Patient will be admitted, given gentle IV hydration. Cardiology on consult, serial cardiac enzymes. - Lab Data Result diagrams: 03/31/18 18:49 03/31/18 18:49 Lab Results 03/31/18 03/31/18 03/31/18 Range/Units 18:49 18:49 18:49 WBC 6.9 (3.8-10.6) k/uL RBC 4.03 L (4.30-5.90) m/uL Hgb 12.1 L (13.0-17.5) gm/dL Hct 36.6 L (39.0-53.0) % MCV 90.6 (80.0-100.0) fL MCH 30.0 (25.0-35.0) pg MCHC 33.1 (31.0-37.0) g/dL RDW 15.3 (11.5-15.5) % Plt Count 242 (150-450) k/uL Neutrophils % 65 % Lymphocytes % 24 % Monocytes % 8 % Eosinophils % 1 % Basophils % 0 % Neutrophils # 4.5 (1.3-7.7) k/uL Lymphocytes # 1.7 (1.0-4.8) k/uL Monocytes # 0.5 (0-1.0) k/uL Eosinophils # 0.1 (0-0.7) k/uL Basophils # 0.0 (0-0.2) k/uL PT (9.0-12.0) sec INR (<1.2) APTT (22.0-30.0) sec Sodium 141 (137-145) mmol/L Potassium 5.0 (3.5-5.1) mmol/L Chloride 102 (98-107) mmol/L Carbon Dioxide 27 (22-30) mmol/L Anion Gap 12 mmol/L BUN 44 H (9-20) mg/dL Creatinine 1.95 H (0.66-1.25) mg/dL Est GFR (CKD-EPI)AfAm 41 (>60 ml/min/1.73 sqM) Est GFR (CKD-EPI)NonAf 35 (>60 ml/min/1.73 sqM) Glucose 123 H (74-99) mg/dL Calcium 9.3 (8.4-10.2) mg/dL Magnesium 1.6 (1.6-2.3) mg/dL Total Bilirubin 0.5 (0.2-1.3) mg/dL AST 25 (17-59) U/L ALT 29 (21-72) U/L Alkaline Phosphatase 72 (38-126) U/L Total Creatine Kinase 102 (55-170) U/L CK-MB (CK-2) 3.7 H (0.0-2.4) ng/mL CK-MB (CK-2) Rel Index 3.6 Troponin I 0.048 H* (0.000-0.034) ng/mL NT-Pro-B Natriuret Pep pg/mL Total Protein 8.0 (6.3-8.2) g/dL Albumin 4.0 (3.5-5.0) g/dL 03/31/18 03/31/18 Range/Units 18:49 18:49 WBC (3.8-10.6) k/uL RBC (4.30-5.90) m/uL Hgb (13.0-17.5) gm/dL Hct (39.0-53.0) % MCV (80.0-100.0) fL MCH (25.0-35.0) pg MCHC (31.0-37.0) g/dL RDW (11.5-15.5) % Plt Count (150-450) k/uL Neutrophils % % Lymphocytes % % Monocytes % % Eosinophils % % Basophils % % Neutrophils # (1.3-7.7) k/uL Lymphocytes # (1.0-4.8) k/uL Monocytes # (0-1.0) k/uL Eosinophils # (0-0.7) k/uL Basophils # (0-0.2) k/uL PT 10.5 (9.0-12.0) sec INR 1.1 (<1.2) APTT 23.1 (22.0-30.0) sec Sodium (137-145) mmol/L Potassium (3.5-5.1) mmol/L Chloride (98-107) mmol/L Carbon Dioxide (22-30) mmol/L Anion Gap mmol/L BUN (9-20) mg/dL Creatinine (0.66-1.25) mg/dL Est GFR (CKD-EPI)AfAm (>60 ml/min/1.73 sqM) Est GFR (CKD-EPI)NonAf (>60 ml/min/1.73 sqM) Glucose (74-99) mg/dL Calcium (8.4-10.2) mg/dL Magnesium (1.6-2.3) mg/dL Total Bilirubin (0.2-1.3) mg/dL AST (17-59) U/L ALT (21-72) U/L Alkaline Phosphatase (38-126) U/L Total Creatine Kinase (55-170) U/L CK-MB (CK-2) (0.0-2.4) ng/mL CK-MB (CK-2) Rel Index Troponin I (0.000-0.034) ng/mL NT-Pro-B Natriuret Pep 2810 pg/mL Total Protein (6.3-8.2) g/dL Albumin (3.5-5.0) g/dL Disposition Clinical Impression: Chest pain, HECTOR (acute kidney injury) Disposition: ADMITTED IP TO THIS HOSP Condition: Stable Is patient prescribed a controlled substance at d/c from ED?: No Referrals: Shaheen Perez DO [Primary Care Provider] - 1-2 days Time of Disposition: 20:58 Decision to Admit Reason: Admit from EC Decision Date: 03/31/18 Decision Time: 20:58
[2018-03-31 19:12] LABS: INR 1.1 (<1.2); Partial Thromboplastin Time 23.1 sec (22.0-30.0); Prothrombin Time 10.5 sec (9.0-12.0)
--- NOTE | 2018-03-31 19:26 | XR ---
EXAMINATION TYPE: XR chest 2V DATE OF EXAM: 03/31/2018 COMPARISON: 03/04/2018 HISTORY: Chest pain TECHNIQUE: Frontal and lateral views of the chest are obtained. FINDINGS: There is slight coarsening of interstitial markings. There are sternal wires. There is no pleural effusion. There are chest leads. Bony thorax appears intact. IMPRESSION: Slight coarsening of the lung markings. There is apparent clearing of mild congestive he art failure compared to last exam.
[2018-03-31 19:29] LABS: Creatine Kinase MB 3.7 ng/mL (0.0-2.4)
[2018-03-31 19:45] LABS: Troponin I 0.048 ng/mL (0.000-0.034)
[2018-03-31] MEDS ORDERED: MORPHINE SULFATE 4 MG/ML SYRINGE IVP STA (19:47)
[2018-03-31] MEDS ORDERED: NALOXONE 0.4 MG/ML 1 ML VIAL IV PRN (20:53)
[2018-03-31] MEDS: SODIUM CHLORIDE 0.9% 1,000 ML IV SCH (21:13)
[2018-03-31 22:18] LABS: Glucose,Whole Blood 161 mg/dL (75-99)
[2018-03-31] MEDS: ACETAMINOPHEN TAB 325 MG TAB PO PRN (22:55)
[2018-04-01 01:00] LABS: Troponin I 0.043 ng/mL (0.000-0.034)
[2018-04-01] MEDS: MORPHINE SULFATE 4 MG/ML SYRINGE IV PRN ×2 (01:41→08:39)
[2018-04-01 06:49] LABS: Glucose,Whole Blood 145 mg/dL (75-99)
[2018-04-01 07:07] LABS: Basophils % (A) 1 %; Eosinophils # (A) 0.2 k/uL (0-0.7); Eosinophils % (A) 4 %; HCT 35.8 % (39.0-53.0); HGB 11.3 gm/dL (13.0-17.5); Lymphocytes # (A) 1.8 k/uL (1.0-4.8); Lymphocytes % (A) 39 %; MCH 29.4 pg (25.0-35.0); MCHC 31.4 g/dL (31.0-37.0); MCV 93.4 fL (80.0-100.0); Mean Platelet Volume 7.4; Monocytes # (A) 0.4 k/uL (0-1.0); Monocytes % (A) 7 %; Neutrophils # (A) 2.2 k/uL (1.3-7.7); Neutrophils % (A) 47 %; Platelet Count 191 k/uL (150-450); RBC 3.83 m/uL (4.30-5.90); RDW 15.3 % (11.5-15.5); WBC 4.7 k/uL (3.8-10.6)
[2018-04-01 07:51] LABS: Albumin 3.5 g/dL (3.5-5.0); Calcium 8.8 mg/dL (8.4-10.2); Potassium 4.4 mmol/L (3.5-5.1); Total Bilirubin 0.5 mg/dL (0.2-1.3); Total Protein 7.1 g/dL (6.3-8.2)
[2018-04-01 08:03] LABS: Troponin I 0.053 ng/mL (0.000-0.034)
[2018-04-01] MEDS: SODIUM CHLORIDE 0.9% 1,000 ML IV SCH ×2 (08:18→23:54)
--- NOTE | 2018-04-01 09:39 | P.CRDCN ---
<Bibi Aj E - Last Filed: 04/01/18 09:53> History of Present Illness Consult date: 04/01/18 Requesting physician: Gianna Irving Consult reason: chest pain Chief complaint: Chest pain History of present illness: This is a 67-year-old gentleman who follows with Dr. Bolden in the office. He has a known history of coronary artery disease with prior bypass surgery, most recently he was in the hospital multiple times in these past few weeks. On February 26 patient underwent a cardiac catheterization by Dr. Bolden which revealed critical lesions in the vein graft to the OM branch and patent RANDOLPH to the LAD. Subsequent to that he underwent stenting of the distal SVG to the circumflex, stenting of the proximal SVG to the circumflex , and stenting of the distal anastomosis of the SVG to the circumflex. Aspiration thrombectomy of the SVG to the left circumflex was also performed. Patient presented back to the hospital on the of the same month underwent a cardiac catheterization which revealed that the saphenous vein graft to the circumflex was now occluded, RANDOLPH to the LAD was patent. Medical therapy was advised. Again subsequent to that patient was admitted on March 16, seen in consultation at that time by Dr. Montoya, again presented with symptoms of chest discomfort. It appeared that time the troponins trend was downward from his prior admission and again medical therapy was advised. Patient was seen and examined today in the emergency room, he presented on this occasion with symptoms of severe midsternal chest discomfort with associated shortness of breath and diaphoresis, according to the patient, even with very minimal exertion he seems to get symptoms. He also states that he had an episode of blurring of his vision during one of these episodes of severe chest discomfort. Chest x-ray on presentation here revealed slight coarsening of lung markings, clearing of congestive heart failure as compared with prior exam. EKG on arrival here showed a normal sinus rhythm with left axis deviation and right bundle branch block pattern and nonspecific ST-T wave changes in the anterior lateral leads. Blood pressure 128/68 with a heart rate in the 60s. White blood cell count is normal, hemoglobin 11.3, platelet count 191. BUN on admission 44 and creatinine 1.9, 44 and 1.4 this morning, potassium 4.4. Troponins 0.048, 0.043, 0.053. BNP [id number]. we will increase his Lipitor to 80 mg daily, resume aspirin, Plavix, Imdur, losartan, metoprolol, and Ranexa. We will increase the dose of Imdur. At the time of my examination this morning he is currently chest pain-free. Past Medical History Past Medical History: Asthma, Coronary Artery Disease (CAD), CVA/TIA, Diabetes Mellitus, Hyperlipidemia, Hypertension, Myocardial Infarction ([place]), Sleep Apnea/ CPAP/BIPAP Additional Past Medical History / Comment(s): NO CPAP MACHINE,BRONCHITIS, TIA, BEGINNINGS OF CATARACTS,ARTHRITIS,ABD HERNIA,"urgency/frequency of urine",past rt hand cellulitis Last Myocardial Infarction Date:: 2003 History of Any Multi-Drug Resistant Organisms: MRSA Date of last positivie culture/infection: 12/06/15 MDRO Source:: RIGHT HAND Past Surgical History: Coronary Bypass/CABG, Heart Catheterization With Stent, Orthopedic Surgery Additional Past Surgical History / Comment(s): HEART CATH AND 2 STENTS BEFORE THE 2 VESSEL BYPASS that was done in 2007, SHATTERED LT HAND SX TO REPAIR.-- right foot toes amputated october 2017 ([place]), rt pinky finger amp. LEFT FOOT WOUND [facility]ARE CL[facility]IC. PICC LINE. 3 stents Past Anesthesia/Blood Transfusion Reactions: No Reported Reaction Date of Last Stent Placement:: 2003? Past Psychological History: Anxiety, Bipolar, Depression Additional Psychological History / Comment(s): Single and lives with cousin. is independant moved back to [place] after living in [place] for 32 years. occ alcohol use. No experience. No international travel. No animal exposures. Relates that he has a girlfriend who is quite a bit younger Smoking Status: Never smoker Past Alcohol Use History: Occasional Additional Past Alcohol Use History / Comment(s): Patient states he is a lifelong nonsmoker. He denies any medical marijuana, marijuana, street drug use. He drinks alcohol occasionally. He is currently staying at his cousin's home. There are no pets in the home. No service. Patient recently relocated from [facility]. He was originally from [place], [place]. Past Drug Use History: None Reported - Past Family History Mother Family Medical History: Cancer, GERD/Reflux Additional Family Medical History / Comment(s): skin cancer Father Family Medical History: Myocardial Infarction ([place]) Additional Family Medical History / Comment(s): mi's x3 Medications and Allergies Home Medications Medication Instructions Recorded Confirmed Type Aspirin EC [Ecotrin Low Dose] 81 mg PO DAILY 11/30/17 03/31/18 History Insulin Aspart [NovoLOG Flexpen] 30 units SQ AC-TID 02/24/18 03/31/18 History Insulin Detemir [Levemir] 50 unit SQ HS 02/24/18 03/31/18 History Clopidogrel [Plavix] 75 mg PO DAILY #30 tab 03/05/18 03/31/18 Rx Furosemide [Lasix] 40 mg PO DAILY #30 tablet 03/05/18 03/31/18 Rx Isosorbide Mononitrate ER [Imdur] 60 mg PO DAILY #30 tab.er.24h 03/05/18 Rx Losartan [Cozaar] 50 mg PO BID #60 tab 03/05/18 03/31/18 Rx Nitroglycerin Sl Tabs [Nitrostat] 0.4 mg SUBLINGUAL Q5M PRN #100 tab 03/05/18 Rx Ranolazine [Ranexa] 1,000 mg PO Q12HR #120 tab.er.12h 03/05/18 03/31/18 Rx amLODIPine [Norvasc] 5 mg PO DAILY #30 tab 03/05/18 03/31/18 Rx Melatonin 6 mg PO HS tablet 03/17/18 03/31/18 Rx Atorvastatin [Lipitor] 20 mg PO HS 03/31/18 03/31/18 History Divalproex Sodium [Depakote ER] 250 mg PO BID 03/31/18 03/31/18 History Metoprolol Tartrate [Lopressor] 12.5 mg PO BID 03/31/18 03/31/18 History Sertraline [Zoloft] 100 mg PO BID 03/31/18 03/31/18 History Allergies Allergy/AdvReac Type Severity Reaction Status Date / Time sulfamethoxazole Allergy Rash/Hives Verified 03/31/18 19:04 [From Bactrim] trimethoprim [From Bactrim] Allergy Rash/Hives Verified 03/31/18 19:04 Physical Exam Vitals: Vital Signs Temp Pulse Pulse Resp BP BP Pulse Ox 04/01/18 08:29 57 L 18 141/70 98 04/01/18 08:22 57 L 18 04/01/18 04:00 61 16 128/68 97 03/31/18 22:16 73 18 138/75 97 03/31/18 20:19 77 18 130/68 97 03/31/18 18:13 97.4 F L 74 20 122/80 95 Intake and Output 03/31/18 04/01/18 04/01/18 22:59 06:59 14:59 Intake Total 600 Output Total 300 Balance 300 Intake: Intake, IV Titration 600 Amount Sodium Chloride 0.9% 1, 600 000 ml @ 75 mls/hr IV . [id number] [facility] Rx#:[id number] Output: Urine 300 Other: Voiding Method Toilet Toilet Urinal Weight 107.501 kg PHYSICAL EXAMINATION: GENERAL: 67-year-old gentleman in no acute distress at the time of my examination HEENT: Head is atraumatic, normocephalic. Pupils equal, round. Sclera anicteric. Conjunctiva are clear. Mucous membranes of the mouth are moist. Neck is supple. There is no elevated jugular venous pressure.No carotid bruit is heard. HEART EXAMIATION: [Heart S1, S2 systolic murmur is heard ] CHEST EXAMNATION:[ Lungs are clear to auscultation and precussion. No chest wall tenderness is noted on palpation or with deep brathing.] ADOMEN: [ Soft, nontender. Bowel sounds are heard. No organomegay noted]. EXTRMITIES:[ 2+ peripheral pulses with no evidence of peripheral edema and no calf tendernes noted]. NEUOLOGIC [patient is awake, alert and oriented X3.] . Results 04/01/18 06:43 04/01/18 06:43 Cardiac Enzymes 03/31/18 03/31/18 03/31/18 Range/Units 18:49 18:49 23:53 AST 25 (17-59) U/L CK-MB (CK-2) 3.7 H 3.0 H (0.0-2.4) ng/mL Troponin I 0.048 H* 0.043 H* (0.000-0.034) ng/mL 04/01/18 04/01/18 Range/Units 06:43 06:43 AST 23 (17-59) U/L CK-MB (CK-2) 3.0 H (0.0-2.4) ng/mL Troponin I 0.053 H* (0.000-0.034) ng/mL Coagulation 03/31/18 Range/Units 18:49 PT 10.5 (9.0-12.0) sec APTT 23.1 (22.0-30.0) sec CBC 03/31/18 04/01/18 Range/Units 18:49 06:43 WBC 6.9 4.7 (3.8-10.6) k/uL RBC 4.03 L 3.83 L (4.30-5.90) m/uL Hgb 12.1 L 11.3 L (13.0-17.5) gm/dL Hct 36.6 L 35.8 L (39.0-53.0) % Plt Count 242 191 (150-450) k/uL Comprehensive Metabolic Panel 03/31/18 04/01/18 Range/Units 18:49 06:43 Sodium 141 140 (137-145) mmol/L Potassium 5.0 4.4 (3.5-5.1) mmol/L Chloride 102 104 (98-107) mmol/L Carbon Dioxide 27 29 (22-30) mmol/L BUN 44 H 44 H (9-20) mg/dL Creatinine 1.95 H 1.49 H (0.66-1.25) mg/dL Glucose 123 H 156 H (74-99) mg/dL Calcium 9.3 8.8 (8.4-10.2) mg/dL AST 25 23 (17-59) U/L ALT 29 30 (21-72) U/L Alkaline Phosphatase 72 68 (38-126) U/L Total Protein 8.0 7.1 (6.3-8.2) g/dL Albumin 4.0 3.5 (3.5-5.0) g/dL Current Medications Generic Name Dose Route Start Last Admin Trade Name Freq PRN Reason Stop Dose Admin Acetaminophen 650 mg 03/31/18 20:53 03/31/18 22:55 Tylenol Tab PO 650 mg Q6HR PRN Administration Mild Pain or Fever > 100.5 Sodium Chloride 1,000 mls @ 75 mls/hr 03/31/18 20:45 04/01/18 08:18 Saline 0.9% IV 75 mls/hr .[id number] PETER Administration Morphine Sulfate 4 mg 03/31/18 20:53 04/01/18 08:39 Morphine Sulfate (Inj) IV 4 mg Q4HR PRN Administration Severe Pain Naloxone HCl 0.2 mg 03/31/18 20:53 Narcan IV Q2M PRN Opioid Reversal Intake and Output 03/31/18 04/01/18 04/01/18 22:59 06:59 14:59 Intake Total 600 Output Total 300 Balance 300 Intake: Intake, IV Titration 600 Amount Sodium Chloride 0.9% 1, 600 000 ml @ 75 mls/hr IV . [id number] [facility] Rx#:[id number] Output: Urine 300 Other: Voiding Method Toilet Toilet Urinal Weight 107.501 kg 04/01/18 06:43 04/01/18 06:43 EKG Interpretations (text) EKG shows a normal sinus rhythm with nonspecific ST changes in the anterior lateral leads. Assessment and Plan Plan: Assessment and plan #1 chest discomfort, some features which appear to be atypical for acute coronary syndrome. Some features also suggestive of unstable angina. EKG shows a normal sinus rhythm with nonspecific ST-T wave changes. Troponins 0.048 , 0.043, 0.053. These troponins are down from the trend of recent admission. #2 status post recent occlusion of the saphenous vein graft to the obtuse marginal branch just prior to that patient had 3 stents placed in this vessel. #3 history of coronary artery disease with prior bypass surgery #4 diabetes #5 peripheral vascular disease #6 hyperlipidemia #7 diabetes Plan Patient had an echocardiogram with Doppler study performed in February which revealed an ejection fraction of 45-50%. We did have a discussion with Dr. Bolden and his recommendation was to have Dr. Shook again reviewed the films to see what other options may be available. In the meantime we'll maximize patient's medical therapy. We will resume an aspirin daily, increase Lipitor to 80 daily, resume Plavix, increase dose of Imdur, resume Cozaar, resume Lopressor, continue Ranexa. Further recommendations to follow. DNP note has been reviewed, I agree with a documented findings and plan of care. Patient was seen and examined. <Perez Rodriguez - Last Filed: 04/01/18 13:24> Physical Exam Vitals: Vital Signs Temp Pulse Pulse Resp BP BP Pulse Ox 04/01/18 11:28 97.1 F L 60 18 176/85 96 04/01/18 10:44 56 L 16 04/01/18 10:43 56 L 16 144/71 96 04/01/18 08:29 57 L 18 141/70 98 04/01/18 08:22 57 L 18 04/01/18 04:00 61 16 128/68 97 03/31/18 22:16 73 18 138/75 97 03/31/18 20:19 77 18 130/68 97 03/31/18 18:13 97.4 F L 74 20 122/80 95 Intake and Output 03/31/18 04/01/18 04/01/18 22:59 06:59 14:59 Intake Total 600 Output Total 300 Balance 300 Intake: Intake, IV Titration 600 Amount Sodium Chloride 0.9% 1, 600 000 ml @ 75 mls/hr IV . [id number] [facility] Rx#:[id number] Output: Urine 300 Other: Voiding Method Toilet Toilet Urinal Weight 107.501 kg Results 04/01/18 06:43 04/01/18 06:43 Cardiac Enzymes 03/31/18 03/31/18 03/31/18 Range/Units 18:49 18:49 23:53 AST 25 (17-59) U/L CK-MB (CK-2) 3.7 H 3.0 H (0.0-2.4) ng/mL Troponin I 0.048 H* 0.043 H* (0.000-0.034) ng/mL 04/01/18 04/01/18 04/01/18 Range/Units 06:43 06:43 09:50 AST 23 (17-59) U/L CK-MB (CK-2) 3.0 H (0.0-2.4) ng/mL Troponin I 0.053 H* 0.050 H* (0.000-0.034) ng/mL Coagulation 03/31/18 Range/Units 18:49 PT 10.5 (9.0-12.0) sec APTT 23.1 (22.0-30.0) sec CBC 03/31/18 04/01/18 Range/Units 18:49 06:43 WBC 6.9 4.7 (3.8-10.6) k/uL RBC 4.03 L 3.83 L (4.30-5.90) m/uL Hgb 12.1 L 11.3 L (13.0-17.5) gm/dL Hct 36.6 L 35.8 L (39.0-53.0) % Plt Count 242 191 (150-450) k/uL Comprehensive Metabolic Panel 03/31/18 04/01/18 Range/Units 18:49 06:43 Sodium 141 140 (137-145) mmol/L Potassium 5.0 4.4 (3.5-5.1) mmol/L Chloride 102 104 (98-107) mmol/L Carbon Dioxide 27 29 (22-30) mmol/L BUN 44 H 44 H (9-20) mg/dL Creatinine 1.95 H 1.49 H (0.66-1.25) mg/dL Glucose 123 H 156 H (74-99) mg/dL Calcium 9.3 8.8 (8.4-10.2) mg/dL AST 25 23 (17-59) U/L ALT 29 30 (21-72) U/L Alkaline Phosphatase 72 68 (38-126) U/L Total Protein 8.0 7.1 (6.3-8.2) g/dL Albumin 4.0 3.5 (3.5-5.0) g/dL Current Medications Generic Name Dose Route Start Last Admin Trade Name Freq PRN Reason Stop Dose Admin Acetaminophen 650 mg 03/31/18 20:53 03/31/18 22:55 Tylenol Tab PO 650 mg Q6HR PRN Administration Mild Pain or Fever > 100.5 Aspirin 81 mg 04/01/18 09:45 04/01/18 11:23 Aspirin PO 81 mg DAILY PETER Administration Atorvastatin Calcium 80 mg 04/01/18 21:00 Lipitor PO HS PETER Clopidogrel Bisulfate 75 mg 04/01/18 09:45 04/01/18 11:23 Plavix PO 75 mg DAILY PETER Administration Furosemide 20 mg 04/02/18 09:00 Lasix PO DAILY PETER Sodium Chloride 1,000 mls @ 75 mls/hr 03/31/18 20:45 04/01/18 08:18 Saline 0.9% IV 75 mls/hr .[id number] PETER Administration Isosorbide Mononitrate 120 mg 04/02/18 09:00 Imdur PO DAILY PETRE Losartan Potassium 50 mg 04/02/18 09:00 Cozaar PO DAILY PETER Metoprolol Tartrate 12.5 mg 04/01/18 09:45 04/01/18 11:24 Lopressor PO 12.5 mg BID PETER Administration Morphine Sulfate 4 mg 03/31/18 20:53 04/01/18 08:39 Morphine Sulfate (Inj) IV 4 mg Q4HR PRN Administration Severe Pain Naloxone HCl 0.2 mg 03/31/18 20:53 Narcan IV Q2M PRN Opioid Reversal Ranolazine 1,000 mg 04/01/18 09:45 04/01/18 11:24 Ranexa PO 1,000 mg Q12HR PETER Administration Intake and Output 03/31/18 04/01/18 04/01/18 22:59 06:59 14:59 Intake Total 600 Output Total 300 Balance 300 Intake: Intake, IV Titration 600 Amount Sodium Chloride 0.9% 1, 600 000 ml @ 75 mls/hr IV . [id number] [facility] Rx#:[id number] Output: Urine 300 Other: Voiding Method Toilet Toilet Urinal Weight 107.501 kg 04/01/18 06:43 04/01/18 06:43
[2018-04-01] MEDS ORDERED: ISOSORBIDE MONONITRATE ER 60 MG TAB.ER.24H PO SCH (09:45)
[2018-04-01] MEDS ORDERED: FUROSEMIDE 40 MG TAB PO SCH (09:45)
[2018-04-01] MEDS ORDERED: LOSARTAN 50 MG TAB PO SCH (09:45)
[2018-04-01] MEDS: ASPIRIN 81 MG PO SCH (11:23)
[2018-04-01] MEDS: CLOPIDOGREL 75 MG TAB PO SCH (11:23)
[2018-04-01] MEDS: METOPROLOL TARTRATE 12.5 MG TAB PO SCH ×2 (11:24→20:23)
[2018-04-01] MEDS: RANOLAZINE 500 MG TAB.ER.12H PO SCH ×2 (11:24→20:24)
[2018-04-01 11:48] LABS: Glucose,Whole Blood 186 mg/dL (75-99)
[2018-04-01 13:00] LABS: Hemoglobin A1C 8.8 % (4.0-6.0)
--- NOTE | 2018-04-01 13:24 | P.CRDCN ---
History of Present Illness History of present illness: Case reviewed and discussed with nurse practitioner. Plan of care formulated. Please see full dictation by nurse practitioner Patient interviewed and examined. Complaining of recurrent pounding discomfort in the chest similar to what he is experiencing the past but this time he had blurred vision excessive sweating nausea weakness in the legs and dizziness that is different from last time Troponins are mildly abnormal. He showing a downward trend and he has not had a new myocardial infarction. Twelve-lead ECG was reviewed and shows a right bundle branch block with ST segment abnormalities Suggest reduced losartan to 50 mg once daily. If he is unable to tolerate isosorbide 120 mg by mouth daily this should be given in split doses I think this gentleman is presenting with symptoms of vasovagal presyncope not angina based upon his history Past Medical History Past Medical History: Asthma, Coronary Artery Disease (CAD), CVA/TIA, Diabetes Mellitus, Hyperlipidemia, Hypertension, Myocardial Infarction (MO), Sleep Apnea/ CPAP/BIPAP Additional Past Medical History / Comment(s): NO CPAP MACHINE,BRONCHITIS, TIA, BEGINNINGS OF CATARACTS,ARTHRITIS,ABD HERNIA,"urgency/frequency of urine",past rt hand cellulitis Last Myocardial Infarction Date:: 2003 History of Any Multi-Drug Resistant Organisms: MRSA Date of last positivie culture/infection: 12/06/15 MDRO Source:: RIGHT HAND Past Surgical History: Coronary Bypass/CABG, Heart Catheterization With Stent, Orthopedic Surgery Additional Past Surgical History / Comment(s): HEART CATH AND 2 STENTS BEFORE THE 2 VESSEL BYPASS that was done in 2007, SHATTERED LT HAND SX TO REPAIR.-- right foot toes amputated october 2017 ([place]), rt pinky finger amp. LEFT FOOT WOUND [facility] CL[facility]IC. PICC LINE. 3 stents Past Anesthesia/Blood Transfusion Reactions: No Reported Reaction Date of Last Stent Placement:: 2003? Past Psychological History: Anxiety, Bipolar, Depression Additional Psychological History / Comment(s): Single and lives with cousin. is independant moved back to [place] after living in [place] for 32 years. occ alcohol use. No experience. No international travel. No animal exposures. Relates that he has a girlfriend who is quite a bit younger Smoking Status: Never smoker Past Alcohol Use History: Occasional Additional Past Alcohol Use History / Comment(s): Patient states he is a lifelong nonsmoker. He denies any medical marijuana, marijuana, street drug use. He drinks alcohol occasionally. He is currently staying at his cousin's home. There are no pets in the home. No service. Patient recently relocated from [facility]. He was originally from [place], [place]. Past Drug Use History: None Reported - Past Family History Mother Family Medical History: Cancer, GERD/Reflux Additional Family Medical History / Comment(s): skin cancer Father Family Medical History: Myocardial Infarction (MO) Additional Family Medical History / Comment(s): mi's x3 Medications and Allergies Home Medications Medication Instructions Recorded Confirmed Type Aspirin EC [Ecotrin Low Dose] 81 mg PO DAILY 11/30/17 03/31/18 History Insulin Aspart [NovoLOG Flexpen] 30 units SQ AC-TID 02/24/18 03/31/18 History Insulin Detemir [Levemir] 50 unit SQ HS 02/24/18 03/31/18 History Clopidogrel [Plavix] 75 mg PO DAILY #30 tab 03/05/18 03/31/18 Rx Furosemide [Lasix] 40 mg PO DAILY #30 tablet 03/05/18 03/31/18 Rx Isosorbide Mononitrate ER [Imdur] 60 mg PO DAILY #30 tab.er.24h 03/05/18 Rx Losartan [Cozaar] 50 mg PO BID #60 tab 03/05/18 03/31/18 Rx Nitroglycerin Sl Tabs [Nitrostat] 0.4 mg SUBLINGUAL Q5M PRN #100 tab 03/05/18 Rx Ranolazine [Ranexa] 1,000 mg PO Q12HR #120 tab.er.12h 03/05/18 03/31/18 Rx amLODIPine [Norvasc] 5 mg PO DAILY #30 tab 03/05/18 03/31/18 Rx Melatonin 6 mg PO HS tablet 03/17/18 03/31/18 Rx Atorvastatin [Lipitor] 20 mg PO HS 03/31/18 03/31/18 History Divalproex Sodium [Depakote ER] 250 mg PO BID 03/31/18 03/31/18 History Metoprolol Tartrate [Lopressor] 12.5 mg PO BID 03/31/18 03/31/18 History Sertraline [Zoloft] 100 mg PO BID 03/31/18 03/31/18 History Allergies Allergy/AdvReac Type Severity Reaction Status Date / Time sulfamethoxazole Allergy Rash/Hives Verified 03/31/18 19:04 [From Bactrim] trimethoprim [From Bactrim] Allergy Rash/Hives Verified 03/31/18 19:04 Physical Exam Vitals: Vital Signs Temp Pulse Pulse Resp BP BP Pulse Ox 04/01/18 11:28 97.1 F L 60 18 176/85 96 04/01/18 10:44 56 L 16 04/01/18 10:43 56 L 16 144/71 96 04/01/18 08:29 57 L 18 141/70 98 04/01/18 08:22 57 L 18 04/01/18 04:00 61 16 128/68 97 03/31/18 22:16 73 18 138/75 97 03/31/18 20:19 77 18 130/68 97 03/31/18 18:13 97.4 F L 74 20 122/80 95 Intake and Output 03/31/18 04/01/18 04/01/18 22:59 06:59 14:59 Intake Total 600 Output Total 300 Balance 300 Intake: Intake, IV Titration 600 Amount Sodium Chloride 0.9% 1, 600 000 ml @ 75 mls/hr IV . [id number] [facility] Rx#:[id number] Output: Urine 300 Other: Voiding Method Toilet Toilet Urinal Weight 107.501 kg Results 04/01/18 06:43 04/01/18 06:43 Cardiac Enzymes 03/31/18 03/31/18 03/31/18 Range/Units 18:49 18:49 23:53 AST 25 (17-59) U/L CK-MB (CK-2) 3.7 H 3.0 H (0.0-2.4) ng/mL Troponin I 0.048 H* 0.043 H* (0.000-0.034) ng/mL 04/01/18 04/01/18 04/01/18 Range/Units 06:43 06:43 09:50 AST 23 (17-59) U/L CK-MB (CK-2) 3.0 H (0.0-2.4) ng/mL Troponin I 0.053 H* 0.050 H* (0.000-0.034) ng/mL Coagulation 03/31/18 Range/Units 18:49 PT 10.5 (9.0-12.0) sec APTT 23.1 (22.0-30.0) sec CBC 03/31/18 04/01/18 Range/Units 18:49 06:43 WBC 6.9 4.7 (3.8-10.6) k/uL RBC 4.03 L 3.83 L (4.30-5.90) m/uL Hgb 12.1 L 11.3 L (13.0-17.5) gm/dL Hct 36.6 L 35.8 L (39.0-53.0) % Plt Count 242 191 (150-450) k/uL Comprehensive Metabolic Panel 03/31/18 04/01/18 Range/Units 18:49 06:43 Sodium 141 140 (137-145) mmol/L Potassium 5.0 4.4 (3.5-5.1) mmol/L Chloride 102 104 (98-107) mmol/L Carbon Dioxide 27 29 (22-30) mmol/L BUN 44 H 44 H (9-20) mg/dL Creatinine 1.95 H 1.49 H (0.66-1.25) mg/dL Glucose 123 H 156 H (74-99) mg/dL Calcium 9.3 8.8 (8.4-10.2) mg/dL AST 25 23 (17-59) U/L ALT 29 30 (21-72) U/L Alkaline Phosphatase 72 68 (38-126) U/L Total Protein 8.0 7.1 (6.3-8.2) g/dL Albumin 4.0 3.5 (3.5-5.0) g/dL Current Medications Generic Name Dose Route Start Last Admin Trade Name Freq PRN Reason Stop Dose Admin Acetaminophen 650 mg 03/31/18 20:53 03/31/18 22:55 Tylenol Tab PO 650 mg Q6HR PRN Administration Mild Pain or Fever > 100.5 Aspirin 81 mg 04/01/18 09:45 04/01/18 11:23 Aspirin PO 81 mg DAILY PETER Administration Atorvastatin Calcium 80 mg 04/01/18 21:00 Lipitor PO HS PETER Clopidogrel Bisulfate 75 mg 04/01/18 09:45 04/01/18 11:23 Plavix PO 75 mg DAILY PETER Administration Furosemide 20 mg 04/02/18 09:00 Lasix PO DAILY [facility] Sodium Chloride 1,000 mls @ 75 mls/hr 03/31/18 20:45 04/01/18 08:18 Saline 0.9% IV 75 mls/hr .[id number] PETER Administration Isosorbide Mononitrate 120 mg 04/02/18 09:00 Imdur PO DAILY [facility] Losartan Potassium 50 mg 04/02/18 09:00 Cozaar PO DAILY [facility] Metoprolol Tartrate 12.5 mg 04/01/18 09:45 04/01/18 11:24 Lopressor PO 12.5 mg BID PETER Administration Morphine Sulfate 4 mg 03/31/18 20:53 04/01/18 08:39 Morphine Sulfate (Inj) IV 4 mg Q4HR PRN Administration Severe Pain Naloxone HCl 0.2 mg 03/31/18 20:53 Narcan IV Q2M PRN Opioid Reversal Ranolazine 1,000 mg 04/01/18 09:45 04/01/18 11:24 Ranexa PO 1,000 mg Q12HR PETER Administration Intake and Output 03/31/18 04/01/18 04/01/18 22:59 06:59 14:59 Intake Total 600 Output Total 300 Balance 300 Intake: Intake, IV Titration 600 Amount Sodium Chloride 0.9% 1, 600 000 ml @ 75 mls/hr IV . [id number] [facility] Rx#:[id number] Output: Urine 300 Other: Voiding Method Toilet Toilet Urinal Weight 107.501 kg 04/01/18 06:43 04/01/18 06:43
--- NOTE | 2018-04-01 15:42 | P.HPIM ---
History of Present Illness H&P Date: 04/01/18 Chief Complaint: Exertional short of breath Patient is a 67-year-old male with a known history of coronary artery disease with stent 2 placement in February 2018, CABG 2 vessel in 2007, hypertension, diabetes type 2, history of VT and obstructive sleep apnea came to ER with the complaints of exertional short of breath. Patient was also having midsternal sharp chest pain whenever he does any physical activity associated with shortness of breath. Patient's symptoms have been getting worse for the past 1 week. No radiation of the pain. Patient is complaining of nauseated and also sweating along with the pain. Patient also noticed blurring of the vision and lightheaded and about to pass out which made him to come back to the hospital. No fever no chills. No cough is from production. No abdominal pain or diarrhea. Chest x-ray showed slight coarsening of lung markings. Clearing of congestive heart failure as compared to prior exam EKG showed sinus rhythm and right bundle branch block. Troponin 0.048, 0.043, GFR 0.053 and 0.050 neck stent BNP is 2810 BUN 44 creatinine 1.9 on admission which is trending down. Review of Systems Constitutional: Patient denies any fever or chills . No generalized weakness or weight loss. Abdomen: Patient denied nausea vomiting and diarrhea and abdominal pain. Cardiovascular: Sharp chest pain, exertional short of breath and lightheadedness and dizziness Respiratory: patient denied any cough is from production. No shortness of breath Neurologic: Patient denied any numbness or tingling headache. Musculoskeletal: Patient denies any complaints of joint swelling or deformity. Skin: Negative Psychiatric: Negative Endocrine: No heat or cold intolerance. No recent weight gain. Genitourinary: No dysuria or hematuria. All other 14 point ROS negative except the above Past Medical History Past Medical History: Asthma, Coronary Artery Disease (CAD), CVA/TIA, Diabetes Mellitus, Hyperlipidemia, Hypertension, Myocardial Infarction (VT), Sleep Apnea/ CPAP/BIPAP Additional Past Medical History / Comment(s): NO CPAP MACHINE,BRONCHITIS, TIA, BEGINNINGS OF CATARACTS,ARTHRITIS,ABD HERNIA,"urgency/frequency of urine",past rt hand cellulitis Last Myocardial Infarction Date:: 2003 History of Any Multi-Drug Resistant Organisms: MRSA Date of last positivie culture/infection: 12/06/15 MDRO Source:: RIGHT HAND Past Surgical History: Coronary Bypass/CABG, Heart Catheterization With Stent, Orthopedic Surgery Additional Past Surgical History / Comment(s): HEART CATH AND 2 STENTS BEFORE THE 2 VESSEL BYPASS that was done in 2007, SHATTERED LT HAND SX TO REPAIR.-- right foot toes amputated october 2017 ([place]), rt pinky finger amp. LEFT FOOT WOUND CARE CLINIC. PICC LINE. 3 stents Past Anesthesia/Blood Transfusion Reactions: No Reported Reaction Date of Last Stent Placement:: 2003? Past Psychological History: Anxiety, Bipolar, Depression Additional Psychological History / Comment(s): Single and lives with cousin. is independant moved back to [place] after living in [place] for 32 years. occ alcohol use. No experience. No international travel. No animal exposures. Relates that he has a girlfriend who is quite a bit younger Smoking Status: Never smoker Past Alcohol Use History: Occasional Additional Past Alcohol Use History / Comment(s): Patient states he is a lifelong nonsmoker. He denies any medical marijuana, marijuana, street drug use. He drinks alcohol occasionally. He is currently staying at his cousin's home. There are no pets in the home. No service. Patient recently relocated from [facility]. He was originally from [place], [place]. Past Drug Use History: None Reported - Past Family History Mother Family Medical History: Cancer, GERD/Reflux Additional Family Medical History / Comment(s): skin cancer Father Family Medical History: Myocardial Infarction (VT) Additional Family Medical History / Comment(s): mi's x3 Medications and Allergies Home Medications Medication Instructions Recorded Confirmed Type Aspirin EC [Ecotrin Low Dose] 81 mg PO DAILY 11/30/17 03/31/18 History Insulin Aspart [NovoLOG Flexpen] 30 units SQ AC-TID 02/24/18 03/31/18 History Insulin Detemir [Levemir] 50 unit SQ HS 02/24/18 03/31/18 History Clopidogrel [Plavix] 75 mg PO DAILY #30 tab 03/05/18 03/31/18 Rx Furosemide [Lasix] 40 mg PO DAILY #30 tablet 03/05/18 03/31/18 Rx Isosorbide Mononitrate ER [Imdur] 60 mg PO DAILY #30 tab.er.24h 03/05/18 Rx Losartan [Cozaar] 50 mg PO BID #60 tab 03/05/18 03/31/18 Rx Nitroglycerin Sl Tabs [Nitrostat] 0.4 mg SUBLINGUAL Q5M PRN #100 tab 03/05/18 Rx Ranolazine [Ranexa] 1,000 mg PO Q12HR #120 tab.er.12h 03/05/18 03/31/18 Rx amLODIPine [Norvasc] 5 mg PO DAILY #30 tab 03/05/18 03/31/18 Rx Melatonin 6 mg PO HS tablet 03/17/18 03/31/18 Rx Atorvastatin [Lipitor] 20 mg PO HS 03/31/18 03/31/18 History Divalproex Sodium [Depakote ER] 250 mg PO BID 03/31/18 03/31/18 History Metoprolol Tartrate [Lopressor] 12.5 mg PO BID 03/31/18 03/31/18 History Sertraline [Zoloft] 100 mg PO BID 03/31/18 03/31/18 History Allergies Allergy/AdvReac Type Severity Reaction Status Date / Time sulfamethoxazole Allergy Rash/Hives Verified 03/31/18 19:04 [From Bactrim] trimethoprim [From Bactrim] Allergy Rash/Hives Verified 03/31/18 19:04 Physical Exam Vitals: Vital Signs Temp Pulse Pulse Resp BP BP Pulse Ox 04/01/18 11:28 97.1 F L 60 18 176/85 96 04/01/18 10:44 56 L 16 04/01/18 10:43 56 L 16 144/71 96 04/01/18 08:29 57 L 18 141/70 98 04/01/18 08:22 57 L 18 04/01/18 04:00 61 16 128/68 97 03/31/18 22:16 73 18 138/75 97 03/31/18 20:19 77 18 130/68 97 03/31/18 18:13 97.4 F L 74 20 122/80 95 Intake and Output 03/31/18 04/01/18 04/01/18 22:59 06:59 14:59 Intake Total 600 Output Total 300 Balance 300 Intake: Intake, IV Titration 600 Amount Sodium Chloride 0.9% 1, 600 000 ml @ 75 mls/hr IV . [id number] [facility] Rx#:[id number] Output: Urine 300 Other: Voiding Method Toilet Toilet Urinal Weight 107.501 kg PHYSICAL EXAMINATION: Patient is lying in the bed comfortably, no acute distress, awake alert and oriented.. HEENT: Normocephalic. Neck is supple. Pupils reactive. Nostrils clear. Oral cavity is moist. Ears reveal no drainage. Neck reveals no JVD, carotid bruits, or thyromegaly. CHEST EXAMINATION: Trachea is central. Symmetrical expansion. Lung cazares clear to auscultation and percussion. CARDIAC: Normal S1, S2 with no gallops. No murmurs ABDOMEN: Soft. Bowel sounds normal. No organomegaly. No abdominal bruits. Extremities: reveal no edema. No clubbing or cyanosis Neurologically awake, alert, oriented x3 with well-coordinated movements. No focal deficits noted Skin: No rash or skin lesions. Psychiatric: Coperative. Nonsuicidal Musculoskeletal: No joint swelling or deformity. Normal range of motion. Results CBC & Chem 7: 04/01/18 06:43 04/01/18 06:43 Labs: Abnormal Lab Results - Last 24 Hours (Table) 03/31/18 03/31/18 03/31/18 Range/Units 18:49 18:49 18:49 RBC 4.03 L (4.30-5.90) m/uL Hgb 12.1 L (13.0-17.5) gm/dL Hct 36.6 L (39.0-53.0) % BUN 44 H (9-20) mg/dL Creatinine 1.95 H (0.66-1.25) mg/dL Glucose 123 H (74-99) mg/dL POC Glucose (mg/dL) (75-99) mg/dL Hemoglobin A1c (4.0-6.0) % CK-MB (CK-2) 3.7 H (0.0-2.4) ng/mL Troponin I 0.048 H* (0.000-0.034) ng/mL 03/31/18 03/31/18 04/01/18 Range/Units 22:13 23:53 06:39 RBC (4.30-5.90) m/uL Hgb (13.0-17.5) gm/dL Hct (39.0-53.0) % BUN (9-20) mg/dL Creatinine (0.66-1.25) mg/dL Glucose (74-99) mg/dL POC Glucose (mg/dL) 161 H 145 H (75-99) mg/dL Hemoglobin A1c (4.0-6.0) % CK-MB (CK-2) 3.0 H (0.0-2.4) ng/mL Troponin I 0.043 H* (0.000-0.034) ng/mL 04/01/18 04/01/18 04/01/18 Range/Units 06:43 06:43 06:43 RBC 3.83 L (4.30-5.90) m/uL Hgb 11.3 L (13.0-17.5) gm/dL Hct 35.8 L (39.0-53.0) % BUN 44 H (9-20) mg/dL Creatinine 1.49 H (0.66-1.25) mg/dL Glucose 156 H (74-99) mg/dL POC Glucose (mg/dL) (75-99) mg/dL Hemoglobin A1c (4.0-6.0) % CK-MB (CK-2) 3.0 H (0.0-2.4) ng/mL Troponin I 0.053 H* (0.000-0.034) ng/mL 04/01/18 04/01/18 04/01/18 Range/Units 06:43 09:50 11:45 RBC (4.30-5.90) m/uL Hgb (13.0-17.5) gm/dL Hct (39.0-53.0) % BUN (9-20) mg/dL Creatinine (0.66-1.25) mg/dL Glucose (74-99) mg/dL POC Glucose (mg/dL) 186 H (75-99) mg/dL Hemoglobin A1c 8.8 H (4.0-6.0) % CK-MB (CK-2) (0.0-2.4) ng/mL Troponin I 0.050 H* (0.000-0.034) ng/mL Thrombosis Risk Factor Assmnt - DVT/VTE Prophylaxis DVT/VTE Prophylaxis: Pharmacologic Prophylaxis ordered - Choose All That Apply Any of the Below Risk Factors Present?: Yes Each Factor Represents 1 point: Obesity (BMI >25) Other Risk Factors: Yes Each Risk Factor Represents 2 Points: Age 61-74 years Thrombosis Risk Factor Assessment Total Risk Factor Score: 3 Thrombosis Risk Factor Assessment Level: Moderate Risk Assessment and Plan Assessment: Exertional shortness of breath and chest pain. Rule out acute coronary syndrome Elevated troponin level likely due to demand mismatch. Possible non-ST VT Acute kidney injury prerenal Dizziness and blurry vision due to Dehydration and volume depletion History of coronary disease with stent placement 2 in February 2018 History of coronary artery bypass graft in 2007 History of CVA/TIA Diabetes type 2 Hypertension Hyperlipidemia History of VT and accepted to sleep apnea Anxiety depression and bipolar disorder DVT prophylaxis Plan: Patient will be continued on gentle hydration normal saline at 75 per hour. Follow up renal function. Troponin level is trending down at this time. Cardiology is on board. Losartan dose has been decreased. Continue with aspirin and Plavix statins and beta blockers, Imdur and Ranexa. Continue with home medications and further recommendations based on the clinical course. Time with Patient: Greater than 30
[2018-04-01] MEDS: HEPARIN SODIUM,PORCINE 5,000 UNIT/ML 1 ML VIAL SQ SCH ×2 (16:42→23:54)
[2018-04-01 16:58] LABS: Glucose,Whole Blood 290 mg/dL (75-99)
[2018-04-01] MEDS: INSULIN ASPART 100 UNIT/ML 1 ML 10 ML VIAL SQ SCH (18:13)
[2018-04-01] MEDS: ATORVASTATIN 80 MG TAB PO SCH (20:23)
[2018-04-01] MEDS: SERTRALINE 100 MG TAB PO SCH (20:24)
[2018-04-01] MEDS: DIVALPROEX ER 250 MG TAB.ER.24H PO SCH (20:24)
[2018-04-01 21:02] LABS: Glucose,Whole Blood 117 mg/dL (75-99)
[2018-04-01] MEDS: INSULIN DETEMIR 100 UNIT/ML 10 ML VIAL SQ SCH (21:49)
[2018-04-02 06:07] LABS: Glucose,Whole Blood 129 mg/dL (75-99)
[2018-04-02 07:06] LABS: Basophils % (A) 1 %; Eosinophils # (A) 0.3 k/uL (0-0.7); Eosinophils % (A) 6 %; HCT 34.2 % (39.0-53.0); HGB 11.4 gm/dL (13.0-17.5); Lymphocytes # (A) 1.8 k/uL (1.0-4.8); Lymphocytes % (A) 40 %; MCH 30.6 pg (25.0-35.0); MCHC 33.4 g/dL (31.0-37.0); MCV 91.5 fL (80.0-100.0); Mean Platelet Volume 7.8; Monocytes # (A) 0.3 k/uL (0-1.0); Monocytes % (A) 6 %; Neutrophils % (A) 45 %; Platelet Count 187 k/uL (150-450); RBC 3.74 m/uL (4.30-5.90); RDW 15.2 % (11.5-15.5); WBC 4.5 k/uL (3.8-10.6)
[2018-04-02] MEDS: INSULIN ASPART 100 UNIT/ML 1 ML 10 ML VIAL SQ SCH ×3 (07:17→17:39)
[2018-04-02 07:32] LABS: Calcium 8.8 mg/dL (8.4-10.2); Potassium 4.7 mmol/L (3.5-5.1)
[2018-04-02] MEDS: METOPROLOL TARTRATE 12.5 MG TAB PO SCH ×2 (08:20→20:19)
[2018-04-02] MEDS: FUROSEMIDE 20 MG TAB PO SCH (08:21)
[2018-04-02] MEDS: SERTRALINE 100 MG TAB PO SCH ×2 (08:21→20:19)
[2018-04-02] MEDS: CLOPIDOGREL 75 MG TAB PO SCH (08:21)
[2018-04-02] MEDS: amLODIPine 5 MG TAB PO SCH (08:21)
[2018-04-02] MEDS: ASPIRIN 81 MG PO SCH (08:21)
[2018-04-02] MEDS: RANOLAZINE 500 MG TAB.ER.12H PO SCH ×2 (08:22→20:19)
[2018-04-02] MEDS: DIVALPROEX ER 250 MG TAB.ER.24H PO SCH ×2 (08:22→20:19)
[2018-04-02] MEDS: HEPARIN SODIUM,PORCINE 5,000 UNIT/ML 1 ML VIAL SQ SCH ×3 (08:22→23:25)
[2018-04-02] MEDS ORDERED: ISOSORBIDE MONONITRATE ER 60 MG TAB.ER.24H PO SCH (09:00)
[2018-04-02] MEDS ORDERED: LOSARTAN 50 MG TAB PO SCH (09:00)
[2018-04-02 11:24] LABS: Glucose,Whole Blood 102 mg/dL (75-99)
[2018-04-02] MEDS: SODIUM CHLORIDE 0.9% 1,000 ML IV SCH (12:56)
--- NOTE | 2018-04-02 14:31 | P.PN ---
Subjective Progress Note Date: 04/02/18 This is a 67-year-old gentleman who follows with Dr. Bolden in the office. He has a known history of CAD with prior bypass surgery, most recently he was in the hospital multiple times in the past few weeks. On February 26 patient underwent cardiac catheterization by Dr. Bolden which revealed critical lesions in the vein graft to the OM branch and patent RANDOLPH to the LAD. Subsequent to that patient underwent stenting of the distal SVG to the circumflex, stenting of the proximal SVG to the circumflex and stenting of the distal stenosis of the SVG to the circumflex. He also had aspiration thrombectomy of the SVG to the left circumflex. He presented back to the hospital on February 27 and underwent repeat catheterization which revealed that the SVG to the circumflex was now occluded and a pain RANDOLPH to the LAD. Medical therapy was advised. He was readmitted on March 16 and was seen in consultation at that time by Dr. Montoya and again presented with symptoms of chest discomfort. It appeared at that time troponins were trending downward and again medical therapy was advised. He presented on this occasion with symptoms of severe chest discomfort as well as shortness of breath and diaphoresis. He's also been complaining of episodes of dizziness and loss of vision when standing. EKG on arrival here showed normal sinus rhythm with left axis deviation and right bundle branch block pattern and nonspecific ST-T wave abnormalities. Patient's Imdur was increased yesterday. He continues to complain of significant dizziness as well as blurred vision and at times his vision goes black. Orthostatic blood pressures came back to be positive at 134/ 74 supine, 118/58 sitting and 104/59 standing. Objective - Vital Signs Vital signs: Vital Signs Temp 97.8 F 04/01/18 20:00 Pulse 62 04/02/18 12:35 Resp 18 04/02/18 11:40 BP 136/74 04/02/18 12:34 Pulse Ox 95 04/02/18 11:40 Intake & Output 04/01/18 04/02/18 04/02/18 18:59 06:59 18:59 Intake Total 240 300 420 Output Total 800 Balance 240 300 -380 Weight 108.3 kg Intake: Oral 240 300 420 Output: Urine 800 Other: Voiding Method Toilet Toilet Urinal Urinal # Voids 1 - Exam PHYSICAL EXAMINATION: HEENT: [Head is atraumatic, normocephalic. Pupils equal, round. Neck is supple. There is no elevated jugular venous pressure.] HEART EXAMINATION: [Heart sounds regular, S1 and S2 with a systolic murmur.] CHEST EXAMINATION:[ Lungs are clear to auscultation and precussion. No chest wall tenderness is noted on palpation or with deep breathing.] ABDOMEN: [ Soft, nontender. Bowel sounds are heard. No organomegaly noted]. EXTREMITIES:[ 2+ peripheral pulses with no evidence of peripheral edema and no calf tenderness noted]. NEUROLOGIC [patient is awake, alert and oriented x3.] . - Labs CBC & Chem 7: 04/02/18 06:22 04/02/18 06:22 Labs: Abnormal Lab Results - Last 24 Hours (Table) 04/01/18 04/01/18 04/01/18 Range/Units 15:49 16:56 21:01 RBC (4.30-5.90) m/uL Hgb (13.0-17.5) gm/dL Hct (39.0-53.0) % BUN (9-20) mg/dL Glucose (74-99) mg/dL POC Glucose (mg/dL) 290 H 117 H (75-99) mg/dL Troponin I 0.039 H* (0.000-0.034) ng/mL 04/01/18 04/02/18 04/02/18 Range/Units 21:46 06:05 06:22 RBC 3.74 L (4.30-5.90) m/uL Hgb 11.4 L (13.0-17.5) gm/dL Hct 34.2 L (39.0-53.0) % BUN (9-20) mg/dL Glucose (74-99) mg/dL POC Glucose (mg/dL) 129 H (75-99) mg/dL Troponin I 0.035 H* (0.000-0.034) ng/mL 04/02/18 04/02/18 Range/Units 06:22 11:20 RBC (4.30-5.90) m/uL Hgb (13.0-17.5) gm/dL Hct (39.0-53.0) % BUN 34 H (9-20) mg/dL Glucose 119 H (74-99) mg/dL POC Glucose (mg/dL) 102 H (75-99) mg/dL Troponin I (0.000-0.034) ng/mL Assessment and Plan Assessment: #1 chest discomfort, some features which appear to be atypical for acute coronary syndrome and symptoms suggestive of unstable angina. EKG shows normal sinus rhythm with nonspecific ST-T wave abnormalities. Troponins 0.048, 0.043 and 0.053, these troponins are down from the trend of recent admissions. #2 status post recent occlusion of the SVG to the OM branch just prior to that the patient had 3 stents placed in that vessel #3 history of CAD with prior bypass surgery #4 diabetes #5 peripheral vascular disease #6 hyperlipidemia #7 diabetes #8 symptoms of severe dizziness and visual changes upon standing, positive for orthostatic hypotension on current medication. Plan: From cardiology perspective, we will decrease Imdur to 60 mg by mouth daily and discontinue losartan. We'll start the patient on midodrine. Further recommendations to follow. ADMIN SECRETARY note has been reviewed, I agree with a documented findings and plan of care. Patient was seen and examined.
[2018-04-02 17:37] LABS: Glucose,Whole Blood 124 mg/dL (75-99)
[2018-04-02] MEDS: MIDODRINE 5 MG TAB PO SCH (17:39)
[2018-04-02] MEDS: ATORVASTATIN 80 MG TAB PO SCH (20:19)
[2018-04-02] MEDS: ACETAMINOPHEN TAB 325 MG TAB PO PRN (20:19)
[2018-04-02] MEDS ORDERED: HYDROcodone/APAP 5-325MG 1 EACH TAB PO PRN (20:38)
[2018-04-02 20:55] LABS: Glucose,Whole Blood 120 mg/dL (75-99)
[2018-04-02] MEDS: INSULIN DETEMIR 100 UNIT/ML 10 ML VIAL SQ SCH (21:03)
[2018-04-03] MEDS: SODIUM CHLORIDE 0.9% 1,000 ML IV SCH (02:30)
[2018-04-03 06:12] LABS: Glucose,Whole Blood 142 mg/dL (75-99)
[2018-04-03] MEDS: INSULIN ASPART 100 UNIT/ML 1 ML 10 ML VIAL SQ SCH ×3 (06:35→17:08)
[2018-04-03] MEDS: MIDODRINE 5 MG TAB PO SCH ×3 (06:35→17:08)
[2018-04-03] MEDS: SERTRALINE 100 MG TAB PO SCH ×2 (08:04→19:40)
[2018-04-03] MEDS: HEPARIN SODIUM,PORCINE 5,000 UNIT/ML 1 ML VIAL SQ SCH ×3 (08:04→23:18)
[2018-04-03] MEDS: CLOPIDOGREL 75 MG TAB PO SCH (08:05)
[2018-04-03] MEDS: ISOSORBIDE MONONITRATE ER 60 MG TAB.ER.24H PO SCH (08:05)
[2018-04-03] MEDS: METOPROLOL TARTRATE 12.5 MG TAB PO SCH ×2 (08:05→19:40)
[2018-04-03] MEDS: amLODIPine 5 MG TAB PO SCH (08:05)
[2018-04-03] MEDS: DIVALPROEX ER 250 MG TAB.ER.24H PO SCH ×2 (08:05→19:40)
[2018-04-03] MEDS: FUROSEMIDE 20 MG TAB PO SCH (08:05)
[2018-04-03] MEDS: RANOLAZINE 500 MG TAB.ER.12H PO SCH ×2 (08:05→19:40)
[2018-04-03] MEDS: ASPIRIN 81 MG PO SCH (08:05)
--- NOTE | 2018-04-03 10:49 | P.PN ---
Subjective Progress Note Date: 04/03/18 This is a 67-year-old gentleman who follows with Dr. Bolden in the office. He has a known history of CAD with prior bypass surgery, most recently he was in the hospital multiple times in the past few weeks. On February 26 patient underwent cardiac catheterization by Dr. Bolden which revealed critical lesions in the vein graft to the OM branch and patent RANDOLPH to the LAD. Subsequent to that patient underwent stenting of the distal SVG to the circumflex, stenting of the proximal SVG to the circumflex and stenting of the distal stenosis of the SVG to the circumflex. He also had aspiration thrombectomy of the SVG to the left circumflex. He presented back to the hospital on February 27 and underwent repeat catheterization which revealed that the SVG to the circumflex was now occluded and a pain RANDOLPH to the LAD. Medical therapy was advised. He was readmitted on March 16 and was seen in consultation at that time by Dr. Montoya and again presented with symptoms of chest discomfort. It appeared at that time troponins were trending downward and again medical therapy was advised. He presented on this occasion with symptoms of severe chest discomfort as well as shortness of breath and diaphoresis. He's also been complaining of episodes of dizziness and loss of vision when standing. EKG on arrival here showed normal sinus rhythm with left axis deviation and right bundle branch block pattern and nonspecific ST-T wave abnormalities. Patient's Imdur was increased yesterday. He continues to complain of significant dizziness as well as blurred vision and at times his vision goes black. Orthostatic blood pressures came back to be positive at 134/ 74 supine, 118/58 sitting and 104/59 standing. 04/03/2018. The patient still has shortness of breath, dizziness and blurred vision with exertion. The patient denies any chest discomfort. Remains in a normal sinus mechanism on the monitor. He is hemodynamically stable. Patient is a little frustrated and is considering evaluation at [facility]. He has been encouraged to seek a second opinion and he has an appointment April 12. Due to the patient's symptoms of dizziness and blurred vision, we will obtain a carotid Doppler. Objective - Vital Signs Vital signs: Vital Signs Temp 97.7 F 04/03/18 08:08 Pulse 59 L 09/22/18 08:08 Resp 16 04/03/18 08:08 BP 175/73 04/03/18 08:08 Pulse Ox 96 04/03/18 08:08 Intake & Output 04/02/18 04/03/18 04/03/18 18:59 06:59 18:59 Intake Total 920 480 180 Output Total 800 Balance 120 480 180 Weight 111.1 kg Intake: Intake, IV Titration 500 Amount Sodium Chloride 0.9% 1, 500 000 ml @ 75 mls/hr IV . [id number] [facility] Rx#:[id number] Oral 420 480 180 Output: Urine 800 Other: Voiding Method Toilet Urinal # Voids 2 # Bowel Movements 1 0 - Constitutional General appearance: Present: morbidly obese - EENT Eyes: Present: normal appearance ENT: Present: hearing grossly normal - Neck Carotids: bilateral: bruit absent - Respiratory Respiratory: bilateral: CTA, diminished - Cardiovascular Rhythm: regular Abnormal Heart Sounds: Present: systolic murmur - Peripheral edema leg Peripheral Edema: bilateral: None - Psychiatric Psychiatric: Present: A&O x's 3 - Labs CBC & Chem 7: 04/02/18 06:22 04/02/18 06:22 Labs: Abnormal Lab Results - Last 24 Hours (Table) 04/02/18 04/02/18 04/02/18 Range/Units 11:20 17:36 20:54 POC Glucose (mg/dL) 102 H 124 H 120 H (75-99) mg/dL 04/03/18 Range/Units 06:11 POC Glucose (mg/dL) 142 H (75-99) mg/dL Assessment and Plan Assessment: #1 chest discomfort, some features which appear to be atypical for acute coronary syndrome and symptoms suggestive of unstable angina. EKG shows normal sinus rhythm with nonspecific ST-T wave abnormalities. Troponins 0.048, 0.043 and 0.053, these troponins are down from the trend of recent admissions. #2 status post recent occlusion of the SVG to the OM branch just prior to that the patient had 3 stents placed in that vessel #3 history of CAD with prior bypass surgery #4 diabetes #5 peripheral vascular disease #6 hyperlipidemia #7 diabetes #8 symptoms of severe dizziness and visual changes upon standing, positive for orthostatic hypotension on current medication. Plan: Continue with current medication regimen. We will obtain a carotid Doppler to rule out carotid stenosis. If this is negative, the patient may be discharged to follow-up at [facility]. The patient has already obtained an appointment April 12 for a second opinion regarding his coronary artery disease.
[2018-04-03 11:46] LABS: Glucose,Whole Blood 103 mg/dL (75-99)
[2018-04-03] MEDS ORDERED: IPRATROPIUM-ALBUTEROL 3 ML NEB INHALATION PRN (12:26)
--- NOTE | 2018-04-03 16:21 | US ---
EXAMINATION TYPE: US carotid duplex BILAT DATE OF EXAM: 04/03/2018 COMPARISON: NONE CLINICAL HISTORY: Blurred vision. EXAM MEASUREMENTS: RIGHT: Peak Systolic Velocity (PSV) cm/sec ----- Right CCA: 49.6 ----- Right ICA: 69.8 ----- Right ECA: 66.4 ICA/CCA ratio: 1.4 RIGHT: End Diastole cm/sec ----- Right CCA: 9.5 ----- Right ICA: 24.0 ----- Right ECA: 5.6 LEFT: Peak Systolic Velocity (PSV) cm/sec ----- Left CCA: 80.7 ----- Left ICA: 77.5 ----- Left ECA: 69.1 ICA/CCA ratio: 1.0 LEFT: End Diastole cm/sec ----- Left CCA: 19.4 ----- Left ICA: 21.9 ----- Left ECA: 0.0 VERTEBRALS (direction of flow): Right Vertebral: Not visualized high or low Left Vertebral: Antegrade IMPRESSION: 1. No hemodynamically significant carotid system narrowing. 2. Atherosclerotic changes of the bilateral carotid bulbs. 3. Nonvisualization of the right vertebral artery. Etiology is uncertain.
[2018-04-03 16:49] LABS: Glucose,Whole Blood 87 mg/dL (75-99)
[2018-04-03] MEDS: ATORVASTATIN 80 MG TAB PO SCH (19:39)
[2018-04-03 20:41] LABS: Glucose,Whole Blood 227 mg/dL (75-99)
[2018-04-03] MEDS: INSULIN DETEMIR 100 UNIT/ML 10 ML VIAL SQ SCH (21:24)
[2018-04-03 23:28] VITALS: PULSE 59; RESP 16
[2018-04-04 06:09] LABS: Glucose,Whole Blood 142 mg/dL (75-99)
[2018-04-04] MEDS: INSULIN ASPART 100 UNIT/ML 1 ML 10 ML VIAL SQ SCH ×2 (07:05→12:09)
[2018-04-04] MEDS: MIDODRINE 5 MG TAB PO SCH ×2 (07:06→12:09)
[2018-04-04] MEDS: RANOLAZINE 500 MG TAB.ER.12H PO SCH (08:28)
[2018-04-04] MEDS: METOPROLOL TARTRATE 12.5 MG TAB PO SCH (08:28)
[2018-04-04] MEDS: amLODIPine 5 MG TAB PO SCH (08:29)
[2018-04-04] MEDS: CLOPIDOGREL 75 MG TAB PO SCH (08:29)
[2018-04-04] MEDS: HEPARIN SODIUM,PORCINE 5,000 UNIT/ML 1 ML VIAL SQ SCH (08:29)
[2018-04-04] MEDS: FUROSEMIDE 20 MG TAB PO SCH (08:29)
[2018-04-04] MEDS: ASPIRIN 81 MG PO SCH (08:29)
[2018-04-04] MEDS: DIVALPROEX ER 250 MG TAB.ER.24H PO SCH (08:29)
[2018-04-04] MEDS: SERTRALINE 100 MG TAB PO SCH (08:29)
[2018-04-04] MEDS: ISOSORBIDE MONONITRATE ER 60 MG TAB.ER.24H PO SCH (08:29)
--- NOTE | 2018-04-04 11:23 | P.PN ---
Subjective Progress Note Date: 04/04/18 This is a 67-year-old gentleman who follows with Dr. Bolden in the office. He has a known history of CAD with prior bypass surgery, most recently he was in the hospital multiple times in the past few weeks. On February 26 patient underwent cardiac catheterization by Dr. Bolden which revealed critical lesions in the vein graft to the OM branch and patent RANDOLPH to the LAD. Subsequent to that patient underwent stenting of the distal SVG to the circumflex, stenting of the proximal SVG to the circumflex and stenting of the distal stenosis of the SVG to the circumflex. He also had aspiration thrombectomy of the SVG to the left circumflex. He presented back to the hospital on February 27 and underwent repeat catheterization which revealed that the SVG to the circumflex was now occluded and a pain RANDOLPH to the LAD. Medical therapy was advised. He was readmitted on March 16 and was seen in consultation at that time by Dr. Montoya and again presented with symptoms of chest discomfort. It appeared at that time troponins were trending downward and again medical therapy was advised. He presented on this occasion with symptoms of severe chest discomfort as well as shortness of breath and diaphoresis. He's also been complaining of episodes of dizziness and loss of vision when standing. EKG on arrival here showed normal sinus rhythm with left axis deviation and right bundle branch block pattern and nonspecific ST-T wave abnormalities. Patient's Imdur was increased yesterday. He continues to complain of significant dizziness as well as blurred vision and at times his vision goes black. Orthostatic blood pressures came back to be positive at 134/ 74 supine, 118/58 sitting and 104/59 standing. 04/03/2018. The patient still has shortness of breath, dizziness and blurred vision with exertion. The patient denies any chest discomfort. Remains in a normal sinus mechanism on the monitor. He is hemodynamically stable. Patient is a little frustrated and is considering evaluation at [facility]. He has been encouraged to seek a second opinion and he has an appointment April 12. Due to the patient's symptoms of dizziness and blurred vision, we will obtain a carotid Doppler. 04/03/2018. The patient continues to have symptoms of shortness of breath. He denies any chest discomfort. Remains in a normal sinus mechanism on the monitor and is hemodynamically stable. Carotid Doppler did not show evidence of carotid stenosis. The patient is wishing to be discharged home today. Objective - Vital Signs Vital signs: Vital Signs Temp 97.7 F 04/04/18 08:32 Pulse 59 L 04/04/18 08:32 Resp 16 04/04/18 08:32 BP 177/85 04/04/18 08:32 Pulse Ox 99 04/04/18 08:32 Intake & Output 04/03/18 04/04/18 04/04/18 18:59 06:59 18:59 Intake Total 510 Balance 510 Weight 110.2 kg Intake: Oral 510 Other: Voiding Method Toilet Toilet Toilet Urinal Urinal Urinal # Voids 3 1 # Bowel Movements 1 - Exam GENERAL EXAM: Patient is alert and oriented and doesn't appear to be in any acute distress HEENT: Normocephalic. Normal reaction of pupils, equal size, normal range of extraocular motion. No erythema or exudates in the throat. NECK: No masses, no nuchal rigidity. CHEST: No chest wall deformity. LUNGS: Equal air entry with no crackles or wheeze. HEART: S1 and S2 normal. Regular rhythm with systolic murmur. ABDOMEN: No hepatosplenomegaly, normal bowel sounds, no guarding or rigidity. Obese. SKIN: No rashes CENTRAL NERVOUS SYSTEM: No focal deficits. EXTREMITIES: No cyanosis, clubbing or edema. - Labs CBC & Chem 7: 04/02/18 06:22 04/02/18 06:22 Labs: Abnormal Lab Results - Last 24 Hours (Table) 04/03/18 04/03/18 04/04/18 Range/Units 11:39 20:39 06:08 POC Glucose (mg/dL) 103 H 227 H 142 H (75-99) mg/dL Assessment and Plan Assessment: #1 chest discomfort, some features which appear to be atypical for acute coronary syndrome and symptoms suggestive of unstable angina. EKG shows normal sinus rhythm with nonspecific ST-T wave abnormalities. Troponins 0.048, 0.043 and 0.053, these troponins are down from the trend of recent admissions. #2 status post recent occlusion of the SVG to the OM branch just prior to that the patient had 3 stents placed in that vessel #3 history of CAD with prior bypass surgery #4 diabetes #5 peripheral vascular disease #6 hyperlipidemia #7 diabetes #8 symptoms of severe dizziness and visual changes upon standing, positive for orthostatic hypotension on current medication. Plan: Continue with current medication regimen. Carotid Doppler did not show evidence of carotid stenosis. From a cardiac standpoint, the patient may be discharged home today. He has an appointment at [facility] with the public relations coordinator for second opinion on April 12. He has been encouraged to keep this appointment. No further recommendations at this time. GATE SHEAR OPERATOR note has been reviewed. I agree with the documented findings and plan of care. Patient was seen and examined.
[2018-04-04 11:55] LABS: Glucose,Whole Blood 94 mg/dL (75-99)
[2018-04-04 12:28] VITALS: BP 132/65; TEMP 97.8
--- NOTE | 2018-04-04 14:14 | P.PN ---
Subjective Progress Note Date: 04/02/18 Principal diagnosis: Chest pain and dizziness Orthostatic hypotension Patient is a 67-year-old male with a known history of coronary artery disease with stent 2 placement in February 2018, CABG 2 vessel in 2007, hypertension, diabetes type 2, history of IA and obstructive sleep apnea came to ER with the complaints of exertional short of breath. Patient was also having midsternal sharp chest pain whenever he does any physical activity associated with shortness of breath. Patient's symptoms have been getting worse for the past 1 week. No radiation of the pain. Patient is complaining of nauseated and also sweating along with the pain. Patient also noticed blurring of the vision and lightheaded and about to pass out which made him to come back to the hospital. No fever no chills. No cough is from production. No abdominal pain or diarrhea. Chest x-ray showed slight coarsening of lung markings. Clearing of congestive heart failure as compared to prior exam EKG showed sinus rhythm and right bundle branch block. Troponin 0.048, 0.043, GFR 0.053 and 0.050 neck stent BNP is 2810 BUN 44 creatinine 1.9 on admission which is trending down. 04/02/2018 Patient is complaining of dizziness and lightheadedness when he gets up and walk to the bathroom. Patient has orthostatic vitals positive. Patient will be continued on IV hydration and patient was started on midodrine. Reduce the dose of Imdur to 60 mg daily and discontinue losartan as per cardiology. Otherwise patient denied any complaints of chest pain or shortness breath. No nausea vomiting or abdominal pain. No diarrhea dysuria. No cough is from production. All other review of systems negative except the above. Current medications reviewed Objective - Vital Signs Vital signs: Vital Signs Temp 97.8 F 04/01/18 20:00 Pulse 59 L 04/02/18 11:40 Resp 18 04/02/18 11:40 BP 125/65 04/02/18 11:40 Pulse Ox 95 04/02/18 11:40 Intake & Output 04/01/18 04/02/18 04/02/18 18:59 06:59 18:59 Intake Total 240 300 180 Output Total 800 Balance 240 300 -620 Weight 108.3 kg Intake: Oral 240 300 180 Output: Urine 800 Other: Voiding Method Toilet Toilet Urinal Urinal # Voids 1 - Exam PHYSICAL EXAMINATION: Patient is lying in the bed comfortably, no acute distress, awake alert and oriented.. HEENT: Normocephalic. Neck is supple. Pupils reactive. Nostrils clear. Oral cavity is moist. Ears reveal no drainage. Neck reveals no JVD, carotid bruits, or thyromegaly. CHEST EXAMINATION: Trachea is central. Symmetrical expansion. Lung cazares clear to auscultation and percussion. CARDIAC: Normal S1, S2 with no gallops. No murmurs ABDOMEN: Soft. Bowel sounds normal. No organomegaly. No abdominal bruits. Extremities: reveal no edema. No clubbing or cyanosis Neurologically awake, alert, oriented x3 with well-coordinated movements. No focal deficits noted Skin: No rash or skin lesions. Psychiatric: Coperative. Nonsuicidal Musculoskeletal: No joint swelling or deformity. Normal range of motion. - Labs CBC & Chem 7: 04/02/18 06:22 04/02/18 06:22 Labs: Abnormal Lab Results - Last 24 Hours (Table) 04/01/18 04/01/18 04/01/18 Range/Units 06:43 15:49 16:56 RBC (4.30-5.90) m/uL Hgb (13.0-17.5) gm/dL Hct (39.0-53.0) % BUN (9-20) mg/dL Glucose (74-99) mg/dL POC Glucose (mg/dL) 290 H (75-99) mg/dL Hemoglobin A1c 8.8 H (4.0-6.0) % Troponin I 0.039 H* (0.000-0.034) ng/mL 04/01/18 04/01/18 04/02/18 Range/Units 21:01 21:46 06:05 RBC (4.30-5.90) m/uL Hgb (13.0-17.5) gm/dL Hct (39.0-53.0) % BUN (9-20) mg/dL Glucose (74-99) mg/dL POC Glucose (mg/dL) 117 H 129 H (75-99) mg/dL Hemoglobin A1c (4.0-6.0) % Troponin I 0.035 H* (0.000-0.034) ng/mL 04/02/18 04/02/18 04/02/18 Range/Units 06:22 06:22 11:20 RBC 3.74 L (4.30-5.90) m/uL Hgb 11.4 L (13.0-17.5) gm/dL Hct 34.2 L (39.0-53.0) % BUN 34 H (9-20) mg/dL Glucose 119 H (74-99) mg/dL POC Glucose (mg/dL) 102 H (75-99) mg/dL Hemoglobin A1c (4.0-6.0) % Troponin I (0.000-0.034) ng/mL Assessment and Plan Assessment: Exertional shortness of breath and chest pain. Ruled out acute coronary syndrome Elevated troponin level likely due to demand mismatch. Possible non-STEMI Acute kidney injury prerenal. Improved Dizziness and blurry vision due to Dehydration and volume depletion and positive for orthostatic hypotension. History of coronary disease with stent placement 2 in February 2018 History of coronary artery bypass graft in 2007 History of CVA/TIA Diabetes type 2 Hypertension Hyperlipidemia History of IA and accepted to sleep apnea Anxiety depression and bipolar disorder DVT prophylaxis Plan: Patient will be continued on gentle hydration normal saline at 75 per hour. Follow up renal function. Troponin level is trending down at this time. Cardiology is on board. Losartan dose has been discontinued.. Continue with aspirin and Plavix statins and beta blockers, Imdur and Ranexa. Continue with home medications and further recommendations based on the clinical course. Time with Patient: Greater than 30
--- NOTE | 2018-04-04 14:16 | P.PN ---
Subjective Progress Note Date: 04/03/18 Principal diagnosis: Chest pain and dizziness Orthostatic hypotension Patient is a 67-year-old male with a known history of coronary artery disease with stent 2 placement in February 2018, CABG 2 vessel in 2007, hypertension, diabetes type 2, history of SD and obstructive sleep apnea came to ER with the complaints of exertional short of breath. Patient was also having midsternal sharp chest pain whenever he does any physical activity associated with shortness of breath. Patient's symptoms have been getting worse for the past 1 week. No radiation of the pain. Patient is complaining of nauseated and also sweating along with the pain. Patient also noticed blurring of the vision and lightheaded and about to pass out which made him to come back to the hospital. No fever no chills. No cough is from production. No abdominal pain or diarrhea. Chest x-ray showed slight coarsening of lung markings. Clearing of congestive heart failure as compared to prior exam EKG showed sinus rhythm and right bundle branch block. Troponin 0.048, 0.043, GFR 0.053 and 0.050 neck stent BNP is 2810 BUN 44 creatinine 1.9 on admission which is trending down. 04/02/2018 Patient is complaining of dizziness and lightheadedness when he gets up and walk to the bathroom. Patient has orthostatic vitals positive. Patient will be continued on IV hydration and patient was started on midodrine. Reduce the dose of Imdur to 60 mg daily and discontinue losartan as per cardiology. Otherwise patient denied any complaints of chest pain or shortness breath. No nausea vomiting or abdominal pain. No diarrhea dysuria. No cough is from production. 04/03/2018 Patient says that he felt very dizzy and lightheaded and blurry vision this morning while he was brought to the bathroom. Currently lying in the bed and not having any dizziness now. No commerce of chest pain. Renal function was improved. Tolerating oral diet. Patient is being continued on Midodrin. IV fluids have been discontinued. Carotid duplex was ordered but due to dizziness and blurred vision, could not be obtained. No fever no chills. Cardiology is following closely. All other review of systems negative except the above. Current medications reviewed Objective - Vital Signs Vital signs: Vital Signs Temp 97.7 F 04/03/18 11:56 Pulse 59 L 04/03/18 11:56 Resp 16 04/03/18 11:56 BP 154/71 04/03/18 11:56 Pulse Ox 97 04/03/18 11:56 Intake & Output 04/02/18 04/03/18 04/03/18 18:59 06:59 18:59 Intake Total 920 480 360 Output Total 800 Balance 120 480 360 Weight 111.1 kg Intake: Intake, IV Titration 500 Amount Sodium Chloride 0.9% 1, 500 000 ml @ 75 mls/hr IV . [id number] [facility] Rx#:[id number] Oral 420 480 360 Output: Urine 800 Other: Voiding Method Toilet Urinal # Voids 2 3 # Bowel Movements 1 0 1 - Exam PHYSICAL EXAMINATION: Patient is lying in the bed comfortably, no acute distress, awake alert and oriented.. HEENT: Normocephalic. Neck is supple. Pupils reactive. Nostrils clear. Oral cavity is moist. Ears reveal no drainage. Neck reveals no JVD, carotid bruits, or thyromegaly. CHEST EXAMINATION: Trachea is central. Symmetrical expansion. Lung cazares clear to auscultation and percussion. CARDIAC: Normal S1, S2 with no gallops. No murmurs ABDOMEN: Soft. Bowel sounds normal. No organomegaly. No abdominal bruits. Extremities: reveal no edema. No clubbing or cyanosis Neurologically awake, alert, oriented x3 with well-coordinated movements. No focal deficits noted Skin: No rash or skin lesions. Psychiatric: Coperative. Nonsuicidal Musculoskeletal: No joint swelling or deformity. Normal range of motion. - Labs CBC & Chem 7: 04/02/18 06:22 04/02/18 06:22 Labs: Abnormal Lab Results - Last 24 Hours (Table) 04/02/18 04/02/18 04/03/18 Range/Units 17:36 20:54 06:11 POC Glucose (mg/dL) 124 H 120 H 142 H (75-99) mg/dL 04/03/18 Range/Units 11:39 POC Glucose (mg/dL) 103 H (75-99) mg/dL Assessment and Plan Assessment: Exertional shortness of breath and chest pain. Ruled out acute coronary syndrome Elevated troponin level likely due to demand mismatch. Possible non-STEMI Acute kidney injury prerenal. Improved Dizziness and blurry vision due to Dehydration and volume depletion and positive for orthostatic hypotension. History of coronary disease with stent placement 2 in February 2018 History of coronary artery bypass graft in 2007 History of CVA/TIA Diabetes type 2 Hypertension Hyperlipidemia History of SD and accepted to sleep apnea Anxiety depression and bipolar disorder DVT prophylaxis Plan: Patient will be continued on gentle hydration normal saline at 75 per hour. Follow up renal function. Troponin level is trending down at this time. Cardiology is on board. Losartan dose has been discontinued.. Continue with aspirin and Plavix statins and beta blockers, Imdur and Ranexa. Continue with home medications and further recommendations based on the clinical course. Time with Patient: Greater than 30
--- NOTE | 2018-04-04 14:30 | P.DS ---
Providers Date of admission: 03/31/18 20:58 Expected date of discharge: 04/04/18 Attending physician: Gianna Irving Consults: 03/31/18 20:54 Consult Physician Routine Consulting Provider: Edin Kinney Consult Reason/Comments: Chest pain, elevated troponin, acute kidney injury Do you want consulting provider notified?: Yes Primary care physician: [facility] Course: Discharge diagnosis Exertional shortness of breath and chest pain. Ruled out acute coronary syndrome Elevated troponin level likely due to demand mismatch. Ruled out non-STEMI Acute kidney injury prerenal. Improved Dizziness and blurry vision due to Dehydration and volume depletion and positive for orthostatic hypotension. Added Midodrin. History of coronary disease with stent placement 2 in February 2018 History of coronary artery bypass graft in 2007 History of CVA/TIA Diabetes type 2 Hypertension Hyperlipidemia History of AK and accepted to sleep apnea Anxiety depression and bipolar disorder History of secondhand smoking DVT prophylaxis Hospital course Patient is a 67-year-old male with a known history of coronary artery disease with stent 2 placement in February 2018, CABG 2 vessel in 2007, hypertension, diabetes type 2, history of AK and obstructive sleep apnea came to ER with the complaints of exertional short of breath. Patient was also having midsternal sharp chest pain whenever he does any physical activity associated with shortness of breath. Patient's symptoms have been getting worse for the past 1 week. No radiation of the pain. Patient is complaining of nauseated and also sweating along with the pain. Patient also noticed blurring of the vision and lightheaded and about to pass out which made him to come back to the hospital. No fever no chills. No cough is from production. No abdominal pain or diarrhea. Chest x-ray showed slight coarsening of lung markings. Clearing of congestive heart failure as compared to prior exam EKG showed sinus rhythm and right bundle branch block. Troponin 0.048, 0.043, GFR 0.053 and 0.050 neck stent BNP is 2810 BUN 44 creatinine 1.9 on admission which is trending down. 04/02/2018 Patient is complaining of dizziness and lightheadedness when he gets up and walk to the bathroom. Patient has orthostatic vitals positive. Patient will be continued on IV hydration and patient was started on midodrine. Reduce the dose of Imdur to 60 mg daily and discontinue losartan as per cardiology. Otherwise patient denied any complaints of chest pain or shortness breath. No nausea vomiting or abdominal pain. No diarrhea dysuria. No cough is from production. 04/03/2018 Patient says that he felt very dizzy and lightheaded and blurry vision this morning while he was brought to the bathroom. Currently lying in the bed and not having any dizziness now. No commerce of chest pain. Renal function was improved. Tolerating oral diet. Patient is being continued on Midodrin. IV fluids have been discontinued. Carotid duplex was ordered but due to dizziness and blurred vision, could not be obtained. No fever no chills. Cardiology is following closely. 04/04/2018 Patient is still having dizziness and mild short of breath. But did improve compared to yesterday. Carotid duplex is negative for any significant stenosis. Patient Wants to be discharged home. Otherwise patient is being continued on Midodrin. Patient has cardiology clinic appointment at [facility] on April 12 for second opinion. Stable from cardiology standpoint to be discharged. Overall hemodynamically stable otherwise. Plan: Patient was continued on gentle hydration normal saline at 75 per hour. Follow up renal function. Currently renal function is improved and discontinued IV fluids. Tolerating oral diet. Troponin level is trending down at this time. Cardiology is on board. Losartan dose has been discontinued.. Continue with aspirin and Plavix statins and beta blockers, Imdur and Ranexa. Patient will be continued on midodrine. Patient has a follow-up appointment at [facility] on April 12 for second opinion. Otherwise patient is stable to be discharged home. PHYSICAL EXAMINATION: Patient is lying in the bed comfortably, no acute distress, awake alert and oriented.. HEENT: Normocephalic. Neck is supple. Pupils reactive. Nostrils clear. Oral cavity is moist. Ears reveal no drainage. Neck reveals no JVD, carotid bruits, or thyromegaly. CHEST EXAMINATION: Trachea is central. Symmetrical expansion. Lung cazares clear to auscultation and percussion. CARDIAC: Normal S1, S2 with no gallops. No murmurs ABDOMEN: Soft. Bowel sounds normal. No organomegaly. No abdominal bruits. Extremities: reveal no edema. No clubbing or cyanosis Neurologically awake, alert, oriented x3 with well-coordinated movements. No focal deficits noted Skin: No rash or skin lesions. Psychiatric: Coperative. Nonsuicidal Musculoskeletal: No joint swelling or deformity. Normal range of motion. Vital Signs 04/04/18 04/04/18 08:32 12:24 Temperature 97.7 F 97.8 F Pulse Rate [ 67 59 L Left Sitting] Pulse Rate [ 70 70 Left Standing] Pulse Rate [ 61 61 Left Supine] Pulse Rate [ 59 L 59 L Pulse Oximetery ] Respiratory 16 16 Rate Blood Pressure 177/85 [Left Arm Sitting] Blood Pressure 132/65 [Left Arm Standing] O2 Sat by Pulse 99 95 Oximetry Total time taken greater than 35 minutes including 18 minutes for counseling and coordination of care.. Patient Condition at Discharge: Stable Plan - Discharge Summary New Discharge Prescriptions: New Furosemide [Lasix] 20 mg PO DAILY #30 tab Midodrine [ProAmatine] 5 mg PO AC-TID #90 tab Continue Aspirin EC [Ecotrin Low Dose] 81 mg PO DAILY Insulin Detemir [Levemir] 50 unit SQ HS Insulin Aspart [NovoLOG Flexpen] 30 units SQ AC-TID amLODIPine [Norvasc] 5 mg PO DAILY #30 tab Clopidogrel [Plavix] 75 mg PO DAILY #30 tab Isosorbide Mononitrate ER [Imdur] 60 mg PO DAILY #30 tab.er.24h Ranolazine [Ranexa] 1,000 mg PO Q12HR #120 tab.er.12h Nitroglycerin Sl Tabs [Nitrostat] 0.4 mg SUBLINGUAL Q5M PRN #100 tab PRN Reason: Chest Pain Melatonin 6 mg PO HS tablet Sertraline [Zoloft] 100 mg PO BID Metoprolol Tartrate [Lopressor] 12.5 mg PO BID Divalproex Sodium [Depakote ER] 250 mg PO BID Atorvastatin [Lipitor] 20 mg PO HS Discontinued Losartan [Cozaar] 50 mg PO BID #60 tab Furosemide [Lasix] 40 mg PO DAILY #30 tablet Discharge Medication List Aspirin EC [Ecotrin Low Dose] 81 mg PO DAILY 11/30/17 [History] Insulin Aspart [NovoLOG Flexpen] 30 units SQ AC-TID 02/24/18 [History] Insulin Detemir [Levemir] 50 unit SQ HS 02/24/18 [History] Clopidogrel [Plavix] 75 mg PO DAILY #30 tab 03/05/18 [Rx] Isosorbide Mononitrate ER [Imdur] 60 mg PO DAILY #30 tab.er.24h 03/05/18 [Rx] Nitroglycerin Sl Tabs [Nitrostat] 0.4 mg SUBLINGUAL Q5M PRN #100 tab 03/05/18 [ Rx] Ranolazine [Ranexa] 1,000 mg PO Q12HR #120 tab.er.12h 03/05/18 [Rx] amLODIPine [Norvasc] 5 mg PO DAILY #30 tab 03/05/18 [Rx] Melatonin 6 mg PO HS tablet 03/17/18 [Rx] Atorvastatin [Lipitor] 20 mg PO HS 03/31/18 [History] Divalproex Sodium [Depakote ER] 250 mg PO BID 03/31/18 [History] Metoprolol Tartrate [Lopressor] 12.5 mg PO BID 03/31/18 [History] Sertraline [Zoloft] 100 mg PO BID 03/31/18 [History] Furosemide [Lasix] 20 mg PO DAILY #30 tab 04/04/18 [Rx] Midodrine [ProAmatine] 5 mg PO AC-TID #90 tab 04/04/18 [Rx] Follow up Appointment(s)/Referral(s): Shaheen Perez DO [Primary Care Provider] - 1-2 days Discharge Disposition: HOME SELF-CARE
--- NOTE | 2018-04-08 16:01 | CDI ---
Last Revision, June 2017 Documentation Clarification Form Date: 04/08/18 From: Stephanie Toure Phone: If you have a question, please contact Luisa Perkins at [phone] between 8am and 5pm. Admit Date: 03/31/2018 Patient Name: Ajay Dye Visit Number: [id number] Discharge Date: 04/04/18 ATTENTION: The Clinical Documentation Specialists (CDI) and [facility] Coding Staff appreciate your assistance in clarifying documentation. Please respond to the clarification below the line at the bottom and electronically sign. The CDI & [facility] Coding staff will review the response and follow-up if needed. Please note: Queries are made part of the Legal Health Record. If you have any questions, please contact the author of this message via ITS. Perez Jean MD Documentation in the ED note, H&P, discharge summary and Dr. Salguero's 04/02 & progress notes states, "Chest x-ray showed slight coarsing of lung markings. Clearing of congestive heart failure as compared to prior exam...". History/Risk Factors: Patient has a history of CAD, hypertension, previous PR, CABG and cardiac stents. Clinical Indicators: Chest pain and dizziness. VS/Pulse OX: T. 97.4, P. 74, R. 20, BP 122/80, Pulse ox. 95 BNP: 2810 Treatment: PO Lasix 40 mg x1 then PO Lasix 20 mg x 3 doses. In your professional opinion, can you please clarify the acuity and type of CHF if known? Systolic Heart Failure: Chronic Acute on Chronic Diastolic Heart Failure: Chronic Acute on Chronic Systolic & Diastolic Heart Failure: Chronic Acute on Chronic Heart Failure Unable to Determine Other, please specify MTDD
== END 2018-04-04 15:49 | disposition home or self-care (01) | DRG 303 ==
LOC: EC 18:07 → 6SEL 20:58
PROVIDERS: ADMIT Hospitalist; ATTEND Hospitalist
DX: I25.110 Atherosclerotic heart disease of native coronary artery with unstable angina pectoris (principal); N17.9 Acute kidney failure, unspecified; E11.51 Type 2 diabetes mellitus with diabetic peripheral angiopathy without gangrene; E78.5 Hyperlipidemia, unspecified; E86.0 Dehydration; G47.33 Obstructive sleep apnea (adult) (pediatric); I11.0 Hypertensive heart disease with heart failure; I25.2 Old myocardial infarction; I45.10 Unspecified right bundle-branch block; I95.1 Orthostatic hypotension; J45.909 Unspecified asthma, uncomplicated; R77.9 Abnormality of plasma protein, unspecified; M19.90 Unspecified osteoarthritis, unspecified site; R39.15 Urgency of urination; R35.0 Frequency of micturition; E86.9 Volume depletion, unspecified; F41.9 Anxiety disorder, unspecified; F32.9 Major depressive disorder, single episode, unspecified; H26.9 Unspecified cataract; Z79.02 Long term (current) use of antithrombotics/antiplatelets; Z79.4 Long term (current) use of insulin; Z79.899 Other long term (current) drug therapy; Z79.82 Long term (current) use of aspirin; Z95.5 Presence of coronary angioplasty implant and graft; Z95.1 Presence of aortocoronary bypass graft; Z68.35 Body mass index [BMI] 35.0-35.9, adult; Z88.1 Allergy status to other antibiotic agents; Z88.2 Allergy status to sulfonamides; Z86.73 Personal history of transient ischemic attack (TIA), and cerebral infarction without residual deficits; Z86.14 Personal history of Methicillin resistant Staphylococcus aureus infection; E66.01 Morbid (severe) obesity due to excess calories; Z80.8 Family history of malignant neoplasm of other organs or systems; Z82.49 Family history of ischemic heart disease and other diseases of the circulatory system; Z83.79 Family history of other diseases of the digestive system; I50.9 Heart failure, unspecified
CPT/HCPCS: 36415; 71046; 80048; 80053; 82550; 82553; 83036; 83735; 83880; 84484; 85025; 85610; 85730; 93005; 93880; 96361; 96374; 96376; 99285

== ENCOUNTER → 2018-07-26 | Outpatient (CLI) | payer MEDICARE ==
--- NOTE | 2018-07-27 10:03 | P.ARTDOP ---
Arterial Doppler LOWER EXTREMITY ARTERIAL DOPPLER: DATE OF SERVICE: 07/26/2018 Reason for study: Right foot ulcer. Doppler waveforms: Multiphasic bilaterally throughout. Pulse volume recording: Normal configuration including digits on the left. Pressure gradients: None. Ankle-brachial indices: Greater than 1 bilaterally. Toe pressures: [] on the right, 109 on the left Impression: Normal study.
--- NOTE | 2018-07-27 11:09 | NM ---
EXAMINATION TYPE: NM bone 3 phase DATE OF EXAM: 07/26/2018 COMPARISON: NONE HISTORY: Osteomyelitis per order. Pain in right foot were second and third toes with open sores for o ne month. Triple phase bone scintigraphy was performed following the injection of 23.2 mCi Tc 99m MDP. Immedia te images and 4 hours post injection images acquired. 3 phase imaging of the bilateral ankles and fee t are acquired. FINDINGS: Arterial and soft tissue phase images show increased uptake to the right ankle and foot more prominen t over the first toe. Delayed phase images show persistent asymmetric increased radiotracer uptake ov er the right first toe. Acute osteomyelitis at this level cannot be excluded. Correlate clinically an d with radiographs. IMPRESSION: As above.
== END ==
LOC: RADNMMAIN 07:09
PROVIDERS: ATTEND Thoracic Surgery (Cardiothoracic Vascular Surgery)
DX: M86.8X8 Other osteomyelitis, other site (principal); M79.604 Pain in right leg; M79.605 Pain in left leg; E63.8 Other specified nutritional deficiencies; E13.621 Other specified diabetes mellitus with foot ulcer
CPT/HCPCS: 93923; 78315; A9503

== ENCOUNTER → 2018-07-26 | Outpatient (CLI) | payer MEDICARE | LOC: RADUSWWP 08:24 | PROVIDERS: ATTEND Thoracic Surgery (Cardiothoracic Vascular Surgery) | DX: Z53.9 Procedure and treatment not carried out, unspecified reason (principal) ==

== ENCOUNTER 2021-02-12 15:56 | Emergency (ER) | payer MEDICARE ==
[2021-02-12 16:32] VITALS: RESP 18
[2021-02-12 16:44] LABS: Glucose,Whole Blood >600 mg/dL (75-99)
[2021-02-12] MEDS ORDERED: SODIUM CHLORIDE 0.9% 2,000 ML IV STA (16:48)
[2021-02-12 17:30] LABS: VBG PH 7.33 (7.31-7.41)
[2021-02-12 17:38] LABS: Basophils % (A) 1 %; Eosinophils # (A) 0.1 k/uL (0-0.7); Eosinophils % (A) 2 %; HCT 40.6 % (39.0-53.0); HGB 14.1 gm/dL (13.0-17.5); Lymphocytes # (A) 1.7 k/uL (1.0-4.8); Lymphocytes % (A) 27 %; MCH 33.3 pg (25.0-35.0); MCHC 34.8 g/dL (31.0-37.0); MCV 95.7 fL (80.0-100.0); Monocytes # (A) 0.3 k/uL (0-1.0); Monocytes % (A) 5 %; Neutrophils % (A) 64 %; Platelet Count 232 k/uL (150-450); RBC 4.24 m/uL (4.30-5.90); RDW 13.7 % (11.5-15.5); WBC 6.3 k/uL (3.8-10.6)
[2021-02-12 17:45] LABS: ALT 19 U/L (4-49); AST 22 U/L (17-59); African American GFR (CKD) 64 (>60 ml/min/1.73 sqM); Albumin 3.5 g/dL (3.5-5.0); Alkaline Phosphatase 119 U/L (38-126); Anion Gap 10 mmol/L; Blood Urea Nitrogen 35 mg/dL (9-20); Calcium 9.5 mg/dL (8.4-10.2); Carbon Dioxide 20 mmol/L (22-30); Chloride 94 mmol/L (98-107); Non-African American GFR(CKD) 55 (>60 ml/min/1.73 sqM); Potassium 5.4 mmol/L (3.5-5.1); Sodium 124 mmol/L (137-145); Total Bilirubin 0.4 mg/dL (0.2-1.3); Total Protein 6.9 g/dL (6.3-8.2)
[2021-02-12 17:51] LABS: Glucose 574 mg/dL (74-99)
[2021-02-12 17:53] LABS: Appearance,Urine Clear (Clear); Bilirubin,Urine Negative (Negative); Blood,Urine Small (Negative); Color,Urine Light Yellow; Glucose,Urine (UA) 4+ (Negative); Ketones,Urine Negative (Negative); Leukocyte Esterase,Urine Negative (Negative); Nitrite,Urine Negative (Negative); Protein,Urine 1+ (Negative); RBC,Urine 1 /hpf (0-5); Squamous Epithelial Cell,Urine <1 /hpf (0-4); Urobilinogen,Urine <2.0 mg/dL (<2.0); WBC,Urine <1 /hpf (0-5)
[2021-02-12] MEDS ORDERED: INSULIN REGULAR 100 UNIT/ML VIAL (IV) IV ONE (18:01)
--- NOTE | 2021-02-12 18:38 | ED ---
Recheck HPI - General Chief Complaint: Recheck/Abnormal Lab/Rx Stated Complaint: High Blood sugar/sent by PCP Time Seen by Provider: 02/12/21 16:42 Source: patient Mode of arrival: wheelchair Limitations: no limitations - History of Present Illness Initial Comments: 70-year-old male with history of diabetes, hypertension, dyslipidemia, coronary artery disease presenting to the emergency department with a chief complaint of elevated blood sugar. Patient reports he went to his primary care physician for routine visit when they noticed the patient had an elevated blood sugar. It is simply read "high". Patient states he felt nauseous previous to but did not vomit. States his diabetes is not well-controlled. States he was diagnosed about 7 years ago. He denies any abdominal chest pain or shortness of breath. He denies any UTI like symptoms. States he is on insulin. States he is not able to control his diabetes. - Related Data Home Medications Medication Instructions Recorded Confirmed Insulin Aspart [NovoLOG Flexpen] 20 units SQ AC-BID 02/24/18 02/12/21 Atorvastatin [Lipitor] 40 mg PO HS 02/12/21 02/12/21 Insulin Glargine,Hum.rec.anlog 60 unit SQ BID 02/12/21 02/12/21 [Lantus Solostar] metFORMIN HCL [Glucophage] 1,000 mg PO BID 02/12/21 02/12/21 Previous Rx's Medication Instructions Recorded Clopidogrel [Plavix] 75 mg PO DAILY #30 tab 03/05/18 Allergies Allergy/AdvReac Type Severity Reaction Status Date / Time sulfamethoxazole Allergy Rash/Hives Verified 02/12/21 18:24 [From Bactrim] trimethoprim [From Bactrim] Allergy Rash/Hives Verified 02/12/21 18:24 Review of Systems ROS Statement: Those systems with pertinent positive or pertinent negative responses have been documented in the HPI. ROS Other: All systems not noted in ROS Statement are negative. Past Medical History Past Medical History: Asthma, Coronary Artery Disease (CAD), CVA/TIA, Diabetes Mellitus, Hyperlipidemia, Hypertension, Myocardial Infarction (MD), Sleep Apnea/CPAP/BIPAP Additional Past Medical History / Comment(s): NO CPAP MACHINE,BRONCHITIS, TIA, BEGINNINGS OF CATARACTS,ARTHRITIS,ABD HERNIA,"urgency/frequency of urine",past rt hand cellulitis,rt foot wound Last Myocardial Infarction Date:: 2003 History of Any Multi-Drug Resistant Organisms: MRSA Date of last positivie culture/infection: 12/06/15 MDRO Source:: RIGHT HAND Past Surgical History: Coronary Bypass/CABG, Heart Catheterization With Stent, Orthopedic Surgery Additional Past Surgical History / Comment(s): HEART CATH AND 2 STENTS BEFORE THE 2 VESSEL BYPASS that was done in 2007, SHATTERED LT HAND SX TO REPAIR.--right foot toes amputated october 2017 ([place]), rt pinky finger amp. 3 stents Past Anesthesia/Blood Transfusion Reactions: No Reported Reaction Date of Last Stent Placement:: 2003? Past Psychological History: Anxiety, Bipolar, Depression Smoking Status: Never smoker Past Alcohol Use History: Occasional Past Drug Use History: None Reported - Past Family History Mother Family Medical History: Cancer, GERD/Reflux Additional Family Medical History / Comment(s): skin cancer Father Family Medical History: Myocardial Infarction (MD) Additional Family Medical History / Comment(s): mi's x3 General Exam Limitations: no limitations General appearance: alert, in no apparent distress, obese Head exam: Present: atraumatic, normocephalic, normal inspection Eye exam: Present: normal appearance, PERRL, EOMI Pupils: Present: normal accommodation ENT exam: Present: normal exam, normal oropharynx, mucous membranes moist, TM's normal bilaterally, normal external ear exam Neck exam: Present: normal inspection, full ROM. Absent: tenderness Respiratory exam: Present: normal lung sounds bilaterally. Absent: respiratory distress, wheezes, rales, rhonchi, stridor Cardiovascular Exam: Present: regular rate, normal rhythm, normal heart sounds. Absent: systolic murmur GI/Abdominal exam: Present: soft. Absent: distended, tenderness, guarding, rebound, rigid Extremities exam: Present: normal inspection, full ROM, normal capillary refill. Absent: tenderness, pedal edema, joint swelling Back exam: Present: normal inspection, full ROM. Absent: tenderness Neurological exam: Present: alert, oriented X3 Psychiatric exam: Present: normal affect, normal mood Skin exam: Present: warm, dry, intact, normal color Course Vital Signs 02/12/21 16:28 Temperature 97.9 F Pulse Rate 54 L Respiratory 18 Rate Blood Pressure 133/78 O2 Sat by Pulse 96 Oximetry Medical Decision Making - Medical Decision Making 70-year-old male with history of diabetes, hypertension, dyslipidemia, coronary artery disease presenting to the emergency department with a chief complaint of elevated blood sugar. Physical examination shows no acute findings. CBC unremarkable. CMP reveals hyponatremia with a sodium of 124. Likely hypertonic hypernatremia secondary to elevated glucose. Blood glucose 575. Anion gap 10. Acetone negative. No ketones in the urine. No DKA at this time. Serum osmolarity 312. Elevated creatinine of 1.32. Patient given 2 L of IV bolus fluids and 11 units of regular insulin. She will be started on insulin infusion and IV fluids. Considering his comorbidities and uncontrolled diabetes. Patient will be admitted for further medical management. Case discussed with Dr. Granado I spoke to Aleja, and dbeorah will admit for Dr. Irving. Dietitian consult. - Lab Data Result diagrams: 02/12/21 17:12 02/12/21 17:12 Lab Results 02/12/21 02/12/21 02/12/21 Range/Units 16:41 17:12 17:12 WBC 6.3 (3.8-10.6) k/uL RBC 4.24 L (4.30-5.90) m/uL Hgb 14.1 (13.0-17.5) gm/dL Hct 40.6 (39.0-53.0) % MCV 95.7 (80.0-100.0) fL MCH 33.3 (25.0-35.0) pg MCHC 34.8 (31.0-37.0) g/dL RDW 13.7 (11.5-15.5) % Plt Count 232 (150-450) k/uL MPV 9.0 Neutrophils % 64 % Lymphocytes % 27 % Monocytes % 5 % Eosinophils % 2 % Basophils % 1 % Neutrophils # 4.0 (1.3-7.7) k/uL Lymphocytes # 1.7 (1.0-4.8) k/uL Monocytes # 0.3 (0-1.0) k/uL Eosinophils # 0.1 (0-0.7) k/uL Basophils # 0.0 (0-0.2) k/uL VBG pH (7.31-7.41) VBG pCO2 (37-51) mmHg VBG HCO3 (24-28) mmol/L Sodium 124 L (137-145) mmol/L Potassium 5.4 H (3.5-5.1) mmol/L Chloride 94 L (98-107) mmol/L Carbon Dioxide 20 L (22-30) mmol/L Anion Gap 10 mmol/L BUN 35 H (9-20) mg/dL Creatinine 1.32 H (0.66-1.25) mg/dL Est GFR (CKD-EPI)AfAm 64 (>60 ml/min/1.73 sqM) Est GFR (CKD-EPI)NonAf 55 (>60 ml/min/1.73 sqM) Glucose 574 H* (74-99) mg/dL POC Glucose (mg/dL) >600 H (75-99) mg/dL POC Glu [employer] Representative [employer] ID Lynda Valdivia Osmolality ([phone]) mosm/kg Calcium 9.5 (8.4-10.2) mg/dL Total Bilirubin 0.4 (0.2-1.3) mg/dL AST 22 (17-59) U/L ALT 19 (4-49) U/L Alkaline Phosphatase 119 (38-126) U/L Total Protein 6.9 (6.3-8.2) g/dL Albumin 3.5 (3.5-5.0) g/dL Urine Color Urine Appearance (Clear) Urine pH (5.0-8.0) Ur Specific [place] (1.001-1.035) Urine Protein (Negative) Urine Glucose (UA) (Negative) Urine Ketones (Negative) Urine Blood (Negative) Urine Nitrite (Negative) Urine Bilirubin (Negative) Urine Urobilinogen (<2.0) mg/dL Ur Leukocyte Esterase (Negative) Urine RBC (0-5) /hpf Urine WBC (0-5) /hpf Ur Squamous Epith Cells (0-4) /hpf Acetone, Qual Negative (Negative) 02/12/21 02/12/21 02/12/21 Range/Units 17:12 17:12 17:40 WBC (3.8-10.6) k/uL RBC (4.30-5.90) m/uL Hgb (13.0-17.5) gm/dL Hct (39.0-53.0) % MCV (80.0-100.0) fL MCH (25.0-35.0) pg MCHC (31.0-37.0) g/dL RDW (11.5-15.5) % Plt Count (150-450) k/uL MPV Neutrophils % % Lymphocytes % % Monocytes % % Eosinophils % % Basophils % % Neutrophils # (1.3-7.7) k/uL Lymphocytes # (1.0-4.8) k/uL Monocytes # (0-1.0) k/uL Eosinophils # (0-0.7) k/uL Basophils # (0-0.2) k/uL VBG pH 7.33 (7.31-7.41) VBG pCO2 52 H (37-51) mmHg VBG HCO3 27 (24-28) mmol/L Sodium (137-145) mmol/L Potassium (3.5-5.1) mmol/L Chloride (98-107) mmol/L Carbon Dioxide (22-30) mmol/L Anion Gap mmol/L BUN (9-20) mg/dL Creatinine (0.66-1.25) mg/dL Est GFR (CKD-EPI)AfAm (>60 ml/min/1.73 sqM) Est GFR (CKD-EPI)NonAf (>60 ml/min/1.73 sqM) Glucose (74-99) mg/dL POC Glucose (mg/dL) (75-99) mg/dL POC Glu [employer] ID Osmolality 312 H (280-301) mosm/kg Calcium (8.4-10.2) mg/dL Total Bilirubin (0.2-1.3) mg/dL AST (17-59) U/L ALT (4-49) U/L Alkaline Phosphatase (38-126) U/L Total Protein (6.3-8.2) g/dL Albumin (3.5-5.0) g/dL Urine Color Light Yellow Urine Appearance Clear (Clear) Urine pH 5.0 (5.0-8.0) Ur Specific [place] 1.030 (1.001-1.035) Urine Protein 1+ H (Negative) Urine Glucose (UA) 4+ H (Negative) Urine Ketones Negative (Negative) Urine Blood Small H (Negative) Urine Nitrite Negative (Negative) Urine Bilirubin Negative (Negative) Urine Urobilinogen <2.0 (<2.0) mg/dL Ur Leukocyte Esterase Negative (Negative) Urine RBC 1 (0-5) /hpf Urine WBC <1 (0-5) /hpf Ur Squamous Epith Cells <1 (0-4) /hpf Acetone, Qual (Negative) 02/12/21 Range/Units 18:48 WBC (3.8-10.6) k/uL RBC (4.30-5.90) m/uL Hgb (13.0-17.5) gm/dL Hct (39.0-53.0) % MCV (80.0-100.0) fL MCH (25.0-35.0) pg MCHC (31.0-37.0) g/dL RDW (11.5-15.5) % Plt Count (150-450) k/uL MPV Neutrophils % % Lymphocytes % % Monocytes % % Eosinophils % % Basophils % % Neutrophils # (1.3-7.7) k/uL Lymphocytes # (1.0-4.8) k/uL Monocytes # (0-1.0) k/uL Eosinophils # (0-0.7) k/uL Basophils # (0-0.2) k/uL VBG pH (7.31-7.41) VBG pCO2 (37-51) mmHg VBG HCO3 (24-28) mmol/L Sodium (137-145) mmol/L Potassium (3.5-5.1) mmol/L Chloride (98-107) mmol/L Carbon Dioxide (22-30) mmol/L Anion Gap mmol/L BUN (9-20) mg/dL Creatinine (0.66-1.25) mg/dL Est GFR (CKD-EPI)AfAm (>60 ml/min/1.73 sqM) Est GFR (CKD-EPI)NonAf (>60 ml/min/1.73 sqM) Glucose (74-99) mg/dL POC Glucose (mg/dL) 434 H (75-99) mg/dL POC Glu [employer] ID Willing, Yazmin Osmolality ([phone]) mosm/kg Calcium (8.4-10.2) mg/dL Total Bilirubin (0.2-1.3) mg/dL AST (17-59) U/L ALT (4-49) U/L Alkaline Phosphatase (38-126) U/L Total Protein (6.3-8.2) g/dL Albumin (3.5-5.0) g/dL Urine Color Urine Appearance (Clear) Urine pH (5.0-8.0) Ur Specific [place] (1.001-1.035) Urine Protein (Negative) Urine Glucose (UA) (Negative) Urine Ketones (Negative) Urine Blood (Negative) Urine Nitrite (Negative) Urine Bilirubin (Negative) Urine Urobilinogen (<2.0) mg/dL Ur Leukocyte Esterase (Negative) Urine RBC (0-5) /hpf Urine WBC (0-5) /hpf Ur Squamous Epith Cells (0-4) /hpf Acetone, Qual (Negative) - EKG Data EKG Comments: Sinus arrhythmia, right bundle branch block Ventricular rate 83, HI 192, QRS 166, QTC 500. Disposition Clinical Impression: Hyperglycemia, Hyperkalemia Disposition: ADMITTED IP TO THIS HOSP Condition: Fair Is patient prescribed a controlled substance at d/c from ED?: No Referrals: None,Stated [Primary Care Provider] - 1-2 days Time of Disposition: 19:10
[2021-02-12 18:50] LABS: Glucose,Whole Blood 434 mg/dL (75-99)
[2021-02-12] MEDS ORDERED: SODIUM CHLORIDE 0.9% 1,000 ML IV SCH (19:00)
[2021-02-12] MEDS ORDERED: INSULIN REGULAR 100 UNIT in SODIUM CHLORIDE 0.9% 100 ML IV SCH (19:00)
[2021-02-12] MEDS ORDERED: NALOXONE 0.4 MG/ML 1 ML VIAL IV PRN (19:05)
[2021-02-12 19:40] LABS: Glucose,Whole Blood 396 mg/dL (75-99)
[2021-02-12 20:31] LABS: Phosphorus 5.5 mg/dL (2.5-4.5); Potassium 4.4 mmol/L (3.5-5.1)
[2021-02-12 20:32] LABS: Glucose,Whole Blood 434 mg/dL (75-99)
[2021-02-12 21:02] VITALS: BP 174/84; PULSE 73; TEMP 97.5
== END 2021-02-12 20:50 | disposition other institution (70) ==
LOC: EC 15:56 → 4SSUR 18:45 → UNDOADMIN 18:45 → EC 20:50
DX: E87.5 Hyperkalemia (principal); E11.65 Type 2 diabetes mellitus with hyperglycemia; J45.909 Unspecified asthma, uncomplicated; I10 Essential (primary) hypertension; I25.2 Old myocardial infarction; E78.5 Hyperlipidemia, unspecified; I25.810 Atherosclerosis of coronary artery bypass graft(s) without angina pectoris; Z79.899 Other long term (current) drug therapy; Z79.84 Long term (current) use of oral hypoglycemic drugs; Z88.1 Allergy status to other antibiotic agents; Z88.2 Allergy status to sulfonamides; Z86.73 Personal history of transient ischemic attack (TIA), and cerebral infarction without residual deficits; Z95.5 Presence of coronary angioplasty implant and graft
CPT/HCPCS: 36415; 80051; 80053; 81001; 82009; 82565; 82803; 82947; 83930; 84100; 84520; 85025; 93005; 96361; 96365; 96375; 99285

== ENCOUNTER 2021-03-13 17:53 | Inpatient (IN) | payer MEDICARE ==
[2021-03-13] MEDS ORDERED: LIDOCAINE 1%-EPI 1:100,000 20 ML VIAL SQ STA (18:30)
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
--- NOTE | 2021-03-13 18:48 | XR ---
EXAMINATION TYPE: XR Hip Complete LT DATE OF EXAM: 03/13/2021 COMPARISON: NONE HISTORY: Hip pain TECHNIQUE: 2 views FINDINGS: I see no fracture nor dislocation. Hip joint space is fairly normal. Proximal femur is inta ct. There is mild acetabular spurring. IMPRESSION: Negative left hip exam.
[2021-03-13] MEDS ORDERED: VANCOMYCIN IV PER PHARMACY 1 EACH MISC MISCELLANE PRN (18:56)
[2021-03-13] MEDS ORDERED: NALOXONE 0.4 MG/ML 1 ML VIAL IV PRN (19:01)
[2021-03-13] MEDS ORDERED: ACETAMINOPHEN TAB 325 MG TAB PO PRN (19:01)
[2021-03-13] MEDS ORDERED: ONDANSETRON 4 MG/2 ML VIAL IVP PRN (19:01)
[2021-03-13] MEDS ORDERED: VANCOMYCIN 1,750 MG in SODIUM CHLORIDE 0.9% 500 ML 500 ML IVPB STA (19:05)
[2021-03-13 20:05] LABS: Basophils % (A) 0 %; Eosinophils # (A) 0.1 k/uL (0-0.7); Eosinophils % (A) 1 %; HCT 39.9 % (39.0-53.0); HGB 13.2 gm/dL (13.0-17.5); Hypochromasia Slight; Lymphocytes # (A) 1.5 k/uL (1.0-4.8); Lymphocytes % (A) 16 %; MCH 31.9 pg (25.0-35.0); MCHC 33.1 g/dL (31.0-37.0); MCV 96.4 fL (80.0-100.0); Mean Platelet Volume 9.1; Monocytes # (A) 0.5 k/uL (0-1.0); Monocytes % (A) 5 %; Neutrophils # (A) 6.9 k/uL (1.3-7.7); Neutrophils % (A) 75 %; Platelet Count 205 k/uL (150-450); RBC 4.14 m/uL (4.30-5.90); RDW 14.1 % (11.5-15.5); WBC 9.2 k/uL (3.8-10.6)
[2021-03-13 20:14] LABS: Calcium 9.2 mg/dL (8.4-10.2); Potassium 4.5 mmol/L (3.5-5.1)
[2021-03-13] MEDS: MORPHINE SULFATE 4 MG/ML SYRINGE IV PRN (20:15)
[2021-03-13] MEDS: SODIUM CHLORIDE 0.9% 1,000 ML IV SCH (20:23)
[2021-03-13 21:33] LABS: Glucose,Whole Blood 314 mg/dL (75-99)
[2021-03-13] MEDS ORDERED: INSULIN ASPART (NovoLOG) 100 UNIT/ML VIAL SQ SCH (22:00)
[2021-03-13] MEDS ORDERED: NITROGLYCERIN SL TABS 0.4 MG TAB SUBLINGUAL PRN (23:08)
[2021-03-13] MEDS: SERTRALINE 50 MG TAB PO SCH (23:41)
[2021-03-13] MEDS: amLODIPine 10 MG TAB PO SCH (23:41)
[2021-03-13] MEDS: ATORVASTATIN 40 MG TAB PO SCH (23:42)
[2021-03-13] MEDS: CLOPIDOGREL 75 MG TAB PO SCH (23:42)
[2021-03-13] MEDS: TAMSULOSIN 0.4 MG CAP.ER.24H PO SCH (23:42)
[2021-03-13] MEDS: MELATONIN 3 MG TABLET PO SCH (23:42)
[2021-03-14] MEDS: INSULIN DETEMIR (LEVEMIR) 100 UNIT/ML SYR SQ SCH ×3 (00:25→21:14)
[2021-03-14] MEDS: MORPHINE SULFATE 4 MG/ML SYRINGE IV PRN ×4 (00:27→21:14)
[2021-03-14] MEDS: SERTRALINE 50 MG TAB PO SCH (07:49)
[2021-03-14] MEDS: amLODIPine 10 MG TAB PO SCH (07:49)
[2021-03-14] MEDS: CLOPIDOGREL 75 MG TAB PO SCH (07:49)
[2021-03-14] MEDS: ASPIRIN 81 MG PO SCH (07:49)
[2021-03-14 08:01] LABS: Glucose,Whole Blood 151 mg/dL (75-99)
[2021-03-14] MEDS: INSULIN ASPART (NovoLOG) 100 UNIT/ML VIAL SQ SCH ×4 (08:13→21:14)
[2021-03-14 12:06] LABS: Glucose,Whole Blood 220 mg/dL (75-99)
[2021-03-14 14:22] LABS: Hemoglobin A1C 14.6 % (4.0-6.0)
[2021-03-14] MEDS: VANCOMYCIN 1,750 MG in SODIUM CHLORIDE 0.9% 500 ML 500 ML IVPB SCH (16:15)
[2021-03-14 17:28] LABS: Glucose,Whole Blood 268 mg/dL (75-99)
[2021-03-14] MEDS: TAMSULOSIN 0.4 MG CAP.ER.24H PO SCH (19:17)
[2021-03-14] MEDS: ATORVASTATIN 40 MG TAB PO SCH (19:17)
[2021-03-14] MEDS: MELATONIN 3 MG TABLET PO SCH (19:17)
[2021-03-14] MEDS: SODIUM CHLORIDE 0.9% 1,000 ML IV SCH (19:17)
[2021-03-14 20:56] LABS: Glucose,Whole Blood 234 mg/dL (75-99)
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
[2021-03-15 07:35] LABS: Glucose,Whole Blood 86 mg/dL (75-99)
[2021-03-15] MEDS: INSULIN ASPART (NovoLOG) 100 UNIT/ML VIAL SQ SCH ×4 (10:22→21:08)
[2021-03-15] MEDS: ASPIRIN 81 MG PO SCH (10:25)
[2021-03-15] MEDS: INSULIN DETEMIR (LEVEMIR) 100 UNIT/ML SYR SQ SCH ×2 (10:25→21:09)
[2021-03-15] MEDS: amLODIPine 10 MG TAB PO SCH (10:25)
[2021-03-15] MEDS: CLOPIDOGREL 75 MG TAB PO SCH (10:25)
[2021-03-15] MEDS: SERTRALINE 50 MG TAB PO SCH (10:25)
[2021-03-15] MEDS: VANCOMYCIN 1,750 MG in SODIUM CHLORIDE 0.9% 500 ML 500 ML IVPB SCH (10:26)
[2021-03-15 12:12] LABS: Glucose,Whole Blood 185 mg/dL (75-99)
[2021-03-15 13:16] VITALS: BMI 34.9
--- NOTE | 2021-03-15 15:21 | P.PN ---
Subjective Progress Note Date: 03/15/21 Principal diagnosis: Right upper back cellulitis with abscess. Patient is a 70-year-old male with a known history of coronary artery disease status post stent placement, hypertension, diabetes type 2, hyperlipidemia, history of [place], obstructive sleep apnea on CPAP at home, history of TIA and osteoarthritis, anxiety/depression/bipolar disorder and occasional alcohol use presents to ER with complaints of right upper back abscess. Patient did notice a painful lump to the right upper back for which patient is being treated with antibiotics abdominal X. Patient presents to ER with complaints of worsening swelling and pain and sharp pain 5-6 out of 10 in severity. With minimal purulent drainage. Patient was evaluated in the ER and status post incision and drainage in the ER. Patient is also complaining of left ear pain. Apparently patient was trying to get out of the bus when the inventory associate and driver accidentally closed the door on his leg causing him to lose balance and fell on the pavement with resulting pain in the left hip. Hip x-ray showed no acute fracture or dislocation. Laboratory data showed WBC 9.2 hemoglobin 13.1 platelets 205 Sodium 132 potassium 4.5 chloride 99 BUN 29 and creatinine 1.4 and blood sugar is 312 A1c 14.6 03/15/2021 Patient is currently resting in the bed. Awake alert and oriented. Patient is being continued on antibiotics in the form of vancomycin. Due to uncontrolled diabetes patient was started on insulin regimen and titrate dose as needed. Blood pressure 158/77 pulse 56 and this patient 20 and pulse ox 91% on room air currently. Patient has been afebrile. No headache or dizziness or lightheadedness. Patient is at risk for MRSA and is being continued on vancomycin currently. Awaiting final culture report. ID is on board. Renal function with slight improvement in creatinine 1.36 today. Current medications reviewed. Objective - Vital Signs Vital signs: Vital Signs Temp 97.7 F 03/15/21 07:00 Pulse 56 L 03/15/21 07:00 Resp 20 03/15/21 08:00 BP 158/77 03/15/21 07:00 Pulse Ox 91 L 03/15/21 07:00 Intake & Output 03/14/21 03/15/21 03/15/21 18:59 06:59 18:59 Intake Total 300 Output Total 800 Balance -500 Weight 107.501 kg Intake: Oral 300 Output: Urine 800 Other: Voiding Method Toilet Toilet Toilet Urinal Urinal Urinal # Voids 1 1 # Bowel Movements 1 - Exam PHYSICAL EXAMINATION: Patient is lying in the bed comfortably, no acute distress, awake alert and oriented.. HEENT: Normocephalic. Neck is supple. Pupils reactive. Nostrils clear. Oral cavity is moist. Neck reveals no JVD, carotid bruits, or thyromegaly. CHEST EXAMINATION: Trachea is central. Symmetrical expansion. Lung cazares clear to auscultation and percussion. Patient does have abscess of the right upper back. With surrounding redness and tenderness. CARDIAC: Normal S1, S2 with no gallops. No murmurs ABDOMEN: Soft. Bowel sounds normal. No organomegaly. No abdominal bruits. Extremities: reveal no edema. No clubbing or cyanosis Neurologically awake, alert, oriented x3 with well-coordinated movements. No focal deficits noted Skin: No rash or skin lesions. Psychiatric: Coperative. Nonsuicidal Musculoskeletal: No joint swelling or deformity. Normal range of motion. - Labs CBC & Chem 7: 03/13/21 19:22 03/15/21 06:10 Labs: Abnormal Lab Results - Last 24 Hours (Table) 03/14/21 03/14/21 03/15/21 Range/Units 17:26 20:55 06:10 Creatinine 1.36 H (0.66-1.25) mg/dL POC Glucose (mg/dL) 268 H 234 H (75-99) mg/dL 03/15/21 Range/Units 12:10 Creatinine (0.66-1.25) mg/dL POC Glucose (mg/dL) 185 H (75-99) mg/dL Microbiology - Last 24 Hours (Table) 03/14/21 16:21 Gram Stain - Preliminary Shoulder - Right Wound Culture - Preliminary Assessment and Plan Assessment: Right upper back cellulitis with abscess. Failed outpatient antibiotic therapy. Uncontrolled diabetes type 2 with A1c level 14.6. 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 Obesity with BMI 35.0 Plan: Patient be continued on antibiotics at home vancomycin. Follow-up final culture reports. ID is on board. Patient was started back on home insulin regimen and titrate dose as needed for better blood sugar control. Apparently patient has been noncompliant with insulin regimen and also diabetic diet. Continue with pain management and current with home medications and follow-up closely. Anticipate discharged with final culture report.
--- NOTE | 2021-03-15 15:40 | PN ---
PROGRESS NOTE DATE OF SERVICE: 03/15/2021 REASON FOR FOLLOW UP: Right upper back abscess. INTERVAL HISTORY: The patient is afebrile. The patient is feeling better. Breathing comfortably. Overall pain and discomfort to the upper back is decreased. No chest pain, shortness of breath or cough. No abdominal pain, no diarrhea. PHYSICAL EXAMINATION: Blood pressure 152/77 with a pulse of 56, temperature 96.7. He is 91% on room air. General description is an elderly male lying in bed in no distress. Respiratory system: Unlabored breathing, clear to auscultation anteriorly. Heart S1, S2. Regular rate and rhythm. Abdomen soft, no tenderness. Right upper back area swelling has decreased. LABS: Creatinine is 1.36. DIAGNOSTIC IMPRESSION AND PLAN: Patient with upper back abscess, failing outpatient oral antibiotic therapy. Concern for possible ( ). Patient to continue vancomycin while waiting for the culture to finalize and monitor kidney function closely. Continue supportive care. MMODL / IJN: [id number] /
[2021-03-15] MEDS: MORPHINE SULFATE 4 MG/ML SYRINGE IV PRN ×2 (15:56→22:25)
[2021-03-15 17:00] LABS: Glucose,Whole Blood 218 mg/dL (75-99)
[2021-03-15 20:18] LABS: Glucose,Whole Blood 192 mg/dL (75-99)
[2021-03-15] MEDS: SODIUM CHLORIDE 0.9% 1,000 ML IV SCH (21:02)
[2021-03-15] MEDS: ATORVASTATIN 40 MG TAB PO SCH (21:08)
[2021-03-15] MEDS: TAMSULOSIN 0.4 MG CAP.ER.24H PO SCH (21:09)
[2021-03-15] MEDS: MELATONIN 3 MG TABLET PO SCH (21:09)
[2021-03-16] MEDS: VANCOMYCIN 1,750 MG in SODIUM CHLORIDE 0.9% 500 ML 500 ML IVPB SCH ×2 (00:44→16:17)
[2021-03-16 07:41] LABS: Glucose,Whole Blood 85 mg/dL (75-99)
[2021-03-16] MEDS: INSULIN ASPART (NovoLOG) 100 UNIT/ML VIAL SQ SCH ×4 (07:42→21:43)
[2021-03-16] MEDS: INSULIN DETEMIR (LEVEMIR) 100 UNIT/ML SYR SQ SCH ×2 (08:40→21:43)
[2021-03-16] MEDS: SERTRALINE 50 MG TAB PO SCH (08:40)
[2021-03-16] MEDS: amLODIPine 10 MG TAB PO SCH (08:40)
[2021-03-16] MEDS: CLOPIDOGREL 75 MG TAB PO SCH (08:40)
[2021-03-16] MEDS: ASPIRIN 81 MG PO SCH (08:40)
[2021-03-16] MEDS: MORPHINE SULFATE 4 MG/ML SYRINGE IV PRN ×4 (09:33→22:40)
[2021-03-16 12:17] LABS: Glucose,Whole Blood 192 mg/dL (75-99)
[2021-03-16] MEDS ORDERED: VANCOMYCIN TROUGH DUE 1 EACH MISC MISCELLANE ONE (15:00)
[2021-03-16 17:39] LABS: Glucose,Whole Blood 143 mg/dL (75-99)
[2021-03-16] MEDS ORDERED: IBUPROFEN 400 MG TAB PO STA (19:26)
--- NOTE | 2021-03-16 19:34 | PN ---
PROGRESS NOTE DATE OF SERVICE: 03/16/2021 REASON FOR FOLLOW UP: Right upper back abscess and cellulitis. INTERVAL HISTORY: The patient is afebrile. Overall pain and discomfort to the right upper back area has decreased. No chest pain, shortness of breath or cough. No abdominal pain, no diarrhea. PHYSICAL EXAMINATION: Blood pressure 176/83, pulse of 57, temperature 97.5. He is 95% on room air. General description is an elderly male lying in bed in no distress. Respiratory system: Unlabored breathing, clear to auscultation anteriorly. Heart S1, S2. Regular rate and rhythm. Abdomen soft, no tenderness. Right upper back area swelling has slightly decreased. LABS: Wound culture with Staph aureus, sensitivities pending. . DIAGNOSTIC IMPRESSION AND PLAN: Right upper back abscess and cellulitis with spontaneous drainage. Culture with presumptive Staph aureus, sensitivity is pending. Continue vancomycin. Discharge antibiotic on the basis of final cultures. Continue supportive care. MMODL / IJN: [id number] /
[2021-03-16 20:34] LABS: Glucose,Whole Blood 159 mg/dL (75-99)
[2021-03-16] MEDS: SODIUM CHLORIDE 0.9% 1,000 ML IV SCH (21:42)
[2021-03-16] MEDS: ATORVASTATIN 40 MG TAB PO SCH (21:43)
[2021-03-16] MEDS: MELATONIN 3 MG TABLET PO SCH (21:43)
[2021-03-16] MEDS: TAMSULOSIN 0.4 MG CAP.ER.24H PO SCH (21:44)
--- NOTE | 2021-03-16 23:53 | P.PN ---
Subjective Progress Note Date: 03/16/21 Principal diagnosis: Right upper back cellulitis with abscess. Patient is a 70-year-old male with a known history of coronary artery disease status post stent placement, hypertension, diabetes type 2, hyperlipidemia, history of [place], obstructive sleep apnea on CPAP at home, history of TIA and osteoarthritis, anxiety/depression/bipolar disorder and occasional alcohol use presents to ER with complaints of right upper back abscess. Patient did notice a painful lump to the right upper back for which patient is being treated with antibiotics abdominal X. Patient presents to ER with complaints of worsening swelling and pain and sharp pain 5-6 out of 10 in severity. With minimal purulent drainage. Patient was evaluated in the ER and status post incision and drainage in the ER. Patient is also complaining of left ear pain. Apparently patient was trying to get out of the bus when the dump truck driver off [place] accidentally closed the door on his leg causing him to lose balance and fell on the pavement with resulting pain in the left hip. Hip x-ray showed no acute fracture or dislocation. Laboratory data showed WBC 9.2 hemoglobin 13.1 platelets 205 Sodium 132 potassium 4.5 chloride 99 BUN 29 and creatinine 1.4 and blood sugar is 312 A1c 14.6 03/15/2021 Patient is currently resting in the bed. Awake alert and oriented. Patient is being continued on antibiotics in the form of vancomycin. Due to uncontrolled diabetes patient was started on insulin regimen and titrate dose as needed. Blood pressure 158/77 pulse 56 and this patient 20 and pulse ox 91% on room air currently. Patient has been afebrile. No headache or dizziness or lightheadedness. Patient is at risk for MRSA and is being continued on vancomycin currently. Awaiting final culture report. ID is on board. Renal function with slight improvement in creatinine 1.36 today. 9421 Patient is currently resting in the bed. Awake alert oriented x3. Continued on antibiotics above vancomycin due to right upper back cellulitis and abscess. Wound cultures are growing presumptive staph aureus. ID is on board. Final antibiotic recommendations pending culture report. Patient is afebrile. Blood pressure is elevated and will be continued on Norvasc and will add lisinopril once renal function normalizes. Blood sugar this morning is 86. Continue with insulin regimen and titrate as needed. Current medications reviewed. Objective - Vital Signs Vital signs: Vital Signs Temp 97.5 F L 03/16/21 19:04 Pulse 55 L 03/16/21 19:04 Resp 20 03/16/21 19:04 BP 176/82 03/16/21 19:04 Pulse Ox 97 03/16/21 19:04 Intake & Output 03/16/21 03/16/21 03/17/21 06:59 18:59 06:59 Output Total 1600 Balance -1600 Output: Urine 1600 Other: Voiding Method Toilet Urinal # Voids 2 1 # Bowel Movements 1 - Exam PHYSICAL EXAMINATION: Patient is lying in the bed comfortably, no acute distress, awake alert and oriented.. HEENT: Normocephalic. Neck is supple. Pupils reactive. Nostrils clear. Oral cavity is moist. Neck reveals no JVD, carotid bruits, or thyromegaly. CHEST EXAMINATION: Trachea is central. Symmetrical expansion. Lung cazares clear to auscultation and percussion. Patient does have abscess of the right upper back. With surrounding redness and tenderness. CARDIAC: Normal S1, S2 with no gallops. No murmurs ABDOMEN: Soft. Bowel sounds normal. No organomegaly. No abdominal bruits. Extremities: reveal no edema. No clubbing or cyanosis Neurologically awake, alert, oriented x3 with well-coordinated movements. No focal deficits noted Skin: No rash or skin lesions. Psychiatric: Coperative. Nonsuicidal Musculoskeletal: No joint swelling or deformity. Normal range of motion. - Labs CBC & Chem 7: 03/13/21 19:22 03/15/21 06:10 Labs: Abnormal Lab Results - Last 24 Hours (Table) 03/16/21 03/16/21 03/16/21 Range/Units 12:15 17:38 20:33 POC Glucose (mg/dL) 192 H 143 H 159 H (75-99) mg/dL Microbiology - Last 24 Hours (Table) 03/14/21 16:21 Gram Stain - Preliminary Shoulder - Right Wound Culture - Preliminary Presumptive Staph aureus Assessment and Plan Assessment: Right upper back cellulitis with abscess. Failed outpatient antibiotic therapy. Uncontrolled diabetes type 2 with A1c level 14.6. 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 Obesity with BMI 35.0 Plan: Patient be continued on antibiotics at home vancomycin. Follow-up final culture reports. ID is on board. Patient was started back on home insulin regimen and titrate dose as needed for better blood sugar control. Apparently patient has been noncompliant with insulin regimen and also diabetic diet. Continue with pain management and current with home medications and follow-up closely. Anticipate discharged with final culture report.
[2021-03-17] MEDS: MORPHINE SULFATE 4 MG/ML SYRINGE IV PRN ×4 (04:53→21:01)
[2021-03-17 05:40] LABS: African American GFR (CKD) 64 (>60 ml/min/1.73 sqM); Anion Gap 5 mmol/L; Blood Urea Nitrogen 23 mg/dL (9-20); Calcium 8.7 mg/dL (8.4-10.2); Carbon Dioxide 28 mmol/L (22-30); Chloride 105 mmol/L (98-107); Glucose 64 mg/dL (74-99); Non-African American GFR(CKD) 55 (>60 ml/min/1.73 sqM); Potassium 5.3 mmol/L (3.5-5.1); Sodium 138 mmol/L (137-145)
[2021-03-17 08:11] LABS: Glucose,Whole Blood 68 mg/dL (75-99)
[2021-03-17 08:30] LABS: Glucose,Whole Blood 76 mg/dL (75-99)
[2021-03-17] MEDS: INSULIN ASPART (NovoLOG) 100 UNIT/ML VIAL SQ SCH ×4 (08:31→20:58)
[2021-03-17] MEDS: amLODIPine 10 MG TAB PO SCH (08:34)
[2021-03-17] MEDS: INSULIN DETEMIR (LEVEMIR) 100 UNIT/ML SYR SQ SCH ×2 (08:34→20:57)
[2021-03-17] MEDS: ASPIRIN 81 MG PO SCH (08:34)
[2021-03-17] MEDS: CLOPIDOGREL 75 MG TAB PO SCH (08:34)
[2021-03-17] MEDS: VANCOMYCIN 1,750 MG in SODIUM CHLORIDE 0.9% 500 ML 500 ML IVPB SCH (08:34)
[2021-03-17] MEDS: SERTRALINE 50 MG TAB PO SCH (08:34)
[2021-03-17 08:54] LABS: Basophils # (A) 0.03 X 10*3/uL (0.00-0.10); Basophils % (A) 0.5 %; Eosinophils # (A) 0.18 X 10*3/uL (0.04-0.35); Eosinophils % (A) 2.9 %; HGB 10.2 g/dL (13.0-17.0); Lymphocytes # (A) 1.77 X 10*3/uL (0.90-5.00); MCH 30.4 pg (27.0-32.0); MCHC 31.9 g/dL (32.0-37.0); MCV 95.2 fL (80.0-97.0); Mean Platelet Volume 11.2 fL (9.5-12.2); Monocytes # (A) 0.58 X 10*3/uL (0.20-1.00); Monocytes % (A) 9.5 %; Neutrophils # (A) 3.54 X 10*3/uL (1.80-7.70); Neutrophils % (A) 57.9 %; Platelet Count 257 X 10*3/uL (140-440); RBC 3.36 X 10*6/uL (4.40-5.60); RDW 12.7 % (11.5-14.5); WBC 6.11 X 10*3/uL (4.50-10.00)
[2021-03-17 12:02] LABS: Glucose,Whole Blood 141 mg/dL (75-99)
[2021-03-17] MEDS: predniSONE 10 MG TAB PO SCH (16:05)
[2021-03-17 16:23] LABS: Glucose,Whole Blood 162 mg/dL (75-99)
[2021-03-17 20:33] LABS: Glucose,Whole Blood 218 mg/dL (75-99)
[2021-03-17] MEDS: ATORVASTATIN 40 MG TAB PO SCH (20:58)
[2021-03-17] MEDS: TAMSULOSIN 0.4 MG CAP.ER.24H PO SCH (20:58)
[2021-03-17] MEDS: SODIUM CHLORIDE 0.9% 1,000 ML IV SCH (20:59)
[2021-03-17] MEDS: MELATONIN 3 MG TABLET PO SCH (20:59)
--- NOTE | 2021-03-18 00:37 | P.PN ---
Subjective Progress Note Date: 03/17/21 Principal diagnosis: Right upper back cellulitis with abscess. Patient is a 70-year-old male with a known history of coronary artery disease status post stent placement, hypertension, diabetes type 2, hyperlipidemia, history of [place], obstructive sleep apnea on CPAP at home, history of TIA and osteoarthritis, anxiety/depression/bipolar disorder and occasional alcohol use presents to ER with complaints of right upper back abscess. Patient did notice a painful lump to the right upper back for which patient is being treated with antibiotics abdominal X. Patient presents to ER with complaints of worsening swelling and pain and sharp pain 5-6 out of 10 in severity. With minimal purulent drainage. Patient was evaluated in the ER and status post incision and drainage in the ER. Patient is also complaining of left ear pain. Apparently patient was trying to get out of the bus when the delivery truck driver accidentally closed the door on his leg causing him to lose balance and fell on the pavement with resulting pain in the left hip. Hip x-ray showed no acute fracture or dislocation. Laboratory data showed WBC 9.2 hemoglobin 13.1 platelets 205 Sodium 132 potassium 4.5 chloride 99 BUN 29 and creatinine 1.4 and blood sugar is 312 A1c 14.6 03/15/2021 Patient is currently resting in the bed. Awake alert and oriented. Patient is being continued on antibiotics in the form of vancomycin. Due to uncontrolled diabetes patient was started on insulin regimen and titrate dose as needed. Blood pressure 158/77 pulse 56 and this patient 20 and pulse ox 91% on room air currently. Patient has been afebrile. No headache or dizziness or lightheadedness. Patient is at risk for MRSA and is being continued on vancomycin currently. Awaiting final culture report. ID is on board. Renal function with slight improvement in creatinine 1.36 today. 9421 Patient is currently resting in the bed. Awake alert oriented x3. Continued on antibiotics above vancomycin due to right upper back cellulitis and abscess. Wound cultures are growing presumptive staph aureus. ID is on board. Final antibiotic recommendations pending culture report. Patient is afebrile. Blood pressure is elevated and will be continued on Norvasc and will add lisinopril once renal function normalizes. Blood sugar this morning is 86. Continue with insulin regimen and titrate as needed. 9521 Patient is currently resting in the bed comfortably. Complains of left heel pain and difficulty bearing weight and tenderness to outpatient. Left heel is also warm to touch and possible gouty arthritis. Patient will be started on prednisone 30 mg daily and uric acid level was ordered. Patient did have some movement with Motrin dose x1 yesterday. Otherwise right upper back wound cultures grew MSSA. Patient will be continued on oral antibiotic course with Keflex as per ID recommendations. Continue with cefazolin while in the hospital. Patient has been afebrile. Laboratory showed WBC 6.1 hemoglobin 10.1 platelets 257 Sodium 138 potassium 5.3 chloride 105 BUN 23 and creatinine 1.32 patient is tolerating oral diet. Current medications reviewed. Objective - Vital Signs Vital signs: Vital Signs Temp 97.8 F 03/17/21 14:23 Pulse 58 L 03/17/21 14:23 Resp 16 03/17/21 14:23 BP 152/77 03/17/21 14:23 Pulse Ox 93 L 03/17/21 14:23 Intake & Output 03/16/21 03/17/21 03/17/21 18:59 06:59 18:59 Intake Total 840 Output Total 700 1100 Balance -700 -260 Intake: Intake, IV Titration 600 Amount Sodium Chloride 0.9% 1, 100 000 ml @ 20 mls/hr IV . Q24H [facility] Rx#:[id number] Vancomycin 1,750 mg In 500 Sodium Chloride 0.9% 500 ml 500 ml @ 167 mls/hr IVPB Q16H [facility] Rx#: [id number] Oral 240 Output: Urine 700 1100 Other: Voiding Method Toilet Urinal # Voids 1 3 2 # Bowel Movements 1 - Exam PHYSICAL EXAMINATION: Patient is lying in the bed comfortably, no acute distress, awake alert and oriented.. HEENT: Normocephalic. Neck is supple. Pupils reactive. Nostrils clear. Oral cavity is moist. Neck reveals no JVD, carotid bruits, or thyromegaly. CHEST EXAMINATION: Trachea is central. Symmetrical expansion. Lung cazares clear to auscultation and percussion. Patient does have abscess of the right upper back. With surrounding redness and tenderness. CARDIAC: Normal S1, S2 with no gallops. No murmurs ABDOMEN: Soft. Bowel sounds normal. No organomegaly. No abdominal bruits. Extremities: reveal no edema. No clubbing or cyanosis Neurologically awake, alert, oriented x3 with well-coordinated movements. No focal deficits noted Skin: No rash or skin lesions. Psychiatric: Coperative. Nonsuicidal Musculoskeletal: No joint swelling or deformity. Normal range of motion. - Labs CBC & Chem 7: 03/17/21 04:19 03/17/21 04:19 Labs: Abnormal Lab Results - Last 24 Hours (Table) 03/16/21 03/17/21 03/17/21 Range/Units 20:33 04:19 04:19 RBC 3.36 L (4.40-5.60) X 10*6/uL Hgb 10.2 L (13.0-17.0) g/dL Hct 32.0 L (39.6-50.0) % MCHC 31.9 L (32.0-37.0) g/dL Potassium 5.3 H (3.5-5.1) mmol/L BUN 23 H (9-20) mg/dL Creatinine 1.32 H (0.66-1.25) mg/dL Glucose 64 L (74-99) mg/dL POC Glucose (mg/dL) 159 H (75-99) mg/dL 03/17/21 03/17/21 03/17/21 Range/Units 08:01 12:00 16:17 RBC (4.40-5.60) X 10*6/uL Hgb (13.0-17.0) g/dL Hct (39.6-50.0) % MCHC (32.0-37.0) g/dL Potassium (3.5-5.1) mmol/L BUN (9-20) mg/dL Creatinine (0.66-1.25) mg/dL Glucose (74-99) mg/dL POC Glucose (mg/dL) 68 L 141 H 162 H (75-99) mg/dL Microbiology - Last 24 Hours (Table) 03/14/21 16:21 Gram Stain - Final Shoulder - Right Wound Culture - Final Staphylococcus aureus Assessment and Plan Assessment: Right upper back cellulitis with abscess. Failed outpatient antibiotic therapy. Possible gouty arthritis of left ankle.. Uncontrolled diabetes type 2 with A1c level 14.6. 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 Obesity with BMI 35.0 Plan: Patient be continued on antibiotics Cefazolin. Vancomycin has been discontinued. Wound culture showed MSSA. . ID is on board. Patient was started back on home insulin regimen and titrate dose as needed for better blood sugar control. Apparently patient has been noncompliant with insulin regimen and also diabetic diet. Continue with pain management and current with home medications and follow-up closely. Anticipate discharged with final culture report.
--- NOTE | 2021-03-18 00:40 | PN ---
PROGRESS NOTE DATE OF SERVICE: 03/17/2021. REASON FOR FOLLOWUP: Right upper back abscess and cellulitis, MSSA. INTERVAL HISTORY: The patient is afebrile, has been breathing comfortably. Overall the pain and discomfort to the right upper back has slightly decreased. No chest pain, shortness of breath or cough. No abdominal pain or diarrhea. However, has been complaining of more pain to the left ankle area. PHYSICAL EXAMINATION: Blood pressure 161/70 with a pulse of 73, temperature is 97.9. He is 97% on room air. General description is an elderly male lying in bed in no distress. Respiratory system: Unlabored breathing, clear to auscultation anteriorly. Heart S1, S2. Regular rate and rhythm. Abdomen soft, no tenderness. LABS: Wound culture finalized with MSSA. DIAGNOSTIC IMPRESSION AND PLAN: Patient with MSSA right upper back abscess status post spontaneous drainage. Antibiotic will be adjusted to cefazolin 2 grams q.8 hours and monitor clinical course closely. Transition to oral Keflex. Continue supportive care. MMODL / IJN: [id number] /
[2021-03-18] MEDS: MORPHINE SULFATE 4 MG/ML SYRINGE IV PRN ×2 (01:45→19:44)
[2021-03-18 07:57] LABS: Glucose,Whole Blood 225 mg/dL (75-99)
[2021-03-18] MEDS: SERTRALINE 50 MG TAB PO SCH (08:27)
[2021-03-18] MEDS: INSULIN DETEMIR (LEVEMIR) 100 UNIT/ML SYR SQ SCH ×2 (08:27→23:44)
[2021-03-18] MEDS: amLODIPine 10 MG TAB PO SCH (08:27)
[2021-03-18] MEDS: CLOPIDOGREL 75 MG TAB PO SCH (08:27)
[2021-03-18] MEDS: INSULIN ASPART (NovoLOG) 100 UNIT/ML VIAL SQ SCH ×4 (08:27→23:44)
[2021-03-18] MEDS: ASPIRIN 81 MG PO SCH (08:27)
[2021-03-18] MEDS: predniSONE 10 MG TAB PO SCH (08:28)
[2021-03-18 09:19] LABS: African American GFR (CKD) 71.6 (60.0-200.0); Anion Gap 7.3 mmol/L (4.00-12.00); BUN/Creat Ratio 20.83 Ratio (12.00-20.00); Calcium 8.1 mg/dL (8.7-10.3); Carbon Dioxide 25.7 mmol/L (21.6-31.8); Non-African American GFR(CKD) 61.8 (60.0-200.0); Potassium 5.8 mmol/L (3.5-5.5); Uric Acid 6.5 mg/dL (3.7-8.7)
[2021-03-18 12:30] LABS: Glucose,Whole Blood 268 mg/dL (75-99)
[2021-03-18 17:37] LABS: Glucose,Whole Blood 344 mg/dL (75-99)
[2021-03-18] MEDS: ATORVASTATIN 40 MG TAB PO SCH (19:44)
[2021-03-18] MEDS: TAMSULOSIN 0.4 MG CAP.ER.24H PO SCH (19:44)
[2021-03-18] MEDS: SODIUM CHLORIDE 0.9% 1,000 ML IV SCH (19:50)
[2021-03-18 21:11] LABS: Glucose,Whole Blood 413 mg/dL (75-99)
--- NOTE | 2021-03-18 21:34 | PN ---
PROGRESS NOTE DATE OF SERVICE: 03/18/2021 REASON FOR FOLLOWUP: Upper back MSSA abscess and cellulitis. INTERVAL HISTORY: The patient is afebrile. He is breathing comfortably. Denies having any chest pain, shortness of breath, abdominal pain, or any worsening of the back area. PHYSICAL EXAMINATION: Blood pressure 106/51 with a pulse of 60, temperature is 97.8. He is 93% on room air. General description is an elderly male lying in bed in no distress. Respiratory system: Unlabored breathing, clear to auscultation anteriorly. Heart S1, S2. Regular rate and rhythm. Abdomen soft, no tenderness. Leg area swelling has decreased. LABS: BUN of 25, creatinine 1.2. DIAGNOSTIC IMPRESSION AND PLAN: Patient with upper back abscess and MSSA with spontaneous drainage. Patient is covered with cefazolin, transition to oral Keflex on discharge and close outpatient followup. MMODL / IJN: [id number] /
[2021-03-18] MEDS: MELATONIN 3 MG TABLET PO SCH (23:44)
[2021-03-19] MEDS: INSULIN ASPART (NovoLOG) 100 UNIT/ML VIAL SQ SCH ×2 (00:01→13:10)
[2021-03-19 00:28] LABS: Glucose,Whole Blood 353 mg/dL (75-99)
[2021-03-19 07:12] LABS: Glucose,Whole Blood 111 mg/dL (75-99)
[2021-03-19] MEDS: amLODIPine 10 MG TAB PO SCH (07:59)
[2021-03-19] MEDS: CLOPIDOGREL 75 MG TAB PO SCH (07:59)
[2021-03-19] MEDS: predniSONE 10 MG TAB PO SCH (07:59)
[2021-03-19] MEDS: ASPIRIN 81 MG PO SCH (07:59)
[2021-03-19] MEDS: SERTRALINE 50 MG TAB PO SCH (07:59)
[2021-03-19] MEDS: INSULIN DETEMIR (LEVEMIR) 100 UNIT/ML SYR SQ SCH (08:00)
[2021-03-19 08:47] VITALS: RESP 16
[2021-03-19 12:31] LABS: Glucose,Whole Blood 127 mg/dL (75-99)
[2021-03-19 15:25] VITALS: BP 178/84; PULSE 64; TEMP 97.9
--- NOTE | 2021-03-19 16:42 | P.DS ---
Providers Date of admission: 03/16/21 04:57 Expected date of discharge: 03/19/21 Attending physician: Gianna Irving Consults: 03/13/21 19:11 Consult Physician Routine Consulting Provider: Myke Joy Consult Reason/Comments: cellulitis failed outpatient treatment Do you want consulting provider notified?: Yes Primary care physician: Stated None Hospital Course: Final diagnosis Right upper back cellulitis with abscess. Failed outpatient antibiotic therapy. Possible gouty arthritis of left ankle.. Uncontrolled diabetes type 2 with A1c level 14.6. 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 Obesity with BMI 35.0 full code Discharge disposition Patient is being discharged in a stable condition with guarded prognosis to home. Patient will follow-up with Dr. Dos Santos in the outpatient setting upon discharge and resources provided as patient will be new to this practice. Patient is to follow up with infectious disease Dr. Joy at the wound center in 1 week. Patient will continue on oral Keflex 500 mg 4 times daily for the next 10 days. Total time taken is greater than 35 minutes. Hospital course Right upper back cellulitis with abscess. Patient is a 70-year-old male with a known history of coronary artery disease status post stent placement, hypertension, diabetes type 2, hyperlipidemia, history of ME, obstructive sleep apnea on CPAP at home, history of TIA and osteoarthritis, anxiety/depression/bipolar disorder and occasional alcohol use presents to ER with complaints of right upper back abscess. Patient did notice a painful lump to the right upper back for which patient is being treated with antibiotics abdominal X. Patient presents to ER with complaints of worsening swelling and pain and sharp pain 5-6 out of 10 in severity. With minimal purulent drainage. Patient was evaluated in the ER and status post incision and drainage in the ER. Patient is also complaining of left ear pain. Apparently patient was trying to get out of the bus when the [employer] b driver accidentally closed the door on his leg causing him to lose balance and fell on the pavement with resulting pain in the left hip. Hip x-ray showed no acute fracture or dislocation. Laboratory data showed WBC 9.2 hemoglobin 13.1 platelets 205 Sodium 132 potassium 4.5 chloride 99 BUN 29 and creatinine 1.4 and blood sugar is 312 A1c 14.6 03/15/2021 Patient is currently resting in the bed. Awake alert and oriented. Patient is being continued on antibiotics in the form of vancomycin. Due to uncontrolled diabetes patient was started on insulin regimen and titrate dose as needed. Blood pressure 158/77 pulse 56 and this patient 20 and pulse ox 91% on room air currently. Patient has been afebrile. No headache or dizziness or lightheadedness. Patient is at risk for MRSA and is being continued on vancomycin currently. Awaiting final culture report. ID is on board. Renal function with slight improvement in creatinine 1.36 today. 03/16/21 Patient is currently resting in the bed. Awake alert oriented x3. Continued on antibiotics above vancomycin due to right upper back cellulitis and abscess. Wound cultures are growing presumptive staph aureus. ID is on board. Final antibiotic recommendations pending culture report. Patient is afebrile. Blood pressure is elevated and will be continued on Norvasc and will add lisinopril once renal function normalizes. Blood sugar this morning is 86. Continue with insulin regimen and titrate as needed. 03/17/21 Patient is currently resting in the bed comfortably. Complains of left heel pain and difficulty bearing weight and tenderness to outpatient. Left heel is also warm to touch and possible gouty arthritis. Patient will be started on prednisone 30 mg daily and uric acid level was ordered. Patient did have some movement with Motrin dose x1 yesterday. Otherwise right upper back wound cultures grew MSSA. Patient will be continued on oral antibiotic course with Keflex as per ID recommendations. Continue with cefazolin while in the hospital. Patient has been afebrile. Laboratory showed WBC 6.1 hemoglobin 10.1 platelets 257 Sodium 138 potassium 5.3 chloride 105 BUN 23 and creatinine 1.32 patient is tolerating oral diet. 03/19/2021 A is seen in follow-up this morning with no acute overnight issues. Patient continues to have left foot pain although states is better. Patient maintained on cefazolin and will continue with oral Keflex 500 mg 4 times daily for the next 10 days and needs close outpatient follow-up with the infection disease center along with establishing with a primary care provider. Resources were provided. Patient continues to use insulin and states he was taking metformin although I have no history and recommending following up with primary care provider this week in the outpatient setting to establish and thoroughly go over medications. Patient states he does have a glucometer and testing supplies. Instructed the patient to continue monitoring Accu-Cheks before meals and at bedtime and keep a diary for primary care follow-up. Currently no reports of chest pain, shortness of breath, or palpitations. Patient is afebrile. No reports of nausea or vomiting and patient is tolerating diet. Patient will be discharged home today. Guarded prognosis. On exam vital signs are stable. Cardio S1, S2 are muffled. Respiratory system shows diminished breath sounds at the bases with no wheezing or rhonchi noted. Abdomen is soft and obese, and nontender. Nervous system shows no focal deficits. Please refer to medication reconciliation sheet for a list of medications. Patient Condition at Discharge: Fair Plan - Discharge Summary Discharge Rx Participant: No New Discharge Prescriptions: New Cephalexin [Keflex] 500 mg PO Q6HR 10 Days #40 cap amLODIPine [Norvasc] 10 mg PO DAILY #30 tab Tamsulosin [Flomax] 0.4 mg PO HS 30 Days #30 tab HYDROcodone/APAP 5-325MG [[place] 5-325] 1 tab PO Q6HR PRN #16 tab PRN Reason: Pain predniSONE 10 mg PO DIRECTED #20 tab Continue Insulin Aspart [NovoLOG Flexpen] 20 units SQ AC-TID Insulin Glargine,Hum.rec.anlog [Lantus Solostar Pen] 60 unit SQ BID Aspirin EC [Ecotrin Low Dose] 81 mg PO DAILY #30 tab Atorvastatin [Lipitor] 40 mg PO HS #30 tab Sertraline [Zoloft] 50 mg PO DAILY #30 tab Nitroglycerin Sl Tabs [Nitrostat] 0.4 mg SUBLINGUAL Q5M PRN PRN Reason: Chest Pain Clopidogrel [Plavix] 75 mg PO DAILY #30 tab Discontinued Cephalexin [Keflex] 500 mg PO Q12HR Tamsulosin HCl [Flomax] 0.4 mg PO DAILY Discharge Medication List Insulin Aspart [NovoLOG Flexpen] 20 units SQ AC-TID 02/24/18 [History] Insulin Glargine,Hum.rec.anlog [Lantus Solostar Pen] 60 unit SQ BID 02/12/21 [History] Nitroglycerin Sl Tabs [Nitrostat] 0.4 mg SUBLINGUAL Q5M PRN 03/13/21 [History] Cephalexin [Keflex] 500 mg PO Q6HR 10 Days #40 cap 03/17/21 [Rx] amLODIPine [Norvasc] 10 mg PO DAILY #30 tab 03/17/21 [Rx] Aspirin EC [Ecotrin Low Dose] 81 mg PO DAILY #30 tab 03/19/21 [Rx] Atorvastatin [Lipitor] 40 mg PO HS #30 tab 03/19/21 [Rx] Clopidogrel [Plavix] 75 mg PO DAILY #30 tab 03/19/21 [Rx] HYDROcodone/APAP 5-325MG [[place] 5-325] 1 tab PO Q6HR PRN #16 tab 03/19/21 [Rx] Sertraline [Zoloft] 50 mg PO DAILY #30 tab 03/19/21 [Rx] Tamsulosin [Flomax] 0.4 mg PO HS 30 Days #30 tab 03/19/21 [Rx] predniSONE 10 mg PO DIRECTED #20 tab 03/19/21 [Rx] Follow up Appointment(s)/Referral(s): Parvin Dos Santos MD [REFERRING] - 1-2 Days Myke Joy MD [STAFF PHYSICIAN] - 04/08/21 1:45 pm Patient Instructions/Handouts: Cellulitis (DC) Activity/Diet/Wound Care/Special Instructions: Activity Limited until follow-up Follow-up with primary care provider to establish Continue taking medications as prescribed Continue monitoring blood sugars and treat accordingly Continue with consistent carb heart healthy diet Follow up at the wound center in one week Discharge Disposition: HOME SELF-CARE
--- NOTE | 2021-03-22 15:58 | P.PN ---
Progress Note - Text Progress Note Date: 03/19/21 REASON FOR FOLLOWUP: Upper back MSSA abscess and cellulitis. INTERVAL HISTORY: The patient remains to be afebrile. He is breathing comfortably. Denies having any chest pain, shortness of breath, abdominal pain, the patient discomfort to the the back area has significantly decreased. PHYSICAL EXAMINATION: Blood pressure 110/50 with a pulse of 60, temperature is 97.8. He is 93% on room air. General description is an elderly male lying in bed in no distress. Respiratory system: Unlabored breathing, clear to auscultation anteriorly. Heart S1, S2. Regular rate and rhythm. Abdomen soft, no tenderness. Leg area swelling has decreased. LABS: Reviewed DIAGNOSTIC IMPRESSION AND PLAN: Patient with upper back abscess and MSSA with spontaneous drainage. Patient seems to have Clinical improvement with cefazolin antibiotic was switched over to oral Keflex and close outpatient follow-up.
== END 2021-03-19 15:57 | disposition home or self-care (01) | DRG 603 ==
LOC: EC 17:53 → 6NMEDSUR 19:07 → OBSVTOIN 03-16 04:57
PROVIDERS: ADMIT Hospitalist; ATTEND Hospitalist
PROC: 0J970ZX Drainage of Back Subcutaneous Tissue and Fascia, Open Approach, Diagnostic (ICD-10-PCS; principal; 2021-03-13)
DX: L03.312 Cellulitis of back [any part except buttock and flank] (principal); E87.1 Hypo-osmolality and hyponatremia; L02.411 Cutaneous abscess of right axilla; E11.65 Type 2 diabetes mellitus with hyperglycemia; B95.61 Methicillin susceptible Staphylococcus aureus infection as the cause of diseases classified elsewhere; E78.5 Hyperlipidemia, unspecified; E66.9 Obesity, unspecified; J44.9 Chronic obstructive pulmonary disease, unspecified; F31.9 Bipolar disorder, unspecified; Z89.421 Acquired absence of other right toe(s); Z79.4 Long term (current) use of insulin; L02.212 Cutaneous abscess of back [any part, except buttock and flank]; E86.1 Hypovolemia; I25.10 Atherosclerotic heart disease of native coronary artery without angina pectoris; M10.9 Gout, unspecified; F41.9 Anxiety disorder, unspecified; I10 Essential (primary) hypertension; S70.00XA Contusion of unspecified hip, initial encounter; T38.3X6A Underdosing of insulin and oral hypoglycemic [antidiabetic] drugs, initial encounter; Z91.128 Patient's intentional underdosing of medication regimen for other reason; I25.2 Old myocardial infarction; G47.33 Obstructive sleep apnea (adult) (pediatric); H92.02 Otalgia, left ear; M25.572 Pain in left ankle and joints of left foot; H26.9 Unspecified cataract; M19.90 Unspecified osteoarthritis, unspecified site; Z68.35 Body mass index [BMI] 35.0-35.9, adult; Z79.82 Long term (current) use of aspirin; Z79.02 Long term (current) use of antithrombotics/antiplatelets; Z79.899 Other long term (current) drug therapy; Z95.1 Presence of aortocoronary bypass graft; Z86.14 Personal history of Methicillin resistant Staphylococcus aureus infection; Z95.5 Presence of coronary angioplasty implant and graft; Z89.021 Acquired absence of right finger(s); Z86.73 Personal history of transient ischemic attack (TIA), and cerebral infarction without residual deficits; Z87.828 Personal history of other (healed) physical injury and trauma; Z60.2 Problems related to living alone; Z86.718 Personal history of other venous thrombosis and embolism; Z86.711 Personal history of pulmonary embolism; Z87.19 Personal history of other diseases of the digestive system; Z98.890 Other specified postprocedural states; W01.0XXA Fall on same level from slipping, tripping and stumbling without subsequent striking against object, initial encounter; Z71.3 Dietary counseling and surveillance; Z88.2 Allergy status to sulfonamides; Z80.8 Family history of malignant neoplasm of other organs or systems; Z82.49 Family history of ischemic heart disease and other diseases of the circulatory system; Z83.79 Family history of other diseases of the digestive system
CPT/HCPCS: 10060; 73502; 80048; 80202; 82565; 83036; 84550; 85025; 87070; 87077; 87186; 87205; 99284

== ENCOUNTER → 2021-03-25 | Outpatient (CLI) | payer MEDICARE | END | disposition home or self-care (01) | LOC: LABWHC1 13:40 | PROVIDERS: ATTEND Internal Medicine | DX: R43.2 Parageusia (principal) | CPT/HCPCS: U0003; C9803 ==